=== PATIENT | female | born 1960 | race Two or more races ===

== ENCOUNTER 2020-06-30 13:50 | Outpatient (REF) | payer OTHER, SELFPAY ==
[2020-06-30 17:38] LABS: Thyroid Stimulating Hormone 1.59 mIU/mL (0.32-4.0)
[2020-07-01 11:06] LABS: CT PCR NOT DETECTED (Not Detect.); NG PCR NOT DETECTED (Not Detect.)
[2020-07-01 11:27] LABS: BV Int Neg Control Negative (Negative); BV Int Pos Control Positive (Positive)
[2020-07-02 23:36] LABS: HPV mRNA E6/E7 Not Detected (Not Detected)
== END 2020-06-30 13:51 | disposition home or self-care (01) ==
LOC: HO.LNP 13:50
PROVIDERS: PCP Internal Medicine; Referring Provider Internal Medicine; Visit Provider Advanced Practice Midwife
DX: Z01.419 Encounter for gynecological examination (general) (routine) without abnormal findings (principal); N95.1 Menopausal and female climacteric states; R30.0 Dysuria; Z20.2 Contact with and (suspected) exposure to infections with a predominantly sexual mode of transmission; E04.9 Nontoxic goiter, unspecified
CPT/HCPCS: 36415; 84443; 87480; 87491; 87510; 87591; 87624; 87625; 87660; 88142

== ENCOUNTER 2020-07-09 11:39 | Day surgery (SDC) | payer OTHER, SELFPAY ==
[2020-07-02 14:14] VITALS: BMI 28.3
--- NOTE | 2020-07-03 14:13 | HO.ANESPROP2 ---
HPI - Anesthesia Eval Consult details Narrative: 59yo F for upper endoscopy s/p gastric bypass, abdominal pain PMFSH Past Medical History Medical History (Updated 07/03/20 @ 14:18 by Allie Louise) Anxiety Arthritis Asthma Back pain Depression Diabetes Enlarged thyroid Fatty liver Fibromyalgia Herpes genitalis History of panic attacks Hx of ectopic Hx of irritable bowel syndrome Hypertension Migraine ARISTEO on CPAP Vitamin D deficiency Family History Family History Sister Hx of diabetes mellitus Hx of myocardial infarction Surgical History Surgical History Hx of bariatric surgery Hx of cholecystectomy Hx of unilateral oophorectomy S/P repair of ventral hernia Social History Social History Alcohol intake: never Smoking Status: Former smoker Smoking Quit Date: 2010 Use of substances other than those prescribed or required for medical reasons: No Advance Directives: No Advance Directives Information Provided: Yes Recently lost weight without trying: No Gender identity: female Meds Allergies Allergy/AdvReac Type Severity Reaction Status Date / Time codeine [Codeine] Allergy Intermediate RASH Verified 07/02/20 14:12 VOMTING- APAP W/ CODEINE, vomiting gemfibrozil [GEMFIBROZIL] Allergy Intermediate RASH Verified 07/02/20 14:12 lisinopril [LISINOPRIL] Allergy Intermediate COUGH Verified 07/02/20 14:12 metformin [METFORMIN] Allergy Intermediate DIARRHEA Verified 07/02/20 14:12 morphine [Morphine] Allergy Intermediate HIVES, Verified 07/02/20 14:12 rash, rash JOI Inhibitors Allergy Unknown Unknown Verified 07/02/20 14:12 cephalexin [Keflex] Allergy Unknown rash Verified 07/02/20 14:12 naproxen Allergy Unknown inadequate Verified 07/02/20 14:12 response Home Medications Medication Instructions Recorded Confirmed Type albuterol sulfate 90 mcg/actuation 1 puff INHALATION Q4H PRN 06/30/20 07/02/20 History aerosol inhaler alcohol swabs pad TOPICAL 06/30/20 History aspirin 81 mg tablet,delayed 81 mg PO DAILY 06/30/20 07/02/20 History release barium sulfate 2 % (w/v) oral ml PO DIRECTED 06/30/20 History suspension blood sugar diagnostic #10 ea 06/30/20 History cholecalciferol (vitamin D3) 25 25 mcg PO DAILY 06/30/20 07/02/20 History mcg (1,000 unit) tablet citalopram 40 mg tablet 40 mg PO DAILY 06/30/20 07/02/20 History clonazepam 1 mg tablet 1 mg PO TID PRN 06/30/20 07/02/20 History clotrimazole-betamethasone 1 applic TOPICAL 06/30/20 History %-0.05 % topical cream diphenhydramine HCl 25 mg capsule mg PO 06/30/20 History dulaglutide 0.75 mg/0.5 mL 1.5 mg SUBCUT QWEEK 06/30/20 07/02/20 History subcutaneous pen injector fluticasone propionate 50 1 spray INTRANASAL DAILY 06/30/20 07/02/20 History mcg/actuation nasal spray,suspension furosemide 20 mg tablet 20 mg PO DAILY 06/30/20 History insulin glargine 100 unit/mL (3 70 unit SUBCUT DAILY 06/30/20 07/02/20 History mL) subcutaneous pen insulin lispro 100 unit/mL 30 unit SUBCUT TIDAC 06/30/20 07/02/20 History subcutaneous pen losartan 25 mg tablet 25 mg PO DAILY 06/30/20 07/02/20 History montelukast 10 mg tablet 10 mg PO DAILY 06/30/20 07/02/20 History mupirocin 2 % topical ointment 1 applic TOPICAL TID 06/30/20 07/02/20 History omeprazole 20 mg capsule,delayed 20 mg PO DAILY 06/30/20 07/02/20 History release pen needle, diabetic 31 gauge x #1200 ea 06/30/20 History /16 pen needle, diabetic 32 gauge x #50 ea 06/30/20 History 5/32 simvastatin 20 mg tablet 20 mg PO BEDTIME 06/30/20 07/02/20 History zolpidem 10 mg tablet 10 mg PO BEDTIME PRN 06/30/20 07/02/20 History acetaminophen [Mapap Arthritis 1,300 mg PO Q8H 07/02/20 07/02/20 History Pain] docusate sodium [Stool Softener] 1 cap PO BID PRN 07/02/20 07/02/20 History Exam Exam Date and Time: July 03, 2020 1413 Height,Weight and Vital Signs: Height 5 ft 2 in Weight 70.307 kg Pertinent Lab Results Pertinent Lab Results: Laboratory Tests 03/31/20 17:15 WBC 9.7 Hgb 14.0 Hct 41.2 Plt Count 208 Assessment and Plan Assessment Anesthesia Assessment: Chart Reviewed
[2020-07-09 11:55] VITALS: BP 136/52; PULSE 53; RESP 16; TEMP 36.4; O2SAT 95
[2020-07-09 12:04] LABS: Glucose, Whole Blood 123 mg/dL (60-115)
[2020-07-09] MEDS: Lactated Ringers 1,000 ML 100 ML IVCONT (12:12)
--- NOTE | 2020-07-09 12:34 | MHC.SHP ---
Pre-Procedural Eval Section B Chief Complaint: abdominal pain Relevant Family History (Specify if Yes): No Relevant Social History: None Present Medications: see Short Stay Collaborative assessment Medical History: Significant History (HTN, DM, HLP, asthma,depression,anxiety) History of Previous Operations: Relevant previous surgery/procedure and date(s) (gastric sleeve,cholecystectomy) Allergies: Allergies Allergy/AdvReac Type Severity Reaction Status Date / Time codeine [Codeine] Allergy Intermediate RASH Verified 07/02/20 14:12 VOMTING- APAP W/ CODEINE, vomiting gemfibrozil [GEMFIBROZIL] Allergy Intermediate RASH Verified 07/02/20 14:12 lisinopril [LISINOPRIL] Allergy Intermediate COUGH Verified 07/02/20 14:12 metformin [METFORMIN] Allergy Intermediate DIARRHEA Verified 07/02/20 14:12 morphine [Morphine] Allergy Intermediate HIVES, Verified 07/02/20 14:12 rash, rash JOI Inhibitors Allergy Unknown Unknown Verified 07/02/20 14:12 cephalexin [Keflex] Allergy Unknown rash Verified 07/02/20 14:12 naproxen Allergy Unknown inadequate Verified 07/02/20 14:12 response Review of Systems Sugical H&P ROS: Negative: Constitution, Cardiovascular, Respiratory, Neurological, Psychiatric, Hem-Onc, Allergic/Immunologic, Gastrointestinal, Genitourinary, Musculoskeletal, Integumentary, Endocrine and Eyes/Ears/Nose/Throat Exam Surgical H&P Exam: Normal: HEENT, Normal: Heart, Normal: Lungs, Normal: Extremities, Normal: Abdomen, Normal: Skin and Normal: Neurological Plan Diagnosis/Plan: Unchanged Patient has been examined and remains a candidate for the planned procedure
--- NOTE | 2020-07-09 12:35 | HO.ANESPROP2 ---
[facility] Past Medical History Medical History (Updated 07/03/20 @ 14:18 by Allie Louise) Anxiety Arthritis Asthma Back pain Depression Diabetes Enlarged thyroid Fatty liver Fibromyalgia Herpes genitalis History of panic attacks Hx of ectopic Hx of irritable bowel syndrome Hypertension Migraine ARISTEO on CPAP Vitamin D deficiency Family History Family History Sister Hx of diabetes mellitus Hx of myocardial infarction Surgical History Surgical History Hx of bariatric surgery Hx of cholecystectomy Hx of unilateral oophorectomy S/P repair of ventral hernia Social History Social History Alcohol intake: never Smoking Status: Former smoker Smoking Quit Date: 2010 Use of substances other than those prescribed or required for medical reasons: No Advance Directives: No Advance Directives Information Provided: Yes Recently lost weight without trying: No Gender identity: female Meds Allergies Allergy/AdvReac Type Severity Reaction Status Date / Time codeine [Codeine] Allergy Intermediate RASH Verified 07/02/20 14:12 VOMTING- APAP W/ CODEINE, vomiting gemfibrozil [GEMFIBROZIL] Allergy Intermediate RASH Verified 07/02/20 14:12 lisinopril [LISINOPRIL] Allergy Intermediate COUGH Verified 07/02/20 14:12 metformin [METFORMIN] Allergy Intermediate DIARRHEA Verified 07/02/20 14:12 morphine [Morphine] Allergy Intermediate HIVES, Verified 07/02/20 14:12 rash, rash JOI Inhibitors Allergy Unknown Unknown Verified 07/02/20 14:12 cephalexin [Keflex] Allergy Unknown rash Verified 07/02/20 14:12 naproxen Allergy Unknown inadequate Verified 07/02/20 14:12 response Home Medications Medication Instructions Recorded Confirmed Type albuterol sulfate 90 mcg/actuation 1 puff INHALATION Q4H PRN 06/30/20 07/02/20 History aerosol inhaler alcohol swabs pad TOPICAL 06/30/20 History aspirin 81 mg tablet,delayed 81 mg PO DAILY 06/30/20 07/02/20 History release barium sulfate 2 % (w/v) oral ml PO DIRECTED 06/30/20 History suspension blood sugar diagnostic #10 ea 06/30/20 History cholecalciferol (vitamin D3) 25 25 mcg PO DAILY 06/30/20 07/02/20 History mcg (1,000 unit) tablet citalopram 40 mg tablet 40 mg PO DAILY 06/30/20 07/02/20 History clonazepam 1 mg tablet 1 mg PO TID PRN 06/30/20 07/02/20 History clotrimazole-betamethasone 1 applic TOPICAL 06/30/20 History %-0.05 % topical cream diphenhydramine HCl 25 mg capsule mg PO 06/30/20 History dulaglutide 0.75 mg/0.5 mL 1.5 mg SUBCUT QWEEK 06/30/20 07/02/20 History subcutaneous pen injector fluticasone propionate 50 1 spray INTRANASAL DAILY 06/30/20 07/02/20 History mcg/actuation nasal spray,suspension furosemide 20 mg tablet 20 mg PO DAILY 06/30/20 History insulin glargine 100 unit/mL (3 70 unit SUBCUT DAILY 06/30/20 07/02/20 History mL) subcutaneous pen insulin lispro 100 unit/mL 30 unit SUBCUT TIDAC 06/30/20 07/02/20 History subcutaneous pen losartan 25 mg tablet 25 mg PO DAILY 06/30/20 07/02/20 History montelukast 10 mg tablet 10 mg PO DAILY 06/30/20 07/02/20 History mupirocin 2 % topical ointment 1 applic TOPICAL TID 06/30/20 07/02/20 History omeprazole 20 mg capsule,delayed 20 mg PO DAILY 06/30/20 07/02/20 History release pen needle, diabetic 31 gauge x #1200 ea 06/30/20 History 5/16 pen needle, diabetic 32 gauge x #50 ea 06/30/20 History 5/32 simvastatin 20 mg tablet 20 mg PO BEDTIME 06/30/20 07/02/20 History zolpidem 10 mg tablet 10 mg PO BEDTIME PRN 06/30/20 07/02/20 History acetaminophen [Mapap Arthritis 1,300 mg PO Q8H 07/02/20 07/02/20 History Pain] docusate sodium [Stool Softener] 1 cap PO BID PRN 07/02/20 07/02/20 History Exam Exam Date and Time: July 09, 2020 1235 Height,Weight and Vital Signs: Height 5 ft 2 in Weight 70.307 kg Last Vital Signs Temp 97.6 F 07/09/20 11:55 Pulse 53 07/09/20 11:55 Resp 16 07/09/20 11:55 BP 136/52 L 07/09/20 11:55 Pulse Ox 95 07/09/20 11:55 Pertinent Lab Results Pertinent Lab Results: Laboratory Tests 07/09/20 12:01 POC Glucose 123 H Airway Mallampati Class: II TM Dist: >3cm Neck ROM: Full Heart: RRR Assessment and Plan Assessment Anesthesia Assessment: Anesthesia Plan Discussed Final Anesthetic Review NPO: Yes ASA Class: III Anesthetic Plan Anesthetic Plan: MAC:
--- NOTE | 2020-07-09 13:02 | PM.OP ---
Brief Operative Note Date of procedure: 07/09/20 Pre-op diagnosis: LUQ pain Post-op diagnosis: same Procedure: Procedure Description: EGD FLEXIBLE TRANSORAL UPPER GASTROINTESTINAL ENDOSCOPY UPPER ENDOSCOPY Consent: Indications for the procedure and potential complications of bleeding, perforation, reaction to medications and missed diagnosis were discussed with the patient and informed consent was obtained. Instrument: Olympus GIF H 190 J mid size upper endoscope Monitoring: Vital signs and clinical assessment, continuous EKG monitoring, Pulse oximetry, Carbon Dioxide monitoring and blood pressure monitoring were done throughout the procedure. Procedure: The patient was placed in the left lateral decubitis position and pre-procedure medications were administered and a bite block was placed. The endoscope was inserted into the mouth and advanced under direct vision to the third part of duodenum. A careful inspection was made as the upper endoscope was withdrawn including a retroflexed examination of the proximal stomach; Findings and interventions are described below. Findings: Larynx:normal Esophagus: GE junction at 38 cm, diaphragm hiatus at 38 cm, no varices or esophagitis. Stomach: streaky gastric erythema. Biopsies were obtained. Grade 2 flap valve on retroflexed examination of the cardia. Note made of sleeve gastrectomy, fundic gland appearing polyps noted which were biopsied Duodenum: Normal bulb and descending duodenum, bx taken Intervention: Biopsies as noted above Impression/Findings: suspected fundic gland polyps gastritis PLAN: await bx results, if h pylori pos then treat otherwise optimize acid control, can use high dose PPi e.g pantoprazole with carafate, stop omeprazole consider GES if sx persist Surgeon: Ladi Edwards MD Anesthesia: MAC Condition: stable Disposition: PACU
[2020-07-09 13:08] VITALS: BP 137/66; PULSE 64; RESP 14; TEMP 35.7; O2SAT 96
[2020-07-09 13:23] VITALS: BP 137/75; PULSE 67; RESP 18; O2SAT 95
--- NOTE | 2020-07-09 13:52 | HO.POSTANES ---
Post Anesthesia Evaluation Post Anesthesia Evaluation Vital Signs: Vital Signs Temp Pulse Resp BP Pulse Ox 07/09/20 13:23 67 18 137/75 95 07/09/20 13:08 96.2 F L 64 14 137/66 96 07/09/20 11:55 97.6 F 53 16 136/52 L 95 Anesthesia: Monitored and General Mental Status: Awake Pain Control: Satisfactory Nausea/Vomiting: None Hydration: Adequate Anesthesia-Related Issues: No Anes. Related Issues
== END 2020-07-09 13:40 | disposition home or self-care (01) ==
PROVIDERS: PCP Internal Medicine; Visit Provider Internal Medicine Gastroenterology
PROC: 0DJ08ZZ Inspection of Upper Intestinal Tract, Via Natural or Artificial Opening Endoscopic (ICD-10-PCS; CPT 43235; principal; 2020-07-09 13:00)
DX: K29.50 Unspecified chronic gastritis without bleeding (principal); B96.81 Helicobacter pylori [H. pylori] as the cause of diseases classified elsewhere; K31.7 Polyp of stomach and duodenum; K44.9 Diaphragmatic hernia without obstruction or gangrene; I10 Essential (primary) hypertension; E11.9 Type 2 diabetes mellitus without complications; E78.5 Hyperlipidemia, unspecified; F41.8 Other specified anxiety disorders; Z79.4 Long term (current) use of insulin; Z79.82 Long term (current) use of aspirin; Z79.899 Other long term (current) drug therapy; Z98.84 Bariatric surgery status; Z90.49 Acquired absence of other specified parts of digestive tract; Z88.8 Allergy status to other drugs, medicaments and biological substances; Z87.891 Personal history of nicotine dependence
CPT/HCPCS: 43239; 82947; 88305; 88342

== ENCOUNTER → 2020-07-23 12:58 | Outpatient (BNVA) | payer OTHER, SELFPAY | PROVIDERS: Visit Provider Physician Assistant | DX: A04.8 Other specified bacterial intestinal infections (principal); K21.9 Gastro-esophageal reflux disease without esophagitis; Z79.899 Other long term (current) drug therapy; Z98.890 Other specified postprocedural states | CPT/HCPCS: 99212 ==

== ENCOUNTER → 2020-08-20 09:05 | Outpatient (BNVA) | payer OTHER, SELFPAY | PROVIDERS: Visit Provider Physician Assistant | DX: Z76.89 Persons encountering health services in other specified circumstances (principal) ==

== ENCOUNTER 2020-08-26 10:22 | Outpatient (REF) | payer OTHER, SELFPAY ==
[2020-08-26 11:19] LABS: Hematocrit 44.2 % (37-47); Hemoglobin 15.1 g/dl (12.0-16.0); Mean Corpuscular HGB Conc 34.2 g/dl (31.0-35.0); Mean Corpuscular Hemoglobin 31.8 pg (27.0-33.0); Mean Corpuscular Volume 93.1 fL (80-98); Mean Platelet Volume 10.4 fL (9.4-12.3); Platelet Count 233 X10*3/uL (160-400); Red Blood Count 4.75 X10*6/uL (4.20-5.50); Red Cell Distribution Width 12.7 % (11.0-16.0); White Blood Count 8.8 X10*3/uL (4.8-10.8)
[2020-08-26 11:59] LABS: Alanine Aminotransferase 26 U/L (0-31); Alkaline Phosphatase 77 U/L (39-117); Anion Gap 14 (12-20); Aspartate Amino Transferase 23 U/L (5-31); Bilirubin Direct 0.2 mg/dL (0.0-0.5); Bilirubin Total 0.6 mg/dL (0.0-1.0); Blood Urea Nitrogen 8 mg/dL (9-16); Calcium 9.1 mg/dL (8.4-10.2); Carbon Dioxide 27 mmol/L (22-29); Chloride 103 mmol/L (96-108); Cholesterol 185 mg/dL; Estimated Glomerular Filt Rate > 60; Glucose Random 108 mg/dL (60-115); HDL Cholesterol 57 mg/dL; LDL Cholesterol Calculated 97 mg/dl; Potassium 3.8 mmol/l (3.3-5.1); Sodium 140 mmol/L (135-145); Total Protein 7.3 g/dL (6.5-8.0); Triglycerides 156 mg/dL
[2020-08-26 12:02] LABS: Estimated Average Glucose 186 mg/dL; Hemoglobin A1c % 8.1 %
[2020-08-27 07:57] LABS: HBS Num1 284.57 mIU/mL (0-7.99); HBc Num1 0.07 S/CO (0.00-0.79); HBsAGNum1 0.17 S/CO (0.00-0.99); HIV AB/AG Nonreactive (Nonreactive); HIV Num 1 0.22 S/CO (0.00-0.99); Hepatitis B Core Antibody Nonreactive (Nonreactive); Hepatitis B Surface Antigen Negative (Negative); ~HepC Num1 0.21 S/CO (0.00-0.79); ~Hepatitis B Surface Antibody REACTIVE (Nonreactive); ~Hepatitis C Antibody Nonreactive (Nonreactive)
[2020-08-27 08:57] LABS: Syphilis Screen Reactive (Nonreactive)
[2020-09-01 14:57] LABS: CT PCR NOT DETECTED (Not Detect.); NG PCR NOT DETECTED (Not Detect.)
[2020-09-12 13:04] LABS: T.Pallidum Particle Agg Test Reactive (Nonreactive)
== END 2020-08-26 10:23 | disposition home or self-care (01) ==
LOC: HO.LAB 10:22
PROVIDERS: Absent Provider Advanced Practice Midwife; PCP Internal Medicine; Referring Provider Physician Assistant; Visit Provider Internal Medicine
DX: Z20.2 Contact with and (suspected) exposure to infections with a predominantly sexual mode of transmission (principal); R30.0 Dysuria; N95.1 Menopausal and female climacteric states; E11.9 Type 2 diabetes mellitus without complications; A04.8 Other specified bacterial intestinal infections
CPT/HCPCS: 36415; 80048; 80061; 80076; 83036; 85027; 86592; 86704; 86706; 86780; 86803; 87086; 87338; 87340; 87389; 87491; 87591

== ENCOUNTER 2020-08-27 15:03 | Outpatient (REF) | payer OTHER, SELFPAY ==
[2020-11-26 11:46] LABS: HCV Log PCR <1.18 NOT DETECTED; HepC Viral Load <15 NOT DETECTED
== END 2020-08-27 15:04 | disposition home or self-care (01) ==
LOC: HO.LAB 15:03
PROVIDERS: Visit Provider Nurse Practitioner Family
DX: Z20.5 Contact with and (suspected) exposure to viral hepatitis (principal); Z23 Encounter for immunization
CPT/HCPCS: 36415; 87522

== ENCOUNTER → 2020-09-30 13:28 | Outpatient (BNVA) | payer OTHER, SELFPAY | PROVIDERS: PCP Internal Medicine; Referring Provider Internal Medicine; Visit Provider Physician Assistant | DX: Z13.89 Encounter for screening for other disorder (principal) | CPT/HCPCS: 99212 ==

== ENCOUNTER 2020-10-15 09:31 | Outpatient (REF) | payer OTHER, SELFPAY ==
--- NOTE | 2020-10-15 09:35 | US_ITS ---
EXAMINATION: US ABDOMEN COMPLETE CLINICAL INFORMATION: Abdominal pain. COMPARISON: Previous CT of the abdomen and pelvis most recent June 2019 TECHNIQUE: Real-time imaging of the abdominal viscera. FINDINGS: PANCREAS: Normal. ABDOMINAL AORTA: The proximal, mid, and distal segments are normal in caliber. INFERIOR VENA CAVA: Visualized portions are normal. LIVER: Liver echotexture is increased probably representing fatty infiltration. The liver is normal in size. The liver contour is normal. No focal hepatic lesion. There is no intrahepatic biliary duct dilatation seen. GALLBLADDER: Post cholecystectomy. COMMON BILE DUCT: Normal in caliber measuring 0.7 cm in diameter. There is a 2 x 4 mm echogenic focus with twinkle artifact seen in the common bile duct questionable for small stones or sludge. RIGHT KIDNEY: Normal. No hydronephrosis. No renal calculi or focal parenchymal lesions. The kidney measures 11.5 cm in maximum dimension. LEFT KIDNEY: Normal. No hydronephrosis. No renal calculi or focal parenchymal lesions. The kidney measures 10 cm in maximum dimension. SPLEEN: Normal. The spleen measures 9.2 cm in maximum dimension. FREE FLUID: None. US/US abdomen complete IMPRESSION: Echogenic liver probably representing fatty infiltration. Postcholecystectomy. The common bile duct is upper normal in size. 4 x 2 mm echogenic density in the common bile duct questionable for small stone or sludge. This could be better evaluated with MRCP if clinically indicated.
== END 2020-10-15 09:32 | disposition home or self-care (01) ==
LOC: HO.US 09:31
PROVIDERS: Visit Provider Physician Assistant
DX: R10.9 Unspecified abdominal pain (principal)
CPT/HCPCS: 76700

== ENCOUNTER 2020-10-15 10:40 | Outpatient (REF) | payer OTHER, SELFPAY | END 2020-10-15 10:41 | disposition home or self-care (01) | LOC: HO.LAB 10:40 | PROVIDERS: PCP Internal Medicine; Visit Provider Internal Medicine | DX: Z20.822 Contact with and (suspected) exposure to COVID-19 (principal) | CPT/HCPCS: 36415; C9803; U0003 ==

== ENCOUNTER → 2020-10-27 11:49 | Outpatient (BNVA) | payer OTHER, SELFPAY | PROVIDERS: Visit Provider Advanced Practice Midwife ==

== ENCOUNTER → 2020-10-29 12:42 | Outpatient (BNVA) | payer OTHER, SELFPAY | PROVIDERS: PCP Internal Medicine; Visit Provider Physician Assistant ==

== ENCOUNTER 2020-11-11 08:35 | Outpatient (REF) | payer OTHER, SELFPAY ==
--- NOTE | ~2020-11-11 | MR_ITS ---
EXAMINATION: MR ABDOMEN WITHOUT CONTRAST CLINICAL INFORMATION: Unspecified abdominal pain. Question small stone or sludge COMPARISON: Ultrasound 10/15/2020 TECHNIQUE: MR abdomen is performed without gadolinium contrast. Heavily T2-weighted MRCP images were obtained. FINDINGS: LUNG BASES: The visualized lung bases are unremarkable. LIVER, GALLBLADDER, AND BILIARY TREE: There is diffuse loss of signal on opposed phase gradient echo T1-weighted images consistent with diffuse hepatic steatosis. There are a few scattered T2 bright likely hepatic cysts. Lack of intravenous contrast limits further evaluation gallbladder surgically absent. Common bile duct normal in caliber, at most 5 mm in diameter. No filling defect to suggest choledocholithiasis. PANCREAS: Limited noncontrast evaluation is normal. SPLEEN: Unremarkable. ADRENAL GLANDS: No adrenal mass. KIDNEYS AND URETERS: The kidneys are normal in size and shape. No hydronephrosis. No perinephric stranding. GASTROINTESTINAL TRACT: No bowel obstruction. No ascites or fluid collection. ABDOMINAL WALL: No significant hernia is appreciated. LYMPH NODES: No lymphadenopathy. VASCULAR: Unremarkable. OSSEOUS STRUCTURES: Marrow signal normal. MR/MR MRCP IMPRESSION: No biliary ductal dilatation, status post cholecystectomy. Common bile duct normal in caliber, at most 5 mm in diameter. No filling defects to suggest choledocholithiasis. Severe diffuse hepatic steatosis.
== END 2020-11-11 08:36 | disposition home or self-care (01) ==
LOC: HO.MRI 08:35
PROVIDERS: Visit Provider Physician Assistant
DX: R10.9 Unspecified abdominal pain (principal)
CPT/HCPCS: 74181

== ENCOUNTER 2020-11-20 13:30 | Outpatient (REF) | payer OTHER, SELFPAY ==
--- NOTE | ~2020-11-20 | MM_ITS ---
EXAMINATION: MM DIAGNOSTIC DIGITAL BREAST TOMOSYNTHESIS, BILATERAL CLINICAL INFORMATION: Due for yearly. Also follow-up probable benign nodule 6:00 right breast. No known family history breast cancer. The lifetime risk of breast cancer based on the Tyrer-Cuzick Model is 5%. COMPARISON: Mammography: 07/16/2019, 01/11/2019, 07/11/2018, 06/21/2018 (BI-RADS 0), 05/25/2017 and 05/13/2016. Targeted right breast ultrasound 07/11/2018. TECHNIQUE: Digital breast tomosynthesis is performed in both the craniocaudal and mediolateral oblique views along with computer-aided detection (CAD). Synthesized 2D images are generated from the tomosynthesis. FINDINGS: There are scattered areas of fibroglandular density (ACR BI-RADS breast composition Category b). Parenchymal pattern is similar to prior studies. The oval nodular asymmetry mid to posterior 6:00 right breast is stable from prior diagnostic studies and in retrospect likely stable from more remote mammography 2016 and 2015. It is now considered benign. The remainder of the breasts show no significant mass or architectural abnormality or abnormal calcifications. There is mild chronic right nipple retraction limited to CC view. The axilla are unremarkable. No skin thickening or focal skin retraction. Results are provided to the patient at time of visit by the technologist. MM/MM tomosynthesis diagnostic BI IMPRESSION: 1. No significant changes from prior studies. 2. Benign-appearing nodule 6:00 right breast stable and now considered benign. ASSESSMENT: BI-RADS 2: Benign RECOMMENDATION: Routine annual mammography screening. This patient's information was entered into a reminder system with a target due date for their next mammogram.
== END 2020-11-20 13:31 | disposition home or self-care (01) ==
LOC: HO.MAMMO 13:30
PROVIDERS: PCP Internal Medicine; Visit Provider Internal Medicine
DX: N63.15 Unspecified lump in the right breast, overlapping quadrants (principal)
CPT/HCPCS: 77062; 77066

== ENCOUNTER → 2020-12-17 08:33 | Outpatient (BNVA) | payer OTHER, SELFPAY | PROVIDERS: PCP Internal Medicine; Visit Provider Physician Assistant ==

== ENCOUNTER → 2021-03-24 12:09 | Outpatient (BNVA) | payer OTHER, SELFPAY | PROVIDERS: PCP Internal Medicine; Visit Provider Nurse Practitioner Gerontology | DX: E11.65 Type 2 diabetes mellitus with hyperglycemia (principal); E66.09 Other obesity due to excess calories; E78.00 Pure hypercholesterolemia, unspecified; I10 Essential (primary) hypertension; Z79.4 Long term (current) use of insulin | CPT/HCPCS: 82947; 99212 ==

== ENCOUNTER 2021-03-25 12:29 | Outpatient (REF) | payer OTHER, SELFPAY ==
[2021-03-26 08:22] LABS: BV Int Neg Control Negative (Negative); BV Int Pos Control Positive (Positive)
[2021-03-26 08:28] LABS: CT PCR NOT DETECTED (Not Detect.); NG PCR NOT DETECTED (Not Detect.)
== END 2021-03-25 12:30 | disposition home or self-care (01) ==
LOC: HO.LAB 12:29
PROVIDERS: Advanced Practice Midwife; Visit Provider Internal Medicine
DX: Z11.3 Encounter for screening for infections with a predominantly sexual mode of transmission (principal); Z20.822 Contact with and (suspected) exposure to COVID-19; N89.8 Other specified noninflammatory disorders of vagina; N94.10 Unspecified dyspareunia; Z20.2 Contact with and (suspected) exposure to infections with a predominantly sexual mode of transmission
CPT/HCPCS: 87480; 87491; 87510; 87591; 87660; 99212; C9803; U0003; U0005

== ENCOUNTER → 2021-04-09 11:24 | Outpatient (BNVA) | payer OTHER, SELFPAY | PROVIDERS: PCP Internal Medicine; Visit Provider Physician Assistant ==

== ENCOUNTER 2021-04-13 11:30 | Outpatient (REF) | payer OTHER, SELFPAY ==
[2021-04-13 12:16] LABS: MANUAL DIFF FLAG NO
[2021-04-13 12:25] LABS: Basophils Percent Auto 0.4 % (0-2); Eosinophils Absolute Auto 0.1 X10*3/uL (0.0-0.4); Eosinophils Percent Auto 1.5 % (0-4); Hematocrit 45.2 % (37-47); Hemoglobin 14.9 g/dl (12.0-16.0); Imm Gran Abs Auto 0.02 X10*3/uL (0.00-0.03); Imm Gran Pct Auto 0.3 % (0.0-0.4); Lymphocytes Percent Auto 39.6 % (20-40); Mean Corpuscular Hemoglobin 30.2 pg (27.0-33.0); Mean Corpuscular Volume 91.7 fL (80-98); Mean Platelet Volume 10.5 fL (9.4-12.3); Monocytes Absolute Auto 0.6 X10*3/uL (0.1-1.2); Monocytes Percent Auto 7.5 % (2-11); Neutrophils Absolute Auto 3.8 X10*3/uL (2.0-8.3); Neutrophils Percent Auto 50.7 % (45-73); Platelet Count 232 X10*3/uL (160-400); Red Blood Count 4.93 X10*6/uL (4.20-5.50); Red Cell Distribution Width 12.7 % (11.0-16.0); White Blood Count 7.5 X10*3/uL (4.8-10.8)
[2021-04-13 12:43] LABS: Alanine Aminotransferase 21 U/L (0-31); Alkaline Phosphatase 72 U/L (39-117); Anion Gap 14 (12-20); Aspartate Amino Transferase 29 U/L (5-31); Bilirubin Direct 0.2 mg/dL (0.0-0.5); Bilirubin Total 0.5 mg/dL (0.0-1.0); Blood Urea Nitrogen 7 mg/dL (9-16); Calcium 9.4 mg/dL (8.4-10.2); Carbon Dioxide 26 mmol/L (22-29); Chloride 104 mmol/L (96-108); Estimated Glomerular Filt Rate > 60; Glucose Random 165 mg/dL (60-115); Potassium 4.2 mmol/L (3.3-5.1); Sodium 140 mmol/L (135-145); Total Protein 7.4 g/dL (6.5-8.0)
[2021-04-17 19:32] LABS: FIB-ALT 21 U/L (6-29); FIB-Alpha-2-Macroglobulin 330 mg/dL (106-279); FIB-Apolipoprotein A1 156 mg/dL (101-198); FIB-GGT 109 U/L (3-65); FIB-Haptoglobin 144 mg/dL (43-212); FIB-Total Bilirubin 0.4 mg/dL (0.2-1.2); Liver Fibrosis Score 0.49; Liver Fibrosis Stage F2; Nec Inflam Act Grade A0; Nec Inflam Act Score 0.11
== END 2021-04-13 11:31 | disposition home or self-care (01) ==
LOC: HO.LAB 11:30
PROVIDERS: PCP Internal Medicine; Visit Provider Physician Assistant
DX: K62.5 Hemorrhage of anus and rectum (principal); R10.11 Right upper quadrant pain; B19.20 Unspecified viral hepatitis C without hepatic coma
CPT/HCPCS: 36415; 80053; 80076; 81596; 82248; 85025

== ENCOUNTER → 2021-05-27 14:06 | Outpatient (BNVA) | payer OTHER, SELFPAY | PROVIDERS: PCP Internal Medicine; Visit Provider Physician Assistant ==

== ENCOUNTER → 2021-07-13 12:30 | Outpatient (BNVA) | payer OTHER, SELFPAY | PROVIDERS: PCP Internal Medicine; Visit Provider Nurse Practitioner Gerontology | DX: E11.65 Type 2 diabetes mellitus with hyperglycemia (principal); E78.00 Pure hypercholesterolemia, unspecified; E66.3 Overweight; I10 Essential (primary) hypertension; Z79.4 Long term (current) use of insulin | CPT/HCPCS: 82947; 99212 ==

== ENCOUNTER 2021-07-17 12:34 | Outpatient (REF) | payer OTHER, SELFPAY ==
[2021-07-17 12:47] LABS: MANUAL DIFF FLAG NO
[2021-07-17 12:53] LABS: Basophils Absolute Auto 0.1 X10*3/uL (0.0-0.2); Basophils Percent Auto 0.8 % (0-2); Eosinophils Absolute Auto 0.1 X10*3/uL (0.0-0.4); Eosinophils Percent Auto 1.8 % (0-4); Hemoglobin 14.4 g/dl (12.0-16.0); Imm Gran Abs Auto 0.01 X10*3/uL (0.00-0.03); Imm Gran Pct Auto 0.1 % (0.0-0.4); Lymphocytes Absolute Auto 2.8 X10*3/uL (1.2-4.9); Mean Corpuscular HGB Conc 33.5 g/dl (31.0-35.0); Mean Corpuscular Hemoglobin 30.2 pg (27.0-33.0); Mean Corpuscular Volume 90.1 fL (80-98); Mean Platelet Volume 10.3 fL (9.4-12.3); Monocytes Absolute Auto 0.7 X10*3/uL (0.1-1.2); Monocytes Percent Auto 8.2 % (2-11); Neutrophils Absolute Auto 4.3 X10*3/uL (2.0-8.3); Neutrophils Percent Auto 54.1 % (45-73); Platelet Count 223 X10*3/uL (160-400); Red Blood Count 4.77 X10*6/uL (4.20-5.50); Red Cell Distribution Width 12.7 % (11.0-16.0); White Blood Count 7.9 X10*3/uL (4.8-10.8)
[2021-07-17 13:24] LABS: Alanine Aminotransferase 28 U/L (0-31); Albumin Level 4.2 g/dL (3.5-5.0); Alkaline Phosphatase 75 U/L (39-117); Anion Gap 14 (12-20); Aspartate Amino Transferase 38 U/L (5-31); Bilirubin Total 0.6 mg/dL (0.0-1.0); Blood Urea Nitrogen 7 mg/dL (9-16); Calcium 9.5 mg/dL (8.4-10.2); Carbon Dioxide 27 mmol/L (22-29); Chloride 104 mmol/L (96-108); Cholesterol 172 mg/dL; Estimated Glomerular Filt Rate > 60; Glucose Random 133 mg/dL (60-115); HDL Cholesterol 45 mg/dL; LDL Cholesterol Calculated 94 mg/dl; Sodium 141 mmol/L (135-145); Total Protein 7.3 g/dL (6.5-8.0); Triglycerides 166 mg/dL
[2021-07-17 13:44] LABS: Erythrocyte Sedimentation Rate 7 MM/HR (0-20)
[2021-07-17 13:45] LABS: Free T4 (Free Thyroxine) 0.82 ng/dL (0.71-1.85); Vitamin D 25-OH Total 40.7 ng/mL (>30)
[2021-07-17 13:53] LABS: Appearance Urine CLEAR; Color Urine STRAW; Glucose Urine UA NEG (NEG); Leukocyte Esterase Urine 1+ (NEG); Nitrite Urine NEG (NEG); UACC Culture Trigger YES; Urine Blood TRACE (NEG); Urine Ketones NEG (NEG); Urine Protein NEG (NEG-TRACE)
[2021-07-17 14:08] LABS: Squamous Epithelial Cell Urine TRACE /LPF
[2021-07-17 14:08] LABS: Vitamin B12 569 pg/mL (200-900)
[2021-07-17 14:09] LABS: RBC Urine 0-2 /HPF (0)
[2021-07-17 14:11] LABS: Creatinine Urine 15.07 mg/dL; Microalbumin Urine < 5.0 mg/L
== END 2021-07-17 12:35 | disposition home or self-care (01) ==
LOC: HO.LAB 12:34
PROVIDERS: PCP Internal Medicine; Visit Provider Internal Medicine
DX: E11.65 Type 2 diabetes mellitus with hyperglycemia (principal); E78.00 Pure hypercholesterolemia, unspecified; Z79.4 Long term (current) use of insulin
CPT/HCPCS: 36415; 80053; 80061; 81001; 82043; 82306; 82607; 82746; 84439; 84443; 85025; 85652; 87086

== ENCOUNTER 2021-08-03 10:27 | Day surgery (SDC) | payer OTHER, SELFPAY ==
[2021-07-01 09:50] VITALS: BMI 29.8
--- NOTE | 2021-07-03 10:48 | HO.ANESPROP2 ---
HPI - Anesthesia Eval Consult details Narrative: 60yo F for?Colonoscopy Multiple Med Allergies PMFSH Active Problems Active Problems: All Active Problems (Updated 07/01/21 @ 09:54 by Parisa Ambrose, DARRELL) H. pylori infection (Acute) Vaginal chiki (Acute) Breast density (Acute) Right upper quadrant pain (Acute) Tubular adenoma of colon (Acute) Obesity (BMI 30-39.9) (Acute) Candidal intertrigo (Acute) NAFLD (nonalcoholic fatty liver disease) (Acute) Problematic vaginal discharge (Acute) Dyspareunia in female (Acute) Potential exposure to STD (Acute) Low back pain (Acute) Lumbar degenerative disc disease (Acute) Abdominal pain (Acute) Obesity due to excess calories (Acute) GERD (gastroesophageal reflux disease) (Acute) Hypercholesterolemia (Acute) Type 2 diabetes mellitus with hyperglycemia (Acute) Anxiety and depression (Acute) Intertrigo (Acute) Essential hypertension (Acute) Past Medical History Medical History (Updated 07/01/21 @ 09:54 by Parisa Ambrose RN) Abdominal pain Anxiety and depression Arthritis Asthma COVID-19 vaccine series completed Enlarged thyroid Essential hypertension Fatty liver Fibromyalgia Gallbladder polyp GERD (gastroesophageal reflux disease) Herpes genitalis History of panic attacks Hx of ectopic Hx of irritable bowel syndrome Hypercholesterolemia Hypertension Insomnia Intertrigo Migraine Obesity due to excess calories ARISTEO on CPAP Osteopenia Type 2 diabetes mellitus with hyperglycemia Vitamin D deficiency Family History Family History Sister Hx of diabetes mellitus Hx of myocardial infarction Surgical History Surgical History (Updated 07/01/21 @ 09:40 by Parisa Ambrose RN) H/O colonoscopy History of esophagogastroduodenoscopy (EGD) Hx of bariatric surgery Hx of cholecystectomy Hx of unilateral oophorectomy S/P repair of ventral hernia Social History Social History Household Members: None Housing: Apartment Alcohol intake: current Alcohol intake frequency: does not drink Patient Tobacco Use Status: Former Tobacco user Tobacco use type: Cigarette Cigarette Packs Per Day: 2 Years Smoked: 20 e-Cigarette/Vaping Use: Never Used Second Hand Smoke Exposure: No Current occupational status: disabled Gender identity: Female Meds Allergies Allergy/AdvReac Type Severity Reaction Status Date / Time JOI Inhibitors Allergy Intermediate Cough Verified 07/01/21 09:35 cephalexin [Keflex] Allergy Intermediate rash Verified 07/01/21 09:35 codeine [Codeine] Allergy Intermediate RASH Verified 06/25/21 15:03 VOMTING- APAP W/ CODEINE, vomiting gemfibrozil [GEMFIBROZIL] Allergy Intermediate RASH Verified 06/25/21 15:03 metformin [METFORMIN] Allergy Intermediate DIARRHEA Verified 06/25/21 15:03 morphine [Morphine] Allergy Intermediate HIVES, Verified 06/25/21 15:03 rash, rash naproxen Allergy Intermediate inadequate Verified 07/01/21 09:35 response Home Medications Medication Instructions Recorded Confirmed Last Taken Type mupirocin 2 % topical ointment 1 applic TOPICAL TID 06/30/20 05/27/21 Unknown History clonazepam 0.5 mg tablet 0.5 mg PO DAILY PRN 11/21/20 07/01/21 Unknown History pen needle, diabetic 32 gauge x #50 ea 11/21/20 05/27/21 Unknown History Exam Exam Date and Time: July 03, 2021 1048 Height,Weight and Vital Signs: Height 5 ft 2 in Weight 73.936 kg Pertinent Lab Results Pertinent Lab Results: Laboratory Tests 04/13/21 04/13/21 11:44 11:44 WBC 7.5 Hgb 14.9 Hct 45.2 Plt Count 232 Sodium 140 Potassium 4.2 Chloride 104 Carbon Dioxide 26 BUN 7 L Creatinine 0.81 Assessment and Plan Assessment Anesthesia Assessment: Chart Reviewed
--- NOTE | 2021-07-07 08:02 | PC.NURSE ---
Patient cancelled, will call office to reschedule
--- NOTE | 2021-07-30 14:54 | P.CONAN_ITS ---
Documented by User: Allie Louise NP 07/30/21 14:56 HPI - Anesthesia Eval Consult details Narrative: 60yo F for Colonoscopy Multiple med allergies PMFSH Active Problems Active Problems: All Active Problems (Updated 07/13/21 @ 17:11 by Jennifer Kaye [facility]-) Overweight (Acute) H. pylori infection (Acute) Vaginal chiki (Acute) Breast density (Acute) Right upper quadrant pain (Acute) Tubular adenoma of colon (Acute) Obesity (BMI 30-39.9) (Acute) Candidal intertrigo (Acute) NAFLD (nonalcoholic fatty liver disease) (Acute) Problematic vaginal discharge (Acute) Dyspareunia in female (Acute) Potential exposure to STD (Acute) Low back pain (Acute) Lumbar degenerative disc disease (Acute) Abdominal pain (Acute) GERD (gastroesophageal reflux disease) (Acute) Hypercholesterolemia (Acute) Type 2 diabetes mellitus with hyperglycemia (Acute) Anxiety and depression (Acute) Intertrigo (Acute) Essential hypertension (Acute) Past Medical History Medical History Abdominal pain Anxiety and depression Arthritis Asthma COVID-19 vaccine series completed Enlarged thyroid Essential hypertension Fatty liver Fibromyalgia Gallbladder polyp GERD (gastroesophageal reflux disease) Herpes genitalis History of panic attacks Hx of ectopic Hx of irritable bowel syndrome Hypercholesterolemia Hypertension Insomnia Intertrigo Migraine ARISTEO on CPAP Osteopenia Overweight Type 2 diabetes mellitus with hyperglycemia Vitamin D deficiency Family History Family History Sister Hx of diabetes mellitus Hx of myocardial infarction Surgical History Surgical History H/O colonoscopy History of esophagogastroduodenoscopy (EGD) Hx of bariatric surgery Hx of cholecystectomy Hx of unilateral oophorectomy S/P repair of ventral hernia Social History Social History (Updated 07/13/21 @ 12:40 by CHASE Perales) Household Members: None Housing: Apartment Alcohol intake: current Alcohol intake frequency: does not drink Patient Tobacco Use Status: Former Tobacco user Tobacco use type: Cigarette Cigarette Packs Per Day: 2 Years Smoked: 20 e-Cigarette/Vaping Use: Never Used Second Hand Smoke Exposure: No Use of substances other than those prescribed or required for medical reasons: No Are you DNR?: No Advance Directives Information Provided: Yes (informational brochure mailed) Advance Directives on File: No Recently lost weight without trying: No Nutrition Risks: No Nutritional Risk Current occupational status: disabled Gender identity: Female Meds Allergies Allergy/AdvReac Type Severity Reaction Status Date / Time JOI Inhibitors Allergy Intermediate Cough Verified 08/03/21 11:17 cephalexin [Keflex] Allergy Intermediate rash Verified 08/03/21 11:17 codeine [Codeine] Allergy Intermediate RASH Verified 08/03/21 11:17 VOMTING- APAP W/ CODEINE, vomiting gemfibrozil [GEMFIBROZIL] Allergy Intermediate RASH Verified 08/03/21 11:17 metformin [METFORMIN] Allergy Intermediate DIARRHEA Verified 08/03/21 11:17 morphine [Morphine] Allergy Intermediate HIVES, Verified 08/03/21 11:17 rash, rash naproxen Allergy Intermediate inadequate Verified 08/03/21 11:17 response sulfamethoxazole AdvReac Intermediate nausea Verified 08/03/21 11:17 [From Bactrim] trimethoprim [From Bactrim] AdvReac Intermediate nausea Verified 08/03/21 11:17 Home Medications Medication Instructions Recorded Confirmed Last Taken Type mupirocin 2 % topical ointment 1 applic TOPICAL TID 06/30/20 07/13/21 Unknown History pen needle, diabetic 32 gauge x #50 ea 11/21/20 07/13/21 Unknown History clonazepam 1 mg tablet 1 mg PO BID 07/13/21 07/13/21 Unknown History zolpidem 10 mg tablet 10 mg PO BEDTIME PRN 07/13/21 07/13/21 Unknown History Exam Exam Date and Time: July 30, 2021 1455 Height,Weight and Vital Signs: Height 5 ft 2 in Weight 73.936 kg Pertinent Lab Results Pertinent Lab Results: Laboratory Tests 07/17/21 07/17/21 12:46 12:46 WBC 7.9 Hgb 14.4 Hct 43.0 Plt Count 223 Sodium 141 Potassium 4.0 Chloride 104 Carbon Dioxide 27 BUN 7 L Creatinine 0.78 Assessment and Plan Assessment Anesthesia Assessment: Chart Reviewed Documented by User: Miriam Harper MD 08/03/21 11:25 PMFSH Past Medical History Medical History Abdominal pain Anxiety and depression Arthritis Asthma COVID-19 vaccine series completed Enlarged thyroid Essential hypertension Fatty liver Fibromyalgia Gallbladder polyp GERD (gastroesophageal reflux disease) Herpes genitalis History of panic attacks Hx of ectopic Hx of irritable bowel syndrome Hypercholesterolemia Hypertension Insomnia Intertrigo Migraine ARISTEO on CPAP Osteopenia Overweight Type 2 diabetes mellitus with hyperglycemia Vitamin D deficiency Family History Family History Sister Hx of diabetes mellitus Hx of myocardial infarction Family history of problems with anesthesia: No Surgical History Surgical History H/O colonoscopy History of esophagogastroduodenoscopy (EGD) Hx of bariatric surgery Hx of cholecystectomy Hx of unilateral oophorectomy S/P repair of ventral hernia History of Problems with Anesthesia: No Social History Social History (Updated 07/13/21 @ 12:40 by CHASE Perales) Household Members: None Housing: Apartment Alcohol intake: current Alcohol intake frequency: does not drink Patient Tobacco Use Status: Former Tobacco user Tobacco use type: Cigarette Cigarette Packs Per Day: 2 Years Smoked: 20 e-Cigarette/Vaping Use: Never Used Second Hand Smoke Exposure: No Use of substances other than those prescribed or required for medical reasons: No Are you DNR?: No Advance Directives Information Provided: Yes (informational brochure mailed) Advance Directives on File: No Recently lost weight without trying: No Nutrition Risks: No Nutritional Risk Current occupational status: disabled Gender identity: Female Meds Allergies Allergy/AdvReac Type Severity Reaction Status Date / Time JOI Inhibitors Allergy Intermediate Cough Verified 08/03/21 11:17 cephalexin [Keflex] Allergy Intermediate rash Verified 08/03/21 11:17 codeine [Codeine] Allergy Intermediate RASH Verified 08/03/21 11:17 VOMTING- APAP W/ CODEINE, vomiting gemfibrozil [GEMFIBROZIL] Allergy Intermediate RASH Verified 08/03/21 11:17 metformin [METFORMIN] Allergy Intermediate DIARRHEA Verified 08/03/21 11:17 morphine [Morphine] Allergy Intermediate HIVES, Verified 08/03/21 11:17 rash, rash naproxen Allergy Intermediate inadequate Verified 08/03/21 11:17 response sulfamethoxazole AdvReac Intermediate nausea Verified 08/03/21 11:17 [From Bactrim] trimethoprim [From Bactrim] AdvReac Intermediate nausea Verified 08/03/21 11:17 Home Medications Medication Instructions Recorded Confirmed Last Taken Type mupirocin 2 % topical ointment 1 applic TOPICAL TID 06/30/20 07/13/21 Unknown History pen needle, diabetic 32 gauge x #50 ea 11/21/20 07/13/21 Unknown History clonazepam 1 mg tablet 1 mg PO BID 07/13/21 07/13/21 Unknown History zolpidem 10 mg tablet 10 mg PO BEDTIME PRN 07/13/21 07/13/21 Unknown History Exam Airway Mallampati Class: II TM Dist: >3cm Neck ROM: Full Heart: rrr Lungs: cta Assessment and Plan Assessment Anesthesia Assessment: Anesthesia Plan Discussed and Chart Reviewed Final Anesthetic Review Family History of Problems with Anesthesia: No History of Problems with Anesthesia: No NPO: Yes ASA Class: III Final Preanesthetic Review: No Changes in Pt Med Stat, Meds/Allgs Chart Reviewed and Consent Obtained/Reviewed Patient Risk: Intermediate Procedure Risk: Intermediate Anesthetic Plan Anesthetic Plan: MAC: Disposition: Standard PACU
[2021-08-03 11:25] VITALS: BP 154/70; PULSE 58; RESP 16; TEMP 36.6; O2SAT 94
--- NOTE | 2021-08-03 11:33 | MHC.SHP ---
Pre-Procedural Eval Section A Date of Service: 08/03/21 The patient is an INPATIENT: No The History & Physical has been completed within 30 days and I have reviewed it.: No Section B Chief Complaint: colon cancer screening, benign neoplasm of colon Details of Present Illness: Colon cancer screening, history of colon polyps Relevant Family History (Specify if Yes): No Relevant Social History: Tobacco Use (former smoker) Present Medications: see Short Stay Collaborative assessment Medical History: Significant History (Abdominal pain Anxiety and depression Arthritis Asthma Enlarged thyroid Essential hypertension Fatty liver Fibromyalgia Gallbladder polyp GERD (gastroesophageal reflux disease) Herpes genitalis History of panic attacks Hx of ectopic Hx of irritable bowel syndrome Hypercholesterolemia Hyper) History of Previous Operations: Relevant previous surgery/procedure and date(s) (H/O colonoscopy History of esophagogastroduodenoscopy (EGD) Hx of bariatric surgery Hx of cholecystectomy Hx of unilateral oophorectomy S/P repair of ventral hernia) Allergies: Allergies Allergy/AdvReac Type Severity Reaction Status Date / Time JOI Inhibitors Allergy Intermediate Cough Verified 08/03/21 11:17 cephalexin [Keflex] Allergy Intermediate rash Verified 08/03/21 11:17 codeine [Codeine] Allergy Intermediate RASH Verified 08/03/21 11:17 VOMTING- APAP W/ CODEINE, vomiting gemfibrozil [GEMFIBROZIL] Allergy Intermediate RASH Verified 08/03/21 11:17 metformin [METFORMIN] Allergy Intermediate DIARRHEA Verified 08/03/21 11:17 morphine [Morphine] Allergy Intermediate HIVES, Verified 08/03/21 11:17 rash, rash naproxen Allergy Intermediate inadequate Verified 08/03/21 11:17 response sulfamethoxazole AdvReac Intermediate nausea Verified 08/03/21 11:17 [From Bactrim] trimethoprim [From Bactrim] AdvReac Intermediate nausea Verified 08/03/21 11:17 Review of Systems Sugical H&P ROS: Negative: Constitution, Cardiovascular and Respiratory and Yes, Specify: Gastrointestinal (abdominal pain) Exam Surgical H&P Exam: Normal: Heart, Normal: Lungs, Normal: Extremities and Normal: Abdomen Plan Diagnosis/Plan: Unchanged I have reviewed the history and physical and performed a pertinent physical examination on my patient. No changes have occurred unless specified.
[2021-08-03] MEDS: Lactated Ringers 1,000 ML 100 ML IVCONT (11:44)
[2021-08-03 11:49] LABS: Glucose, Whole Blood 122 mg/dL (60-115)
--- NOTE | 2021-08-03 12:05 | P.BOP_ITS ---
Brief Operative Note Date of Service: 08/03/21 Pre-op diagnosis: colon cancer screening Post-op diagnosis: other (poor colon prep, procedure was aborted) Procedure: FLEXIBLE SIGMOIDOCOPY TILL 20 CMS Consent: Indications for the procedure and potential complications of bleeding, perforation, reaction to medications and missed diagnosis were discussed with the patient and informed consent was obtained. Instrument: Olympus PCF H 190 L variable stiffness pediatric colonoscope Monitoring: Vital signs and clinical assessment, intermittent blood pressure monitoring, continuous EKG monitoring, Pulse oximetry and Carbon Dioxide monitoring were done throughout the procedure. Procedure: The patient was placed in the left lateral decubitis position and pre-procedure medications were administered. After a digital rectal examination of the ano-rectum, the video colonoscope was inserted into the rectum and advanced through the colon to 20 cms. It was not possible to advance further due to poor prep with solid stool coating the colonic mucosa and blocking the lumen. The colonoscope was withdrawn and the procedure was abandoned Findings: Sigmoid Colon: Not visualized due to poor prep. Rectum: Not visualized due to poor prep. Colon preparation: poor - procedure was abandoned Impression and Post Procedure Diagnosis: Flexible Sigmoidoscopy Findings: Procedure abandoned due to poor prep. Plan: Patient has an appointment on 08/17/21 in the [facility] with TRIXIE Morales. Need 2 day prep and to take Bisacodyl 2 tablets daily the week before her colonoscopy. Above findings were reviewed with the patient. Surgeon: Kristian Leon MD Anesthesia: MAC (Dario Amador CRNA) Was an Construction Job Cost Estimator used for this Procedure?: No Construction Job Cost Estimator: Param Riggs Estimated blood loss (mL): 0 Pathology: none sent Condition: stable Disposition: PACU
[2021-08-03 12:20] VITALS: BP 103/53; PULSE 61; RESP 18; TEMP 36.6; O2SAT 98
[2021-08-03 12:35] VITALS: BP 113/63; PULSE 59; RESP 18; TEMP 36.2; O2SAT 97
== END 2021-08-03 13:33 | disposition home or self-care (01) ==
PROVIDERS: PCP Internal Medicine; Visit Provider Internal Medicine Gastroenterology
PROC: 0DJD8ZZ Inspection of Lower Intestinal Tract, Via Natural or Artificial Opening Endoscopic (ICD-10-PCS; CPT 45378; principal; 2021-08-03 12:20)
DX: Z12.11 Encounter for screening for malignant neoplasm of colon (principal); Z86.010 Personal history of colon polyps; K21.9 Gastro-esophageal reflux disease without esophagitis; K76.0 Fatty (change of) liver, not elsewhere classified; F32.9 Major depressive disorder, single episode, unspecified; G47.33 Obstructive sleep apnea (adult) (pediatric); J45.909 Unspecified asthma, uncomplicated; I10 Essential (primary) hypertension; E55.9 Vitamin D deficiency, unspecified; E11.65 Type 2 diabetes mellitus with hyperglycemia; Z79.4 Long term (current) use of insulin; Z79.51 Long term (current) use of inhaled steroids; Z79.82 Long term (current) use of aspirin; Z79.899 Other long term (current) drug therapy; Z88.8 Allergy status to other drugs, medicaments and biological substances; Z87.891 Personal history of nicotine dependence
CPT/HCPCS: 45330; 82947

== ENCOUNTER 2021-09-15 14:24 | Outpatient (REF) | payer OTHER, SELFPAY ==
--- NOTE | ~2021-09-15 | US_ITS ---
EXAMINATION: US THYROID CLINICAL INFORMATION: Cervicalgia COMPARISON: None TECHNIQUE: Linear transducer grayscale and color Doppler examination with attention to the region of the thyroid. FINDINGS: SIZE: The thyroid gland is small. Measurements of the thyroid lobes and nodules are given in sagittal, anteroposterior and transverse dimensions respectively. Right Thyroid Lobe: 3.8 x 1.3 x 1.2 cm, volume 3.1 mL. Parenchyma: The gland echotexture is homogeneous. Thyroid vascularity is normal. Left Thyroid Lobe: 3.0 x 1.0 x 1.0 cm, volume 1.4 mL. Parenchyma: The gland echotexture is homogeneous. Thyroid vascularity is normal. Isthmus: 0.2 cm in maximum AP dimension. No focal thyroid nodule is seen. NODES: There are bilateral cervical lymph nodes adjacent to the thyroid gland. Largest lymph nodes are upper normal in size measuring 1 cm in transverse dimension. US/US thyroid IMPRESSION: Small thyroid gland. No nodule seen. Bilateral cervical lymphadenopathy adjacent to the thyroid gland. Larger lymph nodes are upper normal in size.
== END 2021-09-15 14:25 | disposition home or self-care (01) ==
LOC: HO.US 14:24
PROVIDERS: Visit Provider Internal Medicine
DX: M54.2 Cervicalgia (principal)
CPT/HCPCS: 76536

== ENCOUNTER → 2021-10-05 09:29 | Outpatient (BNVA) | payer OTHER, SELFPAY | PROVIDERS: PCP Internal Medicine; Referring Provider Internal Medicine; Visit Provider Internal Medicine Gastroenterology | DX: K59.09 Other constipation (principal); K76.0 Fatty (change of) liver, not elsewhere classified; K21.9 Gastro-esophageal reflux disease without esophagitis; A04.8 Other specified bacterial intestinal infections; E11.65 Type 2 diabetes mellitus with hyperglycemia; Z79.4 Long term (current) use of insulin; Z79.82 Long term (current) use of aspirin | CPT/HCPCS: 99212 ==

== ENCOUNTER 2021-10-05 10:53 | Outpatient (REF) | payer OTHER, SELFPAY ==
--- NOTE | ~2021-10-05 | XR_ITS ---
EXAMINATION: XR ABDOMEN KUB CLINICAL INDICATION: Other constipation COMPARISON: MRCP dated 11/11/[address] scan of the abdomen and pelvis dated 07/24/2019. TECHNIQUE: AP view of the abdomen. FINDINGS: There is a nonobstructive bowel gas pattern. Mild gas and stool are seen within the colon distally to the rectum. Surgical clips overlie the epigastric region, right upper quadrant and right hemipelvis. XR/XR KUB IMPRESSION: Nonobstructive bowel gas pattern. No significant colonic stool burden.
[2021-10-05 11:13] LABS: MANUAL DIFF FLAG NO
[2021-10-05 11:26] LABS: Basophils Absolute Auto 0.1 X10*3/uL (0.0-0.2); Basophils Percent Auto 0.6 % (0-2); Eosinophils Absolute Auto 0.1 X10*3/uL (0.0-0.4); Eosinophils Percent Auto 1.3 % (0-4); Hemoglobin 15.1 g/dl (12.0-16.0); Imm Gran Abs Auto 0.03 X10*3/uL (0.00-0.03); Imm Gran Pct Auto 0.3 % (0.0-0.4); Lymphocytes Absolute Auto 3.3 X10*3/uL (1.2-4.9); Lymphocytes Percent Auto 37.6 % (20-40); Mean Corpuscular HGB Conc 33.6 g/dl (31.0-35.0); Mean Corpuscular Hemoglobin 30.6 pg (27.0-33.0); Mean Corpuscular Volume 91.3 fL (80.0-98.0); Mean Platelet Volume 10.4 fL (9.4-12.3); Monocytes Absolute Auto 0.9 X10*3/uL (0.1-1.2); Monocytes Percent Auto 9.9 % (2-11); Neutrophils Absolute Auto 4.4 x10*3/uL (2.0-8.3); Neutrophils Percent Auto 50.3 % (45-73); Platelet Count 236 X10*3/uL (160-400); Red Blood Count 4.93 X10*6/uL (4.20-5.50); Red Cell Distribution Width 13.1 % (11.0-16.0); White Blood Count 8.8 X10*3/uL (4.8-10.8)
[2021-10-05 12:08] LABS: Appearance Urine CLEAR; Color Urine STRAW; Glucose Urine UA NEG (NEG); Leukocyte Esterase Urine NEG (NEG); Nitrite Urine NEG (NEG); PH 5.5 (5.0-8.0); Urine Blood NEG (NEG); Urine Ketones NEG (NEG); Urine Protein NEG (NEG-TRACE)
[2021-10-05 12:32] LABS: Creatinine Urine 28.53 mg/dL
== END 2021-10-05 10:54 | disposition home or self-care (01) ==
LOC: HO.XRAY 10:53
PROVIDERS: Nurse Practitioner Gerontology; PCP Internal Medicine; Visit Provider Internal Medicine Gastroenterology
DX: K59.09 Other constipation (principal); R74.01 Elevation of levels of liver transaminase levels; E11.65 Type 2 diabetes mellitus with hyperglycemia; R30.0 Dysuria; Z79.4 Long term (current) use of insulin
CPT/HCPCS: 36415; 74018; 81003; 82043; 85025

== ENCOUNTER → 2021-11-03 13:29 | Outpatient (BNVA) | payer OTHER, SELFPAY | PROVIDERS: PCP Internal Medicine; Visit Provider Nurse Practitioner Gerontology ==

== ENCOUNTER → 2021-11-30 10:26 | Outpatient (BNVA) | payer OTHER, SELFPAY | PROVIDERS: PCP Internal Medicine; Referring Provider Internal Medicine; Visit Provider Physician Assistant | DX: K59.09 Other constipation (principal); K76.0 Fatty (change of) liver, not elsewhere classified; K21.9 Gastro-esophageal reflux disease without esophagitis; D12.6 Benign neoplasm of colon, unspecified | CPT/HCPCS: 99212 ==

== ENCOUNTER 2021-12-28 11:26 | Outpatient (REF) | payer OTHER, SELFPAY ==
--- NOTE | ~2021-12-28 | MM_ITS ---
EXAMINATION: MM SCREENING DIGITAL BREAST TOMOSYNTHESIS, BILATERAL CLINICAL INFORMATION: Screening. Asymptomatic. The lifetime risk of breast cancer based on the Tyrer-Cuzick Model is 4%. COMPARISON: Mammography: 11/20/2020, 07/16/2019, 01/11/2019, 07/11/2018, 06/21/2018 TECHNIQUE: Digital breast tomosynthesis is performed in both the craniocaudal and mediolateral oblique views along with computer-aided detection (CAD). Synthesized 2D images are generated from the tomosynthesis. FINDINGS: There are scattered areas of fibroglandular density (ACR BI-RADS breast composition Category b). Parenchymal pattern is similar to prior studies. There is no developing density or architectural abnormality. Oval nodular asymmetry mid central 6:00 right breast is similar to prior exams. No developing density. There are dermal calcifications versus deodorant artifact overlying skin fold right axilla, superficial location confirmed on tomography. The axilla and skin contours are otherwise unremarkable. MM/MM tomosynthesis screening BI IMPRESSION: No significant changes from prior exams. ASSESSMENT: BI-RADS 2: Benign RECOMMENDATION: Routine annual mammography screening. This patient's information was entered into a reminder system with a target due date for their next mammogram.
[2021-12-28 12:25] LABS: Hematocrit 43.9 % (37.0-47.0); Hemoglobin 14.9 g/dl (12.0-16.0); Mean Corpuscular HGB Conc 33.9 g/dl (31.0-35.0); Mean Corpuscular Volume 91.5 fL (80.0-98.0); Mean Platelet Volume 10.6 fL (9.4-12.3); Platelet Count 225 X10*3/uL (160-400); Red Cell Distribution Width 13.1 % (11.0-16.0); White Blood Count 5.8 X10*3/uL (4.8-10.8)
[2021-12-28 12:30] LABS: Appearance Urine HAZY; Color Urine YELLOW; Glucose Urine UA 250 MG/DL (NEG); Leukocyte Esterase Urine NEG (NEG); Nitrite Urine NEG (NEG); Urine Blood NEG (NEG); Urine Ketones NEG (NEG); Urine Protein NEG (NEG-TRACE)
[2021-12-28 12:41] LABS: Estimated Average Glucose 197 mg/dL; Hemoglobin A1c % 8.5 %
[2021-12-28 13:06] LABS: Alanine Aminotransferase 29 U/L (0-31); Albumin Level 4.3 g/dL (3.5-5.0); Alkaline Phosphatase 69 U/L (39-117); Anion Gap 15 (12-20); Aspartate Amino Transferase 35 U/L (5-31); Bilirubin Total 0.6 mg/dL (0.0-1.0); Blood Urea Nitrogen 8 mg/dL (9-16); Calcium 9.9 mg/dL (8.4-10.2); Carbon Dioxide 26 mmol/L (22-29); Chloride 101 mmol/L (96-108); Cholesterol 172 mg/dL; Estimated Glomerular Filt Rate > 60; Glucose Fasting 188 mg/dL (60-99); HDL Cholesterol 46 mg/dL; LDL Cholesterol Calculated 93 mg/dl; Potassium 3.7 mmol/L (3.3-5.1); Sodium 138 mmol/L (135-145); Total Protein 7.8 g/dL (6.5-8.0); Triglycerides 168 mg/dL
[2021-12-28 13:20] LABS: Ferritin 32 ng/mL (10-250); Thyroid Stimulating Hormone 2.89 uIU/mL (0.32-4.0)
[2021-12-30 10:30] LABS: LDL Cholesterol Direct 107 mg/dL (<100)
== END 2021-12-28 11:27 | disposition home or self-care (01) ==
LOC: HO.MAMMO 11:26
PROVIDERS: Internal Medicine Gastroenterology; Absent Provider Physician Assistant; PCP Internal Medicine; Referring Provider Nurse Practitioner Gerontology; Visit Provider Internal Medicine
DX: Z12.31 Encounter for screening mammogram for malignant neoplasm of breast (principal); E11.65 Type 2 diabetes mellitus with hyperglycemia; K59.09 Other constipation; R30.0 Dysuria; Z79.4 Long term (current) use of insulin
CPT/HCPCS: 36415; 77063; 77067; 80053; 80061; 81003; 82728; 83036; 83721; 84443; 85027

== ENCOUNTER 2022-01-12 08:26 | Day surgery (SDC) | payer OTHER, SELFPAY ==
[2022-01-04 13:49] VITALS: BMI 29.2
--- NOTE | 2022-01-08 09:06 | HO.ANESPROP2 ---
Documented by User: Allie Louise NP 01/08/22 09:08 HPI - Anesthesia Eval Consult details Narrative: 61yo F for Upper Endoscopy and Colonoscopy s/p flex sig 07/2021 with MAC (poor prep) Multiple med allergies PMFSH Active Problems Active Problems: All Active Problems (Updated 01/04/22 @ 13:28 by Parisa Ambrose, RN) H. pylori infection (Acute) Vaginal chiki (Acute) Breast density (Acute) Right upper quadrant pain (Acute) Tubular adenoma of colon (Acute) Obesity (BMI 30-39.9) (Acute) Candidal intertrigo (Acute) NAFLD (nonalcoholic fatty liver disease) (Acute) Problematic vaginal discharge (Acute) Dyspareunia in female (Acute) Potential exposure to STD (Acute) Low back pain (Acute) Lumbar degenerative disc disease (Acute) Generalized anxiety disorder (Acute) Overweight (BMI 25.0-29.9) (Acute) Neck discomfort (Acute) Otitis externa (Acute) Chronic constipation (Acute) COVID-19 virus infection (Acute) Diarrhea (Acute) Peripheral neuropathy (Acute) Breast cancer screening by mammogram (Acute) Dysuria (Acute) Urinary incontinence (Acute) Herpes, genital (Acute) Overweight (Acute) Abdominal pain (Acute) GERD (gastroesophageal reflux disease) (Acute) Hypercholesterolemia (Acute) Type 2 diabetes mellitus with hyperglycemia (Acute) Anxiety and depression (Acute) Intertrigo (Acute) Essential hypertension (Acute) Past Medical History Medical History (Updated 01/04/22 @ 13:28 by Parisa Ambrose, RN) Abdominal pain Anxiety and depression Arthritis Asthma COVID-19 vaccine series completed Enlarged thyroid Essential hypertension Fatty liver Fibromyalgia Gallbladder polyp GERD (gastroesophageal reflux disease) Herpes genitalis History of panic attacks Hx of ectopic Hx of flexible sigmoidoscopy Hx of irritable bowel syndrome Hypercholesterolemia Hypertension Insomnia Intertrigo Migraine ARISTEO on CPAP Osteopenia Overweight Type 2 diabetes mellitus with hyperglycemia Vitamin D deficiency Family History Family History Sister Hx of diabetes mellitus Hx of myocardial infarction Family history of problems with anesthesia: No Surgical History Surgical History H/O colonoscopy History of esophagogastroduodenoscopy (EGD) Hx of bariatric surgery Hx of cholecystectomy Hx of unilateral oophorectomy S/P repair of ventral hernia History of Problems with Anesthesia: No Social History Social History Household Members: None Housing: Apartment Alcohol intake: current Alcohol intake frequency: holidays/special occasions only Patient Tobacco Use Status: Former Tobacco user Quit Date: age 41 Tobacco use type: Cigarette Cigarette Packs Per Day: 2 Years Smoked: 20 e-Cigarette/Vaping Use: Never Used Second Hand Smoke Exposure: No Use of substances other than those prescribed or required for medical reasons: No Have you been hit, kicked, punched, or otherwise hurt by someone within the past year? If so, by whom?: No Are you DNR?: No Advance Directives: No Advance Directives Information Provided: Yes (brochure mailed) Advance Directives on File: No Recently lost weight without trying: No Eating poorly because of decreased appetite: No Nutrition Risks: No Nutritional Risk Current occupational status: disabled Gender identity: Female Cognitive needs: No Hearing needs: No Vision needs: No Meds Allergies Allergy/AdvReac Type Severity Reaction Status Date / Time JOI Inhibitors Allergy Intermediate Cough Verified 12/30/21 09:46 cephalexin [Keflex] Allergy Intermediate rash Verified 12/30/21 09:46 codeine [Codeine] Allergy Intermediate RASH Verified 12/30/21 09:46 VOMTING- APAP W/ CODEINE, vomiting gemfibrozil [GEMFIBROZIL] Allergy Intermediate RASH Verified 12/30/21 09:46 metformin [METFORMIN] Allergy Intermediate DIARRHEA Verified 12/30/21 09:46 morphine [Morphine] Allergy Intermediate HIVES, Verified 12/30/21 09:46 rash, rash naproxen Allergy Intermediate inadequate Verified 12/30/21 09:46 response sulfamethoxazole AdvReac Intermediate nausea Verified 12/30/21 09:46 [From Bactrim] trimethoprim [From Bactrim] AdvReac Intermediate nausea Verified 12/30/21 09:46 Home Medications Medication Instructions Recorded Confirmed Last Taken Type pen needle, diabetic 32 gauge x #50 ea 11/21/20 12/30/21 Unknown History clonazepam 1 mg tablet 1 mg PO BID 07/13/21 01/04/22 Unknown History zolpidem 10 mg tablet 10 mg PO BEDTIME PRN 07/13/21 01/04/22 Unknown History clonazepam 0.5 mg tablet 0.5 mg PO DAILY PRN 11/30/21 01/04/22 Unknown History Exam Exam Date and Time: January 08, [id number] Height,Weight and Vital Signs: Height 5 ft 2 in Weight 72.575 kg Pertinent Lab Results Pertinent Lab Results: Laboratory Tests 12/28/21 12/28/21 11:39 11:39 WBC 5.8 Hgb 14.9 Hct 43.9 Plt Count 225 Sodium 138 Potassium 3.7 Chloride 101 Carbon Dioxide 26 BUN 8 L Creatinine 0.83 Assessment and Plan Assessment Anesthesia Assessment: Chart Reviewed Final Anesthetic Review Family History of Problems with Anesthesia: No History of Problems with Anesthesia: No Documented by User: Shasha Escoto MD 01/12/22 10:19 [facility] Past Medical History Medical History (Updated 01/04/22 @ 13:28 by Parisa Ambrose RN) Abdominal pain Anxiety and depression Arthritis Asthma COVID-19 vaccine series completed Enlarged thyroid Essential hypertension Fatty liver Fibromyalgia Gallbladder polyp GERD (gastroesophageal reflux disease) Herpes genitalis History of panic attacks Hx of ectopic Hx of flexible sigmoidoscopy Hx of irritable bowel syndrome Hypercholesterolemia Hypertension Insomnia Intertrigo Migraine ARISTEO on CPAP Osteopenia Overweight Type 2 diabetes mellitus with hyperglycemia Vitamin D deficiency Patient : No Family History Family History Sister Hx of diabetes mellitus Hx of myocardial infarction Surgical History Surgical History H/O colonoscopy History of esophagogastroduodenoscopy (EGD) Hx of bariatric surgery Hx of cholecystectomy Hx of unilateral oophorectomy S/P repair of ventral hernia Social History Social History Household Members: None Housing: Apartment Alcohol intake: current Alcohol intake frequency: holidays/special occasions only Patient Tobacco Use Status: Former Tobacco user Quit Date: age 41 Tobacco use type: Cigarette Cigarette Packs Per Day: 2 Years Smoked: 20 e-Cigarette/Vaping Use: Never Used Second Hand Smoke Exposure: No Use of substances other than those prescribed or required for medical reasons: No Have you been hit, kicked, punched, or otherwise hurt by someone within the past year? If so, by whom?: No Are you DNR?: No Advance Directives: No Advance Directives Information Provided: Yes (brochure mailed) Advance Directives on File: No Recently lost weight without trying: No Eating poorly because of decreased appetite: No Nutrition Risks: No Nutritional Risk Current occupational status: disabled Gender identity: Female Cognitive needs: No Hearing needs: No Vision needs: No Meds Allergies Allergy/AdvReac Type Severity Reaction Status Date / Time JOI Inhibitors Allergy Intermediate Cough Verified 12/30/21 09:46 cephalexin [Keflex] Allergy Intermediate rash Verified 12/30/21 09:46 codeine [Codeine] Allergy Intermediate RASH Verified 12/30/21 09:46 VOMTING- APAP W/ CODEINE, vomiting gemfibrozil [GEMFIBROZIL] Allergy Intermediate RASH Verified 12/30/21 09:46 metformin [METFORMIN] Allergy Intermediate DIARRHEA Verified 12/30/21 09:46 morphine [Morphine] Allergy Intermediate HIVES, Verified 12/30/21 09:46 rash, rash naproxen Allergy Intermediate inadequate Verified 12/30/21 09:46 response sulfamethoxazole AdvReac Intermediate nausea Verified 12/30/21 09:46 [From Bactrim] trimethoprim [From Bactrim] AdvReac Intermediate nausea Verified 12/30/21 09:46 Home Medications Medication Instructions Recorded Confirmed Last Taken Type pen needle, diabetic 32 gauge x #50 ea 11/21/20 12/30/21 Unknown History clonazepam 1 mg tablet 1 mg PO BID 07/13/21 01/04/22 Unknown History zolpidem 10 mg tablet 10 mg PO BEDTIME PRN 07/13/21 01/04/22 Unknown History clonazepam 0.5 mg tablet 0.5 mg PO DAILY PRN 11/30/21 01/04/22 Unknown History Exam Airway Mallampati Class: III TM Dist: >3cm Neck ROM: Full Heart: RRR Lungs: CTA Assessment and Plan Final Anesthetic Review Final Preanesthetic Review: No Changes in Pt Med Stat, Meds/Allgs Chart Reviewed, Consent Obtained/Reviewed and Anes Risks/Benef Reviewed Patient Risk: Intermediate Procedure Risk: Low Anesthetic Plan Anesthetic Plan: MAC: Disposition: Standard PACU
[2022-01-12 09:08] VITALS: BP 138/62; PULSE 57; RESP 18; TEMP 36.5; O2SAT 97
[2022-01-12 09:14] LABS: Glucose, Whole Blood 187 mg/dL (60-115)
--- NOTE | 2022-01-12 09:20 | MHC.SHP ---
Pre-Procedural Eval Section A Date of Service: 01/12/22 Section B Chief Complaint: reflux,benign neoplasm of colon Relevant Family History (Specify if Yes): No Relevant Social History: None Present Medications: see Short Stay Collaborative assessment Medical History: Significant History (Abdominal pain Anxiety and depression Arthritis Asthma COVID-19 vaccine series completed Enlarged thyroid Essential hypertension Fatty liver Fibromyalgia Gallbladder polyp GERD (gastroesophageal reflux disease) Herpes genitalis History of panic attacks Hx of ectopic Hx of flexible sigmoido) History of Previous Operations: Relevant previous surgery/procedure and date(s) (H/O colonoscopy History of esophagogastroduodenoscopy (EGD) Hx of bariatric surgery Hx of cholecystectomy Hx of unilateral oophorectomy S/P repair of ventral hernia) Allergies: Allergies Allergy/AdvReac Type Severity Reaction Status Date / Time JOI Inhibitors Allergy Intermediate Cough Verified 12/30/21 09:46 cephalexin [Keflex] Allergy Intermediate rash Verified 12/30/21 09:46 codeine [Codeine] Allergy Intermediate RASH Verified 12/30/21 09:46 VOMTING- APAP W/ CODEINE, vomiting gemfibrozil [GEMFIBROZIL] Allergy Intermediate RASH Verified 12/30/21 09:46 metformin [METFORMIN] Allergy Intermediate DIARRHEA Verified 12/30/21 09:46 morphine [Morphine] Allergy Intermediate HIVES, Verified 12/30/21 09:46 rash, rash naproxen Allergy Intermediate inadequate Verified 12/30/21 09:46 response sulfamethoxazole AdvReac Intermediate nausea Verified 12/30/21 09:46 [From Bactrim] trimethoprim [From Bactrim] AdvReac Intermediate nausea Verified 12/30/21 09:46 Review of Systems Sugical H&P ROS: Negative: Constitution, Cardiovascular, Respiratory, Neurological, Psychiatric, Hem-Onc, Allergic/Immunologic, Gastrointestinal, Genitourinary, Musculoskeletal, Integumentary, Endocrine and Eyes/Ears/Nose/Throat Exam Surgical H&P Exam: Normal: HEENT, Normal: Heart, Normal: Lungs, Normal: Extremities, Normal: Abdomen, Normal: Skin and Normal: Neurological Plan Diagnosis/Plan: Unchanged I have reviewed the history and physical and performed a pertinent physical examination on my patient. No changes have occurred unless specified.
[2022-01-12] MEDS: Lactated Ringers 1,000 ML 100 ML IVCONT (09:35)
--- NOTE | 2022-01-12 10:13 | PM.OP ---
Brief Operative Note Date of Service: 01/12/22 Pre-op diagnosis: GERD and hx of colon polyps, colon screening Post-op diagnosis: same Procedure: see op note Surgeon: Ladi Edwards MD Anesthesia: MAC Was an Supervisor Record Press used for this Procedure?: No Estimated blood loss (mL): 0 Condition: stable Disposition: PACU
--- NOTE | 2022-01-12 10:14 | W.PM.OPN ---
Operative Note Operative Note Date of Service: 01/12/22 Narrative: Operative Information Procedure Description: EGD, Colonoscopy Indication: GERD< hx of colon polyps, colon screening Anesthesia: MAC FLEXIBLE TRANSORAL UPPER GASTROINTESTINAL ENDOSCOPY AND COLONOSCOPY PROCEDURE NOTE UPPER ENDOSCOPY Consent: Indications for the procedure and potential complications of bleeding, perforation, reaction to medications and missed diagnosis were discussed with the patient and informed consent was obtained. Instrument: Olympus GIF H 190 J mid size upper endoscope Monitoring: Vital signs and clinical assessment, continuous EKG monitoring, Pulse oximetry, Carbon Dioxide monitoring and blood pressure monitoring were done throughout the procedure. Procedure: The patient was placed in the left lateral decubitis position and pre-procedure medications were administered and a bite block was placed. The endoscope was inserted into the mouth and advanced under direct vision to the third part of duodenum. A careful inspection was made as the upper endoscope was withdrawn including a retroflexed examination of the proximal stomach; Findings and interventions are described below. Findings: Larynx:normal Esophagus: GE junction at 36 cm, diaphragm hiatus at 36 cm, normal mucosa Stomach: Streaky gastritis. Biopsies were obtained. Grade 2 flap valve on retroflexed examination of the cardia. Post surgical changes compatible with sleeve gastrectomy noted. 7-8 mm polypoid lesion removed with forceps Duodenum: Normal bulb and descending duodenum, Intervention: Biopsies as noted above COLONOSCOPY Instrument: Olympus variable stiffness adult scope 190L Colonoscopy Monitoring: Vital signs and clinical assessment, continuous EKG monitoring, Pulse oximetry, Carbon Dioxide monitoring and blood pressure monitoring were done throughout the procedure. Colon withdrawal time was 10 minutes. Procedure: The patient was placed in the left lateral decubitis position and pre-procedure medications were administered. After a digital rectal examination of the ano-rectum, the video colonoscope was inserted into the rectum and advanced through the colon to the cecum/TI. The colonoscope was slowly withdrawn in a retrograde panoramic fashion and the colon mucosa was carefully examined including a retroflexed view of the rectum. Findings and interventions are described below. Procedure Difficulty: difficult Findings: Terminal Ileum-not reached Cecum:not visualized due to poor prep Ascending Colon: normal Transverse Colon -normal Descending Colon:normal Sigmoid Colon: severe diverticulosis with narrowing of colon and hypertrophied mucosa, very tight and stiff Rectum: Retroflexion not done due to poor prep Anorectum - normal Colon preparation: [place] Bowel Preparation Scale Right colon; 1 Transverse colon: 1 Left colon; 1 (0 = Unprepared colon segment with mucosa not seen due to solid stool that cannot be cleared. 1 = Portion of mucosa of the colon segment seen, but other areas of the colon segment not well seen due to staining, residual stool and/or opaque liquid. 2 = Minor amount of residual staining, small fragments of stool and/or opaque liquid, but mucosa of colon segment seen well. 3 = Entire mucosa of colon segment seen well with no residual staining, small fragments of stool or opaque liquid) Impression and Post Procedure Diagnosis: Endoscopy Findings: gastritis post surgical changes \ Colonoscopy Findings: diverticulosis, severe poor prep Plan: Await Pathology results Repeat Colonoscopy in 6-12 months, recommend 2 d of clears if can do it, and one week of miralax BId prior to the colon prep High fiber diet leaflet avoid straining at stool, epsom salts and sitz bath, anusol supps or cream Reflux may be due to her sleeve gastrectomy Above findings were reviewed with the patient and relevant handouts were provided if indicated.
[2022-01-12 11:11] VITALS: BP 157/88; PULSE 57; RESP 16; TEMP 36.2; O2SAT 97
[2022-01-12 11:25] VITALS: BP 155/68; PULSE 55; RESP 16; O2SAT 98
[2022-01-12 11:40] VITALS: BP 158/82; PULSE 56; RESP 18; TEMP 36.8; O2SAT 97
== END 2022-01-12 12:16 | disposition home or self-care (01) ==
PROVIDERS: PCP Internal Medicine; Visit Provider Internal Medicine Gastroenterology
PROC: (CPT 45378; principal; 2022-01-12 10:20)
DX: Z12.11 Encounter for screening for malignant neoplasm of colon (principal); Z86.010 Personal history of colon polyps; K57.30 Diverticulosis of large intestine without perforation or abscess without bleeding; K64.0 First degree hemorrhoids; K59.00 Constipation, unspecified; K21.9 Gastro-esophageal reflux disease without esophagitis; K29.50 Unspecified chronic gastritis without bleeding; K31.7 Polyp of stomach and duodenum; K44.9 Diaphragmatic hernia without obstruction or gangrene; K76.0 Fatty (change of) liver, not elsewhere classified; I10 Essential (primary) hypertension; M85.80 Other specified disorders of bone density and structure, unspecified site; J45.909 Unspecified asthma, uncomplicated; G47.33 Obstructive sleep apnea (adult) (pediatric); E55.9 Vitamin D deficiency, unspecified; E11.65 Type 2 diabetes mellitus with hyperglycemia; Z90.3 Acquired absence of stomach [part of]; Z98.84 Bariatric surgery status; Z79.4 Long term (current) use of insulin; Z79.82 Long term (current) use of aspirin; Z79.899 Other long term (current) drug therapy; Z99.89 Dependence on other enabling machines and devices; Z88.2 Allergy status to sulfonamides; Z88.8 Allergy status to other drugs, medicaments and biological substances; Z87.891 Personal history of nicotine dependence
CPT/HCPCS: 45378; 43270; 43239; 82947; 88305; 88342

== ENCOUNTER 2022-04-06 10:25 | Outpatient (REF) | payer OTHER, SELFPAY ==
[2022-04-06 10:39] LABS: MANUAL DIFF FLAG NO
[2022-04-06 11:00] LABS: Basophils Absolute Auto 0.1 X10*3/uL (0.0-0.2); Basophils Percent Auto 0.7 % (0-2); Eosinophils Absolute Auto 0.1 X10*3/uL (0.0-0.4); Eosinophils Percent Auto 1.6 % (0-4); Hematocrit 44.4 % (37.0-47.0); Hemoglobin 14.6 g/dl (12.0-16.0); Imm Gran Abs Auto 0.02 X10*3/uL (0.00-0.03); Imm Gran Pct Auto 0.3 % (0.0-0.4); Lymphocytes Absolute Auto 2.8 X10*3/uL (1.2-4.9); Lymphocytes Percent Auto 38.8 % (20-40); Mean Corpuscular HGB Conc 32.9 g/dl (31.0-35.0); Mean Corpuscular Hemoglobin 30.2 pg (27.0-33.0); Mean Corpuscular Volume 91.7 fL (80.0-98.0); Mean Platelet Volume 10.3 fL (9.4-12.3); Monocytes Absolute Auto 0.6 X10*3/uL (0.1-1.2); Monocytes Percent Auto 8.3 % (2-11); Neutrophils Absolute Auto 3.6 x10*3/uL (2.0-8.3); Neutrophils Percent Auto 50.3 % (45-73); Platelet Count 209 X10*3/uL (160-400); Red Blood Count 4.84 X10*6/uL (4.20-5.50); Red Cell Distribution Width 12.5 % (11.0-16.0); White Blood Count 7.1 X10*3/uL (4.8-10.8)
[2022-04-06 11:17] LABS: Estimated Average Glucose 183 mg/dL
[2022-04-06 11:50] LABS: Alanine Aminotransferase 24 U/L (0-31); Alkaline Phosphatase 59 U/L (39-117); Anion Gap 13 (12-20); Aspartate Amino Transferase 28 U/L (5-31); Bilirubin Total 0.5 mg/dL (0.0-1.0); Blood Urea Nitrogen 8 mg/dL (9-16); Calcium 9.3 mg/dL (8.4-10.2); Carbon Dioxide 26 mmol/L (22-29); Chloride 102 mmol/L (96-108); Cholesterol 163 mg/dL; Estimated Glomerular Filt Rate > 60; Glucose Random 182 mg/dL (60-115); HDL Cholesterol 49 mg/dL; LDL Cholesterol Calculated 83 mg/dl; Potassium 4.3 mmol/L (3.3-5.1); Sodium 137 mmol/L (135-145); Total Protein 7.2 g/dL (6.5-8.0); Triglycerides 159 mg/dL
== END 2022-04-06 10:26 | disposition home or self-care (01) ==
LOC: HO.LAB 10:25
PROVIDERS: PCP Internal Medicine; Visit Provider Internal Medicine
DX: E78.00 Pure hypercholesterolemia, unspecified (principal)
CPT/HCPCS: 36415; 80053; 80061; 83036; 85025

== ENCOUNTER 2022-07-14 12:26 | Outpatient (REF) | payer OTHER, SELFPAY ==
--- NOTE | ~2022-07-14 | CT_ITS ---
EXAMINATION: CT HEAD WITHOUT CONTRAST CLINICAL INFORMATION: Tension headaches. COMPARISON: Brain MRI from 08/01/2018. TECHNIQUE: Contiguous axial imaging was performed from the skullbase to vertex without intravenous administration of contrast. This CT examination was performed using dose optimization techniques as appropriate, variously including the following: *Automated exposure control *Adjustment of mA and/or kV according to patient size (this includes techniques or standardized protocols for targeted exams where dose is matched to indication/reason for exam; i.e. extremities or head) *Use of iterative reconstruction technique DLP: 721 mGy-cm. FINDINGS: There is no evidence of acute intracranial hemorrhage or territorial infarction. No abnormal mass effect or midline shift is seen. Rizvi to white matter differentiation is well preserved. No extra-axial fluid collections are identified. Partially empty sella again incidentally noted. The ventricles are normal in size. There is no abnormal attenuation within the brain parenchyma. The osseous structures and soft tissues are normal. The mastoid air cells and visualized portions of the paranasal sinuses are well aerated. There are severe degenerative changes of the left temporomandibular joint with sclerosis and flattening of the condylar head. Mild subchondral cystic changes also evident. CT/CT head/brain wo IV con IMPRESSION: 1. No acute intracranial pathology. Normal CT scan of the head. 2. 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
== END 2022-07-14 12:27 | disposition home or self-care (01) ==
LOC: HO.CT 12:26
PROVIDERS: PCP Internal Medicine; Visit Provider Psychiatry & Neurology Neurology
DX: G44.209 Tension-type headache, unspecified, not intractable (principal)
CPT/HCPCS: 70450

== ENCOUNTER 2022-07-20 14:04 | Outpatient (REF) | payer OTHER, SELFPAY ==
[2022-07-20 19:05] LABS: CT PCR NOT DETECTED (Not Detect.); NG PCR NOT DETECTED (Not Detect.)
[2022-07-21 09:15] LABS: BV Int Neg Control Negative (Negative); BV Int Pos Control Positive (Positive)
== END 2022-07-20 14:05 | disposition home or self-care (01) ==
LOC: HO.LNP 14:04
PROVIDERS: Visit Provider Advanced Practice Midwife
DX: Z11.3 Encounter for screening for infections with a predominantly sexual mode of transmission (principal); N76.0 Acute vaginitis
CPT/HCPCS: 87480; 87491; 87510; 87591; 87660

== ENCOUNTER → 2022-07-27 12:47 | Outpatient (BNVA) | payer OTHER, SELFPAY | PROVIDERS: PCP Internal Medicine; Visit Provider Nurse Practitioner Family | DX: G47.33 Obstructive sleep apnea (adult) (pediatric) (principal); E66.3 Overweight; E11.65 Type 2 diabetes mellitus with hyperglycemia; I10 Essential (primary) hypertension; G25.81 Restless legs syndrome; R51.9 Headache, unspecified; Z68.29 Body mass index [BMI] 29.0-29.9, adult; Z79.4 Long term (current) use of insulin | CPT/HCPCS: 99202 ==

== ENCOUNTER → 2022-09-06 14:26 | Outpatient (REF) | payer OTHER, SELFPAY | LOC: HO.SL 14:26 | PROVIDERS: PCP Internal Medicine; Visit Provider Psychiatry & Neurology Neurology | DX: G47.33 Obstructive sleep apnea (adult) (pediatric) (principal) | CPT/HCPCS: 95806 ==

== ENCOUNTER → 2022-10-26 13:39 | Outpatient (BNVA) | payer OTHER, SELFPAY | PROVIDERS: PCP Internal Medicine; Visit Provider Nurse Practitioner Family | DX: Z13.89 Encounter for screening for other disorder (principal) ==

== ENCOUNTER 2022-12-09 12:40 | Outpatient (REF) | payer OTHER, SELFPAY ==
[2022-12-09 12:57] LABS: MANUAL DIFF FLAG NO
[2022-12-09 13:29] LABS: Basophils Absolute Auto 0.1 X10*3/uL (0.0-0.2); Basophils Percent Auto 0.6 % (0-2); Eosinophils Absolute Auto 0.1 X10*3/uL (0.0-0.4); Hematocrit 45.3 % (37.0-47.0); Hemoglobin 14.9 g/dl (12.0-16.0); Imm Gran Abs Auto 0.04 X10*3/uL (0.00-0.03); Imm Gran Pct Auto 0.4 % (0.0-0.4); Lymphocytes Absolute Auto 3.3 X10*3/uL (1.2-4.9); Lymphocytes Percent Auto 33.5 % (20-40); Mean Corpuscular HGB Conc 32.9 g/dl (31.0-35.0); Mean Corpuscular Hemoglobin 30.4 pg (27.0-33.0); Mean Corpuscular Volume 92.4 fL (80.0-98.0); Mean Platelet Volume 10.4 fL (9.4-12.3); Monocytes Absolute Auto 0.8 X10*3/uL (0.1-1.2); Monocytes Percent Auto 8.5 % (2-11); Neutrophils Absolute Auto 5.5 x10*3/uL (2.0-8.3); Platelet Count 252 X10*3/uL (160-400); Red Cell Distribution Width 12.7 % (11.0-16.0); White Blood Count 9.8 X10*3/uL (4.8-10.8)
[2022-12-09 13:54] LABS: Estimated Average Glucose 194 mg/dL; Hemoglobin A1c % 8.4 %
[2022-12-09 14:19] LABS: Alanine Aminotransferase 33 U/L (0-31); Albumin Level 4.1 g/dL (3.5-5.0); Alkaline Phosphatase 60 U/L (39-117); Anion Gap 14 (12-20); Aspartate Amino Transferase 39 U/L (5-31); Bilirubin Total 0.8 mg/dL (0.0-1.0); Blood Urea Nitrogen 7 mg/dL (9-16); Calcium 9.3 mg/dL (8.4-10.2); Carbon Dioxide 28 mmol/L (22-29); Chloride 102 mmol/L (96-108); Cholesterol 156 mg/dL; Estimated Glomerular Filt Rate > 60; Glucose Random 135 mg/dL (60-115); HDL Cholesterol 51 mg/dL; LDL Cholesterol Calculated 80 mg/dl; Potassium 4.4 mmol/L (3.3-5.1); Sodium 140 mmol/L (135-145); Total Protein 7.3 g/dL (6.5-8.0); Triglycerides 128 mg/dL
[2022-12-09 14:35] LABS: Folate 11.3 ng/mL (> or = 4.0); Thyroid Stimulating Hormone 5.42 uIU/mL (0.32-4.0); Vitamin B12 677 pg/mL (200-900); Vitamin D 25-OH Total 46.5 ng/mL (>30)
== END 2022-12-09 12:41 | disposition home or self-care (01) ==
LOC: HO.LAB 12:40
PROVIDERS: PCP Internal Medicine; Visit Provider Internal Medicine
DX: E11.65 Type 2 diabetes mellitus with hyperglycemia (principal); E78.00 Pure hypercholesterolemia, unspecified; Z79.4 Long term (current) use of insulin
CPT/HCPCS: 36415; 80053; 80061; 82306; 82607; 82746; 83036; 84443; 85025

== ENCOUNTER → 2023-01-08 00:04 | Outpatient (REF) | payer OTHER, SELFPAY | LOC: HO.SL 00:04 | PROVIDERS: PCP Internal Medicine; Visit Provider Nurse Practitioner Family | DX: G47.33 Obstructive sleep apnea (adult) (pediatric) (principal); G25.81 Restless legs syndrome | CPT/HCPCS: 95810 ==

== ENCOUNTER 2023-01-25 14:45 | Outpatient (REF) | payer OTHER, SELFPAY ==
[2023-01-25 17:57] LABS: CT PCR NOT DETECTED (Not Detect.); NG PCR NOT DETECTED (Not Detect.)
[2023-01-26 04:22] LABS: Syphilis Screen Reactive (Nonreactive)
[2023-01-26 04:36] LABS: HBc Num1 0.09 S/CO (0.00-0.79); HIV AB/AG Nonreactive (Nonreactive); HIV Num 1 0.07 S/CO (0.00-0.99); Hepatitis B Core Antibody Nonreactive (Nonreactive); ~HepC Num1 0.65 S/CO (0.00-0.79); ~Hepatitis C Antibody Nonreactive (Nonreactive)
[2023-01-26 08:55] LABS: BV Int Neg Control Negative (Negative); BV Int Pos Control Positive (Positive)
[2023-01-29 14:23] LABS: RPR Quantitative Non-Reactive (Nonreactive); T.Pallidum Particle Agg Test Reactive (Nonreactive)
== END 2023-01-25 14:46 | disposition home or self-care (01) ==
LOC: HO.LAB 14:45
PROVIDERS: PCP Internal Medicine; Visit Provider Advanced Practice Midwife
DX: Z11.4 Encounter for screening for human immunodeficiency virus [HIV] (principal); R10.2 Pelvic and perineal pain; Z20.2 Contact with and (suspected) exposure to infections with a predominantly sexual mode of transmission; N89.8 Other specified noninflammatory disorders of vagina
CPT/HCPCS: 0353U; 36415; 86592; 86704; 86780; 86803; 87389; 87480; 87510; 87660; 99212

== ENCOUNTER 2023-01-25 15:05 | Outpatient (REF) | payer OTHER, SELFPAY | END 2023-01-25 15:06 | disposition home or self-care (01) | LOC: HO.LNP 15:05 | PROVIDERS: Visit Provider Advanced Practice Midwife | DX: Z13.89 Encounter for screening for other disorder (principal) ==

== ENCOUNTER 2023-02-01 13:25 | Outpatient (REF) | payer OTHER, SELFPAY ==
--- NOTE | ~2023-02-01 | MM_ITS ---
EXAMINATION: MM SCREENING DIGITAL BREAST TOMOSYNTHESIS, BILATERAL CLINICAL INFORMATION: Screening. Asymptomatic. The lifetime risk of breast cancer based on the Tyrer-Cuzick Model is 4%. COMPARISON: Mammography: 12/28/2021, 11/20/2020, 07/16/2019 TECHNIQUE: Digital breast tomosynthesis is performed in both the craniocaudal and mediolateral oblique views along with computer-aided detection (CAD). Synthesized 2D images are generated from the tomosynthesis. FINDINGS: There are scattered areas of fibroglandular density (ACR BI-RADS breast composition Category b). Parenchymal pattern is similar to prior studies and there is no developing density or architectural abnormality. No significant masses, abnormal calcifications, or other abnormalities. Again, there is a stable oval circumscribed smooth nodule central 6:00 right breast. The axilla are unremarkable. No significant changes. MM/MM tomosynthesis screening BI IMPRESSION: No mammographic evidence of malignancy. ASSESSMENT: BI-RADS 2: Benign RECOMMENDATION: Routine annual mammography screening. This patient's information was entered into a reminder system with a target due date for their next mammogram.
== END 2023-02-01 13:26 | disposition home or self-care (01) ==
LOC: HO.MAMMO 13:25
PROVIDERS: PCP Internal Medicine; Visit Provider Internal Medicine
DX: Z12.31 Encounter for screening mammogram for malignant neoplasm of breast (principal)
CPT/HCPCS: 77063; 77067

== ENCOUNTER 2023-04-28 12:27 | Outpatient (AMB) | payer OTHER, SELFPAY ==
[2023-04-28 12:38] VITALS: BP 130/70; PULSE 75; O2SAT 98; BMI 29.8
--- NOTE | 2023-04-28 12:38 | A.OFFPC_ITS ---
Vital Signs 04/28/23 12:38 Height 5 ft 2 in Weight 163 lb BMI 29.8 BP 130/70 Blood Pressure Location Lt brachial Position Sitting Pulse 75 Pulse Source Pulse Oximeter Pulse Oximetry (%) 98 Oxygen Delivery Method Room Air Intake Visit Reasons: DM Allergies JOI Inhibitors Allergy (Intermediate, Verified 04/28/23 12:38) Cough cephalexin [Keflex] Allergy (Intermediate, Verified 04/28/23 12:38) rash codeine [Codeine] Allergy (Intermediate, Verified 04/28/23 12:38) RASH VOMTING- APAP W/ CODEINE, vomiting gemfibrozil [GEMFIBROZIL] Allergy (Intermediate, Verified 04/28/23 12:38) RASH metformin [METFORMIN] Allergy (Intermediate, Verified 04/28/23 12:38) DIARRHEA morphine [Morphine] Allergy (Intermediate, Verified 04/28/23 12:38) HIVES, rash, rash naproxen Allergy (Intermediate, Verified 08 12:38) inadequate response sulfamethoxazole [From Bactrim] Adverse Reaction (Intermediate, Verified 04/28/23 12:38) nausea trimethoprim [From Bactrim] Adverse Reaction (Intermediate, Verified 04/28/23 12:38) nausea Medication List - Last Reconciled 04/28/23 by Lanny Soria, albuterol sulfate 90 mcg/actuation (ProAir HFA) 1 puff PO Q4H PRN alcohol swabs (Alcohol Prep Pads) 1 pad topical TID [bed pad As directed] blood sugar diagnostic (FreeStyle Lite Strips) As directed check the BS TID blood sugar diagnostic (FreeStyle Lite Strips) TEST BLOOD SUGAR 3 TIMES A DAY cholecalciferol (vitamin D3) 25 mcg PO DAILY 3 months citalopram 40 mg PO DAILY 2 months clonazepam 1 mg PO BID clonazepam 0.5 mg PO DAILY PRN clotrimazole 1% 1 appl topical BID 4 weeks [Diaper Medium As directed] diphenhydramine HCl (Banophen) 25 mg PO Q6H PRN docusate sodium 100 mg PO BID PRN doxepin 5% apply 1 grm to affected area 3-4 x a day. wait 3-4 hours between applications (shoulder) apply second topical; dulaglutide 3 mg (0.5 mL) subcut QWEEK 30 days flash glucose scanning reader (FreeStyle Jose F 2 [place]) As directed flash glucose scanning reader (FreeStyle Jose F 14 Day [place]) As directed flash glucose sensor (FreeStyle Jose F 2 Sensor kit) As directed flash glucose sensor (FreeStyle Jose F 14 Day Sensor kit) As directed fluticasone propionate 50 mcg/actuation 1 spray intranasal DAILY 30 days gabapentin 10% 1 appl topical TID insulin degludec (Tresiba FlexTouch U-200 insulin) 50 units (0.25 mL) subcut BEDTIME 30 days insulin lispro (Humalog KwikPen (U-100) Insulin) 12 units (0.12 mL) subcut TID Lactobacillus rhamnosus GG (Culturelle) 1 cap PO DAILY lancets (TRUEplus Lancets) 1 gauge miscellaneous TIDWMEAL 90 days linaclotide (Linzess) 290 mcg PO QAM 30 days losartan 25 mg PO DAILY 90 days miconazole nitrate 2% (Zeasorb AF) 1 appl topical BID mupirocin 2% apply externally topical 3 times a day; nystatin 1 appl topical TID 10 days ondansetron 4 mg PO Q8H PRN [P-5 K-10 Pain w/o Gabapentin versatile apply 1-3 grms to the affected area 3-4 x daily (shoulder) apply first, rub in well; ] pantoprazole 20 mg PO DAILY 90 days pen needle, diabetic As directed pen needle, diabetic (BD Ultra-Fine Original Pen Needle) As directed use with trulicity, basaglar and novolog 4 x a day polyethylene glycol 3350 (Miralax) 238 grams PO ONCE 1 day simvastatin 40 mg PO BEDTIME 3 months trolamine salicylate 10% (Aspercreme) 1 appl topical BID PRN valacyclovir (Valtrex) 500 mg PO BID varicella-zoster gE-AS01B (PF) 50 mcg/0.5 mL (Shingrix (PF)) 0.5 mL IM ONCE [wipes As directed] [WIPES As directed] zolpidem 10 mg PO BEDTIME PRN Tobacco use date assessed: 12/07/22 Dental Screening Dental Screen Date: 04/28/23 Did you have a dental visit in the last 12 months?: No Did you have a dental problem in the last 6 months where you did not have access to dental care?: No Was dental information given to patient?: Patient has dentist HPI DM HPI Details 62-year-old overweight female with diabetes mellitus hyperch olesterolemia GERD generalized anxiety disorder hypertension last seen in December 2022. Patient follows up with Gastroenterology for colonoscopy mammograms up-to-date. Reviewed the notes for colonoscopy and was advised to follow-up in a year. Will do a referral. As for the diabetes patient does not bring in the list of sugars has the freestyle Jose F and shows me that Sensor had some blood and will be taking it out. Discussed with the patient that the amount of the sensors depends on insurance coverage. Patient meanwhile ask for bigger [place] of clotrimazole to help with fungus. As for obstructive sleep apnea continues to use the CPAP every night. Patient also complains of some pins and needles on the feet but declined to take gabapentin. [facility] Medical History (Updated 04/28/23 @ 13:09 by Lanny Soria MD) Abdominal pain Acute vaginitis Anxiety and depression Arthritis Asthma Breast cancer screening by mammogram Breast density Candidal intertrigo COVID-19 vaccine series completed Diarrhea Dizzy Dyspareunia in female Dysuria Encounter for annual routine gynecological examination Enlarged thyroid Essential hypertension Fatty liver Fibromyalgia Gallbladder polyp GERD (gastroesophageal reflux disease) H. pylori infection Headache Herpes genitalis Herpes, genital History of panic attacks Hx of ectopic Hx of flexible sigmoidoscopy Hx of irritable bowel syndrome Hypercholesterolemia Hypertension Insomnia Intertrigo Low back pain Migraine Neck discomfort Obesity (BMI 30-39.9) ARISTEO on CPAP Osteopenia Otitis externa Overweight Overweight (BMI 25.0-29.9) Pelvic pain Potential exposure to STD Problematic vaginal discharge Right upper quadrant pain Tinea corporis Type 2 diabetes mellitus with hyperglycemia Vaginal dryness Vitamin D deficiency Surgical History H/O colonoscopy History of esophagogastroduodenoscopy (EGD) Hx of bariatric surgery Hx of cholecystectomy Hx of unilateral oophorectomy S/P repair of ventral hernia Family History Sister Hx of diabetes mellitus Hx of myocardial infarction Father Hx of myocardial infarction Daughter Cancer Sister Hx of diabetes mellitus Social History Household Members: None Housing: Apartment Alcohol intake: never Patient Tobacco Use Status: Former Tobacco user Quit Date: age 41 Tobacco use type: Cigarette Cigarette Packs Per Day: 2 Years Smoked: 20 quit 2009 e-Cigarette/Vaping Use: Never Used Second Hand Smoke Exposure: No Current occupational status: disabled Gender identity: Female Cognitive needs: No Hearing needs: No Vision needs: Yes Female Reproductive History Menstrual Age of Menarche: 8 Questionnaire PHQ-9 Over the last 2 weeks, how often have you been bothered by any of the following problems? 1. Little interest or pleasure in doing things: not at all 2. Feeling down, depressed, or hopeless: not at all 3. Trouble falling or staying asleep, or sleeping too much: not at all 4. Feeling tired or having little energy: not at all 5. Poor appetite or overeating: not at all 6. Feeling bad about yourself - or that you are a failure or have let yourself or your family down: not at all 7. Trouble concentrating on things, such as reading the newspaper or watching television: not at all 8. Moving or speaking so slowly that other people could have noticed. Or the opposite - being so fidgety or restless that you have been moving around a lot more than usual: not at all 9. Thoughts that you would be better off or of hurting yourself in some way: not at all Total score: 0 Depression Screening Interpretation: Negative Source: Developed by Drs. Boston Jimenes, Halley Watkins, Ti Mart and colleagues, with an educational jasmina from [employer]. Thrive Questionnaire Date Thrive assessed: 12/07/22 AUDIT C Alcohol Use Questionnaire (AUDIT-C) 1. How often do you have a drink containing alcohol?: Never 3. How often do you have six or more drinks on one occasion?: Never Total Score: 0 ANJEL-7 AMB Questionnaire ANJEL-7 Date ANJEL - 7 assessed: 12/07/22 Source: Developed by Drs. Boston Jimenes, Halley Watkins, Ti Mart and colleagues, with an educational jasmina from [employer]. Physical exam (Primary Care) Vital Signs: Last Vital Signs Pulse 75 04/28/23 12:38 BP 130/70 04/28/23 12:38 Pulse Ox 98 04/28/23 12:38 Oxygen Delivery Method Room Air 04/28/23 12:38 BMI result Body Mass Index 29.8 Tobacco/Smoking Status: Tobacco use Status Tobacco use date assessed 12/07/22 04/28/23 12:39 Patient Tobacco Use Status Former Tobacco user 04/28/23 12:39 Tobacco use type Cigarette 04/28/23 12:39 e-Cigarette/Vaping Use Never Used 04/28/23 12:39 PHQ-9: PHQ-9 Score PHQ-9: Total score 0 04/28/23 12:53 Depression Screening Interpretation: Negative Thrive Assessment: Date of Thrive Assessment Date Thrive assessed 12/07/22 04/28/23 12:39 Const General: alert; No acute distress Eyes Conjunctivae: conjunctivae normal Resp Auscultation: clear to auscultation bilaterally Cardio Rate: regular rate Rhythm: regular rhythm GI Inspection: Yes normal to inspection Extrem General: Yes normal to inspection and No edema Results AMB Hemoglobin A1c AMB Hemoglobin A1c 7.6 % Last Edit by Emily Bryan CMA on 04/28/23 12 :54 Results Reviewed Results Reviewed: Laboratory Last Values Hgb A1c (Clinic) 7.6 % (4.0-6.0) H 04/28/23 12:39 Assessment and Plan Assessment & Plan (1) Type 2 diabetes mellitus with hyperglycemia: Code(s): E11.65 - Type 2 diabetes mellitus with hyperglycemia Qualifiers: 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 Hemoglobin A1c goal of less than 6.5 patient is taking Trulicity 1.5 mg once a week Tresiba insulin Humalog sliding scale. usees the CPAP Q night . as for the freestyle - jose f - states the sensor is not lasting 2 weeks . but advised depends on insurance. (2) Essential hypertension: Code(s): I10 - Essential (primary) hypertension Plan: Continue with blood pressure medication. Decrease salt intake and exercise patient is taking losartan 25 mg once a day (3) Hypercholesterolemia: Code(s): E78.00 - Pure hypercholesterolemia, unspecified Plan: Avoid fried foods, chicken skin, eggs, butter margarine, pastries and meat. Be it pork or beef they have a lot of cholesterol LDL goal of less than 100 and triglyceride of less than 150 patient is on simvastatin 40 mg once a day (4) GERD (gastroesophageal reflux disease): Code(s): K21.9 - Gastro-esophageal reflux disease without esophagitis Qualifiers: Esophagitis presence: without esophagitis Qualified Code(s): K21.9 - Gastro-esophageal reflux disease without esophagitis Plan: Avoid the foods that causes that usually spicy foods, tomato products, juices, coffee, soda and foods that your sensitive to. After eating do not lie down, allow 3-4 hours before in lie down. And keep the head of bed above 30 degrees to avoid the acid from going up. (5) Overweight: Code(s): E66.3 - Overweight Plan: Continue with diet and exercise (6) Generalized anxiety disorder: Comment: [facility] 2 x a month therapist (Gem Menezes) and psychiatrist Q 3 months Code(s): F41.1 - Generalized anxiety disorder Plan: Continue with counseling and therapy (7) NAFLD (nonalcoholic fatty liver disease): Comment: A good weight, glucose and lipid-continue to abstain from alcohol Code(s): K76.0 - Fatty (change of) liver, not elsewhere classified Plan: Low-fat diet and exercise (8) Tubular adenoma of colon: Comment: Due for polyp surveillance Code(s): D12.6 - Benign neoplasm of colon, unspecified Plan: Reminded about the colon test (9) Obstructive sleep apnea (adult) (pediatric): Comment: Not on CPAP due to recall Code(s): G47.33 - Obstructive sleep apnea (adult) (pediatric) Plan: Continue with the CPAP > 4 hours a night and benefits from this (10) Tinea corporis: Code(s): B35.4 - Tinea corporis Orders: Orders AMB Hemoglobin A1c Today Z13.9 - Encounter for screening, unspecified Referrals Gastroenterology Referral D12.6 - Benign neoplasm of colon, unspecified Medications: Changed From dulaglutide (Trulicity) 1.5 mg (0.5 mL) subcut QWEEK 28 days 2 mL 12RF E11.65 - Type 2 diabetes mellitus with hyperglycemia To dulaglutide 3 mg (0.5 mL) subcut QWEEK 30 days 2.5 mL 12RF E11.65 - Type 2 diabetes mellitus with hyperglycemia Refilled clotrimazole 1% 1 appl topical BID 4 weeks 90 grams 3RF B35.4 - Tinea corporis flash glucose sensor (FreeStyle Jose F 2 Sensor kit) As directed 6 kits 3RF E11.65 - Type 2 diabetes mellitus with hyperglycemia, Z79.4 - 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 insulin Discontinued clotrimazole-betamethasone 1-0.05 % Discontinued Reason: Duplicate 1 appl topical BID PRN 45 grams 3RF rash B35.4 - Tinea corporis miconazole nitrate (Monistat 3) Discontinued Reason: Change Referral Type put 1 supp in vagina at bedtime x 3nites;use cream on area outside vagina 2X/day for up to 7days vaginal 24 grams 0RF Coding Level of Care Code Est Pt Level 4 (91540) Diagnoses Type 2 diabetes mellitus with hyperglycemia E11.65; Z79.4 Diabetes mellitus senior care insulin use: with equipment operator intermodal yard use Essential hypertension I10 Hypercholesterolemia E78.00 GERD (gastroesophageal reflux disease) K21.9 Esophagitis presence: without esophagitis Overweight E66.3 Generalized anxiety disorder F41.1 NAFLD (nonalcoholic fatty liver disease) K76.0 Tubular adenoma of colon D12.6 Obstructive sleep apnea (adult) (pediatric) G47.33 Tinea corporis B35.4
== END 2023-04-28 13:30 | disposition home or self-care (01) ==
PROVIDERS: PCP Internal Medicine; Visit Provider Internal Medicine
DX: E11.65 Type 2 diabetes mellitus with hyperglycemia (principal); Z79.4 Long term (current) use of insulin; I10 Essential (primary) hypertension; E78.00 Pure hypercholesterolemia, unspecified; K21.9 Gastro-esophageal reflux disease without esophagitis; E66.3 Overweight; F41.1 Generalized anxiety disorder; K76.0 Fatty (change of) liver, not elsewhere classified; D12.6 Benign neoplasm of colon, unspecified; G47.33 Obstructive sleep apnea (adult) (pediatric); B35.4 Tinea corporis; Z13.9 Encounter for screening, unspecified
CPT/HCPCS: 83036; 99214

== ENCOUNTER 2023-06-22 11:30 | Outpatient (AMB) | payer OTHER, SELFPAY ==
--- NOTE | 2023-06-22 11:47 | A.OFFVIS_ITS ---
Intake Vital Signs 06/22/23 11:54 Height 5 ft 2 in Weight 161 lb BMI 29.4 BP 135/60 Blood Pressure Location Lt brachial Position Sitting Pulse 70 Intake Visit Reasons: Colonoscopy Screening Intake Note: Patient follow up for constipation and pre Colonoscopy screening. Patient cc: center abdominal pain with bloating, acid reflex on and off, between diarrhea and constipation medication are not helping with the constipation. Medical Unit Secretary Required: No Accompanied by: Self / Same As Patient Allergies JOI Inhibitors Allergy (Intermediate, Verified 06/22/23 11:46) Cough cephalexin [Keflex] Allergy (Intermediate, Verified 06/22/23 11:46) rash codeine [Codeine] Allergy (Intermediate, Verified 06/22/23 11:46) RASH VOMTING- APAP W/ CODEINE, vomiting gemfibrozil [GEMFIBROZIL] Allergy (Intermediate, Verified 06/22/23 11:46) RASH metformin [METFORMIN] Allergy (Intermediate, Verified 06/22/23 11:46) DIARRHEA morphine [Morphine] Allergy (Intermediate, Verified 06/22/23 11:46) HIVES, rash, rash naproxen Allergy (Intermediate, Verified 06/22/23 11:46) inadequate response sulfamethoxazole [From Bactrim] Adverse Reaction (Intermediate, Verified 06/22/23 11:46) nausea trimethoprim [From Bactrim] Adverse Reaction (Intermediate, Verified 06/22/23 11:46) nausea Medication List - Last Reconciled 06/22/23 by Adelina Vila PA-C albuterol sulfate 90 mcg/actuation (ProAir HFA) 1 puff PO Q4H PRN alcohol swabs (Alcohol Prep Pads) 1 pad topical TID [bed pad As directed] blood sugar diagnostic (FreeStyle Lite Strips) As directed check the BS TID blood sugar diagnostic (FreeStyle Lite Strips) TEST BLOOD SUGAR 3 TIMES A DAY cholecalciferol (vitamin D3) 25 mcg PO DAILY 3 months citalopram 40 mg PO DAILY 2 months clonazepam 1 mg PO BID clonazepam 0.5 mg PO DAILY PRN clotrimazole 1% 1 appl topical BID 4 weeks [Diaper Medium As directed] diphenhydramine HCl (Banophen) 25 mg PO Q6H PRN docusate sodium 100 mg PO BID PRN doxepin 5% apply 1 grm to affected area 3-4 x a day. wait 3-4 hours between ap plications (shoulder) apply second topical; dulaglutide 3 mg (0.5 mL) subcut QWEEK 30 days flash glucose scanning reader (FreeStyle Jose F 14 Day [place]) As directed flash glucose scanning reader (FreeStyle Jose F 2 [place]) As directed flash glucose sensor (FreeStyle Jose F 2 Sensor kit) As directed flash glucose sensor (FreeStyle Jose F 14 Day Sensor kit) As directed fluticasone propionate 50 mcg/actuation 1 spray intranasal DAILY 30 days insulin degludec (Tresiba FlexTouch U-200 insulin) 50 units (0.25 mL) subcut BEDTIME 30 days insulin lispro (Humalog KwikPen (U-100) Insulin) 12 units (0.12 mL) subcut TID Lactobacillus rhamnosus GG (Culturelle) 1 cap PO DAILY lancets (TRUEplus Lancets) 1 gauge miscellaneous TIDWMEAL 90 days linaclotide (Linzess) 290 mcg PO QAM 30 days losartan 25 mg PO DAILY 90 days miconazole nitrate 2% (Zeasorb AF) 1 appl topical BID mupirocin 2% apply externally topical 3 times a day; nystatin 1 appl topical TID 10 days ondansetron 4 mg PO Q8H PRN [P-5 K-10 Pain w/o Gabapentin versatile apply 1-3 grms to the affected area 3-4 x daily (shoulder) apply first, rub in well; ] pantoprazole 20 mg PO DAILY 90 days pen needle, diabetic As directed pen needle, diabetic (BD Ultra-Fine Original Pen Needle) As directed use with trulicity, basaglar and novolog 4 x a day simvastatin 40 mg PO BEDTIME 3 months trolamine salicylate 10% (Aspercreme) 1 appl topical BID PRN valacyclovir (Valtrex) 500 mg PO BID varicella-zoster gE-AS01B (PF) 50 mcg/0.5 mL (Shingrix (PF)) 0.5 mL IM ONCE [wipes As directed] [WIPES As directed] zolpidem 10 mg PO BEDTIME PRN HPI HPI Comments History of Present Illness Details A 62 y/o female f/u to discuss repeat colonoscopy due to inadequate prep- she states she is not prepared because she has severe constipation She does not get much excercise- she says she drinks a lot of water She does not have belly pain Appetite fairly good she has a lot of veggies sometimes she has nausea, nothing specific causes it No vomiting, hematemesis, hematochezia fever chills Reviewed previous colonoscopy report as below Plan: Await Pathology results Repeat Colonoscopy in 6-12 months, recommend 2 d of clears if can do it, and one week of miralax BId prior to the colon prep High fiber diet leaflet avoid straining at stool, epsom salts and sitz bath, anusol supps or cream Reflux may be due to her sleeve gastrectomy [facility] Medical History (Updated 06/22/23 @ 12:43 by Adelina Vila PA-C) Pelvic pain Headache Vaginal dryness Acute vaginitis Encounter for annual routine gynecological examination Dizzy Tinea corporis Hx of flexible sigmoidoscopy Herpes, genital Dysuria Breast cancer screening by mammogram Diarrhea Otitis externa Neck discomfort Overweight (BMI 25.0-29.9) Overweight COVID-19 vaccine series completed Low back pain Abdominal pain Potential exposure to STD Dyspareunia in female Problematic vaginal discharge Candidal intertrigo Obesity (BMI 30-39.9) Right upper quadrant pain Fatty liver Osteopenia Insomnia Gallbladder polyp GERD (gastroesophageal reflux disease) Hypercholesterolemia Type 2 diabetes mellitus with hyperglycemia Anxiety and depression Intertrigo Breast density H. pylori infection Essential hypertension Migraine ARISTEO on CPAP Arthritis History of panic attacks Vitamin D deficiency Hx of irritable bowel syndrome Enlarged thyroid Fibromyalgia Asthma Hypertension Herpes genitalis Hx of ectopic Surgical History History of esophagogastroduodenoscopy (EGD) H/O colonoscopy S/P repair of ventral hernia Hx of bariatric surgery Hx of cholecystectomy Hx of unilateral oophorectomy Family History Sister Hx of diabetes mellitus Hx of myocardial infarction Father Hx of myocardial infarction Daughter Cancer Sister Hx of diabetes mellitus Social History Household Members: None Housing: Apartment Alcohol intake: never Patient Tobacco Use Status: Former Tobacco user Quit Date: age 41 Tobacco use type: Cigarette Cigarette Packs Per Day: 2 Years Smoked: 20 quit 2008 e-Cigarette/Vaping Use: Never Used Second Hand Smoke Exposure: No Current occupational status: disabled Gender identity: Female Cognitive needs: No Hearing needs: No Vision needs: Yes Female Reproductive History Menstrual Age of Menarche: 8 Review of Systems Const All systems reviewed & are unremarkable except as noted in HPI and below Card Denies chest pain and Denies dyspnea Resp Denies dyspnea Psych Reports anxiety Physical Exam Vital Signs: Last Vital Signs Pulse 70 06/22/23 11:54 BP 135/60 06/22/23 11:54 BMI result Body Mass Index 29.4 Const General: cooperative, healthy appearing and comfortable Limitations: no limitations Resp Effort & Inspection: normal respiratory effort and able to speak in complete sentences Auscultation: clear to auscultation bilaterally and no wheezes GI Palpation (GI): Soft to palpation and nontender Auscultation: normal bowel sounds Results Reviewed Results Reviewed: Endoscopy Findings: gastritis post surgical changes \ Colonoscopy Findings: diverticulosis, severe poor prep Plan: Await Pathology results Repeat Colonoscopy in 6-12 months, recommend 2 d of clears if can do it, and one week of miralax BId prior to the colon prep High fiber diet leaflet avoid straining at stool, epsom salts and sitz bath, anusol supps or cream Reflux may be due to her sleeve gastrectomy Above findings were reviewed with the patient and relevant handouts were provided if indicated. Assessment & Plan Assessment & Plan (1) Tubular adenoma of colon: Comment: Over Due for polyp surveillance Code(s): D12.6 - Benign neoplasm of colon, unspecified Plan: Constipation-will try to get better bowel pattern before colonoscopy (2) Chronic constipation: Comment: Diabetes, not well controlled, likely plays a role Due for colonoscopy, declines at this time-due to severe constipation Code(s): K59.09 - Other constipation Plan: Reinforce importance of consistent bowel regimen (3) Diverticulosis of colon: Comment: Severe diverticulosis, luminal narrowing Code(s): K57.30 - Diverticulosis of large intestine without perforation or abscess without bleeding Plan: Diverticulosis/diverticulitis ER protocol reinforce Plan eye surgery- July/ after recovery Medications: New methylcellulose (laxative) (Citrucel) 500 mg PO TID 30 days 90 tabs 5RF docusate sodium (Colace) 200 mg (2 x 100 mg) PO BEDTIME 30 days 60 caps 5RF bisacodyl (Dulcolax (bisacodyl)) 10 mg SD DAILY PRN 20 ea 2RF constipation polyethylene glycol 3350 (Miralax) 17 grams PO DAILY 510 grams 6RF hydrocortisone 2.5% (Proctosol HC) 1 appl SD BEDTIME 30 days PRN 30 grams 3RF hemorrhoids sennosides (senna) 8.6 mg PO DAILY PRN 30 caps 1RF constipation Refilled docusate sodium 100 mg PO BID PRN 60 caps 6RF constipation Patient Instructions: Diverticulosis/diverticulitis ER protocol reinforced Consistent bowel regimen reinforced again Water intake grapenuts Maintain high-fiber diet -discussed foods to avoid to include nuts Will f/u to rediscuss colonoscopy for polypsurveilance Coding Level of Care Code Est Pt Level 3 (63445) Diagnoses Tubular adenoma of colon D12.6 Chronic constipation K59.09 Diverticulosis of colon K57.30 Time Spent (min) 35
[2023-06-22 11:54] VITALS: BP 135/60; PULSE 70; BMI 29.4
== END 2023-06-22 12:36 | disposition home or self-care (01) ==
PROVIDERS: PCP Internal Medicine; Visit Provider Physician Assistant
DX: D12.6 Benign neoplasm of colon, unspecified (principal); K59.09 Other constipation; K57.30 Diverticulosis of large intestine without perforation or abscess without bleeding
CPT/HCPCS: 99213

== ENCOUNTER → 2023-06-22 11:30 | Outpatient (BNVA) | payer OTHER, SELFPAY | PROVIDERS: PCP Internal Medicine; Visit Provider Physician Assistant | DX: K59.09 Other constipation (principal); K57.30 Diverticulosis of large intestine without perforation or abscess without bleeding; D12.6 Benign neoplasm of colon, unspecified | CPT/HCPCS: 99212 ==

== ENCOUNTER 2023-08-09 13:39 | Outpatient (AMB) | payer OTHER, SELFPAY ==
--- NOTE | 2023-08-09 13:40 | A.OFFPC_ITS ---
Vital Signs 08/09/23 13:41 Height 5 ft 2 in Weight 162 lb BMI 29.6 BP 132/80 Blood Pressure Location Lt brachial Position Sitting Pulse 75 Pulse Source Pulse Oximeter Pulse Oximetry (%) 98 Oxygen Delivery Method Room Air Intake Visit Reasons: DM Embalmer Apprentice Required: No Trauma Surgeon: Not Required per policy Accompanied by: Self / Same As Patient Allergies JOI Inhibitors Allergy (Intermediate, Verified 08/09/23 13:41) Cough cephalexin [Keflex] Allergy (Intermediate, Verified 08/09/23 13:41) rash codeine [Codeine] Allergy (Intermediate, Verified 08/09/23 13:41) RASH VOMTING- APAP W/ CODEINE, vomiting gemfibrozil [GEMFIBROZIL] Allergy (Intermediate, Verified 08/09/23 13:41) RASH metformin [METFORMIN] Allergy (Intermediate, Verified 08/09/23 13:41) DIARRHEA morphine [Morphine] Allergy (Intermediate, Verified 08/09/23 13:41) HIVES, rash, rash naproxen Allergy (Intermediate, Verified 08/09/23 13:41) inadequate response sulfamethoxazole [From Bactrim] Adverse Reaction (Intermediate, Verified 08/09/23 13:41) nausea trimethoprim [From Bactrim] Adverse Reaction (Intermediate, Verified 08/09/23 13:41) nausea Medication List - Last Reconciled 08/09/23 by Lanny Soria MD albuterol sulfate 90 mcg/actuation (ProAir HFA) 1 puff PO Q4H PRN alcohol swabs (Alcohol Prep Pads) 1 pad topical TID amitriptyline 25 mg PO BEDTIME [bed pad As directed] bisacodyl (Dulcolax (bisacodyl)) 10 mg [place] DAILY PRN blood sugar diagnostic (FreeStyle Lite Strips) As directed check the BS TID blood sugar diagnostic (FreeStyle Lite Strips) TEST BLOOD SUGAR 3 TIMES A DAY cholecalciferol (vitamin D3) 25 mcg PO DAILY 3 months citalopram 40 mg PO DAILY 2 months clonazepam 1 mg PO BID clonazepam 0.5 mg PO DAILY PRN clotrimazole 1% 1 appl topical BID 4 weeks clotrimazole 1% 1 appl topical BID 4 weeks [Diaper Medium As directed] diphenhydramine HCl (Banophen) 25 mg PO Q6H PRN docusate sodium 100 mg PO BID PRN docusate sodium (Colace) 200 mg (2 x 100 mg) PO BEDTIME 30 days doxepin 5% apply 1 grm to affected area 3-4 x a day. wait 3-4 hours between applications (shoulder) apply second topical; dulaglutide 3 mg (0.5 mL) subcut QWEEK 30 days flash glucose scanning reader (FreeStyle Jose F 14 Day [place]) As directed flash glucose scanning reader (FreeStyle Jose F 2 [place]) As directed flash glucose sensor (FreeStyle Jose F 2 Sensor kit) As directed flash glucose sensor (FreeStyle Jose F 14 Day Sensor kit) As directed fluticasone propionate 50 mcg/actuation 1 spray intranasal DAILY 30 days hydrocortisone 2.5% (Proctosol HC) 1 appl [place] BEDTIME PRN 30 days insulin degludec (Tresiba FlexTouch U-200 insulin) 50 units (0.25 mL) subcut BEDTIME 30 days insulin lispro (Humalog KwikPen (U-100) Insulin) 12 units (0.12 mL) subcut TID Lactobacillus rhamnosus GG (Culturelle) 1 cap PO DAILY lancets (TRUEplus Lancets) 1 gauge miscellaneous TIDWMEAL 90 days linaclotide (Linzess) 290 mcg PO QAM 30 days losartan 25 mg PO DAILY 90 days methylcellulose (laxative) (Citrucel) 500 mg PO TID 30 days miconazole nitrate 2% (Zeasorb AF) 1 appl topical BID mupirocin 2% apply externally topical 3 times a day; nystatin 1 appl topical TID 10 days ondansetron 4 mg PO Q8H PRN [P-5 K-10 Pain w/o Gabapentin versatile apply 1-3 grms to the affected area 3-4 x daily (shoulder) apply first, rub in well; ] pantoprazole 20 mg PO DAILY 90 days pen needle, diabetic As directed pen needle, diabetic (BD Ultra-Fine Original Pen Needle) As directed use with trulicity, basaglar and novolog 4 x a day polyethylene glycol 3350 (Miralax) 17 grams PO DAILY sennosides (senna) 8.6 mg PO DAILY PRN 90 days simvastatin 40 mg PO BEDTIME 3 months trolamine salicylate 10% (Aspercreme) 1 appl topical BID PRN valacyclovir (Valtrex) 500 mg PO BID varicella-zoster gE-AS01B (PF) 50 mcg/0.5 mL (Shingrix (PF)) 0.5 mL IM ONCE [wipes As directed] [WIPES As directed] zolpidem 10 mg PO BEDTIME PRN Tobacco use date assessed: 12/07/22 Dental Screening Dental Screen Date: 08/09/23 Did you have a dental visit in the last 12 months?: No Did you have a dental problem in the last 6 months where you did not have access to dental care?: No Was dental information given to patient?: Patient has dentist HPI DM HPI Details 62-year-old overweight female with uncon trolled diabetes mellitus hypertension hypercholesterolemia GERD generalized anxiety disorder fatty liver coming in for follow-up. Last seen in April 2023. Colonoscopy was done in December 2021 and was advised to repeat in 1 year. Mammogram is up-to-date 06/2023 surgery done eye and taken sutures 07/2023. colon test pending. patient was sent to endo but states stopped . hearing problem and wants to see ent. Patient complains of having a rash under the breast and under the fold of the abdomen but on showing as with the medical cyst there is no rash. Cream sent in she does not like the powder antifungal. Discussed the need to control the blood sugar. Patient is sent to surgical device sales representative as well as referring back to the retort load expediter. Patient also complains of not being able to exercise because of her location. Patient also has been prescribed by neurologist amitriptyline to help with sleep and wants to have a prescription and declines to be seen by neurologist again. [facility] Medical History Pelvic pain Headache Vaginal dryness Acute vaginitis Encounter for annual routine gynecological examination Dizzy Tinea corporis Hx of flexible sigmoidoscopy Herpes, genital Dysuria Breast cancer screening by mammogram Diarrhea Otitis externa Neck discomfort Overweight (BMI 25.0-29.9) Overweight COVID-19 vaccine series completed Low back pain Abdominal pain Potential exposure to STD Dyspareunia in female Problematic vaginal discharge Candidal intertrigo Obesity (BMI 30-39.9) Right upper quadrant pain Fatty liver Osteopenia Insomnia Gallbladder polyp GERD (gastroesophageal reflux disease) Hypercholesterolemia Type 2 diabetes mellitus with hyperglycemia Anxiety and depression Intertrigo Breast density H. pylori infection Essential hypertension Migraine ARISTEO on CPAP Arthritis History of panic attacks Vitamin D deficiency Hx of irritable bowel syndrome Enlarged thyroid Fibromyalgia Asthma Hypertension Herpes genitalis Hx of ectopic Surgical History History of esophagogastroduodenoscopy (EGD) H/O colonoscopy S/P repair of ventral hernia Hx of bariatric surgery Hx of cholecystectomy Hx of unilateral oophorectomy Family History Sister Hx of diabetes mellitus Hx of myocardial infarction Father Hx of myocardial infarction Daughter Cancer Sister Hx of diabetes mellitus Social History Household Members: None Housing: Apartment Alcohol intake: never Patient Tobacco Use Status: Former Tobacco user Quit Date: age 41 Tobacco use type: Cigarette Cigarette Packs Per Day: 2 Years Smoked: 20 quit 2008 e-Cigarette/Vaping Use: Never Used Second Hand Smoke Exposure: No Current occupational status: disabled Gender identity: Female Cognitive needs: No Hearing needs: No Vision needs: Yes Female Reproductive History Menstrual Age of Menarche: 8 Questionnaire PHQ-9 Over the last 2 weeks, how often have you been bothered by any of the following problems? 1. Little interest or pleasure in doing things: not at all 2. Feeling down, depressed, or hopeless: not at all 3. Trouble falling or staying asleep, or sleeping too much: not at all 4. Feeling tired or having little energy: not at all 5. Poor appetite or overeating: not at all 6. Feeling bad about yourself - or that you are a failure or have let yourself or your family down: not at all 7. Trouble concentrating on things, such as reading the newspaper or watching television: not at all 8. Moving or speaking so slowly that other people could have noticed. Or the opposite - being so fidgety or restless that you have been moving around a lot more than usual: not at all 9. Thoughts that you would be better off or of hurting yourself in some way: not at all Total score: 0 Depression Screening Interpretation: Negative Depression Screening Done: Yes Source: Developed by Drs. [place] L. Halley Jimenes Kurt Kroenke and colleagues, with an educational jasmina from [employer] Thrive Questionnaire Date Thrive assessed: 12/07/22 AUDIT C Alcohol Use Questionnaire (AUDIT-C) 1. How often do you have a drink containing alcohol?: Never 3. How often do you have six or more drinks on one occasion?: Never Total Score: 0 ANJEL-7 AMB Questionnaire ANJEL-7 Date ANJEL - 7 assessed: 12/07/22 Source: Developed by Halley Mondragon Kurt Kroenke and colleagues, with an educational jasmina from [employer] Physical exam (Primary Care) Vital Signs: Last Vital Signs Pulse 75 08/09/23 13:41 BP 132/80 08/09/23 13:41 Pulse Ox 98 08/09/23 13:41 Oxygen Delivery Method Room Air 08/09/23 13:41 BMI result Body Mass Index 29.6 Tobacco/Smoking Status: Tobacco use Status Tobacco use date assessed 12/07/22 08/09/23 13:44 Patient Tobacco Use Status Former Tobacco user 08/09/23 13:44 Tobacco use type Cigarette 08/09/23 13:44 e-Cigarette/Vaping Use Never Used 08/09/23 13:44 PHQ-9: PHQ-9 Score PHQ-9: Total score 0 08/09/23 14:06 Depression Screening Interpretation: Negative Thrive Assessment: Date of Thrive Assessment Date Thrive assessed 12/07/22 08/09/23 13:44 Const General: alert; No acute distress Eyes Conjunctivae: conjunctivae normal Resp Auscultation: clear to auscultation bilaterally Cardio Rate: regular rate Rhythm: regular rhythm GI Inspection: Yes normal to inspection Extrem General: Yes normal to inspection and No edema Office Procedures Flu Questionnaire Does the patient have a severe egg allergy?: No Does the patient have severe life threatening allergies?: No Does the patient have a fever or illness today?: No Has the patient ever had Guillain-[place] Syndrome?: No Has the patient ever had any past reaction to a flu shot?: No Results AMB Hemoglobin A1c AMB Hemoglobin A1c 8.8 % Last Edit by CHASE Guthrie on 08/09/23 13:57 Immunizations flu vacc [id number] 6mos up(PF) 60 mcg(15 mcgx4)/0.5 mL IM syringe Performing Provider: Lanny Soria MD [facility] Administered by: CHASE Guthrie on 08/09/23 13:56 Dose Route Admin Location Dispensed Lot Number Expiration Date NDC Cleaning Machine Operator 0.5 mL IM Right Deltoid 0.5 mL [id number] 03/25/24 [id number] [employer] VIS Given Date VIS Provided VIS Publication Date 08/09/23 Single Vaccine 21 Eligibility Eligibility Date Funding Source Not VFC Eligible 08/09/23 Private Results Reviewed Results Reviewed: Laboratory Last Values Hgb A1c (Clinic) 8.8 % (4.0-6.0) H 08/09/23 13:44 Assessment and Plan Assessment & Plan (1) Type 2 diabetes mellitus with hyperglycemia: Code(s): E11.65 - Type 2 diabetes mellitus with hyperglycemia Qualifiers: Diabetes mellitus [facility] insulin use: with experimental physicist use Qualified Code(s): E11.65 - Type 2 diabetes mellitus with hyperglycemia; Z79.4 - bathing suit maker (current) use of insulin Plan: Decrease the amount of carbohydrate intake, pasta, bread, rice and potatoes are all sugar and that is aside from all the sweet stuff, remember that fruits are good but they are Sweet also. Hemoglobin A1c goal of less than 6.5. Patient is on Trulicity, Tresiba, Humalog (2) NAFLD (nonalcoholic fatty liver disease): Comment: A good weight, glucose and lipid-continue to abstain from alcohol Code(s): K76.0 - Fatty (change of) liver, not elsewhere classified Plan: Low-fat diet and exercise (3) Essential hypertension: Code(s): I10 - Essential (primary) hypertension Plan: Continue with blood pressure medication. Decrease salt intake and exercise patient takes losartan 25 mg once a day (4) Hypercholesterolemia: Code(s): E78.00 - Pure hypercholesterolemia, unspecified Plan: Avoid fried foods, chicken skin, eggs, butter margarine, pastries and meat. Be it pork or beef they have a lot of cholesterol LDL goal of less than 100 and triglyceride of less than 150 on simvastatin 40 mg once a day (5) GERD (gastroesophageal reflux disease): Code(s): K21.9 - Gastro-esophageal reflux disease without esophagitis Qualifiers: Esophagitis presence: without esophagitis Qualified Code(s): K21.9 - Gastro-esophageal reflux disease without esophagitis Plan: Avoid the foods that causes that usually spicy foods, tomato products, juices, coffee, soda and foods that your sensitive to. After eating do not lie down, allow 3-4 hours before in lie down. And keep the head of bed above 30 degrees to avoid the acid from going up. (6) Overweight: Code(s): E66.3 - Overweight Plan: Diet and exercise (7) Generalized anxiety disorder: Comment: [facility] 2 x a month therapist (Gem Menezes) and psychiatrist Q 3 months Code(s): F41.1 - Generalized anxiety disorder Plan: Continue with counseling and therapy (8) Tubular adenoma of colon: Comment: Over Due for polyp surveillance Code(s): D12.6 - Benign neoplasm of colon, unspecified Plan: Patient has seen gastroenterology and planned colonoscopy (9) Obstructive sleep apnea (adult) (pediatric): Comment: Not on CPAP due to recall Code(s): G47.33 - Obstructive sleep apnea (adult) (pediatric) (10) Tinea corporis: Code(s): B35.4 - Tinea corporis (11) Hearing difficulty: Code(s): H91.90 - Unspecified hearing loss, unspecified ear Orders: Orders Influenza [id number] Immunization Today Z23 - Encounter for immunization AMB Hemoglobin A1c Today E11.65 - Type 2 diabetes mellitus with hyperglycemia Referrals Gis Technician Nutrition Referral E11.65 - Type 2 diabetes mellitus with hyperglycemia, Z79.4 - [facility] (current) use of insulin Endocrinology Referral E11.65 - Type 2 diabetes mellitus with hyperglycemia, Z79.4 - bathing suit maker (current) use of insulin Speech and Hearing Referral H91.90 - Unspecified hearing loss, unspecified ear Medications: New clotrimazole 1% 1 appl topical BID 4 weeks 90 grams 2RF B35.4 - Tinea corporis amitriptyline 25 mg PO BEDTIME 30 tabs 3RF E11.65 - Type 2 diabetes mellitus with hyperglycemia, Z79.4 - bathing suit maker (current) use of insulin Coding Level of Care Code Est Pt Level 4 (63785) Diagnoses Type 2 diabetes mellitus with hyperglycemia, with long-term current use of insulin E11.65; Z79.4 Diabetes mellitus [facility] insulin use: with [facility] use NAFLD (nonalcoholic fatty liver disease) K76.0 Essential hypertension I10 Hypercholesterolemia E78.00 Gastroesophageal reflux disease without esophagitis K21.9 Esophagitis presence: without esophagitis Overweight E66.3 Generalized anxiety disorder F41.1 Tubular adenoma of colon D12.6 Obstructive sleep apnea (adult) (pediatric) G47.33 Tinea corporis B35.4 Hearing difficulty H91.90
[2023-08-09 13:41] VITALS: BP 132/80; PULSE 75; O2SAT 98; BMI 29.6
== END 2023-08-09 14:34 | disposition home or self-care (01) ==
PROVIDERS: PCP Internal Medicine; Visit Provider Internal Medicine
DX: Z23 Encounter for immunization (principal)
CPT/HCPCS: 83036; 90471; 90686; 99214

== ENCOUNTER 2023-09-12 13:29 | Outpatient (AMB) | payer OTHER, SELFPAY ==
--- NOTE | 2023-09-12 13:57 | A.OFFVIS_ITS ---
Intake VS Expanded 09/12/23 14:00 09/21/23 17:44 Height 5 ft 2 in 5 ft 2 in Weight 159 lb 6.307 oz 159 lb BMI 29.2 29.1 Intake Visit Reasons: T2DM mellitus with hyperglycemia/CONFIRMED Allergies JOI Inhibitors Allergy (Intermediate, Verified 08/09/23 13:41) Cough cephalexin [Keflex] Allergy (Intermediate, Verified 08/09/23 13:41) rash codeine [Codeine] Allergy (Intermediate, Verified 08/09/23 13:41) RASH VOMTING- APAP W/ CODEINE, vomiting gemfibrozil [GEMFIBROZIL] Allergy (Intermediate, Verified 08/09/23 13:41) RASH metformin [METFORMIN] Allergy (Intermediate, Verified 08/09/23 13:41) DIARRHEA morphine [Morphine] Allergy (Intermediate, Verified 08/09/23 13:41) HIVES, rash, rash naproxen Allergy (Intermediate, Verified 08/09/23 13:41) inadequate response sulfamethoxazole [From Bactrim] Adverse Reaction (Intermediate, Verified 08/09/23 13:41) nausea trimethoprim [From Bactrim] Adverse Reaction (Intermediate, Verified 08/09/23 13:41) nausea HPI Nutrition Presentation Details Pt presents for MNT for T2DM. Pt was referred by Dr. Soria, PCP Pt has hx of gastric surgery, A1c 8.8% (07/2023) 24 hr food recall: B: toast with butter and fruit juice L: salad with chicken , British dressing Dinner: rice/beans sauce, water or juice snack: crackers with cheese physical activity: daily life activities ETOH: - Smoking:denies food frequency fruits: 0-1/d ve-1/d prot: poultry/eggs starches> 22 serving/d dairy: cheese mostly > 3 serving/d beverages: water, juice Diet Assmnt Dietary counseling diabetic diet GJM-Arblptn-Vt.Jeor Equation Height 5 ft 2 in Weight 159 lb Resting Metabolic Rate 1233.78 Calculated Activity Level Sedentary Calories Needed to Maintain Weight 1480.54 Diagnosis Nutrition problem #1 altered nutrition labs As related to (etiology) #1 lack of nutrit education As evidenced by (sign/symptom) #1 knowledge deficit of diet Monitoring/Goals Nutrition problem monitoring HgbA1c, level of knowledge/skill, total PRO intake, glucose, fasting and total CHO intake Nutrition goal/outcome list 3 CHO foods and list 3 high fiber foods Learning/Education Readiness to learn fair Most Recent Diabetes Results: No Data to Display [facility] Medical History Pelvic pain Headache Vaginal dryness Acute vaginitis Encounter for annual routine gynecological examination Dizzy Tinea corporis Hx of flexible sigmoidoscopy Herpes, genital Dysuria Breast cancer screening by mammogram Diarrhea Otitis externa Neck discomfort Overweight (BMI 25.0-29.9) Overweight COVID-19 vaccine series completed Low back pain Abdominal pain Potential exposure to STD Dyspareunia in female Problematic vaginal discharge Candidal intertrigo Obesity (BMI 30-39.9) Right upper quadrant pain Fatty liver Osteopenia Insomnia Gallbladder polyp GERD (gastroesophageal reflux disease) Hypercholesterolemia Type 2 diabetes mellitus with hyperglycemia Anxiety and depression Intertrigo Breast density H. pylori infection Essential hypertension Migraine ARISTEO on CPAP Arthritis History of panic attacks Vitamin D deficiency Hx of irritable bowel syndrome Enlarged thyroid Fibromyalgia Asthma Hypertension Herpes genitalis Hx of ectopic Surgical History History of esophagogastroduodenoscopy (EGD) H/O colonoscopy S/P repair of ventral hernia Hx of bariatric surgery Hx of cholecystectomy Hx of unilateral oophorectomy Family History Sister Hx of diabetes mellitus Hx of myocardial infarction Father Hx of myocardial infarction Daughter Cancer Sister Hx of diabetes mellitus Social History Household Members: None Housing: Apartment Alcohol intake: never Patient Tobacco Use Status: Former Tobacco user Quit Date: age 41 Tobacco use type: Cigarette Cigarette Packs Per Day: 2 Years Smoked: 20 quit 2008 e-Cigarette/Vaping Use: Never Used Second Hand Smoke Exposure: No Current occupational status: disabled Gender identity: Female Cognitive needs: No Hearing needs: No Vision needs: Yes Female Reproductive History Menstrual Age of Menarche: 8 Assessment & Plan Assessment & Plan (1) Type 2 diabetes mellitus with hyperglycemia: Code(s): E11.65 - Type 2 diabetes mellitus with hyperglycemia Qualifiers: Diabetes mellitus termite treater helper insulin use: with termite treater helper use Qualified Code(s): E11.65 - Type 2 diabetes mellitus with hyperglycemia; 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 Plan: wt: 72 kg Est kcal needs as per MSJ: 1500 (40% carb, 30% protein/fat) Est fluid needs as per 25-30 ml/d: 2200 Est prot per day as per 1 g/kg bw: 72 Recommend fiber intake : 8-10 g per day and gradually increase to 25-28 g per day for women and 35-38 g for men or as tolerated Recommend sodium intake per day : less than 2000 mg Educated patient on: ( R = reviewed V = verbalizes understanding N/R = needs review N/A = not applicable * Food sources of carbohydrate, adequate serving sizes and its role in various health conditions: R * Differences between complex carbohydrates a simple carbohydrates, role of fiber in diet: R * Protein sources of foods and its relationship to blood glucose and overall health: R * Differences between types of fats and role in diet (mono on saturated fat fatty acids, saturated fatty acids, trans fats): NR * Food sources of sodium in salt and healthy modifications for heart health in kidney health: NR * Vitamins and minerals: R * Healthy plate method concept: R * Physical activity: Benefits a precaution: R * Hypoglycemia protocol (rule of 15): NR * Dietary prevention of Hyperglycemia: R Plan 150 Patient Instructions: Include 2 oz of protein at breakfast, choose a fruit instead of fruit juices see 1500 amelia meal plan Coding Level of Care Code Nutr Indiv Intake (30179) Diagnoses Type 2 diabetes mellitus with hyperglycemia, with long-term current use of in sulin E11.65; Z79.4 Diabetes mellitus termite treater helper insulin use: with correction use Time Spent (min) 30
[2023-09-12 14:00] VITALS: BMI 29.2
[2023-09-21 17:44] VITALS: BMI 29.1
== END 2023-09-12 14:37 | disposition home or self-care (01) ==
PROVIDERS: PCP Internal Medicine; Visit Provider Dietitian, Registered
DX: E11.65 Type 2 diabetes mellitus with hyperglycemia (principal); Z79.4 Long term (current) use of insulin

== ENCOUNTER → 2023-09-12 13:29 | Outpatient (BNVA) | payer OTHER, SELFPAY | PROVIDERS: PCP Internal Medicine; Visit Provider Dietitian, Registered | DX: E11.65 Type 2 diabetes mellitus with hyperglycemia (principal); Z79.4 Long term (current) use of insulin | CPT/HCPCS: 97802 ==

== ENCOUNTER 2023-11-11 14:27 | Outpatient (AMB) | payer OTHER, SELFPAY ==
[2023-11-11 14:33] VITALS: BP 128/64; PULSE 67; O2SAT 97; BMI 28.9
--- NOTE | 2023-11-11 14:33 | MHC.PC.OV ---
Vital Signs 11/11/23 14:33 Height 5 ft 2 in Weight 158 lb BMI 28.9 BP 128/64 Blood Pressure Location Lt brachial Position Sitting Pulse 67 Pulse Source Pulse Oximeter Pulse Oximetry (%) 97 Oxygen Delivery Method Room Air Intake Visit Reasons: DM Intake Note: Patient is here to follow up on DM Allergies JOI Inhibitors Allergy (Intermediate, Verified 08/09/23 13:41) Cough cephalexin [Keflex] Allergy (Intermediate, Verified 08/09/23 13:41) rash codeine [Codeine] Allergy (Intermediate, Verified 08/09/23 13:41) RASH VOMTING- APAP W/ CODEINE, vomiting gemfibrozil [GEMFIBROZIL] Allergy (Intermediate, Verified 08/09/23 13:41) RASH metformin [METFORMIN] Allergy (Intermediate, Verified 08/09/23 13:41) DIARRHEA morphine [Morphine] Allergy (Intermediate, Verified 08/09/23 13:41) HIVES, rash, rash naproxen Allergy (Intermediate, Verified 08/09/23 13:41) inadequate response sulfamethoxazole [From Bactrim] Adverse Reaction (Intermediate, Verified 08/09/23 13:41) nausea trimethoprim [From Bactrim] Adverse Reaction (Intermediate, Verified 08/09/23 13:41) nausea Medication List - Last Reconciled 11/11/23 by Lanny Soria MD albuterol sulfate 90 mcg/actuation (ProAir HFA) 1 puff PO Q4H PRN alcohol swabs (Alcohol Prep Pads) 1 pad topical TID amitriptyline 25 mg PO BEDTIME [bed pad As directed] bisacodyl (OneLAX Bisacodyl) 10 mg [place] DAILY PRN blood sugar diagnostic (FreeStyle Lite Strips) As directed check the BS TID blood sugar diagnostic (FreeStyle Lite Strips) TEST BLOOD SUGAR 3 TIMES A DAY cholecalciferol (vitamin D3) 25 mcg PO DAILY 3 months citalopram 40 mg PO DAILY 2 months clonazepam 1 mg PO BID clonazepam 0.5 mg PO DAILY PRN clotrimazole 1% 1 appl topical BID 4 weeks clotrimazole 1% 1 appl topical BID 4 weeks [Diaper Medium As directed] diphenhydramine HCl (Banophen) 25 mg PO Q6H PRN docusate sodium 100 mg PO BID PRN docusate sodium (Colace) 200 mg (2 x 100 mg) PO BEDTIME 30 days doxepin 5% apply 1 grm to affected area 3-4 x a day. wait 3-4 hours between applications (shoulder) apply second topical; dulaglutide 3 mg (0.5 mL) subcut QWEEK 30 days flash glucose scanning reader (FreeStyle Jose F 14 Day [place]) As directed flash glucose scanning reader (FreeStyle Jose F 2 [place]) As directed flash glucose sensor (FreeStyle Jose F 2 Sensor kit) As directed flash glucose sensor (FreeStyle Jose F 14 Day Sensor kit) As directed fluticasone propionate 50 mcg/actuation 1 spray intranasal DAILY 30 days hydrocortisone 2.5% (Proctozone-HC) 1 appl [place] BEDTIME PRN 30 days insulin degludec (Tresiba FlexTouch U-200 insulin) 50 units (0.25 mL) subcut BEDTIME 30 days insulin lispro (Humalog KwikPen (U-100) Insulin) 12 units (0.12 mL) subcut TID Lactobacillus rhamnosus GG (Culturelle) 1 cap PO DAILY lancets (TRUEplus Lancets) 1 gauge miscellaneous TIDWMEAL 90 days linaclotide (Linzess) 290 mcg PO QAM 30 days losartan 25 mg PO DAILY 90 days methylcellulose (laxative) (Citrucel) 500 mg PO TID 30 days miconazole nitrate 2% (Zeasorb AF) 1 appl topical BID mupirocin 2% apply externally topical 3 times a day; nystatin 1 appl topical TID 10 days ondansetron 4 mg PO Q8H PRN [P-5 K-10 Pain w/o Gabapentin versatile apply 1-3 grms to the affected area 3-4 x daily (shoulder) apply first, rub in well; ] pantoprazole 20 mg PO DAILY 90 days pen needle, diabetic As directed pen needle, diabetic (BD Ultra-Fine Original Pen Needle) As directed use with trulicity, basaglar and novolog 4 x a day polyethylene glycol 3350 (Miralax) 17 grams PO DAILY sennosides (senna) 8.6 mg PO DAILY PRN 90 days simvastatin 40 mg PO BEDTIME 3 months trolamine salicylate 10% (Aspercreme) 1 appl topical BID PRN valacyclovir (Valtrex) 500 mg PO BID varicella-zoster gE-AS01B (PF) 50 mcg/0.5 mL (Shingrix (PF)) 0.5 mL IM ONCE [wipes As directed] [WIPES As directed] zolpidem 10 mg PO BEDTIME PRN Tobacco use date assessed: 11/11/23 HPI DM HPI Details 62-year-old overweight female with uncontrolled diabetes mellitus fatty liver disease hypertension hypercholesterolemia GERD generalized anxiety disorder and obstructive sleep apnea last seen in July 2023. Patient's hemoglobin A1c at that time was 8.8. Patient's colonoscopy is due this year mammogram is up-to-date [facility] Medical History Pelvic pain Headache Vaginal dryness Acute vaginitis Encounter for annual routine gynecological examination Dizzy Tinea corporis Hx of flexible sigmoidoscopy Herpes, genital Dysuria Breast cancer screening by mammogram Diarrhea Otitis externa Neck discomfort Overweight (BMI 25.0-29.9) Overweight COVID-19 vaccine series completed Low back pain Abdominal pain Potential exposure to STD Dyspareunia in female Problematic vaginal discharge Candidal intertrigo Obesity (BMI 30-39.9) Right upper quadrant pain Fatty liver Osteopenia Insomnia Gallbladder polyp GERD (gastroesophageal reflux disease) Hypercholesterolemia Type 2 diabetes mellitus with hyperglycemia Anxiety and depression Intertrigo Breast density H. pylori infection Essential hypertension Migraine ARISTEO on CPAP Arthritis History of panic attacks Vitamin D deficiency Hx of irritable bowel syndrome Enlarged thyroid Fibromyalgia Asthma Hypertension Herpes genitalis Hx of ectopic Surgical History History of esophagogastroduodenoscopy (EGD) H/O colonoscopy S/P repair of ventral hernia Hx of bariatric surgery Hx of cholecystectomy Hx of unilateral oophorectomy Family History Sister Hx of diabetes mellitus Hx of myocardial infarction Father Hx of myocardial infarction Daughter Cancer Sister Hx of diabetes mellitus Social History Household Members: None Housing: Apartment Alcohol intake: never Patient Tobacco Use Status: Former Tobacco user Quit Date: age 41 Tobacco use type: Cigarette Cigarette Packs Per Day: 2 Years Smoked: 20 quit 2008 e-Cigarette/Vaping Use: Never Used Second Hand Smoke Exposure: No Current occupational status: disabled Gender identity: Female Cognitive needs: No Hearing needs: No Vision needs: Yes Female Reproductive History Menstrual Age of Menarche: 8 Questionnaire PHQ-9 Over the last 2 weeks, how often have you been bothered by any of the following problems? 1. Little interest or pleasure in doing things: not at all 2. Feeling down, depressed, or hopeless: not at all 3. Trouble falling or staying asleep, or sleeping too much: not at all 4. Feeling tired or having little energy: not at all 5. Poor appetite or overeating: not at all 6. Feeling bad about yourself - or that you are a failure or have let yourself or your family down: not at all 7. Trouble concentrating on things, such as reading the newspaper or watching television: not at all 8. Moving or speaking so slowly that other people could have noticed. Or the opposite - being so fidgety or restless that you have been moving around a lot more than usual: not at all 9. Thoughts that you would be better off or of hurting yourself in some way: not at all Total score: 0 Depression Screening Interpretation: Negative Depression Screening Done: Yes Source: Developed by Drs. Boston Jimenes, Halley Watkins, [employer] and colleagues, with an educational jasmina from [email or web address]. Thrive Questionnaire Date Thrive assessed: 11/11/23 I am a: Patient What is your living situation today?: I have a steady place to live Within the past 12 months, did the food you bought not last and you didn't have the money to get more?: Never true Within the past 12 months, did you worry whether your food would run out before you got money to buy more?: Never true Do you have trouble paying for medicines?: No Do you have trouble getting transportation to medical appointments?: No Do you have trouble paying your heating and electricity bill?: No Do you have trouble taking care of your child, family member or friend?: No Do you have trouble with day-to-day activities such as bathing, preparing meals, shopping, managing finances, etc.?: No Are you currently unemployed and looking for a job?: No Are you interested in more education?: No Please select the resources that you would like help with: None THRIVE Score: 0 AUDIT C Alcohol Use Questionnaire (AUDIT-C) 1. How often do you have a drink containing alcohol?: Never 3. How often do you have six or more drinks on one occasion?: Never Total Score: 0 ANJEL-7 AMB Questionnaire ANJEL-7 Date ANJEL - 7 assessed: 12/07/22 Source: Developed by Drs. Boston Jimenes, Halley Watkins, [employer] and colleagues, with an educational jasmina from [email or web address]. Physical exam (Primary Care) Vital Signs: Last Vital Signs Pulse 67 11/11/23 14:33 BP 128/64 11/11/23 14:33 Pulse Ox 97 11/11/23 14:33 Oxygen Delivery Method Room Air 11/11/23 14:33 BMI result Body Mass Index 28.9 Tobacco/Smoking Status: Tobacco use Status Tobacco use date assessed 11/11/23 11/11/23 14:37 Patient Tobacco Use Status Former Tobacco user 11/11/23 14:37 Tobacco use type Cigarette 11/11/23 14:37 e-Cigarette/Vaping Use Never Used 11/11/23 14:37 PHQ-9: PHQ-9 Score PHQ-9: Total score 0 11/11/23 14:41 Depression Screening Interpretation: Negative Thrive Assessment: Date of Thrive Assessment Date Thrive assessed 11/11/23 11/11/23 14:37 Const General: alert; No acute distress Eyes Conjunctivae: conjunctivae normal Resp Auscultation: clear to auscultation bilaterally Cardio Rate: regular rate Rhythm: regular rhythm GI Inspection: Yes normal to inspection Extrem General: Yes normal to inspection and No edema Results AMB Hemoglobin A1c AMB Hemoglobin A1c 8.7 % Last Edit by CHASE Ballesteros on 11/11/23 14:42 Assessment and Plan Assessment & Plan (1) Type 2 diabetes mellitus with hyperglycemia: Code(s): E11.65 - Type 2 diabetes mellitus with hyperglycemia Qualifiers: Diabetes mellitus senior care insulin use: with senior care use Qualified Code(s): E11.65 - Type 2 diabetes mellitus with hyperglycemia; 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 Hemoglobin A1c goal of less than 6.5. Patient on Trulicity at 3 mg once a week Tresiba 50 units once a day Humalog p.r.n. PAtient admits has not received the trulicity and is wanting rx. (2) Essential hypertension: Code(s): I10 - Essential (primary) hypertension Plan: Continue with blood pressure medication. Decrease salt intake and exercise patient is on losartan 25 mg once a day (3) Hypercholesterolemia: Code(s): E78.00 - Pure hypercholesterolemia, unspecified Plan: Avoid fried foods, chicken skin, eggs, butter margarine, pastries and meat. Be it pork or beef they have a lot of cholesterol LDL goal of less than 100 and triglyceride of less than 150 patient is taking simvastatin 40 mg once a day (4) GERD (gastroesophageal reflux disease): Code(s): K21.9 - Gastro-esophageal reflux disease without esophagitis Qualifiers: Esophagitis presence: without esophagitis Qualified Code(s): K21.9 - Gastro-esophageal reflux disease without esophagitis Plan: Avoid the foods that causes that usually spicy foods, tomato products, juices, coffee, soda and foods that your sensitive to. After eating do not lie down, allow 3-4 hours before in lie down. And keep the head of bed above 30 degrees to avoid the acid from going up. (5) Generalized anxiety disorder: Comment: [facility] 2 x a month therapist (Gem Menezes) and psychiatrist Q 3 months Code(s): F41.1 - Generalized anxiety disorder Plan: Continue with counseling and therapy Orders: Orders Thyroid Stimulating Hormone 3 Months E11.65 - Type 2 diabetes mellitus with hyperglycemia, Z79.4 - terminal supervisor (current) use of insulin Free T4 (Free Thyroxine) 3 Months E11.65 - Type 2 diabetes mellitus with hyperglycemia, Z79.4 - senior living (current) use of insulin AMB Hemoglobin A1c Today E11.65 - Type 2 diabetes mellitus with hyperglycemia Complete Blood Count Auto Diff 3 Months E11.65 - Type 2 diabetes mellitus with hyperglycemia, Z79.4 - senior living (current) use of insulin Comprehensive Met. Panel 3 Months E11.65 - Type 2 diabetes mellitus with hyperglycemia, Z79.4 - terminal supervisor (current) use of insulin Creatinine Urine 3 Months E11.65 - Type 2 diabetes mellitus with hyperglycemia, Z79.4 - terminal supervisor (current) use of insulin Microalbumin, Random (w Creat) 3 Months E11.65 - Type 2 diabetes mellitus with hyperglycemia, Z79.4 - senior living (current) use of insulin Vitamin B12 and Folate 3 Months E11.65 - Type 2 diabetes mellitus with hyperglycemia, Z79.4 - terminal supervisor (current) use of insulin Vitamin D 25-OH Total 3 Months E11.65 - Type 2 diabetes mellitus with hyperglycemia, Z79.4 - terminal supervisor (current) use of insulin Lipid Panel 3 Months E11.65 - Type 2 diabetes mellitus with hyperglycemia, E78.00 - Pure hypercholesterolemia, unspecified, Z79.4 - terminal supervisor (current) use of insulin Hemoglobin A1c 3 Months E11.65 - Type 2 diabetes mellitus with hyperglycemia, Z79.4 - terminal supervisor (current) use of insulin Medications: New dapagliflozin propanediol (Farxiga) 5 mg PO DAILY 30 tabs 4RF E11.65 - Type 2 diabetes mellitus with hyperglycemia, Z79.4 - senior living (current) use of insulin Refilled flash glucose sensor (FreeStyle Jose F 2 Sensor kit) As directed 6 kits 3RF E11.65 - Type 2 diabetes mellitus with hyperglycemia, Z79.4 - terminal supervisor (current) use of insulin flash glucose sensor (FreeStyle Jose F 14 Day Sensor kit) As directed 6 kits 3RF E11.65 - Type 2 diabetes mellitus with hyperglycemia dulaglutide 3 mg (0.5 mL) subcut QWEEK 30 days 2.5 mL 12RF E11.65 - Type 2 diabetes mellitus with hyperglycemia Coding Level of Care Code Est Pt Level 4 (00198) Diagnoses Type 2 diabetes mellitus with hyperglycemia, with long-term current use of insulin E11.65; Z79.4 Diabetes mellitus senior care insulin use: with terminal supervisor use Essential hypertension I10 Hypercholesterolemia E78.00 Gastroesophageal reflux disease without esophagitis K21.9 Esophagitis presence: without esophagitis Generalized anxiety disorder F41.1
== END 2023-11-11 14:54 | disposition home or self-care (01) ==
PROVIDERS: PCP Internal Medicine; Visit Provider Internal Medicine
DX: E11.65 Type 2 diabetes mellitus with hyperglycemia (principal); Z79.4 Long term (current) use of insulin; I10 Essential (primary) hypertension; E78.00 Pure hypercholesterolemia, unspecified; K21.9 Gastro-esophageal reflux disease without esophagitis; F41.1 Generalized anxiety disorder
CPT/HCPCS: 83036; 99214

== ENCOUNTER 2023-12-01 14:21 | Outpatient (REF) | payer OTHER, SELFPAY ==
--- NOTE | 2023-12-01 15:20 | MHC.AU.MED ---
Medical Clearance for Hearing Instrumentation Date: 12/01/23 Patient Name: Marychuy Jade Date of : 1960 Primary Care Provider: Lanny Soria MD We have seen your patient on 12/01/23 and have determined that they are a candidate for amplification (See accompanying report). Specifically, they would benefit from: Hearing aid use in both ears There is a statute that addresses Medical Evaluation Requirements prior to fitting a patient with a hearing aid. According to [place] statute 265 CMR:6.03(1), (a) General. Except as provided in 265 CMR 6.03(1)(b), a burling and joining supervisor shall not sell a hearing aid unless the prospective user has presented to the burling and joining supervisor a written statement signed by a licensed physician that states that the patient's hearing loss has been medically evaluated and the patient may be considered a candidate for a hearing aid. The medical evaluation must have taken place within the preceding six months. Please note: Due to the [place] Statute referenced above, we cannot accept a signature other than that of a licensed physician. PLUGGER MAN and PA signatures cannot be accepted. I am in agreement with the above recommendation. There is no medical contraindication for hearing instrumentation. Physician Signature Date Physician Name (Printed)
--- NOTE | 2023-12-02 11:39 | MHC.AU.MED ---
Medical Clearance for Hearing Instrumentation Date: 12/01/23 Patient Name: Marychuy Jade Date of : 1960 Primary Care Provider: Lanny Soria MD We have seen your patient on 12/01/23 and have determined that they are a candidate for amplification (See accompanying report). Specifically, they would benefit from: Hearing aid use in both ears There is a statute that addresses Medical Evaluation Requirements prior to fitting a patient with a hearing aid. According to [place] statute 265 CMR:6.03(1), (a) General. Except as provided in 265 CMR 6.03(1)(b), a scissors grinder shall not sell a hearing aid unless the prospective user has presented to the scissors grinder a written statement signed by a licensed physician that states that the patient's hearing loss has been medically evaluated and the patient may be considered a candidate for a hearing aid. The medical evaluation must have taken place within the preceding six months. Please note: Due to the [place] Statute referenced above, we cannot accept a signature other than that of a licensed physician. GLASS VIAL BENDING CONVEYOR FEEDER and PA signatures cannot be accepted. I am in agreement with the above recommendation. There is no medical contraindication for hearing instrumentation. Physician Signature Date Physician Name (Printed)
--- NOTE | 2023-12-02 11:45 | MHC.AU.HA1 ---
Hearing Aid Evaluation Date of Visit: 12/01/23 Historical Information: Description of Hearing: Mild sloping to moderately-severe sensorineural hearing loss, bilaterally Current personal amplification information: Phonak Audeo [id number] fit in August 2018 Summary: Marychuy misplaced her hearing aids a few years ago. She is now ready to pursue new hearing aids as she is noticing increasing hearing difficulties. She reported she has difficulty understanding speech and gets frustrated at [employer]ingo when she cannot understand the numbers being called. Marychuy opted to stay with the same style with slim tip ear molds in a rechargeable version. Impressions taken, bilaterally, without incident. Hearing Aid Prescription: Based on the individual?s shared listening needs, communication environments, dexterity, desire for connectivity, and personal preferences, the following prescription for amplification has been made: Right ear: Make, Model, Color: Phonak Audeo [id number]-[id number] Color: Silver Battery Size: Rechargeable Tape Controlled Machine Stitcher/Slim Tube: 1M Type of Earmold/Dome/CShell/SlimTip: Phonak SlimTip Left ear: Left ear prescription to be same as Right Hearing Aid above: Make, Model, Color: Phonak Audeo L70-R Color: Silver Battery Size: Rechargeable Tape Controlled Machine Stitcher/Slim Tube: 1M Type of Earmold/Dome/CShell/SlimTip: Phonak SlimTip Accessories/Assistive Technology: Manager [employer] Plan of Care: Patient wishes to purchase hearing aids as prescribed Action Taken/Action Needed: Earmold Impressions Taken (in hold drawer). Medical Clearance to be requested from PCP/ENT. Hearing Instrument Fitting to be scheduled when materials arrive Primary Diagnosis: H90.3 Bilateral Sensorineural Hearing Loss Signature: Provider: Lul Ruiz, [facility]
== END 2023-12-01 14:22 | disposition home or self-care (01) ==
LOC: HO.SH 14:21
PROVIDERS: Visit Provider Internal Medicine
DX: H91.90 Unspecified hearing loss, unspecified ear (principal)
CPT/HCPCS: 92557; 92591; V5275

== ENCOUNTER 2023-12-07 13:39 | Outpatient (AMB) | payer OTHER, SELFPAY ==
--- NOTE | 2023-12-07 13:40 | A.OFFVIS_ITS ---
Intake VS Expanded 12/07/23 13:40 Weight 160 lb 7.944 oz Intake Visit Reasons: T2DM/CONFIRMED Allergies JOI Inhibitors Allergy (Intermediate, Verified 08/09/23 13:41) Cough cephalexin [Keflex] Allergy (Intermediate, Verified 08/09/23 13:41) rash codeine [Codeine] Allergy (Intermediate, Verified 08/09/23 13:41) RASH VOMTING- APAP W/ CODEINE, vomiting gemfibrozil [GEMFIBROZIL] Allergy (Intermediate, Verified 08/09/23 13:41) RASH metformin [METFORMIN] Allergy (Intermediate, Verified 08/09/23 13:41) DIARRHEA morphine [Morphine] Allergy (Intermediate, Verified 08/09/23 13:41) HIVES, rash, rash naproxen Allergy (Intermediate, Verified 08/09/23 13:41) inadequate response sulfamethoxazole [From Bactrim] Adverse Reaction (Intermediate, Verified 08/09/23 13:41) nausea trimethoprim [From Bactrim] Adverse Reaction (Intermediate, Verified 08/09/23 13:41) nausea HPI Nutrition Presentation Details Pt presents for MNT for T2DM Pt reports doing well, did not bring sensor scanner to this appt to download. Pt reports she knows everything about diabetes management and diet. Today we reviewed how her A1c increased. Pt reports she did not have DM meds related to pharmacy issues and also reducing prandial insulin due to low blood glucose level. Pt reports hypoglycemia h appening 0 to once a week and treating hypoglycemia by having pastries. Typical meal intake 11-12 B: 2 slices of white bread or Czech loaf with cheese and butter and glass of juice reports next meal is at 6 pm rice/ewing/chicken, no salad/veg, juice or water 8-9 pm : snack : piece of cake with milk physical activity starting to walk the dog, planning to get a treadmill or stationary bike reports taking mvi Most Recent Diabetes Results: No Data to Display [facility] Medical History Pelvic pain Headache Vaginal dryness Acute vaginitis Encounter for annual routine gynecological examination Dizzy Tinea corporis Hx of flexible sigmoidoscopy Herpes, genital Dysuria Breast cancer screening by mammogram Diarrhea Otitis externa Neck discomfort Overweight (BMI 25.0-29.9) Overweight COVID-19 vaccine series completed Low back pain Abdominal pain Potential exposure to STD Dyspareunia in female Problematic vaginal discharge Candidal intertrigo Obesity (BMI 30-39.9) Right upper quadrant pain Fatty liver Osteopenia Insomnia Gallbladder polyp GERD (gastroesophageal reflux disease) Hypercholesterolemia Type 2 diabetes mellitus with hyperglycemia Anxiety and depression Intertrigo Breast density H. pylori infection Essential hypertension Migraine ARISTEO on CPAP Arthritis History of panic attacks Vitamin D deficiency Hx of irritable bowel syndrome Enlarged thyroid Fibromyalgia Asthma Hypertension Herpes genitalis Hx of ectopic Surgical History History of esophagogastroduodenoscopy (EGD) H/O colonoscopy S/P repair of ventral hernia Hx of bariatric surgery Hx of cholecystectomy Hx of unilateral oophorectomy Family History Sister Hx of diabetes mellitus Hx of myocardial infarction Father Hx of myocardial infarction Daughter Cancer Sister Hx of diabetes mellitus Social History Household Members: None Housing: Apartment Alcohol intake: never Patient Tobacco Use Status: Former Tobacco user Quit Date: age 41 Tobacco use type: Cigarette Cigarette Packs Per Day: 2 Years Smoked: 20 quit 2008 e-Cigarette/Vaping Use: Never Used Second Hand Smoke Exposure: No Current occupational status: disabled Gender identity: Female Cognitive needs: No Hearing needs: No Vision needs: Yes Female Reproductive History Menstrual Age of Menarche: 8 Assessment & Plan Assessment & Plan (1) Type 2 diabetes mellitus with hyperglycemia: Code(s): E11.65 - Type 2 diabetes mellitus with hyperglycemia Qualifiers: Diabetes mellitus long term care 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 insulin use: with residential use Qualified Code(s): E11.65 - Type 2 diabetes mellitus with hyperglycemia; Z79.4 - long-term (current) use of insulin Plan: wt: 72 kg Est kcal needs as per MSJ: 1500 (40% carb, 30% protein/fat) Est fluid needs as per 25-30 ml/d: 2200 Est prot per day as per 1 g/kg bw: 72 Recommend fiber intake : 8-10 g per day and gradually increase to 25-28 g per day for women and 35-38 g for men or as tolerated Recommend sodium intake per day : less than 2000 mg Educated patient on: ( R = reviewed V = verbalizes understanding N/R = needs review N/A = not applicable * Food sources of carbohydrate, adequate serving sizes and its role in various health conditions: R * Differences between complex carbohydrates a simple carbohydrates, role of fiber in diet: R * Protein sources of foods and its relationship to blood glucose and overall health: R * Differences between types of fats and role in diet (mono on saturated fat fatty acids, saturated fatty acids, trans fats): NR * Food sources of sodium in salt and healthy modifications for heart health in kidney health: NR * Vitamins and minerals: R * Healthy plate method concept: R * Physical activity: Benefits a precaution: R * Hypoglycemia protocol (rule of 15): R * Dietary prevention of Hyperglycemia: R Plan 150 Patient Instructions: Take all your medications as prescribed by your doctor. Treat low blood sugar ( blood sugar less than 70) by having 15 g of carbs (1/2 cup of juice or 3 glucose tablets or 1 tbsp of sugar/honey) wait 15 minutes and retest your blood sugar . Avoid having pasties to treat low blood sugar as these often lead to very high level of blood sugar . Have a fruit at breakfst in place of fruit juice or dilute juice with water Choose whole grain foods (whole wheat breads, sweet potatoes , add non starchy vegetables to your meals) call for questions, reports low blood sugars to your doctor for further asessment. Coding Level of Care Code Nutr Indiv Subseq ([id number]) Diagnoses Type 2 diabetes mellitus with hyperglycemia, with long-term current use of insulin E11.65; Z79.4 Diabetes mellitus long term care 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 insulin use: with residential use Time Spent (min) 30
== END 2023-12-07 14:03 | disposition home or self-care (01) ==
LOC: HO.ENCR 13:39
PROVIDERS: PCP Internal Medicine; Visit Provider Dietitian, Registered
DX: E11.65 Type 2 diabetes mellitus with hyperglycemia (principal); Z79.4 Long term (current) use of insulin

== ENCOUNTER → 2023-12-07 13:39 | Outpatient (BNVA) | payer OTHER, SELFPAY | PROVIDERS: PCP Internal Medicine; Visit Provider Dietitian, Registered | DX: E11.65 Type 2 diabetes mellitus with hyperglycemia (principal); Z79.4 Long term (current) use of insulin; Z71.3 Dietary counseling and surveillance | CPT/HCPCS: 97803 ==

== ENCOUNTER 2024-01-16 13:28 | Outpatient (REF) | payer OTHER, SELFPAY | END 2024-01-16 13:29 | disposition home or self-care (01) | LOC: HO.HAP 13:28 | PROVIDERS: Visit Provider Internal Medicine | DX: Z46.1 Encounter for fitting and adjustment of hearing aid (principal); H90.3 Sensorineural hearing loss, bilateral | CPT/HCPCS: V5011; V5020; V5160; V5261; V5264 ==

== ENCOUNTER 2024-02-06 12:30 | Outpatient (AMB) | payer OTHER, SELFPAY ==
[2024-02-06 13:06] VITALS: BMI 28.5
--- NOTE | 2024-02-06 13:06 | MHC.AMNUTRGE ---
VS Expanded 02/06/24 13:06 Height 5 ft 2 in Weight 155 lb 13.869 oz BMI 28.5 Intake Visit Reasons: t2dm Allergies JOI Inhibitors Allergy (Intermediate, Verified 08/09/23 13:41) Cough cephalexin [Keflex] Allergy (Intermediate, Verified 08/09/23 13:41) rash codeine [Codeine] Allergy (Intermediate, Verified 08/09/23 13:41) RASH VOMTING- APAP W/ CODEINE, vomiting gemfibrozil [GEMFIBROZIL] Allergy (Intermediate, Verified 08/09/23 13:41) RASH metformin [METFORMIN] Allergy (Intermediate, Verified 08/09/23 13:41) DIARRHEA morphine [Morphine] Allergy (Intermediate, Verified 08/09/23 13:41) HIVES, rash, rash naproxen Allergy (Intermediate, Verified 08/09/23 13:41) inadequate response sulfamethoxazole [From Bactrim] Adverse Reaction (Intermediate, Verified 08/09/23 13:41) nausea trimethoprim [From Bactrim] Adverse Reaction (Intermediate, Verified 08/09/23 13:41) nausea Nutrition Presentation Details: Pt presents for MNT for T2DM Pt reports bg today at 137 mg/dl but has had bg at 40s and 300s. Pt has a freestyle glucose sensor, reports bg at 40 was related to ignoring sensor alarm. Pt reports treating low bg with crackers Pt does not count g of carbs. Pt verbalizes food sources of carbohydrates, Today we were not able to discuss carb counting - Pt not interested at this time. Pt reports choosing a variety of foods and reports doing better with soups BG- did not bring glucometer/sensor reader to this appt BS Monitoring Most Recent Diabetes Results: No Data to Display [facility] Medical History Pelvic pain Headache Vaginal dryness Acute vaginitis Encounter for annual routine gynecological examination Dizzy Tinea corporis Hx of flexible sigmoidoscopy Herpes, genital Dysuria Breast cancer screening by mammogram Diarrhea Otitis externa Neck discomfort Overweight (BMI 25.0-29.9) Overweight COVID-19 vaccine series completed Low back pain Abdominal pain Potential exposure to STD Dyspareunia in female Problematic vaginal discharge Candidal intertrigo Obesity (BMI 30-39.9) Right upper quadrant pain Fatty liver Osteopenia Insomnia Gallbladder polyp GERD (gastroesophageal reflux disease) Hypercholesterolemia Type 2 diabetes mellitus with hyperglycemia Anxiety and depression Intertrigo Breast density H. pylori infection Essential hypertension Migraine ARISTEO on CPAP Arthritis History of panic attacks Vitamin D deficiency Hx of irritable bowel syndrome Enlarged thyroid Fibromyalgia Asthma Hypertension Herpes genitalis Hx of ectopic Surgical History History of esophagogastroduodenoscopy (EGD) H/O colonoscopy S/P repair of ventral hernia Hx of bariatric surgery Hx of cholecystectomy Hx of unilateral oophorectomy Family History Sister Hx of diabetes mellitus Hx of myocardial infarction Father Hx of myocardial infarction Daughter Cancer Sister Hx of diabetes mellitus Social History Household Members: None Housing: Apartment Alcohol intake: never Patient Tobacco Use Status: Former Tobacco user Quit Date: age 41 Tobacco use type: Cigarette Cigarette Packs Per Day: 2 Years Smoked: 20 quit 2008 e-Cigarette/Vaping Use: Never Used Second Hand Smoke Exposure: No Current occupational status: disabled Gender identity: Female Cognitive needs: No Hearing needs: No Vision needs: Yes Female Reproductive History Menstrual Age of Menarche: 8 Assessment & Plan Assessment & Plan (1) Type 2 diabetes mellitus with hyperglycemia: Code(s): E11.65 - Type 2 diabetes mellitus with hyperglycemia Category: Medical Qualifiers: Diabetes 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 insulin use: with 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 termite use Qualified Code(s): E11.65 - Type 2 diabetes mellitus with hyperglycemia; Z79.4 - [facility]PC (current) use of insulin Plan: wt: 72 kg Est kcal needs as per MSJ: 1500 (40% carb, 30% protein/fat) Est fluid needs as per 25-30 ml/d: 2200 Est prot per day as per 1 g/kg bw: 72 Recommend fiber intake : 8-10 g per day and gradually increase to 25-28 g per day for women and 35-38 g for men or as tolerated Recommend sodium intake per day : less than 2000 mg Educated patient on: ( R = reviewed V = verbalizes understanding N/R = needs review N/A = not applicable Food sources of carbohydrate, adequate serving sizes and its role in various health conditions: R Differences between complex carbohydrates a simple carbohydrates, role of fiber in diet: R Protein sources of foods and its relationship to blood glucose and overall health: R Differences between types of fats and role in diet (mono on saturated fat fatty acids, saturated fatty acids, trans fats): R Food sources of sodium in salt and healthy modifications for heart health in kidney health: NR Vitamins and minerals: R Healthy plate method concept: R Physical activity: Benefits a precaution: R Hypoglycemia protocol (rule of 15): R Dietary prevention of Hyperglycemia: R Plan 150 Patient Instructions: Choose low fat foods (steamed, baked , NOT fried) Try soft protein foods (scrambled eggs, tuna, ground turkey, yogurts , low fat cottage cheese, in low sodium broth ) have soft fruits example apple sauce or canned fruits in its own juice Drink water with meals or snacks Watch the amount of total carbohydrates to about 45 g per meal following healthy plate method Monitor your blood sugar, fasting and 2 hours after a meal and discuss your blood sugar number with your doctor keep physically active as able Coding Level of Care Code Nutr Indiv Subseq ([id number]) Diagnoses Type 2 diabetes mellitus with hyperglycemia, with long-term current use of insulin E11.65; Z79.4 Diabetes mellitus senior living insulin use: with senior living use Time Spent (min) 25
== END 2024-02-06 13:35 | disposition home or self-care (01) ==
PROVIDERS: PCP Internal Medicine; Visit Provider Dietitian, Registered
DX: E11.65 Type 2 diabetes mellitus with hyperglycemia (principal); Z79.4 Long term (current) use of insulin

== ENCOUNTER → 2024-02-06 12:30 | Outpatient (BNVA) | payer OTHER, SELFPAY | PROVIDERS: PCP Internal Medicine; Visit Provider Dietitian, Registered | DX: E11.65 Type 2 diabetes mellitus with hyperglycemia (principal); Z79.4 Long term (current) use of insulin | CPT/HCPCS: 97803 ==

== ENCOUNTER 2024-02-06 14:03 | Emergency (ER) | payer OTHER, SELFPAY ==
--- NOTE | ~2024-02-06 | XR_ITS ---
EXAMINATION: XR ABDOMEN KUB CLINICAL INDICATION: Constipation. Vomiting. COMPARISON: Abdominal radiographs dated 10/05/2021. TECHNIQUE: 2 radiographs of the abdomen. FINDINGS: There is abundant stool throughout the colon. There are no dilated loops of small bowel to indicate obstruction. There are cholecystectomy clips. There are surgical changes status post gastric surgery. There are surgical clips overlying the right hemipelvis. There are pelvic phleboliths. There are no acute osseous abnormalities. XR/XR KUB IMPRESSION: Nonobstructive bowel gas pattern. There is abundant stool throughout the colon.
[2024-02-06 14:43] VITALS: BP 128/49; PULSE 69; RESP 19; TEMP 36.6; O2SAT 98; BMI 28.2
--- NOTE | 2024-02-06 14:43 | ED_ITS ---
HPI - Abdominal Pain General Chief Complaint: Abdominal Pain Stated Complaint: Constipated 2 wks Time Seen by Provider: 02/06/24 18:12 Related Data Home Medications ?Medication ?Instructions ?Recorded ?Confirmed pen needle, diabetic 32 gauge x #50 ea 11/21/20 11/11/23/32 clonazepam 1 mg tablet 1 mg PO BID 07/13/21 11/11/23 clonazepam 0.5 mg tablet 0.5 mg PO DAILY PRN Anxiety 11/30/21 11/11/23 Previous Rx's ?Medication ?Instructions ?Recorded citalopram 40 mg tablet 40 mg PO DAILY 2 months #60 tabs 09/15/20 fluticasone propionate 50 1 spray intranasal DAILY 30 days 10/28/20 mcg/actuation nasal #9.9 mL spray,suspension miconazole nitrate 2 % topical 1 appl topical BID #71 grams 11/14/20 powder (Zeasorb AF) doxepin 5 % topical cream See Rx Instructions topical 05/12/21 .COMPLEX #90 grams flash glucose scanning reader #1 ea 06/25/21 (FreeStyle Jose F 14 Day [place]) P-5 K-10 Pain w/o Gabapentin See Rx Instructions .Route 08/13/21 versatile .COMPLEX #180 grams Diaper Medium #50 ea 10/30/21 bed pad #1 ea 10/30/21 wipes #1 ea 10/30/21 trolamine salicylate 10 % topical 1 appl topical BID PRN muscle pain 12/14/21 cream (Aspercreme) #113 grams nystatin 100,000 unit/gram topical 1 appl topical TID 10 days #30 12/18/21 powder grams WIPES #1 ea 12/30/21 linaclotide 290 mcg capsule 290 mcg PO QAM 30 days #30 caps 01/19/22 (Linzess) blood sugar diagnostic (FreeStyle ##300 02/26/22 Lite Strips) ondansetron 4 mg disintegrating 4 mg PO Q8H PRN for 04/20/22 tablet nausea/vomiting #30 ea varicella-zoster glycoE [id number] 0.5 ml IM ONCE #1 ea 06/08/22 adj(PF) 50 mcg/0.5 mL IM susp, kit (Shingrix (PF)) valacyclovir 500 mg tablet 500 mg PO BID #30 tabs 07/20/22 (Valtrex) insulin degludec 200 unit/mL (3 50 unit (0.25 mL) subcut BEDTIME 01/18/23 mL) subcutaneous pen (Tresiba 30 days #5 ea FlexTouch U-200 insulin) insulin lispro 100 unit/mL 12 unit (0.12 mL) subcut TID #15 mL 01/18/23 subcutaneous pen (Humalog KwikPen (U-100) Insulin) clotrimazole 1 % topical cream 1 appl topical BID 4 weeks #90 04/28/23 grams flash glucose scanning reader #1 ea 05/10/23 (FreeStyle Jose F 2 [place]) pantoprazole 20 mg tablet,delayed 20 mg PO DAILY 90 days #90 tabs 05/20/23 release alcohol swabs (Alcohol Prep Pads) 1 pad topical TID #100 pad 06/18/23 docusate sodium 100 mg capsule 100 mg PO BID PRN constipation #60 06/22/23 caps docusate sodium 100 mg capsule 200 mg (2 x 100 mg) PO BEDTIME 30 06/22/23 (Colace) days #60 caps methylcellulose (laxative) 500 mg 500 mg PO TID 30 days #90 tabs 06/22/23 tablet (Citrucel) albuterol sulfate 90 mcg/actuation 1 puff PO Q4H PRN for wheezing 07/14/23 aerosol inhaler (ProAir HFA) #8.5 grams cholecalciferol (vitamin D3) 25 25 mcg PO DAILY 3 months #90 tabs 07/17/23 mcg (1,000 unit) tablet mupirocin 2 % topical ointment See Rx Instructions topical TID 07/20/23 #22 grams sennosides 8.6 mg tablet (senna) 8.6 mg PO DAILY PRN for 07/20/23 constipation 90 days #90 tabs diphenhydramine HCl 25 mg capsule 25 mg PO Q6H PRN allergic reaction 08/12/23 (Banophen) #120 caps bisacodyl 10 mg rectal suppository 10 mg OK DAILY PRN for 08/29/23 (OneLAX Bisacodyl) constipation #20 supp hydrocortisone 2.5 % topical cream 1 appl OK BEDTIME PRN hemorrhoids 10/07/23 with perineal applicator 30 days #30 grams (Proctozone-HC) Lactobacillus rhamnosus GG 15 1 cap PO DAILY #90 caps 10/13/23 billion cell sprinkle capsule (Culturelle) lancets 33 gauge (TRUEplus Lancets) 1 gauge miscellaneous TIDWMEAL 90 10/13/23 days #3 ea losartan 25 mg tablet 25 mg PO DAILY 90 days #90 tabs 10/19/23 zolpidem 10 mg tablet 10 mg PO BEDTIME PRN Insomnia #14 10/20/23 tabs dapagliflozin propanediol 5 mg 5 mg PO DAILY #30 tabs 11/11/23 tablet (Farxiga) dulaglutide 3 mg/0.5 mL 3 mg (0.5 mL) subcut QWEEK 30 days 11/11/23 subcutaneous pen injector #2.5 mL flash glucose sensor (FreeStyle #6 kits 11/11/23 Jose F 14 Day Sensor kit) flash glucose sensor (FreeStyle #6 kits 11/11/23 Jose F 2 Sensor kit) clotrimazole 1 % topical cream 1 appl topical BID 4 weeks #90 11/23/23 grams amitriptyline 25 mg tablet 25 mg PO BEDTIME #90 tabs 12/05/23 pen needle, diabetic 29 gauge x #4 ea 12/07/2309/27 (BD Ultra-Fine Original Pen Needle) blood sugar diagnostic (FreeStyle #300 strips 12/29/23 Lite Strips) simvastatin 40 mg tablet 40 mg PO BEDTIME 3 months #90 tabs 01/04/24 polyethylene glycol 3350 17 17 g PO DAILY #510 grams 02/02/24 gram/dose oral powder Allergies Allergy/AdvReac Type Severity Reaction Status Date / Time JOI Inhibitors Allergy Intermediate Cough Verified 02/06/24 14:46 cephalexin [Keflex] Allergy Intermediate rash Verified 02/06/24 14:46 codeine [Codeine] Allergy Intermediate RASH Verified 02/06/24 14:46 VOMTING- APAP W/ CODEINE, vomiting gemfibrozil [GEMFIBROZIL] Allergy Intermediate RASH Verified 02/06/24 14:46 metformin [METFORMIN] Allergy Intermediate DIARRHEA Verified 02/06/24 14:46 morphine [Morphine] Allergy Intermediate HIVES, Verified 02/06/24 14:46 rash, rash naproxen Allergy Intermediate inadequate Verified 02/06/24 14:46 response sulfamethoxazole AdvReac Intermediate nausea Verified 02/06/24 14:46 [From Bactrim] trimethoprim [From Bactrim] AdvReac Intermediate nausea Verified 02/06/24 14:46 PMF Past Medical History Medical History Pelvic pain Headache Vaginal dryness Acute vaginitis Encounter for annual routine gynecological examination Dizzy Tinea corporis Hx of flexible sigmoidoscopy Herpes, genital Dysuria Breast cancer screening by mammogram Diarrhea Otitis externa Neck discomfort Overweight (BMI 25.0-29.9) Overweight COVID-19 vaccine series completed Low back pain Abdominal pain Potential exposure to STD Dyspareunia in female Problematic vaginal discharge Candidal intertrigo Obesity (BMI 30-39.9) Right upper quadrant pain Fatty liver Osteopenia Insomnia Gallbladder polyp GERD (gastroesophageal reflux disease) Hypercholesterolemia Type 2 diabetes mellitus with hyperglycemia Anxiety and depression Intertrigo Breast density H. pylori infection Essential hypertension Migraine ARISTEO on CPAP Arthritis History of panic attacks Vitamin D deficiency Hx of irritable bowel syndrome Enlarged thyroid Fibromyalgia Asthma Hypertension Herpes genitalis Hx of ectopic Surgical History History of esophagogastroduodenoscopy (EGD) H/O colonoscopy S/P repair of ventral hernia Hx of bariatric surgery Hx of cholecystectomy Hx of unilateral oophorectomy Family History Family History Sister Hx of diabetes mellitus Hx of myocardial infarction Father Hx of myocardial infarction Daughter Cancer Sister Hx of diabetes mellitus Social History Social History Household Members: None Housing: Apartment Alcohol intake: former Patient Tobacco Use Status: Former Tobacco user Quit Date: age 41 Tobacco use type: Cigarette Cigarette Packs Per Day: 2 Years Smoked: 20 quit 2009 Smoked in Last 30 Days: No e-Cigarette/Vaping Use: Never Used Second Hand Smoke Exposure: No Use of substances other than those prescribed or required for medical reasons: No Advance Directives: No Advance Directives Information Provided: No Current occupational status: disabled Gender identity: Female Cognitive needs: No Hearing needs: No Vision needs: Yes Physical Exam ED Vital Signs: Vital Signs - 24 hr 02/06/24 14:43 02/06/24 18:11 Temperature 98 F 98.1 F Pulse Rate 69 72 Respiratory Rate 19 18 Blood Pressure 128/49 L 129/65 Pulse Oximetry 98 98 Oxygen Delivery Method Room Air Room Air BMI result Body Mass Index 28.2 Course Course Course Narrative: This is a Rapid Medical Examination (RME) performed by Jose Gudino PA-C in triage. Full HPI, ROS, assessment and treatment plan per primary provider in the Main ED. 63 y/o female with history of chronic constipation who presents to the ER for evaluation of constipation x1 week. has been taking PO mom her GI provider. +vomiting and reports unable to eat. not passing flatus today. On examination patient is awake, alert, no distress. She is speaking complete sentences. No respiratory distress. abd is softly distended with tenderness in the LUQ, LLQ without rebound or guarding. +bowel sounds on exam Plan: labs, KUB for now. Low clinical suspicion for obstruction or acute abdomen Reevaluation(s) Reevaluation #1: Patient eloped prior to completing treatment. Medical Decision Making Lab Data 02/06/24 14:58 02/06/24 14:58 Labs: Lab Results 02/06/24 Range/Units 14:58 WBC 11.8 H (4.8-10.8) X10*3/uL RBC 4.77 (4.20-5.50) X10*6/uL Hgb 14.1 (12.0-16.0) g/dl Hct 43.3 (37.0-47.0) % MCV 90.8 (80.0-98.0) fL MCH 29.6 (27.0-33.0) pg MCHC 32.6 (31.0-35.0) g/dl RDW 13.5 (11.0-16.0) % Plt Count 219 (160-400) X10*3/uL MPV 10.4 (9.4-12.3) fL Immature Gran % (Auto) 0.3 (0.0-0.4) % Neut % (Auto) 48.8 (45-73) % Lymph % (Auto) 41.1 H (20-40) % Price % (Auto) 7.5 (2-11) % Eos % (Auto) 1.6 (0-4) % Baso % (Auto) 0.7 (0-2) % Lymph # (Auto) 4.8 (1.2-4.9) X10*3/uL Price # (Auto) 0.9 (0.1-1.2) X10*3/uL Eos # (Auto) 0.2 (0.0-0.4) X10*3/uL Baso # (Auto) 0.1 (0.0-0.2) X10*3/uL Abs Immat Gran (auto) 0.03 (0.00-0.03) X10*3/uL Absolute Neuts (auto) 5.8 (2.0-8.3) x10*3/uL Absolute Nucleated RBC 0.000 (0.0-0.012) X10*3/uL Nucleated RBC % (auto) 0.0 (0.0-0.2) /100WBC Sodium 140 (135-145) mmol/L Potassium 3.9 (3.3-5.1) mmol/L Chloride 104 (96-108) mmol/L Carbon Dioxide 26 (22-29) mmol/L Anion Gap 14 (12-20) BUN 8 L (9-16) mg/dL Creatinine 0.77 (0.5-1.4) mg/dL Estim Creat Clear Calc 67.6 Estimated GFR > 60 Random Glucose 212 H (60-115) mg/dL Calcium 9.6 (8.4-10.2) mg/dL Magnesium 2.1 (1.6-2.6) mg/dL Total Bilirubin 0.4 (0.0-1.0) mg/dL Direct Bilirubin 0.2 (0.0-0.5) mg/dL AST 35 H (5-31) U/L ALT 29 (0-31) U/L Alkaline Phosphatase 50 (39-117) U/L Total Protein 7.9 (6.5-8.0) g/dL Albumin 4.0 (3.5-5.0) g/dL Urine Color Yellow Urine Appearance Clear Urine pH 6.0 (5.0-9.0) Ur Specific [place] 1.015 (1.005-1.025) Urine Protein Negative (Neg-Trace) mg/dL Urine Glucose (UA) 250 H (Negative) mg/dL Urine Ketones Negative (Negative) mg/dL Urine Blood Negative (Negative) Urine Nitrite Negative (Negative) Ur Leukocyte Esterase Negative (Negative) Discharge Plan Discharge Clinical Impression: Constipation Patient Disposition: Elopement Prescriptions: No Action citalopram 40 mg tablet 40 mg PO DAILY 60 Days Qty: 60 0RF fluticasone propionate 50 mcg/actuation spray,suspension 1 spray intranasal DAILY 30 Days Qty: 9.9 3RF (DME) Diaper Medium See Rx Instructions .Route .MEDSUPPLY Qty: 50 0RF Rx Instructions: As directed (DME) wipes See Rx Instructions .Route .MEDSUPPLY Qty: 1 0RF Rx Instructions: As directed (DME) bed pad See Rx Instructions .Route .MEDSUPPLY Qty: 1 0RF Rx Instructions: As directed trolamine salicylate [Aspercreme] 10 % cream 1 appl topical BID PRN (Reason: muscle pain) Qty: 113 1RF nystatin 100,000 unit/gram powder 1 appl topical TID 10 Days Qty: 30 1RF Linzess 290 mcg capsule 290 mcg PO QAM 30 Days Qty: 30 2RF (DME) FreeStyle Lite Strips Strip See Rx Instructions .ROUTE .MEDSUPPLY Qty: 300 3RF Rx Instructions: As directed check the BS TID ondansetron 4 mg tablet,disintegrating 4 mg PO Q8H PRN (Reason: for nausea/vomiting) Qty: 30 1RF (DME) FreeStyle Jose F 2 [place] Misc See Rx Instructions .ROUTE .MEDSUPPLY Qty: 1 0RF Rx Instructions: As directed pantoprazole 20 mg tablet,delayed release (DR/EC) 20 mg PO DAILY 90 Days Qty: 90 2RF alcohol swabs [Alcohol Prep Pads] Pads, Medicated 1 pad topical TID Qty: 100 11RF albuterol sulfate [ProAir HFA] 90 mcg/actuation HFA aerosol inhaler 1 puff PO Q4H PRN (Reason: for wheezing) Qty: 8.5 6RF cholecalciferol (vitamin D3) 25 mcg (1,000 unit) tablet 25 mcg PO DAILY 90 Days Qty: 90 3RF mupirocin 2 % ointment See Rx Instructions topical TID Qty: 22 2RF Rx Instructions: apply externally topical 3 times a day; sennosides [senna] 8.6 mg tablet 8.6 mg PO DAILY PRN (Reason: for constipation) 90 Days Qty: 90 2RF diphenhydramine HCl [Banophen] 25 mg capsule 25 mg PO Q6H PRN (Reason: allergic reaction) Qty: 120 5RF bisacodyl [OneLAX Bisacodyl] 10 mg suppository 10 mg OK DAILY PRN (Reason: for constipation) Qty: 20 2RF hydrocortisone [Proctozone-HC] 2.5 % cream with perineal applicator 1 appl OK BEDTIME PRN (Reason: hemorrhoids) 30 Days Qty: 30 3RF lancets [TRUEplus Lancets] 33 gauge misc 1 gauge miscellaneous TIDWMEAL 90 Days Qty: 3 3RF Culturelle 15 billion cell capsule, sprinkle 1 cap PO DAILY Qty: 90 3RF losartan 25 mg tablet 25 mg PO DAILY 90 Days Qty: 90 3RF zolpidem 10 mg tablet 10 mg PO BEDTIME PRN (Reason: Insomnia) Qty: 14 0RF clotrimazole 1 % cream 1 appl topical BID 28 Days Qty: 90 2RF amitriptyline 25 mg tablet 25 mg PO BEDTIME Qty: 90 2RF (DME) pen needle, diabetic [BD Ultra-Fine Orig Pen Needle] 29 gauge x 1/2 needle See Rx Instructions .ROUTE .MEDSUPPLY Qty: 4 3RF Rx Instructions: As directed use with trulicity, basaglar and novolog 4 x a day (DME) FreeStyle Lite Strips Strip See Rx Instructions .ROUTE .COMPLEX Qty: 300 3RF Dose Instruction: TEST BLOOD SUGAR 3 TIMES A DAY Rx Instructions: TEST BLOOD SUGAR 3 TIMES A DAY simvastatin 40 mg tablet 40 mg PO BEDTIME 90 Days Qty: 90 1RF polyethylene glycol 3350 17 gram/dose powder 17 g PO DAILY Qty: 510 6RF Zeasorb AF 2 % powder 1 appl topical BID Qty: 71 0RF doxepin 5 % cream See Rx Instructions topical .COMPLEX Qty: 90 1RF Rx Instructions: apply 1 grm to affected area 3-4 x a day. wait 3-4 hours between applications (shoulder) apply second topical; (DME) pen needle, diabetic 32 gauge x 5/32 needle See Rx Instructions .ROUTE .MEDSUPPLY Qty: 50 Rx Instructions: As directed (DME) FreeStyle Jose F 14 Day [place] Misc See Rx Instructions .ROUTE .MEDSUPPLY Qty: 1 0RF Rx Instructions: As directed P-5 K-10 Pain w/o Gabapentin versatile See Rx Instructions .ROUTE .COMPLEX Qty: 180 1RF Rx Instructions: apply 1-3 grms to the affected area 3-4 x daily (shoulder) apply first, rub in well; Shingrix (PF) 50 mcg/0.5 mL suspension for reconstitution 0.5 ml IM ONCE Qty: 1 1RF insulin degludec [Tresiba FlexTouch U-200] 200 unit/mL (3 mL) insulin pen 50 unit subcut BEDTIME 30 Days Qty: 5 11RF Rx Instructions: 5 pens one script 11 refill insulin lispro [Humalog KwikPen Insulin] 100 unit/mL insulin pen 12 unit subcut TID Qty: 15 11RF Rx Instructions: Three time a day or as directed clotrimazole 1 % cream 1 appl topical BID 28 Days Qty: 90 3RF (DME) FreeStyle Jose F 2 Sensor Kit See Rx Instructions .ROUTE .MEDSUPPLY Qty: 6 3RF Rx Instructions: As directed (DME) FreeStyle Jose F 14 Day Sensor Kit See Rx Instructions .ROUTE .MEDSUPPLY Qty: 6 3RF Rx Instructions: As directed dulaglutide 3 mg/0.5 mL pen injector 3 mg subcut QWEEK 30 Days Qty: 2.5 12RF dapagliflozin propanediol [Farxiga] 5 mg tablet 5 mg PO DAILY Qty: 30 4RF (DME) WIPES See Rx Instructions .Route .MEDSUPPLY Qty: 1 12RF Rx Instructions: As directed clonazepam 1 mg tablet 1 mg PO BID clonazepam 0.5 mg tablet 0.5 mg PO DAILY PRN (Reason: Anxiety) valacyclovir [Valtrex] 500 mg tablet 500 mg PO BID Qty: 30 1RF Rx Instructions: take with onset on of symptoms, take for three days, may repeat dosing per episode prn docusate sodium 100 mg capsule 100 mg PO BID PRN (Reason: constipation) Qty: 60 6RF Citrucel 500 mg tablet 500 mg PO TID 30 Days Qty: 90 5RF docusate sodium [Colace] 100 mg capsule 200 mg PO BEDTIME 30 Days Qty: 60 5RF Discharge Date/Time: 02/06/24 20:00 Print Language: [place]
[2024-02-06 15:02] LABS: MANUAL DIFF FLAG NO
[2024-02-06 15:05] LABS: Basophils Absolute Auto 0.1 X10*3/uL (0.0-0.2); Basophils Percent Auto 0.7 % (0-2); Eosinophils Absolute Auto 0.2 X10*3/uL (0.0-0.4); Eosinophils Percent Auto 1.6 % (0-4); Hematocrit 43.3 % (37.0-47.0); Hemoglobin 14.1 g/dl (12.0-16.0); Imm Gran Abs Auto 0.03 X10*3/uL (0.00-0.03); Imm Gran Pct Auto 0.3 % (0.0-0.4); Lymphocytes Absolute Auto 4.8 X10*3/uL (1.2-4.9); Lymphocytes Percent Auto 41.1 % (20-40); Mean Corpuscular HGB Conc 32.6 g/dl (31.0-35.0); Mean Corpuscular Hemoglobin 29.6 pg (27.0-33.0); Mean Corpuscular Volume 90.8 fL (80.0-98.0); Mean Platelet Volume 10.4 fL (9.4-12.3); Monocytes Absolute Auto 0.9 X10*3/uL (0.1-1.2); Monocytes Percent Auto 7.5 % (2-11); Neutrophils Absolute Auto 5.8 x10*3/uL (2.0-8.3); Neutrophils Percent Auto 48.8 % (45-73); Platelet Count 219 X10*3/uL (160-400); Red Blood Count 4.77 X10*6/uL (4.20-5.50); Red Cell Distribution Width 13.5 % (11.0-16.0); White Blood Count 11.8 X10*3/uL (4.8-10.8)
[2024-02-06 15:11] LABS: Appearance Urine Clear; Color Urine Yellow; Glucose Urine UA 250 mg/dL (Negative); Leukocyte Esterase Urine Negative (Negative); Nitrite Urine Negative (Negative); Specific Gravity - Urine 1.015 (1.005-1.025); Urine Blood Negative (Negative); Urine Ketones Negative (Negative); Urine Protein Negative (Neg-Trace)
[2024-02-06 15:26] LABS: Alanine Aminotransferase 29 U/L (0-31); Alkaline Phosphatase 50 U/L (39-117); Anion Gap 14 (12-20); Aspartate Amino Transferase 35 U/L (5-31); Bilirubin Direct 0.2 mg/dL (0.0-0.5); Bilirubin Total 0.4 mg/dL (0.0-1.0); Blood Urea Nitrogen 8 mg/dL (9-16); Calcium 9.6 mg/dL (8.4-10.2); Carbon Dioxide 26 mmol/L (22-29); Chloride 104 mmol/L (96-108); Creatinine Clr Calc Pharmacy 67.6; Estimated Glomerular Filt Rate > 60; Glucose Random 212 mg/dL (60-115); Magnesium 2.1 mg/dL (1.6-2.6); Potassium 3.9 mmol/L (3.3-5.1); Sodium 140 mmol/L (135-145); Total Protein 7.9 g/dL (6.5-8.0)
[2024-02-06 18:11] VITALS: BP 129/65; PULSE 72; RESP 18; TEMP 36.7; O2SAT 98
--- NOTE | 2024-02-06 18:12 | PC.NURSE ---
Patient reports left sided abdominal pain, with no BM x 2 weeks. Positive bowels sounds x 4, reports pain is worse after eating or drinking, denies pain with urination , vss
--- NOTE | 2024-02-06 20:00 | PC.NURSE ---
pt plan was to be discharged. pt eloped before dr Mistry seen the pt.
== END 2024-02-06 20:00 | disposition left against medical advice (07) ==
PROVIDERS: Physician Assistant; Emergency Provider Emergency Medicine; PCP Internal Medicine
DX: K59.00 Constipation, unspecified (principal); Z87.891 Personal history of nicotine dependence; Z79.899 Other long term (current) drug therapy
CPT/HCPCS: 36415; 74018; 80048; 80076; 81003; 83735; 85025; 99283; 99284

== ENCOUNTER 2024-02-10 13:27 | Outpatient (REF) | payer OTHER, SELFPAY | END 2024-02-10 13:28 | disposition home or self-care (01) | LOC: HO.HAP 13:27 | PROVIDERS: Visit Provider Internal Medicine | DX: Z13.89 Encounter for screening for other disorder (principal) ==

== ENCOUNTER 2024-02-22 12:25 | Outpatient (AMB) | payer OTHER, SELFPAY ==
[2024-02-22 12:32] VITALS: BP 118/78; PULSE 74; O2SAT 97; BMI 28.5
--- NOTE | 2024-02-22 12:32 | A.OFFPC_ITS ---
Vital Signs 02/22/24 12:32 Height 5 ft 2 in Weight 156 lb 0.4 oz BMI 28.5 BP 118/78 Blood Pressure Location Lt brachial Position Sitting Pulse 74 Pulse Source Pulse Oximeter Pulse Oximetry (%) 97 Oxygen Delivery Method Room Air Intake Visit Reasons: DM Ob/Gyn Nurse Required: No Allergies JOI Inhibitors Allergy (Intermediate, Verified 02/22/24 12:32) Cough cephalexin [Keflex] Allergy (Intermediate, Verified 02/22/24 12:32) rash codeine [Codeine] Allergy (Intermediate, Verified 02/22/24 12:32) RASH VOMTING- APAP W/ CODEINE, vomiting gemfibrozil [GEMFIBROZIL] Allergy (Intermediate, Verified 02/22/24 12:32) RASH metformin [METFORMIN] Allergy (Intermediate, Verified 02/22/24 12:32) DIARRHEA morphine [Morphine] Allergy (Intermediate, Verified 02/22/24 12:32) HIVES, rash, rash naproxen Allergy (Intermediate, Verified 02/22/24 12:32) inadequate response sulfamethoxazole [From Bactrim] Adverse Reaction (Intermediate, Verified 02/22/24 12:32) nausea trimethoprim [From Bactrim] Adverse Reaction (Intermediate, Verified 02/22/24 12:32) nausea Medication List - Last Reconciled 02/22/24 by Lanny Soria MD albuterol sulfate 90 mcg/actuation (ProAir HFA) 1 puff PO Q4H PRN alcohol swabs (Alcohol Prep Pads) 1 pad topical TID amitriptyline 25 mg PO BEDTIME [bed pad As directed] bisacodyl (OneLAX Bisacodyl) 10 mg ME DAILY PRN blood sugar diagnostic (FreeStyle Lite Strips) As directed check the BS TID blood sugar diagnostic (FreeStyle Lite Strips) TEST BLOOD SUGAR 3 TIMES A DAY cholecalciferol (vitamin D3) 25 mcg PO DAILY 3 months citalopram 40 mg PO DAILY 2 months clonazepam 1 mg PO BID clonazepam 0.5 mg PO DAILY PRN clotrimazole 1% 1 appl topical BID 4 weeks dapagliflozin propanediol (Farxiga) 5 mg PO DAILY [Diaper Medium As directed] diphenhydramine HCl (Banophen) 25 mg PO Q6H PRN docusate sodium 100 mg PO BID PRN docusate sodium (Colace) 200 mg (2 x 100 mg) PO BEDTIME 30 days doxepin 5% apply 1 grm to affected area 3-4 x a day. wait 3-4 hours between applications (shoulder) apply second topical; dulaglutide 3 mg (0.5 mL) subcut QWEEK 30 days flash glucose scanning reader (FreeStyle Jose F 14 Day [place]) As directed flash glucose scanning reader (FreeStyle Jose F 2 [place]) As directed flash glucose sensor (FreeStyle Jose F 2 Sensor kit) As directed flash glucose sensor (FreeStyle Jose F 14 Day Sensor kit) As directed fluticasone propionate 50 mcg/actuation 1 spray intranasal DAILY 30 days hydrocortisone 2.5% (Proctozone-HC) 1 appl ME BEDTIME PRN 30 days insulin degludec (Tresiba FlexTouch U-200 insulin) 50 units (0.25 mL) subcut BEDTIME 30 days insulin lispro (Humalog KwikPen (U-100) Insulin) 12 units (0.12 mL) subcut TID Lactobacillus rhamnosus GG (Culturelle) 1 cap PO DAILY lancets (TRUEplus Lancets) 1 gauge miscellaneous TIDWMEAL 90 days linaclotide (Linzess) 290 mcg PO QAM 30 days losartan 25 mg PO DAILY 90 days methylcellulose (laxative) (Citrucel) 500 mg PO TID 30 days miconazole nitrate 2% (Zeasorb AF) 1 appl topical BID mupirocin 2% apply externally topical 3 times a day; nystatin 1 appl topical TID 10 days ondansetron 4 mg PO Q8H PRN [P-5 K-10 Pain w/o Gabapentin versatile apply 1-3 grms to the affected area 3-4 x daily (shoulder) apply first, rub in well; ] pantoprazole 20 mg PO DAILY 90 days pen needle, diabetic As directed pen needle, diabetic (BD Ultra-Fine Original Pen Needle) As directed use with trulicity, basaglar and novolog 4 x a day polyethylene glycol 3350 17 grams PO DAILY sennosides (senna) 8.6 mg PO DAILY PRN 90 days simvastatin 40 mg PO BEDTIME 3 months trolamine salicylate 10% (Aspercreme) 1 appl topical BID PRN valacyclovir (Valtrex) 500 mg PO BID varicella-zoster gE-AS01B (PF) 50 mcg/0.5 mL (Shingrix (PF)) 0.5 mL IM ONCE [wipes As directed] [WIPES As directed] zolpidem 10 mg PO BEDTIME PRN Tobacco use date assessed: 02/22/24 Fall risk assessment: No Falls in past year Last assessed Fall Risk: 02/22/24 Dental Screening Dental Screen Date: 02/22/24 HPI DM HPI Details 63-year-old overweight female with uncon trolled diabetes mellitus hypertension hypercholesterolemia generalized anxiety disorder and GERD last seen in 11/15/2023. Patient's colonoscopy is due mammogram is due. Noted ER visit for constipation 02/13/2024 PAtient will see Gastro soon , mammo is tomorrow , blood work was done in ER and hence no cholesterol. patient has ANJEL and personal (does not want to divulge) seeing therapist and taking med - for the constipation - better with miralax PFSH Medical History Pelvic pain Headache Vaginal dryness Acute vaginitis Encounter for annual routine gynecological examination Dizzy Tinea corporis Hx of flexible sigmoidoscopy Herpes, genital Dysuria Breast cancer screening by mammogram Diarrhea Otitis externa Neck discomfort Overweight (BMI 25.0-29.9) Overweight COVID-19 vaccine series completed Low back pain Abdominal pain Potential exposure to STD Dyspareunia in female Problematic vaginal discharge Candidal intertrigo Obesity (BMI 30-39.9) Right upper quadrant pain Fatty liver Osteopenia Insomnia Gallbladder polyp GERD (gastroesophageal reflux disease) Hypercholesterolemia Type 2 diabetes mellitus with hyperglycemia Anxiety and depression Intertrigo Breast density H. pylori infection Essential hypertension Migraine ARISTEO on CPAP Arthritis History of panic attacks Vitamin D deficiency Hx of irritable bowel syndrome Enlarged thyroid Fibromyalgia Asthma Hypertension Herpes genitalis Hx of ectopic Surgical History History of esophagogastroduodenoscopy (EGD) H/O colonoscopy S/P repair of ventral hernia Hx of bariatric surgery Hx of cholecystectomy Hx of unilateral oophorectomy Family History Sister Hx of diabetes mellitus Hx of myocardial infarction Father Hx of myocardial infarction Daughter Cancer Sister Hx of diabetes mellitus Social History Household Members: None Housing: Apartment Alcohol intake: former Patient Tobacco Use Status: Former Tobacco user Quit Date: age 41 Tobacco use type: Cigarette Cigarette Packs Per Day: 2 Years Smoked: 20 quit 2008 e-Cigarette/Vaping Use: Never Used Second Hand Smoke Exposure: No Current occupational status: disabled Gender identity: Female Cognitive needs: No Hearing needs: No Vision needs: Yes Female Reproductive History Menstrual Age of Menarche: 8 Questionnaire PHQ-9 Over the last 2 weeks, how often have you been bothered by any of the following problems? 1. Little interest or pleasure in doing things: not at all 2. Feeling down, depressed, or hopeless: not at all 3. Trouble falling or staying asleep, or sleeping too much: not at all 4. Feeling tired or having little energy: not at all 5. Poor appetite or overeating: not at all 6. Feeling bad about yourself - or that you are a failure or have let yourself or your family down: not at all 7. Trouble concentrating on things, such as reading the newspaper or watching television: not at all 8. Moving or speaking so slowly that other people could have noticed. Or the opposite - being so fidgety or restless that you have been moving around a lot more than usual: not at all 9. Thoughts that you would be better off or of hurting yourself in some way: not at all Total score: 0 Depression Screening Interpretation: Negative Depression Screening Done: Yes Source: Developed by Drs. Boston Jimenes, Ti Mcgraw and colleagues, with an educational jasmina from [employer]. Thrive Questionnaire Date Thrive assessed: 11/11/23 ANJEL-7 AMB Questionnaire ANJEL-7 Date ANJEL - 7 assessed: 12/07/22 Source: Developed by Drs. Boston Jimenes, Ti Mcgraw and colleagues, with an educational jasmina from [employer]. Physical exam (Primary Care) Vital Signs: Last Vital Signs Pulse 74 02/22/24 12:32 BP 118/78 02/22/24 12:32 Pulse Ox 97 02/22/24 12:32 Oxygen Delivery Method Room Air 02/22/24 12:32 BMI result Body Mass Index 28.5 Tobacco/Smoking Status: Tobacco use Status Tobacco use date assessed 02/22/24 02/22/24 12:33 Patient Tobacco Use Status Former Tobacco user 02/22/24 12:33 Tobacco use type Cigarette 02/22/24 12:33 e-Cigarette/Vaping Use Never Used 02/22/24 12:33 PHQ-9: PHQ-9 Score PHQ-9: Total score 0 02/22/24 17:05 Depression Screening Interpretation: Negative Thrive Assessment: Date of Thrive Assessment Date Thrive assessed 11/11/23 02/22/24 12:33 Const General: alert; No acute distress Eyes Conjunctivae: conjunctivae normal Resp Auscultation: clear to auscultation bilaterally Cardio Rate: regular rate Rhythm: regular rhythm GI Inspection: Yes normal to inspection Extrem General: Yes normal to inspection and No edema Results AMB Hemoglobin A1c AMB Hemoglobin A1c 8.3 % Last Edit by CHASE Ballesteros on 02/22/24 13:28 Results Reviewed Results Reviewed: Laboratory Last Values Hgb A1c (Clinic) 8.3 % (4.0-6.0) H 02/22/24 12:35 Assessment and Plan Assessment & Plan (1) Type 2 diabetes mellitus with hyperglycemia: Code(s): E11.65 - Type 2 diabetes mellitus with hyperglycemia Qualifiers: Diabetes mellitus penitentiary insulin use: with penitentiary use Qualified Code(s): E11.65 - Type 2 diabetes mellitus with hyperglycemia; Z79.4 - computer terminal operator (current) use of insulin Plan: Decrease the amount of carbohydrate intake, pasta, bread, rice and potatoes are all sugar and that is aside from all the sweet stuff, remember that fruits are good but they are Sweet also. Hemoglobin A1c goal of less than 6.5 patient has been seeing the cashier gambling on Farxiga 5 mg once a day Trulicity 3 mg once a week Tresiba at 50 units once a day Humalog sliding scale (2) Essential hypertension: Code(s): I10 - Essential (primary) hypertension Plan: Continue with blood pressure medication. Decrease salt intake and exercise on losartan 25 mg once a day (3) Hypercholesterolemia: Code(s): E78.00 - Pure hypercholesterolemia, unspecified Plan: Avoid fried foods, chicken skin, eggs, butter margarine, pastries and meat. Be it pork or beef they have a lot of cholesterol takes simvastatin 40 mg once a day LDL goal of less than 100 and triglyceride of less than 150 concern that the blood work did not contain any cholesterol (4) GERD (gastroesophageal reflux disease): Code(s): K21.9 - Gastro-esophageal reflux disease without esophagitis Qualifiers: Esophagitis presence: without esophagitis Qualified Code(s): K21.9 - Gastro-esophageal reflux disease without esophagitis Plan: Avoid the foods that causes that usually spicy foods, tomato products, juices, coffee, soda and foods that your sensitive to. After eating do not lie down, allow 3-4 hours before in lie down. And keep the head of bed above 30 degrees to avoid the acid from going up. (5) Overweight: Code(s): E66.3 - Overweight Plan: Diet and exercise (6) Chronic constipation: Comment: Diabetes, not well controlled, likely plays a role Due for colonoscopy, declines at this time-due to severe constipation Code(s): K59.09 - Other constipation Plan: Three rules for constipation 1. Diet need to have a high fiber diet less of meat 2. Increase oral fluids 3. Exercise (7) Generalized anxiety disorder: Comment: [facility] 2 x a month therapist (Gem Menezes) and psychiatrist Q 3 months Code(s): F41.1 - Generalized anxiety disorder Plan: Continue with present medication and counseling (8) Obstructive sleep apnea (adult) (pediatric): Comment: Not on CPAP due to recall Code(s): G47.33 - Obstructive sleep apnea (adult) (pediatric) Plan: Discussed about the sleep apnea problem. Orders: Orders AMB Hemoglobin A1c Today E11.65 - Type 2 diabetes mellitus with hyperglycemia, Z79.4 - half-way (current) use of insulin Medications: Changed From dapagliflozin propanediol (Farxiga) 5 mg PO DAILY 30 tabs 4RF E11.65 - Type 2 diabetes mellitus with hyperglycemia, Z79.4 - half-way (current) use of insulin To dapagliflozin propanediol 10 mg PO DAILY 30 tabs 4RF E11.65 - Type 2 diabetes mellitus with hyperglycemia, Z79.4 - half-way (current) use of insulin Refilled flash glucose sensor (FreeStyle Jose F 2 Sensor kit) As directed 6 kits 3RF E11.65 - Type 2 diabetes mellitus with hyperglycemia, Z79.4 - half-way (current) use of insulin dulaglutide 3 mg (0.5 mL) subcut QWEEK 30 days 2.5 mL 12RF E11.65 - Type 2 diabetes mellitus with hyperglycemia dulaglutide 3 mg (0.5 mL) subcut QWEEK 2.5 mL 12RF 30 days E11.65 - Type 2 diabetes mellitus with hyperglycemia Coding Level of Care Code Est Pt Level 4 (94851) Complex EM visit Add On G2211 Diagnoses Type 2 diabetes mellitus with hyperglycemia, with long-term current use of insulin E11.65; Z79.4 Diabetes mellitus predatory animal 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 insulin use: with predatory animal 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 use Essential hypertension I10 Hypercholesterolemia E78.00 Gastroesophageal reflux disease without esophagitis K21.9 Esophagitis presence: without esophagitis Overweight E66.3 Chronic constipation K59.09 Generalized anxiety disorder F41.1 Obstructive sleep apnea (adult) (pediatric) G47.33
== END 2024-02-22 13:43 | disposition home or self-care (01) ==
PROVIDERS: PCP Internal Medicine; Visit Provider Internal Medicine
DX: E11.65 Type 2 diabetes mellitus with hyperglycemia (principal); Z79.4 Long term (current) use of insulin; I10 Essential (primary) hypertension; K21.9 Gastro-esophageal reflux disease without esophagitis; E78.00 Pure hypercholesterolemia, unspecified; F41.1 Generalized anxiety disorder; E66.3 Overweight; K59.09 Other constipation; G47.33 Obstructive sleep apnea (adult) (pediatric)
CPT/HCPCS: 83036; 99214; G2211

== ENCOUNTER 2024-02-23 11:34 | Outpatient (AMB) | payer OTHER, SELFPAY ==
--- NOTE | 2024-02-23 11:48 | A.OFFVIS_ITS ---
Vital Signs 02/23/24 11:53 Height 5 ft 6 in Weight 154 lb BMI 24.9 BP 151/67 H Blood Pressure Location Lt brachial Position Sitting Pulse 78 Intake Visit Reasons: Constipation Intake Note: Patient follow up for Constipation Patient cc: abdominal pain with boating, and constipation. Denies any other GI issues. Correctional Classification Counselor Required: No Accompanied by: Self / Same As Patient Allergies JOI Inhibitors Allergy (Intermediate, Verified 02/23/24 11:48) Cough cephalexin [Keflex] Allergy (Intermediate, Verified 02/23/24 11:48) rash codeine [Codeine] Allergy (Intermediate, Verified 02/23/24 11:48) RASH VOMTING- APAP W/ CODEINE, vomiting gemfibrozil [GEMFIBROZIL] Allergy (Intermediate, Verified 02/23/24 11:48) RASH metformin [METFORMIN] Allergy (Intermediate, Verified 02/23/24 11:48) DIARRHEA morphine [Morphine] Allergy (Intermediate, Verified 02/23/24 11:48) HIVES, rash, rash naproxen Allergy (Intermediate, Verified 02/23/24 11:48) inadequate response sulfamethoxazole [From Bactrim] Adverse Reaction (Intermediate, Verified 02/23/24 11:48) nausea trimethoprim [From Bactrim] Adverse Reaction (Intermediate, Verified 02/23/24 11:48) nausea Medication List - Last Reconciled 02/23/24 by Adelina Vila PA-C albuterol sulfate 90 mcg/actuation (ProAir HFA) 1 puff PO Q4H PRN alcohol swabs (Alcohol Prep Pads) 1 pad topical TID amitriptyline 25 mg PO BEDTIME [bed pad As directed] bisacodyl (OneLAX Bisacodyl) 10 mg [place] DAILY PRN blood sugar diagnostic (FreeStyle Lite Strips) As directed check the BS TID blood sugar diagnostic (FreeStyle Lite Strips) TEST BLOOD SUGAR 3 TIMES A DAY cholecalciferol (vitamin D3) 25 mcg PO DAILY 3 months citalopram 40 mg PO DAILY 2 months clonazepam 1 mg PO BID clonazepam 0.5 mg PO DAILY PRN clotrimazole 1% 1 appl topical BID 4 weeks dapagliflozin propanediol 10 mg PO DAILY [Diaper Medium As directed] diphenhydramine HCl (Banophen) 25 mg PO Q6H PRN docusate sodium (Colace) 200 mg (2 x 100 mg) PO BEDTIME 30 days doxepin 5% apply 1 grm to affected area 3-4 x a day. wait 3-4 hours between applications (shoulder) apply second topical; dulaglutide 3 mg (0.5 mL) subcut QWEEK 30 days flash glucose scanning reader (FreeStyle Jose F 14 Day [place]) As directed flash glucose scanning reader (FreeStyle Jose F 2 [place]) As directed flash glucose sensor (FreeStyle Jose F 2 Sensor kit) As directed flash glucose sensor (FreeStyle Jose F 14 Day Sensor kit) As directed fluticasone propionate 50 mcg/actuation 1 spray intranasal DAILY 30 days insulin degludec (Tresiba FlexTouch U-200 insulin) 50 units (0.25 mL) subcut BEDTIME 30 days insulin lispro (Humalog KwikPen (U-100) Insulin) 12 units (0.12 mL) subcut TID Lactobacillus rhamnosus GG (Culturelle) 1 cap PO DAILY lancets (TRUEplus Lancets) 1 gauge miscellaneous TIDWMEAL 90 days linaclotide (Linzess) 290 mcg PO QAM 30 days losartan 25 mg PO DAILY 90 days methylcellulose (laxative) (Citrucel) 500 mg PO TID 30 days miconazole nitrate 2% (Zeasorb AF) 1 appl topical BID mupirocin 2% apply externally topical 3 times a day; nystatin 1 appl topical TID 10 days ondansetron 4 mg PO Q8H PRN [P-5 K-10 Pain w/o Gabapentin versatile apply 1-3 grms to the affected area 3-4 x daily (shoulder) apply first, rub in well; ] pantoprazole 20 mg PO DAILY 90 days pen needle, diabetic As directed pen needle, diabetic (BD Ultra-Fine Original Pen Needle) As directed use with trulicity, basaglar and novolog 4 x a day polyethylene glycol 3350 17 grams PO DAILY sennosides (senna) 8.6 mg PO DAILY PRN 90 days simvastatin 40 mg PO BEDTIME 3 months trolamine salicylate 10% (Aspercreme) 1 appl topical BID PRN valacyclovir (Valtrex) 500 mg PO BID varicella-zoster gE-AS01B (PF) 50 mcg/0.5 mL (Shingrix (PF)) 0.5 mL IM ONCE [wipes As directed] [WIPES As directed] zolpidem 10 mg PO BEDTIME PRN HPI Comments Details: 63-year-old female last seen 06/15/2023-chronic constipation recommended repeat colonoscopy due to inadequate prep however was unable to have consistent bowel pattern. She presents today- says constipation is worse- but she takes bowel regimen-she is having more stool output HGA1c> 8 Acid reflux fairly well-controlled she does have early satiety-with nausea PFSH Medical History Pelvic pain Headache Vaginal dryness Acute vaginitis Encounter for annual routine gynecological examination Dizzy Tinea corporis Hx of flexible sigmoidoscopy Herpes, genital Dysuria Breast cancer screening by mammogram Diarrhea Otitis externa Neck discomfort Overweight (BMI 25.0-29.9) Overweight COVID-19 vaccine series completed Low back pain Abdominal pain Potential exposure to STD Dyspareunia in female Problematic vaginal discharge Candidal intertrigo Obesity (BMI 30-39.9) Right upper quadrant pain Fatty liver Osteopenia Insomnia Gallbladder polyp GERD (gastroesophageal reflux disease) Hypercholesterolemia Type 2 diabetes mellitus with hyperglycemia Anxiety and depression Intertrigo Breast density H. pylori infection Essential hypertension Migraine ARISTEO on CPAP Arthritis History of panic attacks Vitamin D deficiency Hx of irritable bowel syndrome Enlarged thyroid Fibromyalgia Asthma Hypertension Herpes genitalis Hx of ectopic Surgical History History of esophagogastroduodenoscopy (EGD) H/O colonoscopy S/P repair of ventral hernia Hx of bariatric surgery Hx of cholecystectomy Hx of unilateral oophorectomy Family History Sister Hx of diabetes mellitus Hx of myocardial infarction Father Hx of myocardial infarction Daughter Cancer Sister Hx of diabetes mellitus Social History Household Members: None Housing: Apartment Alcohol intake: former Patient Tobacco Use Status: Former Tobacco user Tobacco use type: Cigarette Cigarette Packs Per Day: 2 Years Smoked: 20 quit 2008 e-Cigarette/Vaping Use: Never Used Second Hand Smoke Exposure: No Current occupational status: disabled Gender identity: Female Cognitive needs: No Hearing needs: No Vision needs: Yes Female Reproductive History Menstrual Age of Menarche: 8 Review of Systems Const All systems reviewed & are unremarkable except as noted in HPI and below Card Denies chest pain and Denies dyspnea Resp Denies dyspnea GI Denies abdominal pain, Denies hematochezia, Reports constipation, Reports early satiety, Reports nausea and Denies vomiting Physical Exam Vital Signs: Last Vital Signs Pulse 78 02/23/24 11:53 BP 151/67 H 02/23/24 11:53 BMI result Body Mass Index 24.9 Const General: cooperative, healthy appearing, comfortable and no acute distress Orientation/consciousness: patient oriented x3 Limitations: no limitations Eyes Sclerae: sclerae normal Resp Effort & Inspection: normal respiratory effort and able to speak in complete sentences Auscultation: clear to auscultation bilaterally, no rales, no rhonchi and no wheezes Cardio Rate: regular rate Rhythm: regular rhythm Heart sounds: S1 normal heart sound present and S2 normal heart sound present GI Palpation (GI): Soft to palpation and nontender Auscultation: normal bowel sounds Neuro General: patient oriented x3 Extrem General: Yes full ROM Psych Appearance: grossly normal Mental Status: mental status grossly normal Speech and movement: Normal speech and movement present Affect: normal affect Attitude: cooperative Thought process: Normal thought process present Thought content: Normal thought content present Insight: Good insight present (Psych) Judgement: Good judgement present (Psych) Results Reviewed Results Reviewed: XR/XR KUB IMPRESSION: Nonobstructive bowel gas pattern. There is abundant stool throughout the colon. Assessment & Plan Assessment & Plan (1) Tubular adenoma of colon: Comment: Over Due for polyp surveillance Code(s): D12.6 - Benign neoplasm of colon, unspecified Category: Medical Plan: polyp surveillance colonoscopy (2) Chronic constipation: Comment: Diabetes, not well controlled, likely plays a role Due for colonoscopy, declines at this time-due to severe constipation Code(s): K59.09 - Other constipation Category: Medical Plan: Maintain high-fiber Adequate hydration Fiber supple Consistent bowel regimen (3) Early satiety: Comment: Likely gastroparesis Code(s): R68.81 - Early satiety Category: Medical Plan: Gastric emptying study (4) Type 2 diabetes mellitus with hyperglycemia: Comment: Not well-controlled Code(s): E11.65 - Type 2 diabetes mellitus with hyperglycemia Category: Medical Qualifiers: Diabetes mellitus fpc insulin use: with fpc use Qualified Code(s): E11.65 - Type 2 diabetes mellitus with hyperglycemia; Z79.4 - long term care 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 (current) use of insulin (5) GERD (gastroesophageal reflux disease): Code(s): K21.9 - Gastro-esophageal reflux disease without esophagitis Category: Medical Qualifiers: Esophagitis presence: without esophagitis Qualified Code(s): K21.9 - Gastro-esophageal reflux disease without esophagitis Plan Repeat polyp surveillance Colonoscopy-Dr. Edwards 2- days clr liq MG prep- miralax BID x 1 wk < prep day Trulicity hold 1 week prior to procedure Farxiga-hold 3 days prior to procedure Half dose insulin evening before No diabetes medication morning of procedure GES Orders: Orders Colonoscopy - GI Use Only Today D12.6 - Benign neoplasm of colon, unspecified, K59.09 - Other constipation NM gastric emptying study Today E11.65 - Type 2 diabetes mellitus with hyperglycemia, K21.9 - Gastro-esophageal reflux disease without esophagitis, R68.81 - Early satiety, Z79.4 - long term care 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 (current) use of insulin Medications: New polyethylene glycol 3350 (Miralax) Take as directed by mouth the day before your procedure. 238 grams PO ONCE 1 day PRN 238 grams 0RF laxative effect polyethylene glycol 3350 (Miralax) increase dose to BID- 1 week before procedure- 17 grams PO DAILY 30 days 510 grams 6RF bisacodyl (Dulcolax (bisacodyl)) Day before procedure @ 12 noon Take 4 tablets by mouth followed by large glass of water 20 mg (4 x 5 mg) PO ONCE 1 day PRN 4 tabs 0RF colonoscopy prep Z12.11 - Encounter for screening for malignant neoplasm of colon Patient Instructions: REpeat polyp surveillance Colonoscopy-Dr. Edwards 2- days clr liq MG prep- miralax BID x 1 wk < prep day Trulicity hold 1 week prior to procedure Farxiga-hold 3 days prior to procedure Half dose insulin evening before No diabetes medication morning of procedure GES Please schedule follow-up after procedures Coding Level of Care Code Est Pt Level 4 (72766) Diagnoses Tubular adenoma of colon D12.6 Chronic constipation K59.09 Early satiety R68.81 Type 2 diabetes mellitus with hyperglycemia, with long-term current use of insulin E11.65; Z79.4 Diabetes mellitus fpc insulin use: with long term care 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 use Gastroesophageal reflux disease without esophagitis K21.9 Esophagitis presence: without esophagitis Time Spent (min) 35
[2024-02-23 11:53] VITALS: BP 151/67; PULSE 78; BMI 24.9
== END 2024-02-23 13:16 | disposition home or self-care (01) ==
LOC: HO.HGI 11:34
PROVIDERS: PCP Internal Medicine; Visit Provider Physician Assistant
DX: D12.6 Benign neoplasm of colon, unspecified (principal); K59.09 Other constipation; R68.81 Early satiety; E11.65 Type 2 diabetes mellitus with hyperglycemia; Z79.4 Long term (current) use of insulin; K21.9 Gastro-esophageal reflux disease without esophagitis
CPT/HCPCS: 99214

== ENCOUNTER 2024-02-23 11:36 | Outpatient (REF) | payer OTHER, SELFPAY ==
--- NOTE | ~2024-02-23 | MM_ITS ---
EXAMINATION: MM SCREENING DIGITAL BREAST TOMOSYNTHESIS, BILATERAL CLINICAL INFORMATION: Screening. Asymptomatic. COMPARISON: Mammography: This study is compared with prior exams dating back to 2019. TECHNIQUE: Digital breast tomosynthesis is performed in both the craniocaudal and mediolateral oblique views along with computer-aided detection (CAD). Synthesized 2D images are generated from the tomosynthesis. FINDINGS: The breasts are almost entirely fatty (ACR BI-RADS breast composition Category a). There are grouped calcifications in the upper outer quadrant of the right breast at a middle depth. These warrant additional mammographic imaging with magnification. In the left breast, there are no significant masses, abnormal calcifications, or other abnormalities. MM/MM tomosynthesis screening BI IMPRESSION: Right breast calcifications warrant additional mammographic imaging with magnification. No mammographic signs of malignancy left breast. ASSESSMENT: BI-RADS BI-RADS 0 - Incomplete: Needs additional Imaging. RECOMMENDATION: Additional views of the right breast. Radiology department staff will contact the patient for additional imaging. Additional Imaging required This examination should not preclude the clinical evaluation of a suspicious palpable abnormality. This patient's information was entered into a reminder system with a target due date for their next mammogram.
== END 2024-02-23 11:37 | disposition home or self-care (01) ==
LOC: HO.MAMMO 11:36
PROVIDERS: PCP Internal Medicine; Visit Provider Internal Medicine
DX: K59.00 Constipation, unspecified (principal); K59.09 Other constipation; K21.9 Gastro-esophageal reflux disease without esophagitis; R68.81 Early satiety; D12.6 Benign neoplasm of colon, unspecified; Z79.4 Long term (current) use of insulin; Z12.31 Encounter for screening mammogram for malignant neoplasm of breast
CPT/HCPCS: 77063; 77067; 99212

== ENCOUNTER → 2024-02-23 12:30 | Outpatient (BNV) | payer OTHER, SELFPAY | PROVIDERS: PCP Internal Medicine; Visit Provider Radiology Diagnostic Radiology | DX: Z12.31 Encounter for screening mammogram for malignant neoplasm of breast (principal) | CPT/HCPCS: 77063; 77067 ==

== ENCOUNTER → 2024-03-12 12:36 | Outpatient (BNVA) | payer OTHER, SELFPAY | PROVIDERS: PCP Internal Medicine; Visit Provider Dietitian, Registered ==

== ENCOUNTER 2024-03-12 13:06 | Emergency (ER) | payer OTHER, SELFPAY ==
--- NOTE | ~2024-03-12 | XR_ITS ---
EXAMINATION: XR THORACIC SPINE CLINICAL INFORMATION: Back pain COMPARISON: None available. TECHNIQUE: 3 views of the thoracic spine were obtained. FINDINGS: No fracture or dislocation. Mild curvature of the mid and lower thoracic spine to the left. Multilevel mild degenerative spondylosis and disc space narrowing in the mid thoracic spine. Surgical clips overlying the expected region of the stomach. Paraspinal soft tissues are otherwise normal. XR/XR thoracic spine 3V IMPRESSION: Mild degenerative changes. No fracture or dislocation seen.
--- NOTE | ~2024-03-12 | CT_ITS ---
EXAMINATION: CT ABDOMEN AND PELVIS WITHOUT CONTRAST CLINICAL INFORMATION: Back/flank pain COMPARISON: KUB January 2024 CT from 2018, ultrasound from 2020 and MRCP from 2020 TECHNIQUE: Multidetector volumetric imaging was performed from the superior aspect of the liver through the pubic symphysis. Sagittal and coronal reformatted images were obtained on the technologist's workstation. This CT examination was performed using dose optimization techniques as appropriate, variously including the following: *Automated exposure control *Adjustment of mA and/or kV according to patient size (this includes techniques or standardized protocols for targeted exams where dose is matched to indication/reason for exam; i.e. extremities or head) *Use of iterative reconstruction technique DLP: 543 mGy-cm FINDINGS: LUNG BASES: The visualized lung bases are unremarkable. LIVER, GALLBLADDER, AND BILIARY TREE: Slightly enlarged fatty liver. Postcholecystectomy. No focal liver lesion or biliary duct dilatation. PANCREAS: Unremarkable. SPLEEN: Unremarkable. ADRENAL GLANDS: Unremarkable. KIDNEYS AND URETERS: The kidneys are normal in size, shape, and attenuation. No hydronephrosis, hydroureter, or calculi seen. No perinephric stranding. BLADDER: Unremarkable. GASTROINTESTINAL TRACT: Mild diverticulosis of the colon. No evidence of diverticulitis. Small and large bowel otherwise normal. The appendix is normal. There are surgical clips adjacent to the greater curvature of the stomach.. ABDOMINAL WALL: Evidence of previous lower ventral hernia repair with mesh. LYMPH NODES: Normal. VASCULAR: Severe atherosclerotic disease. No aneurysm. PELVIC VISCERA: Surgical clips in the right pelvis. OSSEOUS STRUCTURES: Degenerative changes of the spine. No fracture. CT/CT abdomen pelvis wo IV con IMPRESSION: No stone or hydronephrosis. Fatty liver. Mild diverticulosis. No evidence of diverticulitis. Fleischner guidelines were followed.
[2024-03-12 13:09] VITALS: BP 158/76; PULSE 79; RESP 16; TEMP 36.1; O2SAT 97; BMI 28.9
--- NOTE | 2024-03-12 13:29 | ED.BACK ---
HPI - Back Pain/Injury General Chief Complaint: Back Pain/Injury Stated Complaint: back pain Time Seen by Provider: 03/12/24 17:05 Source: patient Mode of arrival: ambulatory Limitations: no limitations History of Present Illness ED Provider: Filippo Spaulding PA-C HPI Narrative: [age] year female with past medical history of herpes, fatty liver disease, lumbar degenerative disc disease, anxiety, GERD, high cholesterol, and type 2 diabetic, hypertensive presents ED for left-sided lower back hip flank pain that is worse on movement 1 week. Patient denies any urinary/ bowel incontinence. Patient denies any dysuria hematuria. Patient denies any recent trauma. Patient denies any fever, chills, nausea, vomiting, or abdominal pain. Patient states pain is worse on movement. patient states no pluerisy, chest pain, or shortness of breath. Related Data Home Medications ?Medication ?Instructions ?Recorded ?Confirmed pen needle, diabetic 32 gauge x #50 ea 11/21/20 02/23/24 clonazepam 1 mg tablet 1 mg PO BID 07/13/21 02/23/24 clonazepam 0.5 mg tablet 0.5 mg PO DAILY PRN Anxiety 11/30/21 02/23/24 Previous Rx's ?Medication ?Instructions ?Recorded citalopram 40 mg tablet 40 mg PO DAILY 2 months #60 tabs 09/15/20 fluticasone propionate 50 1 spray intranasal DAILY 30 days 10/28/20 mcg/actuation nasal #9.9 mL spray,suspension miconazole nitrate 2 % topical 1 appl topical BID #71 grams 11/14/20 powder (Zeasorb AF) doxepin 5 % topical cream See Rx Instructions topical 05/12/21 .COMPLEX #90 grams flash glucose scanning reader #1 ea 06/25/21 (FreeStyle Jose F 14 Day [facility]) P-5 K-10 Pain w/o Gabapentin See Rx Instructions .Route 08/13/21 versatile .COMPLEX #180 grams Diaper Medium #50 ea 10/30/21 bed pad #1 ea 10/30/21 wipes #1 ea 10/30/21 trolamine salicylate 10 % topical 1 appl topical BID PRN muscle pain 12/14/21 cream (Aspercreme) #113 grams nystatin 100,000 unit/gram topical 1 appl topical TID 10 days #30 03/25/22 powder grams WIPES #1 ea 12/30/21 linaclotide 290 mcg capsule 290 mcg PO QAM 30 days #30 caps 01/19/22 (Linzess) blood sugar diagnostic (FreeStyle ##300 02/26/22 Lite Strips) ondansetron 4 mg disintegrating 4 mg PO Q8H PRN for 04/20/22 tablet nausea/vomiting #30 ea varicella-zoster glycoE [id number] 0.5 ml IM ONCE #1 ea 06/08/22 adj(PF) 50 mcg/0.5 mL IM susp, kit (Shingrix (PF)) valacyclovir 500 mg tablet 500 mg PO BID #30 tabs 07/20/22 (Valtrex) flash glucose scanning reader #1 ea 05/10/23 (FreeStyle Jose F 2 [facility]) alcohol swabs (Alcohol Prep Pads) 1 pad topical TID #100 pad 06/18/23 docusate sodium 100 mg capsule 200 mg (2 x 100 mg) PO BEDTIME 30 06/22/23 (Colace) days #60 caps methylcellulose (laxative) 500 mg 500 mg PO TID 30 days #90 tabs 06/22/23 tablet (Citrucel) albuterol sulfate 90 mcg/actuation 1 puff PO Q4H PRN for wheezing 07/14/23 aerosol inhaler (ProAir HFA) #8.5 grams cholecalciferol (vitamin D3) 25 25 mcg PO DAILY 3 months #90 tabs 07/17/23 mcg (1,000 unit) tablet mupirocin 2 % topical ointment See Rx Instructions topical TID 07/20/23 #22 grams sennosides 8.6 mg tablet (senna) 8.6 mg PO DAILY PRN for 07/20/23 constipation 90 days #90 tabs diphenhydramine HCl 25 mg capsule 25 mg PO Q6H PRN allergic reaction 08/12/23 (Banophen) #120 caps bisacodyl 10 mg rectal suppository 10 mg CA DAILY PRN for 08/29/23 (OneLAX Bisacodyl) constipation #20 supp Lactobacillus rhamnosus GG 15 1 cap PO DAILY #90 caps 10/13/23 billion cell sprinkle capsule (Culturelle) lancets 33 gauge (TRUEplus Lancets) 1 gauge miscellaneous TIDWMEAL 90 10/13/23 days #3 ea losartan 25 mg tablet 25 mg PO DAILY 90 days #90 tabs 10/19/23 zolpidem 10 mg tablet 10 mg PO BEDTIME PRN Insomnia #14 10/20/23 tabs flash glucose sensor (FreeStyle #6 kits 11/11/23 Jose F 14 Day Sensor kit) amitriptyline 25 mg tablet 25 mg PO BEDTIME #90 tabs 12/05/23 pen needle, diabetic 29 gauge x #4 ea 12/07/2309/27 (BD Ultra-Fine Original Pen Needle) blood sugar diagnostic (FreeStyle #300 strips 12/29/23 Lite Strips) simvastatin 40 mg tablet 40 mg PO BEDTIME 3 months #90 tabs 01/04/24 polyethylene glycol 3350 17 17 g PO DAILY #510 grams 02/02/24 gram/dose oral powder clotrimazole 1 % topical cream 1 appl topical BID 4 weeks #90 02/15/24 grams insulin degludec 200 unit/mL (3 50 unit (0.25 mL) subcut BEDTIME 02/15/24 mL) subcutaneous pen (Tresiba 30 days #5 ea FlexTouch U-200 insulin) insulin lispro 100 unit/mL 12 unit (0.12 mL) subcut TID #15 mL 02/15/24 subcutaneous pen (Humalog KwikPen (U-100) Insulin) dapagliflozin propanediol 10 mg 10 mg PO DAILY #30 tabs 02/22/24 tablet dulaglutide 3 mg/0.5 mL 3 mg (0.5 mL) subcut QWEEK 30 days 02/22/24 subcutaneous pen injector #2.5 mL flash glucose sensor (FreeStyle #6 kits 02/22/24 Jose F 2 Sensor kit) bisacodyl 5 mg tablet,delayed 20 mg (4 x 5 mg) PO ONCE PRN 02/23/24 release (Dulcolax (bisacodyl)) colonoscopy prep 1 day #4 tabs polyethylene glycol 3350 17 17 g PO DAILY 30 days #510 grams 02/23/24 gram/dose oral powder (Miralax) polyethylene glycol 3350 17 238 g PO ONCE PRN laxative effect 02/23/24 gram/dose oral powder (Miralax) 1 day #238 grams pantoprazole 20 mg tablet,delayed 20 mg PO DAILY 90 days #90 tabs 02/27/24 release acetaminophen 325 mg tablet 325 mg PO QID PRN pain 7 days #28 03/12/24 (Tylenol) tabs cyclobenzaprine 10 mg tablet 10 mg PO BEDTIME PRN muscle spasm 03/12/24 7 days #7 tabs nitrofurantoin 100 mg PO Q12H 7 days #14 caps 03/12/24 monohydrate/macrocrystals 100 mg capsule (Macrobid) Allergies Allergy/AdvReac Type Severity Reaction Status Date / Time JOI Inhibitors Allergy Intermediate Cough Verified 03/12/24 13:13 cephalexin [Keflex] Allergy Intermediate rash Verified 03/12/24 13:13 codeine [Codeine] Allergy Intermediate RASH Verified 03/12/24 13:13 VOMTING- APAP W/ CODEINE, vomiting gemfibrozil [GEMFIBROZIL] Allergy Intermediate RASH Verified 03/12/24 13:13 metformin [METFORMIN] Allergy Intermediate DIARRHEA Verified 03/12/24 13:13 morphine [Morphine] Allergy Intermediate HIVES, Verified 03/12/24 13:13 rash, rash naproxen Allergy Intermediate inadequate Verified 03/12/24 13:13 response sulfamethoxazole AdvReac Intermediate nausea Verified 03/12/24 13:13 [From Bactrim] trimethoprim [From Bactrim] AdvReac Intermediate nausea Verified 03/12/24 13:13 Review of Systems Review of Systems: left sided back pain Yes all other systems are reviewed and are negative PMFSH Past Medical History Medical History Pelvic pain Headache Vaginal dryness Acute vaginitis Encounter for annual routine gynecological examination Dizzy Tinea corporis Hx of flexible sigmoidoscopy Herpes, genital Dysuria Breast cancer screening by mammogram Diarrhea Otitis externa Neck discomfort Overweight (BMI 25.0-29.9) Overweight COVID-19 vaccine series completed Low back pain Abdominal pain Potential exposure to STD Dyspareunia in female Problematic vaginal discharge Candidal intertrigo Obesity (BMI 30-39.9) Right upper quadrant pain Fatty liver Osteopenia Insomnia Gallbladder polyp GERD (gastroesophageal reflux disease) Hypercholesterolemia Type 2 diabetes mellitus with hyperglycemia Anxiety and depression Intertrigo Breast density H. pylori infection Essential hypertension Migraine ARISTEO on CPAP Arthritis History of panic attacks Vitamin D deficiency Hx of irritable bowel syndrome Enlarged thyroid Fibromyalgia Asthma Hypertension Herpes genitalis Hx of ectopic Surgical History History of esophagogastroduodenoscopy (EGD) H/O colonoscopy S/P repair of ventral hernia Hx of bariatric surgery Hx of cholecystectomy Hx of unilateral oophorectomy Family History Family History Sister Hx of diabetes mellitus Hx of myocardial infarction Father Hx of myocardial infarction Daughter Cancer Sister Hx of diabetes mellitus Social History Social History Household Members: None Housing: Apartment Alcohol intake: former Patient Tobacco Use Status: Former Tobacco user Tobacco use type: Cigarette Cigarette Packs Per Day: 2 Years Smoked: 20 quit 2008 e-Cigarette/Vaping Use: Never Used Second Hand Smoke Exposure: No Advance Directives: No Advance Directives Information Provided: Yes Current occupational status: disabled Gender identity: Female Cognitive needs: No Hearing needs: No Vision needs: Yes Physical Exam Vital Signs: Vital Signs: Last Vital Signs Temp 97.7 F 03/12/24 19:30 Pulse 71 03/12/24 19:30 Resp 18 03/12/24 19:30 BP 138/67 03/12/24 19:30 Pulse Ox 98 03/12/24 19:30 O2 Del Method Room Air 03/12/24 19:30 BMI result Body Mass Index 28.9 Const: General: cooperative, healthy appearing, comfortable, no acute distress, well developed, alert and awake Orientation/consciousness: oriented to person, oriented to place, oriented to time and patient oriented x3 HEENT: Head: Yes normal to inspection, Yes No palpable skull fracture present, Yes normocephalic, Yes atraumatic and No abrasion Eyes: General: appearance normal, both eyes and all related structures Neck: Neck: Yes normal visual inspection, Yes full ROM, Yes no lymphadenopathy, Yes no meningeal signs, Yes trachea midline, Yes supple, No anterior neck swelling and No tender Chest: Chest palpation & inspection: normal inspection of the chest and normal palpation of entire chest wall Resp: Effort & Inspection: normal respiratory effort and able to speak in complete sentences Auscultation: clear to auscultation bilaterally Cardio: Jugular venous distension: no JVD Heart sounds: S1 normal heart sound present and S2 normal heart sound present GI: Inspection: Yes normal to inspection Palpation (GI): Soft to palpation, not firm, nontender, no guarding and not rigid : General: No CVA tenderness and Yes no CVA tenderness Back/Spine/Pelvis: Back: no CVA tenderness, No CVA tenderness and back tenderness (lumbar spine) Back/spine/pelvis image: 1. Positive for tenderness on palpation. Negative for any erythema, ecchymosis, deformity, crepitus, warmth, pus discharge, foul odor, or open wound. Skin: General skin exam: no rashes or lesions noted, elasticity normal and turgor normal Neuro: General: oriented to person, oriented to place, oriented to time, patient oriented x3, gait normal, tone normal, moves all extremities, Normal light touch and pain sensation, no meningeal signs, no focal motor deficits, CN's II-XI intact bilaterally and normal sensation to monofilament Extrem: General: Yes normal to inspection, Yes full ROM and Yes capillary refill normal Psych: Appearance: grossly normal, well kempt and not disheveled Course Course Course Narrative: This is a rapid medical exam completed by Chaz DURÁNN: Additional HPI, ROS, PE not included below will be deferred to primary provider. Medications Administered Discontinued Medications Generic Name Dose Route Start Last Admin Trade Name Bethelq PRN Reason Stop Dose Admin Acetaminophen 975 mg 03/12/24 17:41 03/12/24 18:05 Acetaminophen 325 Mg Tablet PO 03/12/24 17:42 975 mg ONCE ONE Administration Prednisone 60 mg 03/12/24 17:41 03/12/24 18:05 Prednisone 20 Mg Tablet PO 03/12/24 17:42 Not Given ONCE ONE Medical Decision Making Medical Decision Making [facility] Narrative: 63 Year old female with history of chronic lumbar radiculopathy presents to ED for left-sided back pain. Patient denies any new trauma. Back pain worse with movement. No fever or chills. Patient denies any urinary symptoms. Presently not suspecting cauda equina or epidural abscess. Patient denies any urinary/bowel incontinence. Patient denies any history of IV drug use or history of any immunocompromise diseases. Labs drawn and were baseline normal. Patient is sent for CT scan to check for spine lumbar fracture /radiculopathy, kidney stones, or any hip fracture. Unlikely hip fracture. Patient walk around the ED. images ordered. 7:04pm: Patient feels better after being given Tylenol. Labs once again our baseline. Abdominal CT scan negative for any fractures or hip dislocation. Negative for kidney stones. CT scan confirmed spine degenerative disc disease. Presently not suspecting cauda equinus or epidural abscess. Patient states used to follow-up at pain management clinic. Patient informed due to excessive allergy history to medications not able to prescribe any other meds besides Tylenol and muscle relaxer. Patient states she will call and follow-up with pain management clinic. Differential Diagnosis Differential Diagnoses: The differential diagnosis associated with the presentation includes ( lumbar radiculopathy, lumbar spine fracture, hip fracture, kidney stones) Admission/Observation Consideration of admission/observation: Escalation of care including admission/observation considered Lab Data MDM Lab Attestation statement: I reviewed the patient's lab results. 03/12/24 15:06 03/12/24 15:06 Labs: Lab Results 03/12/24 03/12/24 03/12/24 Range/Units 15:06 16:24 18:53 WBC 12.4 H (4.8-10.8) X10*3/uL RBC 4.83 (4.20-5.50) X10*6/uL Hgb 14.2 (12.0-16.0) g/dl Hct 43.5 (37.0-47.0) % MCV 90.1 (80.0-98.0) fL MCH 29.4 (27.0-33.0) pg MCHC 32.6 (31.0-35.0) g/dl RDW 13.8 (11.0-16.0) % Plt Count 218 (160-400) X10*3/uL MPV 10.2 (9.4-12.3) fL Immature Gran % (Auto) 0.2 (0.0-0.4) % Neut % (Auto) 51.3 (45-73) % Lymph % (Auto) 38.2 (20-40) % [place] % (Auto) 7.7 (2-11) % Eos % (Auto) 1.9 (0-4) % Baso % (Auto) 0.7 (0-2) % Lymph # (Auto) 4.7 (1.2-4.9) X10*3/uL [place] # (Auto) 1.0 (0.1-1.2) X10*3/uL Eos # (Auto) 0.2 (0.0-0.4) X10*3/uL Baso # (Auto) 0.1 (0.0-0.2) X10*3/uL Abs Immat Gran (auto) 0.03 (0.00-0.03) X10*3/uL Absolute Neuts (auto) 6.4 (2.0-8.3) x10*3/uL Absolute Nucleated RBC 0.000 (0.0-0.012) X10*3/uL Nucleated RBC % (auto) 0.0 (0.0-0.2) /100WBC Sodium 142 (135-145) mmol/L Potassium 3.8 (3.3-5.1) mmol/L Chloride 105 (96-108) mmol/L Carbon Dioxide 30 H (22-29) mmol/L Anion Gap 11 L (12-20) BUN 7 L (9-16) mg/dL Creatinine 0.78 (0.5-1.4) mg/dL Estim Creat Clear Calc 67.5 Estimated GFR > 60 POC Glucose 111 (60-115) mg/dL Random Glucose 120 H (60-115) mg/dL Calcium 9.9 (8.4-10.2) mg/dL Total Bilirubin 0.4 (0.0-1.0) mg/dL AST 33 H (5-31) U/L ALT 29 (0-31) U/L Alkaline Phosphatase 48 (39-117) U/L Total Protein 7.7 (6.5-8.0) g/dL Albumin 4.0 (3.5-5.0) g/dL Urine Color Yellow Urine Appearance Clear Urine pH 6.0 (5.0-9.0) Ur Specific [place] 1.010 (1.005-1.025) Urine Protein Negative (Neg-Trace) mg/dL Urine Glucose (UA) Negative (Negative) mg/dL Urine Ketones Negative (Negative) mg/dL Urine Blood Negative (Negative) Urine Nitrite Negative (Negative) Ur Leukocyte Esterase Large (3+) H (Negative) Urine RBC 0-2 (0-2) /HPF Urine WBC >50 H (0-5) /HPF Ur Squamous Epith Cells 0-2 (0-2) /HPF Urine Bacteria None Seen (None Seen) Hyaline Casts 0-2 (0-2) /LPF Independent Historian Clinical information obtained from an independent historian. History obtained from or confirmed by: Other (patient) External Record Review External record reviewed: Other (prior visits) Prescription Management I considered prescription management with: Pain Medication Discharge Plan Discharge Clinical Impression: Lumbar radiculopathy, Thoracic radiculopathy Patient Disposition: Home, Self-Care Instructions: Urinary Tract Infection in Women (ED), Lumbar Radiculopathy (ED), Back Pain (ED) Additional Instructions: your lab work came back at baseline. CT scan confirms Thoracic and lumbar radiculopathy. recommend follow-up with primary care provider. Also recommend you calling a pain management clinic due to extensive medication allergy history for better pain control. Return to the ED immediately for any urinary / bowel incontinence, severe back pain, flank pain, fever, chills, nausea, vomiting, inability to walk, paralysis of extremities, or any other concerning symptoms. Prescriptions: New nitrofurantoin monohyd/m-cryst [Macrobid] 100 mg capsule 100 mg PO Q12H 7 Days Qty: 14 0RF Rx Instructions: must administer with a meal/food acetaminophen [Tylenol] 325 mg tablet 325 mg PO QID PRN (Reason: pain) 7 Days Qty: 28 0RF cyclobenzaprine 10 mg tablet 10 mg PO BEDTIME MDD , PRN (Reason: muscle spasm) 7 Days Qty: 7 0RF Rx Instructions: side effect is drowsiness. DO not take at home or while driving. No Action citalopram 40 mg tablet 40 mg PO DAILY 60 Days Qty: 60 0RF fluticasone propionate 50 mcg/actuation spray,suspension 1 spray intranasal DAILY 30 Days Qty: 9.9 3RF (DME) Diaper Medium See Rx Instructions .Route .MEDSUPPLY Qty: 50 0RF Rx Instructions: As directed (DME) wipes See Rx Instructions .Route .MEDSUPPLY Qty: 1 0RF Rx Instructions: As directed (DME) bed pad See Rx Instructions .Route .MEDSUPPLY Qty: 1 0RF Rx Instructions: As directed trolamine salicylate [Aspercreme] 10 % cream 1 appl topical BID PRN (Reason: muscle pain) Qty: 113 1RF nystatin 100,000 unit/gram powder 1 appl topical TID 10 Days Qty: 30 1RF Linzess 290 mcg capsule 290 mcg PO QAM 30 Days Qty: 30 2RF (DME) FreeStyle Lite Strips Strip See Rx Instructions .ROUTE .MEDSUPPLY Qty: 300 3RF Rx Instructions: As directed check the BS TID ondansetron 4 mg tablet,disintegrating 4 mg PO Q8H PRN (Reason: for nausea/vomiting) Qty: 30 1RF (DME) FreeStyle Jose F 2 [facility] Misc See Rx Instructions .ROUTE .MEDSUPPLY Qty: 1 0RF Rx Instructions: As directed alcohol swabs [Alcohol Prep Pads] Pads, Medicated 1 pad topical TID Qty: 100 11RF albuterol sulfate [ProAir HFA] 90 mcg/actuation HFA aerosol inhaler 1 puff PO Q4H PRN (Reason: for wheezing) Qty: 8.5 6RF cholecalciferol (vitamin D3) 25 mcg (1,000 unit) tablet 25 mcg PO DAILY 90 Days Qty: 90 3RF mupirocin 2 % ointment See Rx Instructions topical TID Qty: 22 2RF Rx Instructions: apply externally topical 3 times a day; sennosides [senna] 8.6 mg tablet 8.6 mg PO DAILY PRN (Reason: for constipation) 90 Days Qty: 90 2RF diphenhydramine HCl [Banophen] 25 mg capsule 25 mg PO Q6H PRN (Reason: allergic reaction) Qty: 120 5RF bisacodyl [OneLAX Bisacodyl] 10 mg suppository 10 mg CA DAILY PRN (Reason: for constipation) Qty: 20 2RF lancets [TRUEplus Lancets] 33 gauge misc 1 gauge miscellaneous TIDWMEAL 90 Days Qty: 3 3RF Culturelle 15 billion cell capsule, sprinkle 1 cap PO DAILY Qty: 90 3RF losartan 25 mg tablet 25 mg PO DAILY 90 Days Qty: 90 3RF zolpidem 10 mg tablet 10 mg PO BEDTIME PRN (Reason: Insomnia) Qty: 14 0RF amitriptyline 25 mg tablet 25 mg PO BEDTIME Qty: 90 2RF (DME) pen needle, diabetic [BD Ultra-Fine Orig Pen Needle] 29 gauge x 1/2 needle See Rx Instructions .ROUTE .MEDSUPPLY Qty: 4 3RF Rx Instructions: As directed use with trulicity, basaglar and novolog 4 x a day (DME) FreeStyle Lite Strips Strip See Rx Instructions .ROUTE .COMPLEX Qty: 300 3RF Dose Instruction: TEST BLOOD SUGAR 3 TIMES A DAY Rx Instructions: TEST BLOOD SUGAR 3 TIMES A DAY simvastatin 40 mg tablet 40 mg PO BEDTIME 90 Days Qty: 90 1RF polyethylene glycol 3350 17 gram/dose powder 17 g PO DAILY Qty: 510 6RF clotrimazole 1 % cream 1 appl topical BID 28 Days Qty: 90 2RF insulin degludec [Tresiba FlexTouch U-200] 200 unit/mL (3 mL) insulin pen 50 unit subcut BEDTIME 30 Days Qty: 5 11RF Rx Instructions: 5 pens one script 11 refill insulin lispro [Humalog KwikPen Insulin] 100 unit/mL insulin pen 12 unit subcut TID Qty: 15 11RF Rx Instructions: Three time a day or as directed pantoprazole 20 mg tablet,delayed release (DR/EC) 20 mg PO DAILY 90 Days Qty: 90 2RF Zeasorb AF 2 % powder 1 appl topical BID Qty: 71 0RF doxepin 5 % cream See Rx Instructions topical .COMPLEX Qty: 90 1RF Rx Instructions: apply 1 grm to affected area 3-4 x a day. wait 3-4 hours between applications (shoulder) apply second topical; (DME) pen needle, diabetic 32 gauge x 5/32 needle See Rx Instructions .ROUTE .MEDSUPPLY Qty: 50 Rx Instructions: As directed (DME) FreeStyle Jose F 14 Day [facility] Misc See Rx Instructions .ROUTE .MEDSUPPLY Qty: 1 0RF Rx Instructions: As directed P-5 K-10 Pain w/o Gabapentin versatile See Rx Instructions .ROUTE .COMPLEX Qty: 180 1RF Rx Instructions: apply 1-3 grms to the affected area 3-4 x daily (shoulder) apply first, rub in well; Shingrix (PF) 50 mcg/0.5 mL suspension for reconstitution 0.5 ml IM ONCE Qty: 1 1RF (DME) FreeStyle Jose F 14 Day Sensor Kit See Rx Instructions .ROUTE .MEDSUPPLY Qty: 6 3RF Rx Instructions: As directed dulaglutide 3 mg/0.5 mL pen injector 3 mg subcut QWEEK 30 Days Qty: 2.5 12RF (DME) FreeStyle Jose F 2 Sensor Kit See Rx Instructions .ROUTE .MEDSUPPLY Qty: 6 3RF Rx Instructions: As directed dapagliflozin propanediol 10 mg tablet 10 mg PO DAILY Qty: 30 4RF (DME) WIPES See Rx Instructions .Route .MEDSUPPLY Qty: 1 12RF Rx Instructions: As directed clonazepam 1 mg tablet 1 mg PO BID clonazepam 0.5 mg tablet 0.5 mg PO DAILY PRN (Reason: Anxiety) valacyclovir [Valtrex] 500 mg tablet 500 mg PO BID Qty: 30 1RF Rx Instructions: take with onset on of symptoms, take for three days, may repeat dosing per episode prn Citrucel 500 mg tablet 500 mg PO TID 30 Days Qty: 90 5RF docusate sodium [Colace] 100 mg capsule 200 mg PO BEDTIME 30 Days Qty: 60 5RF bisacodyl [Dulcolax (bisacodyl)] 5 mg tablet,delayed release (DR/EC) 20 mg PO ONCE PRN (Reason: colonoscopy prep) 1 Days Qty: 4 0RF Rx Instructions: Day before procedure @ 12 noon Take 4 tablets by mouth followed by large glass of water polyethylene glycol 3350 [Miralax] 17 gram/dose powder 238 g PO ONCE PRN (Reason: laxative effect) 1 Days Qty: 238 0RF Rx Instructions: Take as directed by mouth the day before your procedure. polyethylene glycol 3350 [Miralax] 17 gram/dose powder 17 g PO DAILY 30 Days Qty: 510 6RF Rx Instructions: increase dose to BID- 1 week before procedure- Interventions: ED Discharge Assessment Last Done: 03/12/24 19:30 Discharge Date/Time: 03/12/24 19:31 Print Language: Irish
[2024-03-12 15:09] LABS: MANUAL DIFF FLAG NO
[2024-03-12 15:11] LABS: Basophils Absolute Auto 0.1 X10*3/uL (0.0-0.2); Basophils Percent Auto 0.7 % (0-2); Eosinophils Absolute Auto 0.2 X10*3/uL (0.0-0.4); Eosinophils Percent Auto 1.9 % (0-4); Hematocrit 43.5 % (37.0-47.0); Hemoglobin 14.2 g/dl (12.0-16.0); Imm Gran Abs Auto 0.03 X10*3/uL (0.00-0.03); Imm Gran Pct Auto 0.2 % (0.0-0.4); Lymphocytes Absolute Auto 4.7 X10*3/uL (1.2-4.9); Lymphocytes Percent Auto 38.2 % (20-40); Mean Corpuscular HGB Conc 32.6 g/dl (31.0-35.0); Mean Corpuscular Hemoglobin 29.4 pg (27.0-33.0); Mean Corpuscular Volume 90.1 fL (80.0-98.0); Mean Platelet Volume 10.2 fL (9.4-12.3); Monocytes Percent Auto 7.7 % (2-11); Neutrophils Absolute Auto 6.4 x10*3/uL (2.0-8.3); Neutrophils Percent Auto 51.3 % (45-73); Platelet Count 218 X10*3/uL (160-400); Red Blood Count 4.83 X10*6/uL (4.20-5.50); Red Cell Distribution Width 13.8 % (11.0-16.0); White Blood Count 12.4 X10*3/uL (4.8-10.8)
[2024-03-12 15:36] LABS: Alanine Aminotransferase 29 U/L (0-31); Alkaline Phosphatase 48 U/L (39-117); Anion Gap 11 (12-20); Aspartate Amino Transferase 33 U/L (5-31); Bilirubin Total 0.4 mg/dL (0.0-1.0); Blood Urea Nitrogen 7 mg/dL (9-16); Calcium 9.9 mg/dL (8.4-10.2); Carbon Dioxide 30 mmol/L (22-29); Chloride 105 mmol/L (96-108); Creatinine Clr Calc Pharmacy 67.5; Estimated Glomerular Filt Rate > 60; Glucose Random 120 mg/dL (60-115); Potassium 3.8 mmol/L (3.3-5.1); Sodium 142 mmol/L (135-145); Total Protein 7.7 g/dL (6.5-8.0)
[2024-03-12 16:27] LABS: Glucose, Whole Blood 111 mg/dL (60-115)
[2024-03-12 17:42] VITALS: BP 138/67; PULSE 71; RESP 18; TEMP 36.5; O2SAT 98
[2024-03-12] MEDS: Acetaminophen 325 MG TABLET 975 MG PO (18:05)
[2024-03-12 19:08] LABS: Appearance Urine Clear; Color Urine Yellow; Glucose Urine UA Negative (Negative); Leukocyte Esterase Urine Large (3+) (Negative); Nitrite Urine Negative (Negative); UMIC TRIGGER UACC YES; Urine Blood Negative (Negative); Urine Ketones Negative (Negative); Urine Protein Negative (Neg-Trace)
[2024-03-12 19:10] LABS: Bacteria Urine None Seen (None Seen); Hyaline Casts Urine 0-2 /LPF (0-2); RBC Urine 0-2 /HPF (0-2); Squamous Epithelial Cell Urine 0-2 /HPF (0-2); UACC Culture Trigger YES; WBC Urine >50 /HPF (0-5)
[2024-03-12 19:30] VITALS: BP 138/67; PULSE 71; RESP 18; TEMP 36.5; O2SAT 98
== END 2024-03-12 19:31 | disposition home or self-care (01) ==
PROVIDERS: Nurse Practitioner Family; Emergency Provider Student in an Organized Health Care Education/Training Program; PCP Internal Medicine
DX: M54.16 Radiculopathy, lumbar region (principal); M54.14 Radiculopathy, thoracic region; R10.2 Pelvic and perineal pain; Z79.899 Other long term (current) drug therapy
CPT/HCPCS: 36415; 72072; 74176; 80053; 81001; 82947; 85025; 87086; 87147; 99284

== ENCOUNTER 2024-03-27 12:29 | Outpatient (AMB) | payer OTHER, SELFPAY ==
--- NOTE | 2024-03-27 12:38 | MHC.AMNUTRGE ---
VS Expanded 03/27/24 12:40 Height 5 ft 2 in Weight 155 lb 3.2 oz BMI 28.4 Intake Visit Reasons: T2DM/LVM Allergies JOI Inhibitors Allergy (Intermediate, Verified 03/12/24 13:13) Cough cephalexin [Keflex] Allergy (Intermediate, Verified 03/12/24 13:13) rash codeine [Codeine] Allergy (Intermediate, Verified 03/12/24 13:13) RASH VOMTING- APAP W/ CODEINE, vomiting gemfibrozil [GEMFIBROZIL] Allergy (Intermediate, Verified 03/12/24 13:13) RASH metformin [METFORMIN] Allergy (Intermediate, Verified 03/12/24 13:13) DIARRHEA morphine [Morphine] Allergy (Intermediate, Verified 03/12/24 13:13) HIVES, rash, rash naproxen Allergy (Intermediate, Verified 03/12/24 13:13) inadequate response sulfamethoxazole [From Bactrim] Adverse Reaction (Intermediate, Verified 03/12/24 13:13) nausea trimethoprim [From Bactrim] Adverse Reaction (Intermediate, Verified 03/12/24 13:13) nausea Nutrition Presentation Details: Pt presents for MNT f/u for T2DM Pt c/o constipation/belly ache and is evaluated by GI Pt reports eating a variety of foods (root veg, chicken/fish/eggs/ salads) Reports having spikes in blood glucose to 300s after the meals - Pt reports being unsure of reasons Pt reports this happening after having lomein noodles Today will continue to reinforce portions and balance of meals to prevent elevated blood glucose Pt did not bring sensor reader to this appt BS Monitoring Most Recent Diabetes Results: Creatinine 0.78 mg/dL (0.5-1.4) 03/12/24 Blood Urea Nitrogen 7 mg/dL (9-16) L 03/12/24 Sodium 142 mmol/L (135-145) 03/12/24 Potassium 3.8 mmol/L (3.3-5.1) 03/12/24 Chloride 105 mmol/L (96-108) 03/12/24 Carbon Dioxide 30 mmol/L (22-29) H 03/12/24 Calcium 9.9 mg/dL (8.4-10.2) 03/12/24 AST 33 U/L (5-31) H 03/12/24 ALT 29 U/L (0-31) 03/12/24 Total Protein 7.7 g/dL (6.5-8.0) 03/12/24 Albumin 4.0 g/dL (3.5-5.0) 03/12/24 [facility] Medical History Pelvic pain Headache Vaginal dryness Acute vaginitis Encounter for annual routine gynecological examination Dizzy Tinea corporis Hx of flexible sigmoidoscopy Herpes, genital Dysuria Breast cancer screening by mammogram Diarrhea Otitis externa Neck discomfort Overweight (BMI 25.0-29.9) Overweight COVID-19 vaccine series completed Low back pain Abdominal pain Potential exposure to STD Dyspareunia in female Problematic vaginal discharge Candidal intertrigo Obesity (BMI 30-39.9) Right upper quadrant pain Fatty liver Osteopenia Insomnia Gallbladder polyp GERD (gastroesophageal reflux disease) Hypercholesterolemia Type 2 diabetes mellitus with hyperglycemia Anxiety and depression Intertrigo Breast density H. pylori infection Essential hypertension Migraine ARISTEO on CPAP Arthritis History of panic attacks Vitamin D deficiency Hx of irritable bowel syndrome Enlarged thyroid Fibromyalgia Asthma Hypertension Herpes genitalis Hx of ectopic Surgical History History of esophagogastroduodenoscopy (EGD) H/O colonoscopy S/P repair of ventral hernia Hx of bariatric surgery Hx of cholecystectomy Hx of unilateral oophorectomy Family History Sister Hx of diabetes mellitus Hx of myocardial infarction Father Hx of myocardial infarction Daughter Cancer Sister Hx of diabetes mellitus Social History Household Members: None Housing: Apartment Alcohol intake: former Patient Tobacco Use Status: Former Tobacco user Tobacco use type: Cigarette Cigarette Packs Per Day: 2 Years Smoked: 20 quit 2008 e-Cigarette/Vaping Use: Never Used Second Hand Smoke Exposure: No Current occupational status: disabled Gender identity: Female Cognitive needs: No Hearing needs: No Vision needs: Yes Female Reproductive History Menstrual Age of Menarche: 8 Assessment & Plan Assessment & Plan (1) Type 2 diabetes mellitus with hyperglycemia: Code(s): E11.65 - Type 2 diabetes mellitus with hyperglycemia Category: Medical Qualifiers: Diabetes mellitus snf insulin use: with 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 Qualified Code(s): E11.65 - Type 2 diabetes mellitus with hyperglycemia; Z79.4 - detention (current) use of insulin Plan: wt: 72 kg Est kcal needs as per MSJ: 1500 (40% carb, 30% protein/fat) Est fluid needs as per 25-30 ml/d: 2200 Est prot per day as per 1 g/kg bw: 72 Recommend fiber intake : 8-10 g per day and gradually increase to 25-28 g per day for women and 35-38 g for men or as tolerated Recommend sodium intake per day : less than 2000 mg Educated patient on: ( R = reviewed V = verbalizes understanding N/R = needs review N/A = not applicable Food sources of carbohydrate, adequate serving sizes and its role in various health conditions: R Differences between complex carbohydrates a simple carbohydrates, role of fiber in diet: R Protein sources of foods and its relationship to blood glucose and overall health: R Differences between types of fats and role in diet (mono on saturated fat fatty acids, saturated fatty acids, trans fats): R Food sources of sodium in salt and healthy modifications for heart health in kidney health: NR Vitamins and minerals: R Healthy plate method concept: R Physical activity: Benefits a precaution: R Hypoglycemia protocol (rule of 15): R Dietary prevention of Hyperglycemia: R Plan 150 Patient Instructions: Work on following healthy plate method - 1/2 portion of starches (noodles/pasta/rice/root veg) with cooked vegetables AND add a portion of low fat protein (seafood/poultry) - Continue working on reducing fried foods (fries/fritters pastries Coding Level of Care Code Nutr Indiv Subseq (41428) Diagnoses Type 2 diabetes mellitus with hyperglycemia, with long-term current use of insulin E11.65; Z79.4 Diabetes mellitus dedicated 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
[2024-03-27 12:40] VITALS: BMI 28.4
== END 2024-03-27 13:12 | disposition home or self-care (01) ==
PROVIDERS: PCP Internal Medicine; Visit Provider Dietitian, Registered
DX: E11.65 Type 2 diabetes mellitus with hyperglycemia (principal); Z79.4 Long term (current) use of insulin

== ENCOUNTER → 2024-03-27 12:29 | Outpatient (BNVA) | payer OTHER, SELFPAY | PROVIDERS: PCP Internal Medicine; Visit Provider Dietitian, Registered | DX: E11.65 Type 2 diabetes mellitus with hyperglycemia (principal); Z79.4 Long term (current) use of insulin | CPT/HCPCS: 97803 ==

== ENCOUNTER → 2024-04-04 08:24 | Outpatient (REF) | payer OTHER, SELFPAY ==
--- NOTE | ~2024-04-04 | NM_ITS ---
EXAMINATION: NC RADIONUCLIDE SOLID FOOD GASTRIC EMPTYING 4-HOUR STUDY CLINICAL INFORMATION: Gastroesophageal reflux disease without esophagitis. COMPARISON: None TECHNIQUE: A standard meal consisting of 4 oz of Egg Beaters brand tagged with 890 microcuries Tc-99m Sulfur Colloid, 8 oz water and 2 slices of toast with jelly was administered orally to the patient. Images were obtained using a dual head gamma camera in the anterior and posterior projections over of the stomach immediately post ingestion and at hourly intervals up to 4 hours post ingestion. The anterior and posterior counts at each time interval were averaged using the geometric mean and expressed as percentage of the immediate post ingestion counts. FINDINGS: There is good visualization of activity in the stomach immediately post ingestion. As the study progresses, there is good clearance of activity from the stomach and visualization of progressively increasing small bowel activity. By the end of the study, there is mild retention noted in the stomach. Retention in the stomach at each time interval was: 1 hour 63% (normal 37%-90%) 2 hours 31% (normal 30%-60%) 3 hours 23% 4 hours 14% (normal 0%-10%) NC/NC gastric emptying study IMPRESSION: Abnormal delayed (grade 1-mild retention) 4-hour solid food gastric emptying study. For solid meal, rapid gastric emptying is less than 30% at 60 minutes. Delayed gastric emptying criteria is more than 60% remaining at 120 minutes or more than 10% at 240 minutes. The 4-hour value is the best discriminator of a normal or abnormal result). Gastric emptying study grading per JNMT Consensus Recommendations in 2008 (https://tech.snmjournals.org/content/36/44) Grade 1 (mild retention): 11-20% at 4h Grade 2 (moderate retention): 21-35% at 4h Grade 3 (severe retention): 36-50% at 4h Grade 4 (very severe retention): >50% retention at 4h
== END ==
LOC: HO.NUCMED 08:24
PROVIDERS: PCP Internal Medicine; Visit Provider Physician Assistant
DX: R68.81 Early satiety (principal); K21.9 Gastro-esophageal reflux disease without esophagitis; E11.65 Type 2 diabetes mellitus with hyperglycemia; Z79.4 Long term (current) use of insulin
CPT/HCPCS: 78264; A9541

== ENCOUNTER 2024-04-10 13:24 | Outpatient (REF) | payer OTHER, SELFPAY ==
--- NOTE | ~2024-04-10 | MM_ITS ---
EXAMINATION: MM DIAGNOSTIC DIGITAL MAMMOGRAPHY, RIGHT CLINICAL INFORMATION: Evaluate calcifications seen on screening exam; right breast upper outer quadrant, middle one third. COMPARISON: Mammography: 01/27/2024, 02/01/2023, 12/28/2021, 11/20/2020, and dating back to 2014. TECHNIQUE: Digital mammography is performed in the following views: 2-D spot magnification right CC and ML views. FINDINGS: The breasts are almost entirely fatty (ACR BI-RADS breast composition Category a). Calcifications seen in the upper outer right breast middle one third, are clearly vascular on spot magnification views, and in retrospect have been present on 2022, 2021, and 2020 exams. These findings are benign. No further follow-up recommended. Results are provided to the patient at time of visit by the technologist. MM/MM added views RT IMPRESSION: -No findings suspicious for malignancy right breast. -Benign vascular calcifications are present. -Recommend this patient return to routine annual screening to include both breasts. ASSESSMENT: BI-RADS BI-RADS 2 - Benign Findings RECOMMENDATION: 1 year F/U This patient's information was entered into a reminder system with a target due date for their next mammogram.
== END 2024-04-10 13:25 | disposition home or self-care (01) ==
LOC: HO.MAMMO 13:24
PROVIDERS: PCP Internal Medicine; Visit Provider Internal Medicine
DX: R92.1 Mammographic calcification found on diagnostic imaging of breast (principal)
CPT/HCPCS: 77065

== ENCOUNTER → 2024-04-10 13:30 | Outpatient (BNV) | payer OTHER, SELFPAY | PROVIDERS: PCP Internal Medicine; Visit Provider Radiology Diagnostic Radiology | DX: R92.1 Mammographic calcification found on diagnostic imaging of breast (principal) | CPT/HCPCS: 77065 ==

== ENCOUNTER 2024-07-10 14:30 | Outpatient (AMB) | payer OTHER, SELFPAY ==
--- NOTE | 2024-07-10 14:43 | MHC.PC.OV ---
Vital Signs 07/10/24 14:44 Height 5 ft 2 in Weight 153 lb 6 oz BMI 28.0 BP 112/66 Blood Pressure Location Rt brachial Position Sitting Pulse 71 Pulse Source Pulse Oximeter Pulse Oximetry (%) 97 Oxygen Delivery Method Room Air Intake Visit Reasons: DM Intake Note: Patient is here to follow up on DM. Collector Of Internal Revenue Required: No Mill Operator: Not Required per policy Accompanied by: Self / Same As Patient Allergies JOI Inhibitors Allergy (Intermediate, Verified 07/10/24 14:44) Cough cephalexin [Keflex] Allergy (Intermediate, Verified 07/10/24 14:44) rash codeine [Codeine] Allergy (Intermediate, Verified 07/10/24 14:44) RASH VOMTING- APAP W/ CODEINE, vomiting gemfibrozil [GEMFIBROZIL] Allergy (Intermediate, Verified 07/10/24 14:44) RASH metformin [METFORMIN] Allergy (Intermediate, Verified 07/10/24 14:44) DIARRHEA morphine [Morphine] Allergy (Intermediate, Verified 07/10/24 14:44) HIVES, rash, rash naproxen Allergy (Intermediate, Verified 07/10/24 14:44) inadequate response sulfamethoxazole [From Bactrim] Adverse Reaction (Intermediate, Verified 07/10/24 14:44) nausea trimethoprim [From Bactrim] Adverse Reaction (Intermediate, Verified 07/10/24 14:44) nausea Tobacco use date assessed: 07/10/24 Fall risk assessment: No Falls in past year Last assessed Fall Risk: 07/10/24 Dental Screening Dental Screen Date: 02/22/24 HPI DM HPI Details 63-year-old overweight female with diabetes mellitus hypertension hypercholesterolemia GERD with chronic constipation generalized anxiety disorder and obstructive sleep apnea last seen in 02/13/2024. Patient's colonoscopy last done in 2021 mammogram is up-to-date. Patient had a gastric emptying time done in March showing delayed gastric emptying. Patient was also seen for back pain in the emergency room diagnosis of radiculopathy. complains that for the DM - will seen endo tomorrow, for the GI complains that does not see the doctor colon test scheduled for next week- now constipation states has not gone for 2 weeks has linzess, miralax, dulcolax supp. working now complains of probiotic(needs PA) [facility] Medical History Pelvic pain Headache Vaginal dryness Acute vaginitis Encounter for annual routine gynecological examination Dizzy Tinea corporis Hx of flexible sigmoidoscopy Herpes, genital Dysuria Breast cancer screening by mammogram Diarrhea Otitis externa Neck discomfort Overweight (BMI 25.0-29.9) Overweight COVID-19 vaccine series completed Low back pain Abdominal pain Potential exposure to STD Dyspareunia in female Problematic vaginal discharge Candidal intertrigo Obesity (BMI 30-39.9) Right upper quadrant pain Fatty liver Osteopenia Insomnia Gallbladder polyp GERD (gastroesophageal reflux disease) Hypercholesterolemia Type 2 diabetes mellitus with hyperglycemia Anxiety and depression Intertrigo Breast density H. pylori infection Essential hypertension Migraine ARISTEO on CPAP Arthritis History of panic attacks Vitamin D deficiency Hx of irritable bowel syndrome Enlarged thyroid Fibromyalgia Asthma Hypertension Herpes genitalis Hx of ectopic Surgical History History of esophagogastroduodenoscopy (EGD) H/O colonoscopy S/P repair of ventral hernia Hx of bariatric surgery Hx of cholecystectomy Hx of unilateral oophorectomy Family History Sister Hx of diabetes mellitus Hx of myocardial infarction Father Hx of myocardial infarction Daughter Cancer Sister Hx of diabetes mellitus Social History Household Members: None Housing: Apartment Alcohol intake: former Patient Tobacco Use Status: Former Tobacco user Tobacco use type: Cigarette Cigarette Packs Per Day: 2 Years Smoked: 20 quit 2008 e-Cigarette/Vaping Use: Never Used Second Hand Smoke Exposure: No Current occupational status: disabled Gender identity: Female Cognitive needs: No Hearing needs: No Vision needs: Yes Female Reproductive History Menstrual Age of Menarche: 8 Questionnaire Thrive Questionnaire Date Thrive assessed: 11/11/23 Are you currently unemployed and looking for a job?: No ANJEL-7 AMB Questionnaire ANJEL-7 Date ANJEL - 7 assessed: 07/10/24 Feeling nervous, anxious, or on edge: 0 = Not at all Not being able to stop or control worryin = Not at all Worrying too much about different things: 0 = Not at all Trouble relaxin = Not at all Being so restless that it is hard to sit still: 0 = Not at all Becoming easily annoyed or irritable: 0 = Not at all Feeling afraid as if something awful might happen: 0 = Not at all Total ANJEL-7 score (0-4 normal; 5-9 mild; 10-14 moderate; 15-21 severe): 0 Source: Developed by Drs. Boston Jimenes, Halley Watkins, [employer] and colleagues, with an educational jasmina from [employer]. Physical exam (Primary Care) Vital Signs: Last Vital Signs Pulse 71 07/10/24 14:44 BP 112/66 07/10/24 14:44 Pulse Ox 97 07/10/24 14:44 Oxygen Delivery Method Room Air 07/10/24 14:44 BMI result Body Mass Index 28.0 Tobacco/Smoking Status: Tobacco use Status Tobacco use date assessed 07/10/24 07/10/24 14:55 Patient Tobacco Use Status Former Tobacco user 07/10/24 14:55 Tobacco use type Cigarette 07/10/24 14:55 e-Cigarette/Vaping Use Never Used 07/10/24 14:55 Thrive Assessment: Date of Thrive Assessment Date Thrive assessed 11/11/23 07/10/24 14:55 Const General: alert; No acute distress Eyes Conjunctivae: conjunctivae normal Resp Auscultation: clear to auscultation bilaterally Cardio Rate: regular rate Rhythm: regular rhythm GI Inspection: Yes normal to inspection Extrem General: Yes normal to inspection and No edema Office Procedures Flu Questionnaire Does the patient have a severe egg allergy?: No Does the patient have severe life threatening allergies?: No Does the patient have a fever or illness today?: No Has the patient ever had Guillain-Hollister Syndrome?: No Has the patient ever had any past reaction to a flu shot?: No Results AMB Hemoglobin A1c AMB Hemoglobin A1c 8.3 % Last Edit by Joslyn Yang CMA on 07/10/24 15:03 Immunizations Fluarix Triv [id number] (PF) 45 mcg (15 mcg x 3)/0.5 mL IM syringe Performing Provider: Lanny Soria MD [facility] Administered by: Anna Sanders LPN on 07/10/24 14:59 Dose Route Admin Location Dispensed Lot Number Expiration Date [facility] Senior Geologist 0.5 mL IM Right Deltoid 0.5 mL [id number] 03/25/25 [id number] [facility] VIS Given Date VIS Provided VIS Publication Date 07/10/24 Single Vaccine 21 Eligibility Eligibility Date Funding Source Not VF Eligible 07/10/24 Private Results Reviewed Results Reviewed: Laboratory Last Values Hgb A1c (Clinic) 8.3 % (4.0-6.0) H 07/10/24 14:43 Coding Level of Care Code Est Pt Level 4 (43691) Complex EM visit Add On G2211 Diagnoses Type 2 diabetes mellitus with hyperglycemia, with long-term current use of insulin E11.65; Z79.4 Diabetes mellitus long term care administrator insulin use: with long term care administrator use Essential hypertension I10 Hypercholesterolemia E78.00 Gastroesophageal reflux disease without esophagitis K21.9 Esophagitis presence: without esophagitis Overweight E66.3 Chronic constipation K59.09 Generalized anxiety disorder F41.1 NAFLD (nonalcoholic fatty liver disease) K76.0 Tubular adenoma of colon D12.6 Assessment & Plan Assessment & Plan (1) Type 2 diabetes mellitus with hyperglycemia: Code(s): E11.65 - Type 2 diabetes mellitus with hyperglycemia Category: Medical Qualifiers: Diabetes mellitus long term care administrator insulin use: with long term care administrator use Qualified Code(s): E11.65 - Type 2 diabetes mellitus with hyperglycemia; 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 Hemoglobin A1c goal of less than 6.5. Patient has Jardiance 10 mg once a day Trulicity 3 mg once a week Tresiba at 50 units once a day Humalog quick pen. (2) Essential hypertension: Code(s): I10 - Essential (primary) hypertension Category: Medical Plan: Continue with blood pressure medication. Decrease salt intake and exercise losartan is 25 mg once a day (3) Hypercholesterolemia: Code(s): E78.00 - Pure hypercholesterolemia, unspecified Category: Medical Plan: Avoid fried foods, chicken skin, eggs, butter margarine, pastries and meat. Be it pork or beef they have a lot of cholesterol LDL goal of less than 100 and triglyceride of less than 150 on simvastatin 40 mg once a day (4) GERD (gastroesophageal reflux disease): Code(s): K21.9 - Gastro-esophageal reflux disease without esophagitis Category: Medical Qualifiers: Esophagitis presence: without esophagitis Qualified Code(s): K21.9 - Gastro-esophageal reflux disease without esophagitis Plan: Avoid the foods that causes that usually spicy foods, tomato products, juices, coffee, soda and foods that your sensitive to. After eating do not lie down, allow 3-4 hours before in lie down. And keep the head of bed above 30 degrees to avoid the acid from going up. (5) Overweight: Code(s): E66.3 - Overweight Category: Medical Plan: Diet and exercise (6) Chronic constipation: Comment: Diabetes, not well controlled, likely plays a role Due for colonoscopy, declines at this time-due to severe constipation Code(s): K59.09 - Other constipation Category: Medical Plan: Three rules for constipation 1. Diet need to have a high fiber diet less of meat 2. Increase oral fluids 3. Exercise (7) Generalized anxiety disorder: Comment: [facility] 2 x a month therapist (Gem Menezes) and psychiatrist Q 3 months Code(s): F41.1 - Generalized anxiety disorder Category: Medical Plan: Continue with counseling and therapy (8) NAFLD (nonalcoholic fatty liver disease): Comment: A good weight, glucose and lipid-continue to abstain from alcohol Code(s): K76.0 - Fatty (change of) liver, not elsewhere classified Category: Medical Plan: Low-fat diet and exercise (9) Tubular adenoma of colon: Comment: Over Due for polyp surveillance Code(s): D12.6 - Benign neoplasm of colon, unspecified Category: Medical Plan: Reminded about colonoscopy Orders: Orders AMB Hemoglobin A1c Today E11.65 - Type 2 diabetes mellitus with hyperglycemia, Z79.4 - 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
[2024-07-10 14:44] VITALS: BP 112/66; PULSE 71; O2SAT 97; BMI 28.0
== END 2024-07-10 15:30 | disposition home or self-care (01) ==
PROVIDERS: PCP Internal Medicine; Visit Provider Internal Medicine
DX: E11.65 Type 2 diabetes mellitus with hyperglycemia (principal); Z79.4 Long term (current) use of insulin; I10 Essential (primary) hypertension; E78.00 Pure hypercholesterolemia, unspecified; K21.9 Gastro-esophageal reflux disease without esophagitis; E66.3 Overweight; K59.09 Other constipation; F41.1 Generalized anxiety disorder; K76.0 Fatty (change of) liver, not elsewhere classified; D12.6 Benign neoplasm of colon, unspecified; Z23 Encounter for immunization

== ENCOUNTER → 2024-07-10 14:30 | Outpatient (BNVA) | payer OTHER, SELFPAY | PROVIDERS: PCP Internal Medicine; Visit Provider Internal Medicine | DX: Z23 Encounter for immunization (principal); E11.65 Type 2 diabetes mellitus with hyperglycemia; I10 Essential (primary) hypertension; E78.00 Pure hypercholesterolemia, unspecified; K21.9 Gastro-esophageal reflux disease without esophagitis; E66.3 Overweight; K59.00 Constipation, unspecified; F41.1 Generalized anxiety disorder; K76.0 Fatty (change of) liver, not elsewhere classified; D12.6 Benign neoplasm of colon, unspecified; Z79.4 Long term (current) use of insulin | CPT/HCPCS: 83036; 90471; 90656; 96127; 99212 ==

== ENCOUNTER 2024-07-11 10:34 | Outpatient (REF) | payer OTHER, SELFPAY ==
--- NOTE | ~2024-07-11 | XR_ITS ---
EXAMINATION: XR ABDOMEN KUB CLINICAL INDICATION: Constipation. COMPARISON: CT scan dated March 12, 2024. KUB dated February 06, 2024. TECHNIQUE: AP view of the abdomen. FINDINGS: The bowel gas pattern is normal with no evidence of ileus or obstruction. No free air identified. Left upper quadrant surgical clips suggest gastric sleeve surgery. Status post cholecystectomy. Right pelvic surgical clips may represent dropped clips. No soft tissue mass is seen. Question mild hepatomegaly. No unusual soft tissue calcifications are noted. The bones appear unremarkable. Aortoiliac calcification. XR/XR KUB IMPRESSION: No acute finding. Electronically signed by: Salo Barrientos MD 07/11/2024 04:32 PM EDT
[2024-07-11 11:11] LABS: MANUAL DIFF FLAG NO
[2024-07-11 12:02] LABS: Basophils Absolute Auto 0.1 X10*3/uL (0.0-0.2); Basophils Percent Auto 0.9 % (0-2); Eosinophils Absolute Auto 0.3 X10*3/uL (0.0-0.4); Eosinophils Percent Auto 3.7 % (0-4); Hematocrit 40.5 % (37.0-47.0); Hemoglobin 13.5 g/dl (12.0-16.0); Imm Gran Abs Auto 0.03 X10*3/uL (0.00-0.03); Imm Gran Pct Auto 0.4 % (0.0-0.4); Lymphocytes Percent Auto 36.1 % (20-40); Mean Corpuscular HGB Conc 33.3 g/dl (31.0-35.0); Mean Corpuscular Hemoglobin 29.7 pg (27.0-33.0); Mean Platelet Volume 10.8 fL (9.4-12.3); Monocytes Absolute Auto 0.6 X10*3/uL (0.1-1.2); Monocytes Percent Auto 7.5 % (2-11); Neutrophils Absolute Auto 4.2 x10*3/uL (2.0-8.3); Neutrophils Percent Auto 51.4 % (45-73); Platelet Count 211 X10*3/uL (160-400); Red Blood Count 4.55 X10*6/uL (4.20-5.50); Red Cell Distribution Width 13.4 % (11.0-16.0); White Blood Count 8.2 X10*3/uL (4.8-10.8)
[2024-07-11 12:03] LABS: Basophils Absolute Auto 0.1 X10*3/uL (0.0-0.2); Basophils Percent Auto 0.6 % (0-2); Eosinophils Absolute Auto 0.3 X10*3/uL (0.0-0.4); Eosinophils Percent Auto 3.5 % (0-4); Hematocrit 41.5 % (37.0-47.0); Hemoglobin 13.8 g/dl (12.0-16.0); Imm Gran Abs Auto 0.03 X10*3/uL (0.00-0.03); Imm Gran Pct Auto 0.4 % (0.0-0.4); Lymphocytes Absolute Auto 3.1 X10*3/uL (1.2-4.9); Lymphocytes Percent Auto 37.1 % (20-40); Mean Corpuscular HGB Conc 33.3 g/dl (31.0-35.0); Mean Corpuscular Hemoglobin 29.6 pg (27.0-33.0); Mean Corpuscular Volume 89.1 fL (80.0-98.0); Mean Platelet Volume 10.7 fL (9.4-12.3); Monocytes Absolute Auto 0.7 X10*3/uL (0.1-1.2); Monocytes Percent Auto 8.3 % (2-11); Neutrophils Absolute Auto 4.1 x10*3/uL (2.0-8.3); Neutrophils Percent Auto 50.1 % (45-73); Platelet Count 212 X10*3/uL (160-400); Red Blood Count 4.66 X10*6/uL (4.20-5.50); Red Cell Distribution Width 13.5 % (11.0-16.0); White Blood Count 8.2 X10*3/uL (4.8-10.8)
[2024-07-11 12:09] LABS: Estimated Average Glucose 192 mg/dL; Hemoglobin A1C 238.2107 umol/L; Hemoglobin A1c % 8.3 % (<6.0); Total Hemoglobin (HGBA1C) 3530.9651 umol/L
[2024-07-11 12:15] LABS: Appearance Urine Clear; Color Urine Yellow; Glucose Urine UA Negative (Negative); Leukocyte Esterase Urine Negative (Negative); Nitrite Urine Negative (Negative); PH 5.5 (5.0-9.0); Urine Blood Negative (Negative); Urine Ketones Negative (Negative); Urine Protein Negative (Neg-Trace)
[2024-07-11 12:47] LABS: Alanine Aminotransferase 28 U/L (0-31); Albumin Level 3.9 g/dL (3.5-5.0); Alkaline Phosphatase 47 U/L (39-117); Anion Gap 13 (12-20); Aspartate Amino Transferase 30 U/L (5-31); Bilirubin Total 0.5 mg/dL (0.0-1.0); Blood Urea Nitrogen 5 mg/dL (9-16); Calcium 9.5 mg/dL (8.4-10.2); Carbon Dioxide 27 mmol/L (22-29); Chloride 107 mmol/L (96-108); Estimated Glomerular Filt Rate > 60; Glucose Random 131 mg/dL (60-115); Sodium 143 mmol/L (135-145); Total Protein 7.1 g/dL (6.5-8.0)
[2024-07-11 12:49] LABS: Alanine Aminotransferase 29 U/L (0-31); Albumin Level 3.9 g/dL (3.5-5.0); Alkaline Phosphatase 48 U/L (39-117); Anion Gap 13 (12-20); Aspartate Amino Transferase 29 U/L (5-31); Bilirubin Total 0.5 mg/dL (0.0-1.0); Blood Urea Nitrogen 5 mg/dL (9-16); C Reactive Protein 0.28 mg/dL (< or = 0.50); Calcium 9.6 mg/dL (8.4-10.2); Carbon Dioxide 28 mmol/L (22-29); Chloride 106 mmol/L (96-108); Cholesterol 138 mg/dL (<200); Estimated Glomerular Filt Rate > 60; Glucose Random 131 mg/dL (60-115); HDL Cholesterol 46 mg/dL (>40); LDL Cholesterol Calculated 65 mg/dL (<100); Sodium 143 mmol/L (135-145); Total Protein 7.3 g/dL (6.5-8.0); Triglycerides 136 mg/dL (<150)
[2024-07-11 12:57] LABS: Creatinine Urine 88.76 mg/dL; Microalbum/Creatinine Ratio Ur 12.3 ug/mg cr (<30)
[2024-07-11 13:03] LABS: Ferritin 19 ng/mL (10-250); TSH reflex Free T4 3.49 uIU/mL (0.32-4.0)
[2024-07-11 13:05] LABS: Free T4 (Free Thyroxine) 0.79 ng/dL (0.71-1.85); Thyroid Stimulating Hormone 3.56 uIU/mL (0.32-4.0); Vitamin D 25-OH Total 45.8 ng/mL (>30)
[2024-07-11 13:13] LABS: Folate 11.7 ng/mL (> or = 4.0); Vitamin B12 625 pg/mL (200-900); Vitamin B12 690 pg/mL (200-900)
== END 2024-07-11 10:35 | disposition home or self-care (01) ==
LOC: HO.LAB 10:34
PROVIDERS: Internal Medicine Gastroenterology; PCP Internal Medicine; Visit Provider Internal Medicine
DX: K59.09 Other constipation (principal); E11.65 Type 2 diabetes mellitus with hyperglycemia; Z79.4 Long term (current) use of insulin; E78.00 Pure hypercholesterolemia, unspecified; K75.81 Nonalcoholic steatohepatitis (NASH); R30.0 Dysuria
CPT/HCPCS: 36415; 74018; 80053; 80061; 81003; 82043; 82306; 82570; 82607; 82728; 82746; 83036; 84439; 84443; 85025; 86140; 97803

== ENCOUNTER 2024-07-11 12:22 | Outpatient (AMB) | payer OTHER, SELFPAY ==
[2024-07-11 12:32] VITALS: BMI 28.2
--- NOTE | 2024-07-11 12:32 | A.OFFVIS_ITS ---
VS Expanded 07/11/24 12:32 Height 5 ft 2 in Weight 154 lb 5.177 oz BMI 28.2 Intake Visit Reasons: T2DM Allergies JOI Inhibitors Allergy (Intermediate, Verified 07/10/24 14:44) Cough cephalexin [Keflex] Allergy (Intermediate, Verified 07/10/24 14:44) rash codeine [Codeine] Allergy (Intermediate, Verified 07/10/24 14:44) RASH VOMTING- APAP W/ CODEINE, vomiting gemfibrozil [GEMFIBROZIL] Allergy (Intermediate, Verified 07/10/24 14:44) RASH metformin [METFORMIN] Allergy (Intermediate, Verified 07/10/24 14:44) DIARRHEA morphine [Morphine] Allergy (Intermediate, Verified 07/10/24 14:44) HIVES, rash, rash naproxen Allergy (Intermediate, Verified 07/10/24 14:44) inadequate response dulaglutide [From Trulicity] Adverse Reaction (Intermediate, Unverified 07/11/24 14:22) Constipation sulfamethoxazole [From Bactrim] Adverse Reaction (Intermediate, Verified 07/10/24 14:44) nausea trimethoprim [From Bactrim] Adverse Reaction (Intermediate, Verified 07/10/24 14:44) nausea Nutrition Presentation Details: Pt presents for MNT f/u for T2DM Pt reports having stopped Trulicity on Tuesday due to chronic constipation. She reports taking 50 units Tresiba at night and Humalog 20 units at breakfast only. She states she has never gotten Jardiance rx . This info was sent to PCP via encounter She did not bring sensor scarfing machine operator to this appt to asses current bg control. Pt reports he bg ranges from 150 -300s. Pt reports having 4 (16 oz ) bottles of water daily . Pt reports meals may consist of 10 am : 1-2 slices of bread with cheese and glass of juice 3pm : rice and chicken or noodles plain , sometimes may have juice 6pm : fruits salad or crackers constipation - Pt reports having had a hard bowel movement yesterday , if following up with gi BS Monitoring Most Recent Diabetes Results: Microalb/Creat Ratio 12.3 ug/mg cr (<30) 07/11/24 Cholesterol 138 mg/dL (<200) 07/11/24 HDL Cholesterol 46 mg/dL (>40) 07/11/24 Triglycerides 136 mg/dL (<150) 07/11/24 Creatinine 0.78 mg/dL (0.5-1.4) 07/11/24 Blood Urea Nitrogen 5 mg/dL (9-16) L 07/11/24 Sodium 143 mmol/L (135-145) 07/11/24 Potassium 4.0 mmol/L (3.3-5.1) 07/11/24 Chloride 106 mmol/L (96-108) 07/11/24 Carbon Dioxide 28 mmol/L (22-29) 07/11/24 Calcium 9.6 mg/dL (8.4-10.2) 07/11/24 AST 29 U/L (5-31) 07/11/24 ALT 29 U/L (0-31) 07/11/24 Total Protein 7.3 g/dL (6.5-8.0) 07/11/24 Albumin 3.9 g/dL (3.5-5.0) 07/11/24 [facility] Medical History Pelvic pain Headache Vaginal dryness Acute vaginitis Encounter for annual routine gynecological examination Dizzy Tinea corporis Hx of flexible sigmoidoscopy Herpes, genital Dysuria Breast cancer screening by mammogram Diarrhea Otitis externa Neck discomfort Overweight (BMI 25.0-29.9) Overweight COVID-19 vaccine series completed Low back pain Abdominal pain Potential exposure to STD Dyspareunia in female Problematic vaginal discharge Candidal intertrigo Obesity (BMI 30-39.9) Right upper quadrant pain Fatty liver Osteopenia Insomnia Gallbladder polyp GERD (gastroesophageal reflux disease) Hypercholesterolemia Type 2 diabetes mellitus with hyperglycemia Anxiety and depression Intertrigo Breast density H. pylori infection Essential hypertension Migraine ARISTEO on CPAP Arthritis History of panic attacks Vitamin D deficiency Hx of irritable bowel syndrome Enlarged thyroid Fibromyalgia Asthma Hypertension Herpes genitalis Hx of ectopic Surgical History History of esophagogastroduodenoscopy (EGD) H/O colonoscopy S/P repair of ventral hernia Hx of bariatric surgery Hx of cholecystectomy Hx of unilateral oophorectomy Family History Sister Hx of diabetes mellitus Hx of myocardial infarction Father Hx of myocardial infarction Daughter Cancer Sister Hx of diabetes mellitus Social History Household Members: None Housing: Apartment Alcohol intake: former Patient Tobacco Use Status: Former Tobacco user Tobacco use type: Cigarette Cigarette Packs Per Day: 2 Years Smoked: 20 quit 2008 e-Cigarette/Vaping Use: Never Used Second Hand Smoke Exposure: No Current occupational status: disabled Gender identity: Female Cognitive needs: No Hearing needs: No Vision needs: Yes Female Reproductive History Menstrual Age of Menarche: 8 Assessment & Plan Assessment & Plan (1) Type 2 diabetes mellitus with hyperglycemia: Code(s): E11.65 - Type 2 diabetes mellitus with hyperglycemia Category: Medical Qualifiers: Diabetes mellitus halfway insulin use: with laborer marine terminal use Qualified Code(s): E11.65 - Type 2 diabetes mellitus with hyperglycemia; 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 Plan: wt: 70 kg ( 07/19) Est kcal needs as per MSJ: 1500 (40% carb, 30% protein/fat) Est fluid needs as per 25-30 ml/d: 2200 Est prot per day as per 1 g/kg bw: 72 Recommend fiber intake : 8-10 g per day and gradually increase to 25-28 g per day for women and 35-38 g for men or as tolerated Recommend sodium intake per day : less than 2000 mg Educated patient on: ( R = reviewed V = verbalizes understanding N/R = needs review N/A = not applicable * Food sources of carbohydrate, adequate serving sizes and its role in various health conditions: R * Differences between complex carbohydrates a simple carbohydrates, role of fiber in diet: R * Protein sources of foods and its relationship to blood glucose and overall health: R * Differences between types of fats and role in diet (mono on saturated fat fatty acids, saturated fatty acids, trans fats): R * Food sources of sodium in salt and healthy modifications for heart health in kidney health: NR * Vitamins and minerals: R * Healthy plate method concept: R * Physical activity: Benefits a precaution: R * Hypoglycemia protocol (rule of 15): R * Dietary prevention of Hyperglycemia: R Plan 150 Patient Instructions: Work on follwoing healthy plate method with a combination of protein/whole grains/non starchy veg: for example Breakfast : 1 whole wheat bread with egg and tangerine in place of fruit juice Lunch: [place] and salad (vary the protein: ham/cheese or egg salad or tuna salad) with lettuce/tomato Dinner: 1/2 portion of current starch (rice/root vegetables/pasta) chicken/eggs/turkey , broccoli/green beans, brussel sprouts (ok canned vegetables if frozen or fresh are not available) snack : 4 crackers with peanut butter or cup of milk or yogurt or carrots with peanut butter or cheese continue drinking water with meals or snacks Coding Level of Care Code Nutr Indiv Subseq (40808) Diagnoses Type 2 diabetes mellitus with hyperglycemia, with long-term current use of insulin E11.65; Z79.4 Diabetes mellitus laborer marine terminal insulin use: with laborer marine terminal use Time Spent (min) 30
== END 2024-07-11 13:15 | disposition home or self-care (01) ==
PROVIDERS: PCP Internal Medicine; Visit Provider Dietitian, Registered
DX: E11.65 Type 2 diabetes mellitus with hyperglycemia (principal); Z79.4 Long term (current) use of insulin

== ENCOUNTER 2024-08-21 10:26 | Day surgery (SDC) | payer OTHER, SELFPAY ==
[2024-08-17 14:22] VITALS: BMI 24.9
[2024-08-21 11:50] VITALS: BP 124/60; PULSE 66; RESP 16; TEMP 36.3; O2SAT 98; BMI 24.7
[2024-08-21 12:01] LABS: Glucose, Whole Blood 118 mg/dL (60-115)
--- NOTE | 2024-08-21 13:37 | MHC.SHP ---
Pre-Procedural Eval Section A - 24 Hr Update-Section A only Date of Service: 08/21/24 Section B - Complete if H&P > 30 days Chief Complaint: Benign neoplasm of colon,constipation Relevant Family History (Specify if Yes): No Relevant Social History: None Present Medications: see Short Stay Collaborative assessment Medical History: Significant History (Abdominal pain Anxiety and depression Arthritis Asthma COVID-19 vaccine series completed Enlarged thyroid Essential hypertension Fatty liver Fibromyalgia Gallbladder polyp GERD (gastroesophageal reflux disease) Herpes genitalis History of panic attacks Hx of ectopic Hx of flexible sigmoido) History of Previous Operations: Relevant previous surgery/procedure and date(s) ( H/O colonoscopy History of esophagogastroduodenoscopy (EGD) Hx of bariatric surgery Hx of cholecystectomy Hx of unilateral oophorectomy S/P repair of ventral hernia) Allergies: Allergies Allergy/AdvReac Type Severity Reaction Status Date / Time JOI Inhibitors Allergy Intermediate Cough Verified 08/21/24 13:34 cephalexin [Keflex] Allergy Intermediate rash Verified 08/21/24 13:34 codeine [Codeine] Allergy Intermediate RASH Verified 08/21/24 13:34 VOMTING- APAP W/ CODEINE, vomiting gemfibrozil [GEMFIBROZIL] Allergy Intermediate RASH Verified 08/21/24 13:34 metformin [METFORMIN] Allergy Intermediate DIARRHEA Verified 08/21/24 13:34 morphine [Morphine] Allergy Intermediate HIVES, Verified 08/21/24 13:34 rash, rash naproxen Allergy Intermediate inadequate Verified 08/21/24 13:34 response sulfamethoxazole AdvReac Intermediate nausea Verified 08/21/24 13:34 [From Bactrim] trimethoprim [From Bactrim] AdvReac Intermediate nausea Verified 08/21/24 13:34 Review of Systems Sugical H&P ROS: Negative: Constitution, Cardiovascular, Respiratory, Neurological, Psychiatric, Hem-Onc, Allergic/Immunologic, Gastrointestinal, Genitourinary, Musculoskeletal, Integumentary, Endocrine and Eyes/Ears/Nose/Throat Exam Surgical H&P Exam: Normal: HEENT, Normal: Heart, Normal: Lungs, Normal: Extremities, Normal: Abdomen, Normal: Skin and Normal: Neurological Plan Diagnosis/Plan: Unchanged I have reviewed the history and physical and performed a pertinent physical examination on my patient. No changes have occurred unless specified. Time Spent With Patient Time: Total time managing care of this patient today ____ minutes.
--- NOTE | 2024-08-21 14:17 | HO.OPN-COLON ---
Colonoscopy Operative Note Operative Note Date of Service: 08/21/24 Narrative: Operative Information Procedure Description: Colonoscopy Indication: screening Anesthesia: MAC COLONOSCOPY Instrument: Olympus variable stiffness pediatric scope 190L Colonoscopy Monitoring: Vital signs and clinical assessment, continuous EKG monitoring, Pulse oximetry, Carbon Dioxide monitoring and blood pressure monitoring were done throughout the procedure. Colon withdrawal time was 7 minutes. Procedure: The patient was placed in the left lateral decubitis position and pre-procedure medications were administered. After a digital rectal examination of the ano-rectum, the video colonoscope was inserted into the rectum and advanced through the colon to the cecum/TI. The colonoscope was slowly withdrawn in a retrograde panoramic fashion and the colon mucosa was carefully examined including a retroflexed view of the rectum. Findings and interventions are described below. Procedure Difficulty: difficult due to severe diverticulosis and tight angles Findings: Terminal Ileum- superficial intubation and normal Cecum:normal Ascending Colon: moderate severe diverticulosis Transverse Colon - 8-10 mm sessile polyp removed with cold snare Descending Colon:normal Sigmoid Colon: severe diverticulosis, 10 mm pedunculated polyp removed with cold snare Rectum: Retroflexion with small internal hemorrhoids seen, grade I Anorectum - normal Intervention: cold snare Colon preparation: [place] Bowel Preparation Scale Right colon; 2 Transverse colon: 1-2 Left colon; 1-2 (0 = Unprepared colon segment with mucosa not seen due to solid stool that cannot be cleared. 1 = Portion of mucosa of the colon segment seen, but other areas of the colon segment not well seen due to staining, residual stool and/or opaque liquid. 2 = Minor amount of residual staining, small fragments of stool and/or opaque liquid, but mucosa of colon segment seen well. 3 = Entire mucosa of colon segment seen well with no residual staining, small fragments of stool or opaque liquid) Impression and Post Procedure Diagnosis: diverticulosis colon polyps internal hemorrhoids Plan: High fiber diet leaflet Avoid straining at stool, epsom salts and sitz bath, anusol supps or cream Repeat Colonoscopy in 1 year due to fair left sided prep or earlier if clinically indicated Above findings were reviewed with the patient and relevant handouts were provided if indicated.
[2024-08-21 14:22] VITALS: BP 143/63; PULSE 72; RESP 18; TEMP 36.8; O2SAT 96
[2024-08-21 14:35] VITALS: BP 139/58; PULSE 66; RESP 18; TEMP 36.7; O2SAT 97
--- NOTE | 2024-08-21 17:08 | P.CONAN_ITS ---
HPI - Anesthesia Eval Consult details Narrative: 63 F p/f colonoscopy PMFSH Active Problems Active Problems: All Active Problems (Updated 03/27/24 @ 13:10 by Hien Menezes, RD, LDN) Hearing difficulty (Acute) Tinea corporis (Acute) Diverticulosis of colon (Acute) Tinea corporis (Acute) Pelvic pain (Acute) TSH elevation (Acute) Restless legs (Acute) Obstructive sleep apnea (adult) (pediatric) (Acute) Annual physical exam (Acute) Hair loss (Acute) Vaginal chiki (Acute) Tubular adenoma of colon (Acute) NAFLD (nonalcoholic fatty liver disease) (Acute) Lumbar degenerative disc disease (Acute) Generalized anxiety disorder (Acute) Chronic constipation (Acute) COVID-19 virus infection (Acute) Peripheral neuropathy (Acute) Urinary incontinence (Acute) Overweight (Acute) GERD (gastroesophageal reflux disease) (Acute) Hypercholesterolemia (Acute) Type 2 diabetes mellitus with hyperglycemia (Acute) Essential hypertension (Acute) Past Medical History Medical History Pelvic pain Headache Vaginal dryness Acute vaginitis Encounter for annual routine gynecological examination Dizzy Tinea corporis Hx of flexible sigmoidoscopy Herpes, genital Dysuria Breast cancer screening by mammogram Diarrhea Otitis externa Neck discomfort Overweight (BMI 25.0-29.9) Overweight COVID-19 vaccine series completed Low back pain Abdominal pain Potential exposure to STD Dyspareunia in female Problematic vaginal discharge Candidal intertrigo Obesity (BMI 30-39.9) Right upper quadrant pain Fatty liver Osteopenia Insomnia Gallbladder polyp GERD (gastroesophageal reflux disease) Hypercholesterolemia Type 2 diabetes mellitus with hyperglycemia Anxiety and depression Intertrigo Breast density H. pylori infection Essential hypertension Migraine ARISTEO on CPAP Arthritis History of panic attacks Vitamin D deficiency Hx of irritable bowel syndrome Enlarged thyroid Fibromyalgia Asthma Hypertension Herpes genitalis Hx of ectopic Family History Family History Sister Hx of diabetes mellitus Hx of myocardial infarction Father Hx of myocardial infarction Daughter Cancer Sister Hx of diabetes mellitus Family history of problems with anesthesia: No Surgical History Surgical History History of esophagogastroduodenoscopy (EGD) H/O colonoscopy S/P repair of ventral hernia Hx of bariatric surgery Hx of cholecystectomy Hx of unilateral oophorectomy History of Problems with Anesthesia: No Social History Social History Household Members: None Housing: Apartment Alcohol intake: former Patient Tobacco Use Status: Former Tobacco user Tobacco use type: Cigarette Cigarette Packs Per Day: 2 Years Smoked: 20 quit 2008 e-Cigarette/Vaping Use: Never Used Second Hand Smoke Exposure: No Current occupational status: disabled Gender identity: Female Cognitive needs: No Hearing needs: No Vision needs: Yes Meds Allergies Allergy/AdvReac Type Severity Reaction Status Date / Time JOI Inhibitors Allergy Intermediate Cough Verified 08/21/24 13:34 cephalexin [Keflex] Allergy Intermediate rash Verified 08/21/24 13:34 codeine [Codeine] Allergy Intermediate RASH Verified 08/21/24 13:34 VOMTING- APAP W/ CODEINE, vomiting gemfibrozil [GEMFIBROZIL] Allergy Intermediate RASH Verified 08/21/24 13:34 metformin [METFORMIN] Allergy Intermediate DIARRHEA Verified 08/21/24 13:34 morphine [Morphine] Allergy Intermediate HIVES, Verified 08/21/24 13:34 rash, rash naproxen Allergy Intermediate inadequate Verified 08/21/24 13:34 response sulfamethoxazole AdvReac Intermediate nausea Verified 08/21/24 13:34 [From Bactrim] trimethoprim [From Bactrim] AdvReac Intermediate nausea Verified 08/21/24 13:34 Home Medications ?Medication ?Instructions ?Recorded ?Confirmed ?Last Taken ?Type pen needle, diabetic 32 gauge x #50 ea 11/21/20 02/23/24 Unknown History clonazepam 1 mg tablet 1 mg PO BID 07/13/21 02/23/24 Unknown History clonazepam 0.5 mg tablet 0.5 mg PO DAILY PRN Anxiety 11/30/21 02/23/24 08/21/24 History dapagliflozin propanediol 5 mg 5 mg PO DAILY 08/20/24 08/21/24 08/17/24 History tablet (Farxiga) dulaglutide 3 mg/0.5 mL mg subcut QWEEK 08/20/24 08/20/24 Unknown History [facility] Exam Height,Weight and Vital Signs: Height 5 ft 6 in Weight 153 lb Last Vital Signs Temp 98.1 F 08/21/24 14:35 Pulse 66 08/21/24 14:35 Resp 18 08/21/24 14:35 BP 139/58 L 08/21/24 14:35 Pulse Ox 97 08/21/24 14:35 O2 Del Method Room Air 08/21/24 14:35 Pertinent Lab Results Pertinent Lab Results: Laboratory Tests 08/21/24 11:57 POC Glucose 118 H Airway Mallampati Class: II TM Dist: >3cm Loose/Missing/Broken Teeth: Yes Assessment and Plan Assessment Anesthesia Assessment: Anesthesia Plan Discussed and Chart Reviewed Final Anesthetic Review Family History of Problems with Anesthesia: No History of Problems with Anesthesia: No NPO: Yes ASA Class: III Final Preanesthetic Review: No Changes in Pt Med Stat, Meds/Allgs Chart Re viewed, Consent Obtained/Reviewed and Anes Risks/Benef Reviewed Patient Risk: Intermediate Procedure Risk: Low Anesthetic Plan Anesthetic Plan: MAC: Disposition: Standard PACU
== END 2024-08-21 14:39 | disposition home or self-care (01) ==
PROVIDERS: PCP Internal Medicine; Visit Provider Internal Medicine Gastroenterology
PROC: 0DJD8ZZ Inspection of Lower Intestinal Tract, Via Natural or Artificial Opening Endoscopic (ICD-10-PCS; CPT 45378; principal; 2024-08-21 12:20)
DX: D12.3 Benign neoplasm of transverse colon (principal); D12.5 Benign neoplasm of sigmoid colon; K57.30 Diverticulosis of large intestine without perforation or abscess without bleeding; K64.0 First degree hemorrhoids; Z86.0101 Personal history of adenomatous and serrated colon polyps; K59.09 Other constipation; E11.9 Type 2 diabetes mellitus without complications; I10 Essential (primary) hypertension; E78.00 Pure hypercholesterolemia, unspecified; G47.33 Obstructive sleep apnea (adult) (pediatric); Z87.891 Personal history of nicotine dependence; Z79.4 Long term (current) use of insulin; Z79.899 Other long term (current) drug therapy; Z79.02 Long term (current) use of antithrombotics/antiplatelets
CPT/HCPCS: 45385; 82947; 88305; J2003; J2704

== ENCOUNTER → 2024-08-21 10:26 | Outpatient (BNV) | payer OTHER, SELFPAY | PROVIDERS: PCP Internal Medicine; Visit Provider Internal Medicine Gastroenterology | DX: Z12.11 Encounter for screening for malignant neoplasm of colon (principal); D12.3 Benign neoplasm of transverse colon; D12.5 Benign neoplasm of sigmoid colon; K57.90 Diverticulosis of intestine, part unspecified, without perforation or abscess without bleeding; K64.0 First degree hemorrhoids | CPT/HCPCS: 45385 ==

== ENCOUNTER 2024-08-29 12:28 | Outpatient (AMB) | payer OTHER, SELFPAY ==
[2024-08-29 12:35] VITALS: BMI 24.7
--- NOTE | 2024-08-29 12:35 | MHC.AMNUTRGE ---
VS Expanded 08/29/24 12:35 Height 5 ft 6 in Weight 153 lb 1.2 oz BMI 24.7 Intake Visit Reasons: T2DM/ Confirmed Allergies JOI Inhibitors Allergy (Intermediate, Verified 08/21/24 13:34) Cough cephalexin [Keflex] Allergy (Intermediate, Verified 08/21/24 13:34) rash codeine [Codeine] Allergy (Intermediate, Verified 08/21/24 13:34) RASH VOMTING- APAP W/ CODEINE, vomiting gemfibrozil [GEMFIBROZIL] Allergy (Intermediate, Verified 08/21/24 13:34) RASH metformin [METFORMIN] Allergy (Intermediate, Verified 08/21/24 13:34) DIARRHEA morphine [Morphine] Allergy (Intermediate, Verified 08/21/24 13:34) HIVES, rash, rash naproxen Allergy (Intermediate, Verified 08/21/24 13:34) inadequate response sulfamethoxazole [From Bactrim] Adverse Reaction (Intermediate, Verified 08/21/24 13:34) nausea trimethoprim [From Bactrim] Adverse Reaction (Intermediate, Verified 08/21/24 13:34) nausea Nutrition Presentation Details: Pt presents for MNT f/u for T2DM Pt reports choosing water and diet beverages with meals, has coffee with sugar and milk once a day Eats out 3-4 times a week : [employer] Rest (lo-mein, noodles only) , or BBK, burger/fries/diet soda or Sandw tuna with chips, diet soda or Ukrainian Rest: root vegetables and pork or baked chicken , diet beverage, sometimes has dessert (flan or similar) Reports this morning BG at 118, admits to skipping insulin with meals when eating away from home and this leads to bg > 300s at which time she then takes insulin. (Pt forgot to bring sensor reader ) Reports having stopped taking Jardiance due to arthralgia in both legs, will discus this with MD at f/u next week Pt reports having regular bowel movements, feeling better. Pt was advised to carry with pre-meal insulin to take prior to meals without skipping . Lower carb meal options were reviewed including meal replacement. Pt verbalizes understanding this. Educated and encouraged Pt to work on preventing having elevated blood sugar for heart health, GI health and overall health. Pt verbalized understanding BS Monitoring Most Recent Diabetes Results: Microalb/Creat Ratio 12.3 ug/mg cr (<30) 07/11/24 Cholesterol 138 mg/dL (<200) 07/11/24 HDL Cholesterol 46 mg/dL (>40) 07/11/24 Triglycerides 136 mg/dL (<150) 07/11/24 Creatinine 0.78 mg/dL (0.5-1.4) 07/11/24 Blood Urea Nitrogen 5 mg/dL (9-16) L 07/11/24 Sodium 143 mmol/L (135-145) 07/11/24 Potassium 4.0 mmol/L (3.3-5.1) 07/11/24 Chloride 106 mmol/L (96-108) 07/11/24 Carbon Dioxide 28 mmol/L (22-29) 07/11/24 Calcium 9.6 mg/dL (8.4-10.2) 07/11/24 AST 29 U/L (5-31) 07/11/24 ALT 29 U/L (0-31) 07/11/24 Total Protein 7.3 g/dL (6.5-8.0) 07/11/24 Albumin 3.9 g/dL (3.5-5.0) 07/11/24 [facility] Medical History Pelvic pain Headache Vaginal dryness Acute vaginitis Encounter for annual routine gynecological examination Dizzy Tinea corporis Hx of flexible sigmoidoscopy Herpes, genital Dysuria Breast cancer screening by mammogram Diarrhea Otitis externa Neck discomfort Overweight (BMI 25.0-29.9) Overweight COVID-19 vaccine series completed Low back pain Abdominal pain Potential exposure to STD Dyspareunia in female Problematic vaginal discharge Candidal intertrigo Obesity (BMI 30-39.9) Right upper quadrant pain Fatty liver Osteopenia Insomnia Gallbladder polyp GERD (gastroesophageal reflux disease) Hypercholesterolemia Type 2 diabetes mellitus with hyperglycemia Anxiety and depression Intertrigo Breast density H. pylori infection Essential hypertension Migraine ARISTEO on CPAP Arthritis History of panic attacks Vitamin D deficiency Hx of irritable bowel syndrome Enlarged thyroid Fibromyalgia Asthma Hypertension Herpes genitalis Hx of ectopic Surgical History History of esophagogastroduodenoscopy (EGD) H/O colonoscopy S/P repair of ventral hernia Hx of bariatric surgery Hx of cholecystectomy Hx of unilateral oophorectomy Family History Sister Hx of diabetes mellitus Hx of myocardial infarction Father Hx of myocardial infarction Daughter Cancer Sister Hx of diabetes mellitus Social History Household Members: None Housing: Apartment Alcohol intake: former Patient Tobacco Use Status: Former Tobacco user Tobacco use type: Cigarette Cigarette Packs Per Day: 2 Years Smoked: 20 quit 2008 e-Cigarette/Vaping Use: Never Used Second Hand Smoke Exposure: No Current occupational status: disabled Gender identity: Female Cognitive needs: No Hearing needs: No Vision needs: Yes Female Reproductive History Menstrual Age of Menarche: 8 Assessment & Plan Assessment & Plan (1) Type 2 diabetes mellitus with hyperglycemia: Code(s): E11.65 - Type 2 diabetes mellitus with hyperglycemia Category: Medical Qualifiers: Diabetes mellitus terminal makeup operator insulin use: with terminal makeup operator use Qualified Code(s): E11.65 - Type 2 diabetes mellitus with hyperglycemia; 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 Plan: wt: 70 kg ( 07/19) Est kcal needs as per MSJ: 1500 (40% carb, 30% protein/fat) Est fluid needs as per 25-30 ml/d: 2200 Est prot per day as per 1 g/kg bw: 72 Recommend fiber intake : 8-10 g per day and gradually increase to 25-28 g per day for women and 35-38 g for men or as tolerated Recommend sodium intake per day : less than 2000 mg Educated patient on: ( R = reviewed V = verbalizes understanding N/R = needs review N/A = not applicable Food sources of carbohydrate, adequate serving sizes and its role in various health conditions: R Differences between complex carbohydrates a simple carbohydrates, role of fiber in diet: R Protein sources of foods and its relationship to blood glucose and overall health: R Differences between types of fats and role in diet (mono on saturated fat fatty acids, saturated fatty acids, trans fats): R Food sources of sodium in salt and healthy modifications for heart health in kidney health: NR Vitamins and minerals: R Healthy plate method concept: R Physical activity: Benefits a precaution: R Hypoglycemia protocol (rule of 15): R Dietary prevention of Hyperglycemia: R Plan 150 Patient Instructions: Carry with insulin pens with you and take 5-10 minutes prior to meals to prevent high blood sugars see meal options lower in carbohydrates like meal replacements, salad with protein Discuss medication management with your doctor for further evaluation Coding Level of Care Code Nutr Indiv Subseq (34726) Diagnoses Type 2 diabetes mellitus with hyperglycemia, with long-term current use of insulin E11.65; Z79.4 Diabetes mellitus terminal makeup operator insulin use: with terminal makeup operator use Time Spent (min) 30
== END 2024-08-29 15:00 | disposition home or self-care (01) ==
PROVIDERS: PCP Internal Medicine; Visit Provider Dietitian, Registered
DX: E11.65 Type 2 diabetes mellitus with hyperglycemia (principal); Z79.4 Long term (current) use of insulin

== ENCOUNTER → 2024-08-29 12:28 | Outpatient (BNVA) | payer OTHER, SELFPAY | PROVIDERS: PCP Internal Medicine; Visit Provider Dietitian, Registered | DX: E11.65 Type 2 diabetes mellitus with hyperglycemia (principal); Z79.4 Long term (current) use of insulin | CPT/HCPCS: 97803 ==

== ENCOUNTER 2024-10-10 13:02 | Outpatient (REF) | payer OTHER, SELFPAY ==
[2024-10-10 20:10] LABS: Bacterial Vaginosis PCR NEGATIVE (Negative); Candida Group PCR DETECTED (Not Detect); Candida glab krusei PCR NOT DETECTED (Not Detect); Trichomonas vaginalis PCR NOT DETECTED (Not Detect)
== END 2024-10-10 13:03 | disposition home or self-care (01) ==
LOC: HO.LAB 13:02
PROVIDERS: PCP Internal Medicine; Visit Provider Advanced Practice Midwife
DX: N89.8 Other specified noninflammatory disorders of vagina (principal); L29.2 Pruritus vulvae
CPT/HCPCS: 81003; 81515; 99212

== ENCOUNTER 2024-10-10 13:02 | Outpatient (AMB) | payer OTHER, SELFPAY ==
--- NOTE | 2024-10-10 13:36 | A.OFFVIS_ITS ---
Intake Visit Reasons: yeast infection? [employer]: [employer] Present (Fatuma) Accompanied by: Self / Same As Patient Allergies JOI Inhibitors Allergy (Intermediate, Verified 10/10/24 13:47) Cough cephalexin [Keflex] Allergy (Intermediate, Verified 10/10/24 13:47) rash codeine [Codeine] Allergy (Intermediate, Verified 10/10/24 13:47) RASH VOMTING- APAP W/ CODEINE, vomiting gemfibrozil [GEMFIBROZIL] Allergy (Intermediate, Verified 10/10/24 13:47) RASH metformin [METFORMIN] Allergy (Intermediate, Verified 10/10/24 13:47) DIARRHEA morphine [Morphine] Allergy (Intermediate, Verified 10/10/24 13:47) HIVES, rash, rash naproxen Allergy (Intermediate, Verified 10/10/24 13:47) inadequate response sulfamethoxazole [From Bactrim] Adverse Reaction (Intermediate, Verified 10/10/24 13:47) nausea trimethoprim [From Bactrim] Adverse Reaction (Intermediate, Verified 10/10/24 1 3:47) nausea HPI Comments Details: Patient is here today for concerns of external itching and burning. She tried a Rx topical cream from her PCP which helped for short sometime. She also reports over the last few weeks her eyes and her face of the little bit swollen, she is wondering if her new medication is causing some of the symptoms. She denies being sexually active over 3 years, or at risk for STDs exposure. [facility] Medical History Pelvic pain Headache Vaginal dryness Acute vaginitis Encounter for annual routine gynecological examination Dizzy Tinea corporis Hx of flexible sigmoidoscopy Herpes, genital Dysuria Breast cancer screening by mammogram Diarrhea Otitis externa Neck discomfort Overweight (BMI 25.0-29.9) Overweight COVID-19 vaccine series completed Low back pain Abdominal pain Potential exposure to STD Dyspareunia in female Problematic vaginal discharge Candidal intertrigo Obesity (BMI 30-39.9) Right upper quadrant pain Fatty liver Osteopenia Insomnia Gallbladder polyp GERD (gastroesophageal reflux disease) Hypercholesterolemia Type 2 diabetes mellitus with hyperglycemia Anxiety and depression Intertrigo Breast density H. pylori infection Essential hypertension Migraine ARISTEO on CPAP Arthritis History of panic attacks Vitamin D deficiency Hx of irritable bowel syndrome Enlarged thyroid Fibromyalgia Asthma Hypertension Herpes genitalis Hx of ectopic Surgical History History of esophagogastroduodenoscopy (EGD) H/O colonoscopy S/P repair of ventral hernia Hx of bariatric surgery Hx of cholecystectomy Hx of unilateral oophorectomy Family History Sister Hx of diabetes mellitus Hx of myocardial infarction Father Hx of myocardial infarction Daughter Cancer Sister Hx of diabetes mellitus Social History Household Members: None Housing: Apartment Alcohol intake: former Patient Tobacco Use Status: Former Tobacco user Tobacco use type: Cigarette Cigarette Packs Per Day: 2 Years Smoked: 20 quit 2008 e-Cigarette/Vaping Use: Never Used Second Hand Smoke Exposure: No Current occupational status: disabled Gender identity: Female Cognitive needs: No Hearing needs: No Vision needs: Yes Female Reproductive History Menstrual Age of Menarche: 8 Review of Systems Const All systems reviewed & are unremarkable except as noted in HPI and below Physical Exam Const General: cooperative, healthy appearing and no acute distress Orientation/consciousness: patient oriented x3 GI Inspection: Yes normal to inspection Palpation (GI): Soft to palpation and Other GI palpation findings present (Nontender) Rectal Exam - Female: visual inspection normal Other: External erythema and edema of the vulva General: Yes bladder normal to palpation External Female Exam: normal appearance of the urethra Speculum Exam - Vagina: normal appearance of the vagina, normal palpation, abnormal vaginal discharge (Yellow) and vagina atrophic Speculum Exam - Cervix: normal appearance of the cervix and normal palpation Bimanual exam- vagina & uterus: normal bimanual exam, normal palpation, uterine size normal, bladder normal to palpation, normal palpation, uterine shape normal and non-tender Bimanual Exam- Adnexa, other: normal adnexae Neuro General: patient oriented x3 Results AMB Urinalysis, Automated UA Leukoctes 1 Jossue/uL Last Edit by CHASE Rowland on 10/10/24 14:11 UA Nitrite Negative Last Edit by CHASE Rowland on 10/10/24 14:11 UA Urobilinogen 0 mg/dL Last Edit by CHASE Rowland on 10/10/24 14:1 1 UA Protein 0 mg/dL Last Edit by Sara Sullivan, A on 10/10/24 14:11 UA pH 6.0 Last Edit by Sara Sullivan, [facility] on 10/10/24 14:11 UA Blood 0 Jevon/uL Last Edit by Sara Sullivan, A on 10/10/24 14:11 UA Specific [place] 1.010 Last Edit by Sara Sullivan [facility] on 10/10/24 14:11 UA Ketone Negative Last Edit by Sara Sullivan, A on 10/10/24 14:11 UA Bilirubin 0 mg/dL Last Edit by Sara Sullivan [facility] on 10/10/24 14:11 UA Glucose 3 mg/dL Last Edit by Sara Sullivan, [facility] on 10/10/24 14:11 Assessment & Plan Assessment & Plan (1) Vulvar pruritus: Code(s): L29.2 - Pruritus vulvae Plan Discussed: BV panel obtained await results for plan of care. Advised not to shave, use of mild unscented soap, cotton underwear, niharika rinse bottle, cool cloth p.r.n. as needed for discomfort. Annual exam as scheduled for January of 2025. The patient expressed understanding and agreement with the plan of care. All of her questions and concerns were addressed to the best of my ability. This note is constructed using voice recognition software. While every effort has been made to ensure accuracy, registered route associate errors may have been included. Orders: Orders Bacterial Vaginosis Panel Today N89.8 - Other specified noninflammatory disorders of vagina AMB Urinalysis Automated Today R10.2 - Pelvic and perineal pain Coding Level of Care Code Est Pt Level 3 (59610) Diagnoses Vulvar pruritus L29.2
== END 2024-10-10 14:45 | disposition home or self-care (01) ==
LOC: HO.HWS 13:02
PROVIDERS: PCP Internal Medicine; Visit Provider Advanced Practice Midwife
DX: R10.2 Pelvic and perineal pain (principal); L29.2 Pruritus vulvae
CPT/HCPCS: 99213

== ENCOUNTER 2024-11-02 14:29 | Outpatient (AMB) | payer OTHER, SELFPAY ==
--- NOTE | 2024-11-02 14:55 | MHC.PC.OV ---
Vital Signs 11/02/24 14:57 Height 5 ft 6 in Weight 157 lb 8 oz BMI 25.4 BP 110/60 Blood Pressure Location Lt brachial Position Sitting Pulse 68 Pulse Source Pulse Oximeter Temp 97.3 F Temp Source Skin Pulse Oximetry (%) 98 Oxygen Delivery Method Room Air Intake Visit Reasons: DM Intake Note: Patient is here to follow up on DM. Photography Sales Associate Required: No Senior Medical Billing Specialist: Not Required per policy Accompanied by: Self / Same As Patient Allergies JOI Inhibitors Allergy (Intermediate, Verified 11/02/24 14:57) Cough cephalexin [Keflex] Allergy (Intermediate, Verified 11/02/24 14:57) rash codeine [Codeine] Allergy (Intermediate, Verified 11/02/24 14:57) RASH VOMTING- APAP W/ CODEINE, vomiting gemfibrozil [GEMFIBROZIL] Allergy (Intermediate, Verified 11/02/24 14:57) RASH metformin [METFORMIN] Allergy (Intermediate, Verified 11/02/24 14:57) DIARRHEA morphine [Morphine] Allergy (Intermediate, Verified 11/02/24 14:57) HIVES, rash, rash naproxen Allergy (Intermediate, Verified 11/02/24 14:57) inadequate response sulfamethoxazole [From Bactrim] Adverse Reaction (Intermediate, Verified 11/02/24 14:57) nausea trimethoprim [From Bactrim] Adverse Reaction (Intermediate, Verified 11/02/24 14:57) nausea jardiance Adverse Reaction (Intermediate, Uncoded 11/02/24 15:22) vulvar pruritus Tobacco use date assessed: 11/02/24 Fall risk assessment: No Falls in past year Last assessed Fall Risk: 11/02/24 Dental Screening Dental Screen Date: 11/02/24 Did you have a dental visit in the last 12 months?: Yes Did you have a dental problem in the last 6 months where you did not have access to dental care?: No Was dental information given to patient?: Patient has dentist HPI DM HPI Details The patient is a 63-year-old female presenting with uncontrolled diabetes mellitus. She also has a history of hypertension, hypercholesterolemia, GERD, generalized anxiety disorder, fatty liver, and obstructive sleep apnea, although not currently utilizing CPAP therapy. The patient was last seen in June 2024, and most recent colonoscopy done in July 2024 showed diverticular disease with internal hemorrhoids and the presence of a tubular adenoma, which was removed. The preparation for the colonoscopy was noted as fair, necessitating another follow-up colonoscopy in one year. The patient has been managing her diabetes with a combination of treatments including Treceba, Humalog, and Jardiance, although noted confusion over medication adjustments has been present. Jardiance has been stopped due to potential adverse effects on vulvar health. She currently experiences elevated blood glucose levels and an A1c of 8.7, and a weekly shot of Mounjaro is being considered for better diabetes control. The patient experiences financial constraints affecting her diet, exacerbating the control issues with her diabetes. She has expressed concerns about chronic vulvar pruritus and past incidences of vaginal discharge possibly related to medication changes (Jardiance), for which additional interventions and consultations with gynecology have been maintained. [facility] Medical History Pelvic pain Headache Vaginal dryness Acute vaginitis Encounter for annual routine gynecological examination Dizzy Tinea corporis Hx of flexible sigmoidoscopy Herpes, genital Dysuria Breast cancer screening by mammogram Diarrhea Otitis externa Neck discomfort Overweight (BMI 25.0-29.9) Overweight COVID-19 vaccine series completed Low back pain Abdominal pain Potential exposure to STD Dyspareunia in female Problematic vaginal discharge Candidal intertrigo Obesity (BMI 30-39.9) Right upper quadrant pain Fatty liver Osteopenia Insomnia Gallbladder polyp GERD (gastroesophageal reflux disease) Hypercholesterolemia Type 2 diabetes mellitus with hyperglycemia Anxiety and depression Intertrigo Breast density H. pylori infection Essential hypertension Migraine ARISTEO on CPAP Arthritis History of panic attacks Vitamin D deficiency Hx of irritable bowel syndrome Enlarged thyroid Fibromyalgia Asthma Hypertension Herpes genitalis Hx of ectopic Surgical History History of esophagogastroduodenoscopy (EGD) H/O colonoscopy S/P repair of ventral hernia Hx of bariatric surgery Hx of cholecystectomy Hx of unilateral oophorectomy Family History Sister Hx of diabetes mellitus Hx of myocardial infarction Father Hx of myocardial infarction Daughter Cancer Sister Hx of diabetes mellitus Social History Household Members: None Housing: Apartment Alcohol intake: former Patient Tobacco Use Status: Former Tobacco user Tobacco use type: Cigarette Cigarette Packs Per Day: 2 Years Smoked: 20 quit 2008 e-Cigarette/Vaping Use: Never Used Second Hand Smoke Exposure: Yes service: No Current occupational status: disabled Gender identity: Female Cognitive needs: No Hearing needs: No Vision needs: Yes Female Reproductive History Menstrual Age of Menarche: 8 Questionnaire PHQ-9 Over the last 2 weeks, how often have you been bothered by any of the following problems? 1. Little interest or pleasure in doing things: not at all 2. Feeling down, depressed, or hopeless: not at all 3. Trouble falling or staying asleep, or sleeping too much: not at all 4. Feeling tired or having little energy: not at all 5. Poor appetite or overeating: not at all 6. Feeling bad about yourself - or that you are a failure or have let yourself or your family down: not at all 7. Trouble concentrating on things, such as reading the newspaper or watching television: not at all 8. Moving or speaking so slowly that other people could have noticed. Or the opposite - being so fidgety or restless that you have been moving around a lot more than usual: not at all 9. Thoughts that you would be better off or of hurting yourself in some way: not at all Total score: 0 Depression Screening Interpretation: Negative Depression Screening Done: Yes Source: Developed by Drs. Boston Jimenes, Halley Watkins, Ti [employer] and colleagues, with an educational jasmina from [employer]. Thrive Questionnaire Date Thrive assessed: 11/02/24 I am a: Patient What is your living situation today?: I have a steady place to live Within the past 12 months, did the food you bought not last and you didn't have the money to get more?: Never true Within the past 12 months, did you worry whether your food would run out before you got money to buy more?: Never true Do you have trouble paying for medicines?: No Do you have trouble getting transportation to medical appointments?: No Do you have trouble paying your heating and electricity bill?: No Do you have trouble taking care of your child, family member or friend?: No Do you have trouble with day-to-day activities such as bathing, preparing meals, shopping, managing finances, etc.?: No Are you currently unemployed and looking for a job?: No Are you interested in more education?: No Please select the resources that you would like help with: None Currently or been in a relationship where the following occur: No concerns reported THRIVE Score: 0 AUDIT C Alcohol Use Questionnaire (AUDIT-C) 1. How often do you have a drink containing alcohol?: Never Total Score: 0 ANJEL-7 AMB Questionnaire ANJEL-7 Date ANJEL - 7 assessed: 11/02/24 Feeling nervous, anxious, or on edge: 0 = Not at all Not being able to stop or control worryin = Not at all Worrying too much about different things: 0 = Not at all Trouble relaxin = Not at all Being so restless that it is hard to sit still: 0 = Not at all Becoming easily annoyed or irritable: 0 = Not at all Feeling afraid as if something awful might happen: 0 = Not at all Total ANJEL-7 score (0-4 normal; 5-9 mild; 10-14 moderate; 15-21 severe): 0 Source: Developed by Drs. Boston Jimenes, Halley Watkins, [employer] and colleagues, with an educational jasmina from [employer]. Physical exam (Primary Care) Vital Signs: Last Vital Signs Temp 97.3 F 11/02/24 14:57 Pulse 68 11/02/24 14:57 BP 110/60 11/02/24 14:57 Pulse Ox 98 11/02/24 14:57 Oxygen Delivery Method Room Air 11/02/24 14:57 BMI result Body Mass Index 25.4 Tobacco/Smoking Status: Tobacco use Status Tobacco use date assessed 11/02/24 11/02/24 15:10 Patient Tobacco Use Status Former Tobacco user 11/02/24 15:10 Tobacco use type Cigarette 11/02/24 15:10 e-Cigarette/Vaping Use Never Used 11/02/24 15:10 PHQ-9: PHQ-9 Score PHQ-9: Total score 0 11/02/24 15:15 Depression Screening Interpretation: Negative Thrive Assessment: Date of Thrive Assessment Date Thrive assessed 11/02/24 11/02/24 15:10 Currently or been in a relationship where the following occur: No concerns reported Const General: alert; No acute distress Eyes Conjunctivae: conjunctivae normal Resp Auscultation: clear to auscultation bilaterally Cardio Rate: regular rate Rhythm: regular rhythm GI Inspection: Yes normal to inspection Extrem General: Yes normal to inspection and No edema Results AMB Hemoglobin A1c AMB Hemoglobin A1c 8.7 % Last Edit by CHASE Mcbride on 11/02/24 15:10 Results Reviewed Results Reviewed: Laboratory Last Values Hgb A1c (Clinic) 8.7 % (4.0-6.0) H 11/02/24 14:55 Coding Level of Care Code Est Pt Level 4 (48367) Complex EM visit Add On G2211 Diagnoses Tubular adenoma of colon D12.6 Type 2 diabetes mellitus with hyperglycemia, with long-term current use of insulin E11.65; Z79.4 Diabetes mellitus fdc insulin use: with fdc use Essential hypertension I10 Hypercholesterolemia E78.00 Gastroesophageal reflux disease without esophagitis K21.9 Esophagitis presence: without esophagitis Generalized anxiety disorder F41.1 Assessment & Plan Assessment & Plan (1) Tubular adenoma of colon: Comment: Over Due for polyp surveillance, 08/15/2024 1 year Code(s): D12.6 - Benign neoplasm of colon, unspecified Category: Medical Plan: Patient was advised to have a colonoscopy done in 1 year due to fair prep (2) Type 2 diabetes mellitus with hyperglycemia: Code(s): E11.65 - Type 2 diabetes mellitus with hyperglycemia Category: Medical Qualifiers: Diabetes mellitus fdc insulin use: with laborer marine terminal 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 (3) Essential hypertension: Code(s): I10 - Essential (primary) hypertension Category: Medical Plan: Continue with blood pressure medication. Decrease salt intake and exercise (4) Hypercholesterolemia: Code(s): E78.00 - Pure hypercholesterolemia, unspecified Category: Medical Plan: Avoid fried foods, chicken skin, eggs, butter margarine, pastries and meat. Be it pork or beef they have a lot of cholesterol (5) GERD (gastroesophageal reflux disease): Code(s): K21.9 - Gastro-esophageal reflux disease without esophagitis Category: Medical Qualifiers: Esophagitis presence: without esophagitis Qualified Code(s): K21.9 - Gastro-esophageal reflux disease without esophagitis Plan: Avoid the foods that causes that usually spicy foods, tomato products, juices, coffee, soda and foods that your sensitive to. After eating do not lie down, allow 3-4 hours before in lie down. And keep the head of bed above 30 degrees to avoid the acid from going up. (6) Generalized anxiety disorder: Comment: [facility] 2 x a month therapist (Gem Menezes) and psychiatrist Q 3 months Code(s): F41.1 - Generalized anxiety disorder Category: Medical Plan: Continue with counseling and therapy Plan - Diabetes Mellitus: Discontinue Jardiance due to adverse effects on vulvar health and initiate Mounjaro injection on a weekly basis to aid in achieving better glycemic control. Encourage dietary management and exercise at the feasibility level noted by patient constraints to aid in lowering A1c levels. - Hypertension: Maintain current management plan without adjustments discussed during this visit. - Hypercholesterolemia: Continued management without further specification or adjustment during this encounter. - Gastroesophageal Reflux Disease: Continue current reflux management plan as previously outlined. - Vulvar Pruritus: Address this issue by discontinuing Jardiance, potentially linked to symptoms, and continue follow-up with gynecology. - Tubular Adenoma colon polyp): Follow-up colonoscopy is recommended in one year due to partial visualization and fair prep on previous procedure. - Fatty Liver, Generalized Anxiety Disorder, Obstructive Sleep Apnea, Internal Hemorrhoids, Diverticular Disease: Continue current management practices and monitoring as additional interventions were not discussed. - Health maintenance prominently involves reinforcement of lifestyle modification, dietary adjustments within financial constraints, and active participation in achievable forms of exercise. Orders: Orders AMB Hemoglobin A1c Today E11.65 - Type 2 diabetes mellitus with hyperglycemia, Z79.4 - correction (current) use of insulin Medications: New tirzepatide (Mounjaro) for 4 weeks 2.5 mg (0.5 mL) subcut QWEEK 2 mL 0RF E11.65 - Type 2 diabetes mellitus with hyperglycemia, Z79.4 - correction (current) use of insulin Refilled acetaminophen (Tylenol) 325 mg PO QID PRN 28 tabs 0RF pain 7 days bisacodyl (Dulcolax (bisacodyl)) Day before procedure @ 12 noon Take 4 tablets by mouth followed by large glass of water 20 mg (4 x 5 mg) PO ONCE PRN 4 tabs 0RF colonoscopy prep 1 day Z12.11 - Encounter for screening for malignant neoplasm of colon cholecalciferol (vitamin D3) 25 mcg PO DAILY 90 tabs 3RF 3 months diphenhydramine HCl (Banophen) 25 mg PO Q6H PRN 120 caps 5RF allergic reaction linaclotide (Linzess) 290 mcg PO QAM 30 caps 2RF 30 days K59.09 - Other constipation methylcellulose (laxative) (Citrucel) 500 mg PO TID 90 tabs 5RF 30 days pantoprazole 20 mg PO DAILY 90 tabs 2RF 90 days K21.9 - Gastro-esophageal reflux disease without esophagitis simvastatin 40 mg PO BEDTIME 90 tabs 1RF 3 months E78.00 - Pure hypercholesterolemia, unspecified albuterol sulfate 90 mcg/actuation 1 puff PO Q4H PRN 8.5 grams 6RF for wheezing alcohol swabs (Alcohol Prep Pads) 1 pad topical TID 100 pad 11RF docusate sodium 100 mg PO DAILY PRN 60 caps 6RF for constipation doxepin 5% apply 1 grm to affected area 3-4 x a day. wait 3-4 hours between applications (shoulder) apply second topical; 90 grams 1RF M54.5 - Low back pain fluticasone propionate 50 mcg/actuation 1 spray intranasal DAILY 9.9 mL 3RF 30 days insulin degludec (Tresiba FlexTouch U-200 insulin) 5 pens one script 11 refill 50 units (0.25 mL) subcut BEDTIME 5 ea 11RF 30 days E11.65 - Type 2 diabetes mellitus with hyperglycemia insulin lispro (Humalog KwikPen (U-100) Insulin) Three time a day or as directed 12 units (0.12 mL) subcut TID 15 mL 11RF E11.65 - Type 2 diabetes mellitus with hyperglycemia lancets (TRUEplus Lancets) 1 gauge miscellaneous TIDWMEAL 3 ea 3RF 90 days E11.9 - Type 2 diabetes mellitus without complications losartan 25 mg PO DAILY 90 tabs 3RF 90 days I10 - Essential (primary) hypertension
[2024-11-02 14:57] VITALS: BP 110/60; PULSE 68; TEMP 36.3; O2SAT 98; BMI 25.4
== END 2024-11-02 15:34 | disposition home or self-care (01) ==
PROVIDERS: PCP Internal Medicine; Visit Provider Internal Medicine
DX: D12.6 Benign neoplasm of colon, unspecified (principal); E11.65 Type 2 diabetes mellitus with hyperglycemia; Z79.4 Long term (current) use of insulin; I10 Essential (primary) hypertension; E78.00 Pure hypercholesterolemia, unspecified; K21.9 Gastro-esophageal reflux disease without esophagitis; F41.1 Generalized anxiety disorder

== ENCOUNTER → 2024-11-02 14:29 | Outpatient (BNVA) | payer OTHER, SELFPAY | PROVIDERS: PCP Internal Medicine; Visit Provider Internal Medicine | DX: D12.6 Benign neoplasm of colon, unspecified (principal); E11.65 Type 2 diabetes mellitus with hyperglycemia; E78.00 Pure hypercholesterolemia, unspecified; I10 Essential (primary) hypertension; K21.9 Gastro-esophageal reflux disease without esophagitis; F41.1 Generalized anxiety disorder; Z79.4 Long term (current) use of insulin | CPT/HCPCS: 83036; 99212 ==

== ENCOUNTER 2024-11-19 10:26 | Outpatient (AMB) | payer OTHER, SELFPAY ==
--- NOTE | 2024-11-19 10:32 | MHC.OFFVIS ---
Vital Signs 11/19/24 10:34 Height 5 ft 6 in Weight 156 lb 8.451 oz BMI 25.3 BP 170/61 H Blood Pressure Location Lt brachial Position Sitting Pulse 80 Intake Visit Reasons: Adelina pt Intake Note: Marychuy presents in the office as a Adelina patient. CC: She states that she deals with both constipation and diarrhea. She has acid refllux on and off and she has a bad tooth ache at the moment. Structural Manager Required: No Allergies JOI Inhibitors Allergy (Intermediate, Verified 11/19/24 10:35) Cough cephalexin [Keflex] Allergy (Intermediate, Verified 11/19/24 10:35) rash codeine [Codeine] Allergy (Intermediate, Verified 11/19/24 10:35) RASH VOMTING- APAP W/ CODEINE, vomiting gemfibrozil [GEMFIBROZIL] Allergy (Intermediate, Verified 11/19/24 10:35) RASH metformin [METFORMIN] Allergy (Intermediate, Verified 11/19/24 10:35) DIARRHEA morphine [Morphine] Allergy (Intermediate, Verified 11/19/24 10:35) HIVES, rash, rash naproxen Allergy (Intermediate, Verified 11/19/24 10:35) inadequate response sulfamethoxazole [From Bactrim] Adverse Reaction (Intermediate, Verified 11/19/24 10:35) nausea trimethoprim [From Bactrim] Adverse Reaction (Intermediate, Verified 11/19/24 10:35) nausea jardiance Adverse Reaction (Intermediate, Uncoded 11/19/24 10:35) vulvar pruritus HPI HPI Adelina pt: Details: 63 yr old f here for a\f/u she saw [facility] in past for GERD and constipation colonoscopy 08/19- moderate severe diverticulosis on the right and severe on left, polyps removed INTERIM: she is going to bathroom daily she has had left sided abdo pain for 1 week she had some reflux and regurgitation pain not worse or better with passing gas or stool worse with food no blood in stool, no diarrhea she has some chills - no fever she has nausea never had this before lives alone dog has been sick EXAM: GENERAL: The patient is well developed and nontoxic. VITAL SIGNS:see workflow HEENT: Nonicteric sclerae, PERRLA, EOMI. Oropharynx clear. Moist mucous membranes. Conjunctivae appear well perfused. No thyroid mass. CHEST: Chest wall is nontender. HEART: Regular rate and rhythm without murmurs. LUNGS: Clear to auscultation bilaterally. ABDOMEN: Soft, positive bowel sounds, nontender, no organomegaly.no flank tenderness SKIN: No rash, no excessive bruising, petechiae, or purpura. NEUROLOGIC: Cranial nerves II-XII intact without motor/sensory deficit. Psych: normal affect A/P: 1/ Left sided abdominal pain, no guarding or acute abdominal signs, does have severe diverticulosis, ? mild or developing diverticulitis PLAN: 1/ clinda for 1 week, allergy to PCN and cant use cipro due to citalopram and QT risk 2/ if pain worsens then advised to go to ED [facility] 3/ check labs and urine today, KUB 4/ Jillian to call later in weeks to see how she is doing 5/ discuss rept colo next visit [facility] Medical History Pelvic pain Headache Vaginal dryness Acute vaginitis Encounter for annual routine gynecological examination Dizzy Tinea corporis Hx of flexible sigmoidoscopy Herpes, genital Dysuria Breast cancer screening by mammogram Diarrhea Otitis externa Neck discomfort Overweight (BMI 25.0-29.9) Overweight COVID-19 vaccine series completed Low back pain Abdominal pain Potential exposure to STD Dyspareunia in female Problematic vaginal discharge Candidal intertrigo Obesity (BMI 30-39.9) Right upper quadrant pain Fatty liver Osteopenia Insomnia Gallbladder polyp GERD (gastroesophageal reflux disease) Hypercholesterolemia Type 2 diabetes mellitus with hyperglycemia Anxiety and depression Intertrigo Breast density H. pylori infection Essential hypertension Migraine ARISTEO on CPAP Arthritis History of panic attacks Vitamin D deficiency Hx of irritable bowel syndrome Enlarged thyroid Fibromyalgia Asthma Hypertension Herpes genitalis Hx of ectopic Surgical History History of esophagogastroduodenoscopy (EGD) H/O colonoscopy S/P repair of ventral hernia Hx of bariatric surgery Hx of cholecystectomy Hx of unilateral oophorectomy Family History Sister Hx of diabetes mellitus Hx of myocardial infarction Father Hx of myocardial infarction Daughter Cancer Sister Hx of diabetes mellitus Social History Household Members: None Housing: Apartment Alcohol intake: former Patient Tobacco Use Status: Former Tobacco user Tobacco use type: Cigarette Cigarette Packs Per Day: 2 Years Smoked: 20 quit 2008 e-Cigarette/Vaping Use: Never Used Second Hand Smoke Exposure: Yes service: No Current occupational status: disabled Gender identity: Female Cognitive needs: No Hearing needs: No Vision needs: Yes Female Reproductive History Menstrual Age of Menarche: 8 Physical Exam Vital Signs: Last Vital Signs Pulse 80 11/19/24 10:34 BP 170/61 H 11/19/24 10:34 BMI result Body Mass Index 25.3 Assessment & Plan Assessment & Plan (1) Left sided abdominal pain: Code(s): R10.9 - Unspecified abdominal pain Category: Medical Plan: as above Orders: Orders Complete Blood Count Auto Diff Today R10.9 - Unspecified abdominal pain Comprehensive Met. Panel Today K75.81 - Nonalcoholic steatohepatitis (BRYANT), R10.9 - Unspecified abdominal pain C Reactive Protein Today R10.9 - Unspecified abdominal pain XR KUB Today R10.9 - Unspecified abdominal pain UA CC w/rflx Micro + Cult Today R10.9 - Unspecified abdominal pain, R30.0 - Dysuria Medications: New clindamycin HCl 300 mg PO Q6H 7 days 28 caps 0RF Refilled ondansetron 4 mg PO Q8H PRN 30 ea 1RF for nausea/vomiting Coding Level of Care Code Est Pt Level 4 (23742) Diagnoses Left sided abdominal pain R10.9
[2024-11-19 10:34] VITALS: BP 170/61; PULSE 80; BMI 25.3
== END 2024-11-19 11:02 | disposition home or self-care (01) ==
PROVIDERS: PCP Internal Medicine; Visit Provider Internal Medicine Gastroenterology
DX: R10.9 Unspecified abdominal pain (principal)
CPT/HCPCS: 99214

== ENCOUNTER 2024-11-19 10:26 | Outpatient (REF) | payer OTHER, SELFPAY ==
--- NOTE | ~2024-11-19 | XR_ITS ---
EXAMINATION: XR ABDOMEN KUB CLINICAL INDICATION: R10.9 - Unspecified abdominal pain COMPARISON: July 11, 2024. TECHNIQUE: AP view of the abdomen. FINDINGS: Patient's large body habitus. Abundant stool. Gastrointestinal. No intestinal dilatation. No air-fluid levels. Multiple vascular clips in the left hemiabdomen. Vascular clips in the right upper quadrant abdomen and likely cholecystectomy. Liver shadow projects below the rib cage. Multilevel thoracolumbar spondylosis. S-shaped curvature of the thoracolumbar spine. Vascular calcifications in the abdominal aorta and iliac arteries. XR/XR KUB IMPRESSION: Abundant stool without intestinal obstruction pattern. Probable hepatomegaly. Electronically signed by: Baldemar Rosenbaum MD 11/20/2024 01:43 PM MIKE
[2024-11-19 11:27] LABS: MANUAL DIFF FLAG NO
[2024-11-19 12:20] LABS: Basophils Absolute Auto 0.1 X10*3/uL (0.0-0.2); Basophils Percent Auto 0.7 % (0-2); Eosinophils Absolute Auto 0.2 X10*3/uL (0.0-0.4); Eosinophils Percent Auto 1.7 % (0-4); Hematocrit 42.1 % (37.0-47.0); Hemoglobin 13.5 g/dl (12.0-16.0); Imm Gran Abs Auto 0.03 X10*3/uL (0.00-0.03); Imm Gran Pct Auto 0.3 % (0.0-0.4); Lymphocytes Absolute Auto 4.1 X10*3/uL (1.2-4.9); Mean Corpuscular HGB Conc 32.1 g/dl (31.0-35.0); Mean Corpuscular Hemoglobin 27.8 pg (27.0-33.0); Mean Corpuscular Volume 86.6 fL (80.0-98.0); Mean Platelet Volume 10.9 fL (9.4-12.3); Monocytes Absolute Auto 0.9 X10*3/uL (0.1-1.2); Monocytes Percent Auto 9.1 % (2-11); Neutrophils Percent Auto 48.2 % (45-73); Platelet Count 215 X10*3/uL (160-400); Red Blood Count 4.86 X10*6/uL (4.20-5.50); Red Cell Distribution Width 14.6 % (11.0-16.0); White Blood Count 10.3 X10*3/uL (4.8-10.8)
[2024-11-19 12:25] LABS: Appearance Urine Clear; Color Urine Yellow; Glucose Urine UA >=1000 mg/dL (Negative); Leukocyte Esterase Urine Small (1+) (Negative); Nitrite Urine Negative (Negative); PH 5.5 (5.0-9.0); Specific Gravity - Urine 1.025 (1.005-1.025); UMIC TRIGGER UACC YES; Urine Blood Negative (Negative); Urine Ketones Trace mg/dL (Negative); Urine Protein 30 (1+) mg/dL (Neg-Trace)
[2024-11-19 12:30] LABS: Bacteria Urine None Seen (None Seen); Hyaline Casts Urine 0-2 /LPF (0-2); RBC Urine 0-2 /HPF (0-2); UACC Culture Trigger YES
--- OUTSIDE RECORDS SUMMARY | 2024-11-19 12:53 | XMS_ITS | Clinical Summary ---
Author Organization [employer] [facility] Address [address] [place] [address] [address] [place] [address] Care Team Providers Care Vice President Corporate Communications Name Role Phone Unavailable Primary Care Provider Unavailabl e Social History Tobacco Use Types Packs/Day Years Used Date Smoking Tobacco: Never Assessed Comments Unknown Sex and Gender Information Value Date Recorded Sex Assigned at Female 07/26/2022 10:17 AM EDT Legal Sex Female 10:17 AM EDT Gender Identity Female 11/19/2024 12:49 PM EST Sexual Orientation Straight 11/19/2024 12 :49 PM EST Plan of Treatment Upcoming Encounters Date Type Department Care Team (Late st Contact Info) Description 11/19/2024 1:00 PM EST Office Visit [facility] [address] [place] [address] Jean Barber, BARBY [address] [place], [place] [id number] Health Maintenance Due Date Last Done Comments CT Colonography 1959 Colonoscopy 1959 Colorectal Cancer Screening 1959 Depression Screening 1959 FIT DNA/Cologuard 1959 FIT 1959 FOBT 1959 Sigmoidoscopy 1959 Alcohol/Substance Use Screening 1971 Tobacco Screening 1971 Pap Smear 12/12/1980 Cervical Cancer Screening 12/12/1989 HPV/Cotest 12/12/1989 Mammogram 1999 Pneumococcal Vaccine: 50+ Years (2 of 2 - PCV) 09/04/2020 09/04/2019, 11/22/2011, 05/31/2007 Zoster Vaccines (2 of 2) 08/20/2022 06/25/2022 COVID-19 Vaccine ( season) 2024 07/28/2021, 01/02/2021, 12/05/2020 DTaP/Tdap/Td Vaccines (3 - Td or Tdap) 07/30/2026 07/30/2016, 11/22/2011, 01/04/2008 RSV Patients and Patients Aged 60 years or older (1 - 1-dose 75+ series) 12/12/2034 Hepatitis B Vaccines Completed 01/04/2008, 07/13/2007, 05/31/2007 Influenza Vaccine Completed 07/10/2024, , 07/28/2021, Additional history exists HIB Vaccines Aged Out No longer eligi ble based on patient's age to complete this topic HPV Vaccines Aged Out No longer eligi ble based on patient's age to complete this topic Hepatitis A Vaccines Aged Out No long er eligible based on patient's age to complete this topic IPV Vaccines Aged Out No longer eligi ble based on patient's age to complete this topic Meningococcal Vaccine Aged Out No darinel christiano eligible based on patient's age to complete this topic RSV under 20 months Aged Out No longe r eligible based on patient's age to complete this topic Rotavirus Vaccines Aged Out No longer eligible based on patient's age to complete this topic Insurance [facility]
[2024-11-19 13:03] LABS: Alanine Aminotransferase 44 U/L (0-31); Alkaline Phosphatase 48 U/L (39-117); Anion Gap 17 (12-20); Aspartate Amino Transferase 40 U/L (5-31); Bilirubin Total 0.4 mg/dL (0.0-1.0); Blood Urea Nitrogen 8 mg/dL (9-16); C Reactive Protein 0.34 mg/dL (< or = 0.50); Calcium 9.7 mg/dL (8.4-10.2); Carbon Dioxide 23 mmol/L (22-29); Chloride 106 mmol/L (96-108); Estimated Glomerular Filt Rate > 60; Glucose Random 161 mg/dL (60-115); Potassium 3.8 mmol/L (3.3-5.1); Sodium 142 mmol/L (135-145); Total Protein 7.9 g/dL (6.5-8.0)
== END 2024-11-19 10:27 | disposition home or self-care (01) ==
LOC: HO.XRAY 10:26
PROVIDERS: PCP Internal Medicine; Visit Provider Internal Medicine Gastroenterology
DX: R10.9 Unspecified abdominal pain (principal); K75.81 Nonalcoholic steatohepatitis (NASH); R30.0 Dysuria; K59.00 Constipation, unspecified; R19.7 Diarrhea, unspecified
CPT/HCPCS: 36415; 74018; 80053; 81001; 85025; 86140; 87086; 99212

== ENCOUNTER → 2024-11-19 11:33 | Outpatient (BNV) | payer OTHER, SELFPAY | PROVIDERS: PCP Internal Medicine; Visit Provider Radiology Diagnostic Radiology | DX: R10.9 Unspecified abdominal pain (principal) | CPT/HCPCS: 74018 ==

== ENCOUNTER 2025-01-15 10:27 | Outpatient (AMB) | payer MEDICARE, MEDICAID, SELFPAY ==
--- NOTE | 2025-01-15 10:44 | A.OFFPC_ITS ---
Vital Signs 3 01/15/25 10:46 Height 5 ft 6 in Weight 158 lb 6 oz BMI 25.6 BP 130/60 Blood Pressure Location Rt brachial Position Sitting Pulse 73 Pulse Source Pulse Oximeter Temp 97.1 F Temp Source Temporal Artery Scan Pulse Oximetry (%) 97 Oxygen Delivery Method Room Air Intake Visit Reasons: Rash and requesting Derm Referral Intake Note: Patient is here to follow up on Rash and requesting Dermatology referral. Health Care Legal Assistant Required: No Property Maintenance Supervisor: Not Required per policy Accompanied by: Self / Same As Patient Allergies JOI Inhibitors Allergy (Intermediate, Verified 01/15/25 10:46) Cough cephalexin [Keflex] Allergy (Intermediate, Verified 01/15/25 10:46) rash codeine [Codeine] Allergy (Intermediate, Verified 01/15/25 10:46) RASH VOMTING- APAP W/ CODEINE, vomiting gemfibrozil [GEMFIBROZIL] Allergy (Intermediate, Verified 01/15/25 10:46) RASH metformin [METFORMIN] Allergy (Intermediate, Verified 01/15/25 10:46) DIARRHEA morphine [Morphine] Allergy (Intermediate, Verified 01/15/25 10:46) HIVES, rash, rash naproxen Allergy (Intermediate, Verified 01/15/25 10:46) inadequate response sulfamethoxazole [From Bactrim] Adverse Reaction (Intermediate, Verified 01/15/25 10:46) nausea trimethoprim [From Bactrim] Adverse Reaction (Intermediate, Verified 01/15/25 10:46) nausea jardiance Adverse Reaction (Intermediate, Uncoded 01/15/25 10:46) vulvar pruritus Medication List - Last Reconciled 01/15/25 by Lanny Soria MD acetaminophen (Tylenol) 325 mg PO QID PRN 7 days albuterol sulfate 90 mcg/actuation 1 puff PO Q4H PRN alcohol swabs (Alcohol Prep Pads) 1 pad topical TID amitriptyline 25 mg PO BEDTIME [bed pad As directed] bisacodyl (Dulcolax (bisacodyl)) 20 mg (4 x 5 mg) PO ONCE PRN 1 day blood sugar diagnostic (FreeStyle Lite Strips) As directed check the BS TID blood sugar diagnostic (FreeStyle Lite Strips) TEST BLOOD SUGAR 3 TIMES A DAY cholecalciferol (vitamin D3) 25 mcg PO DAILY 3 months citalopram 40 mg PO DAILY 2 months clindamycin HCl 300 mg PO Q6H 7 days clonazepam 0.5 mg PO DAILY PRN clotrimazole 1% 1 appl topical BID 4 weeks clotrimazole-betamethasone 1-0.05 % 1 appl topical BID 7 days cyclobenzaprine 10 mg PO BEDTIME PRN 7 days MDD , [Diaper Medium As directed] diphenhydramine HCl (Banophen) 25 mg PO Q6H PRN docusate sodium 100 mg PO DAILY PRN doxepin 5% apply 1 grm to affected area 3-4 x a day. wait 3-4 hours between applications (shoulder) apply second topical; flash glucose scanning reader (FreeStyle Jose F 14 Day Ethel) As directed flash glucose scanning reader (FreeStyle Jose F 2 Ethel) As directed flash glucose sensor (FreeStyle Jose F 14 Day Sensor kit) As directed flash glucose sensor (FreeStyle Jose F 2 Sensor kit) As directed fluticasone propionate 50 mcg/actuation 1 spray intranasal DAILY 30 days insulin aspart U-100 (Novolog FlexPen U-100 Insulin aspart) 12 units (0.12 mL) subcut TID insulin degludec (Tresiba FlexTouch U-200 insulin) 50 units (0.25 mL) subcut BEDTIME 30 days ketoconazole 2% 1 appl topical DAILY Lactobacillus rhamnosus GG (Culturelle) 1 cap PO DAILY lancets (TRUEplus Lancets) 1 gauge miscellaneous TIDWMEAL 90 days linaclotide (Linzess) 290 mcg PO QAM 30 days losartan 25 mg PO DAILY 90 days methylcellulose (laxative) (Citrucel) 500 mg PO TID 30 days miconazole nitrate 2% (Monistat 7) 1 appful vaginal BEDTIME 7 days miconazole nitrate 2% (Monistat 7) 1 appful vaginal BEDTIME 7 days miconazole nitrate 2% (Zeasorb AF) 1 appl topical BID mupirocin 2% apply externally topical 3 times a day; ondansetron 4 mg PO Q8H PRN pantoprazole 20 mg PO DAILY 90 days pen needle, diabetic As directed pen needle, diabetic As directed use with trulicity, basaglar and novolog 4 x a day polyethylene glycol 3350 17 grams PO DAILY [REUSABLE UNDERPAD As directed] sennosides (senna) 8.6 mg PO DAILY PRN simvastatin 40 mg PO BEDTIME 3 months terconazole 0.8% 1 appful vaginal BEDTIME 3 days tirzepatide (Mounjaro) 2.5 mg (0.5 mL) subcut QWEEK trolamine salicylate 10% (Aspercreme) 1 appl topical BID PRN valacyclovir (Valtrex) 500 mg PO BID [wipes As directed] [WIPES As directed] zolpidem 10 mg PO BEDTIME PRN Tobacco use date assessed: 01/15/25 Fall risk assessment: No Falls in past year Last assessed Fall Risk: 01/15/25 Dental Screening Dental Screen Date: 11/02/24 HPI Rash and requesting Derm Referral 2 HPI0 Details under the breast rash intermittent. complains of GI problem - has a mil diarrhea and gets nausea. no fevers also complains of having rashes but has a small rash under the L breast [facility] Medical History Pelvic pain Headache Vaginal dryness Acute vaginitis Encounter for annual routine gynecological examination Dizzy Tinea corporis Hx of flexible sigmoidoscopy Herpes, genital Dysuria Breast cancer screening by mammogram Diarrhea Otitis externa Neck discomfort Overweight (BMI 25.0-29.9) Overweight COVID-19 vaccine series completed Low back pain Abdominal pain Potential exposure to STD Dyspareunia in female Problematic vaginal discharge Candidal intertrigo Obesity (BMI 30-39.9) Right upper quadrant pain Fatty liver Osteopenia Insomnia Gallbladder polyp GERD (gastroesophageal reflux disease) Hypercholesterolemia Type 2 diabetes mellitus with hyperglycemia Anxiety and depression Intertrigo Breast density H. pylori infection Essential hypertension Migraine ARISTEO on CPAP Arthritis History of panic attacks Vitamin D deficiency Hx of irritable bowel syndrome Enlarged thyroid Fibromyalgia Asthma Hypertension Herpes genitalis Hx of ectopic Surgical History History of esophagogastroduodenoscopy (EGD) H/O colonoscopy S/P repair of ventral hernia Hx of bariatric surgery Hx of cholecystectomy Hx of unilateral oophorectomy Family History Sister Hx of diabetes mellitus Hx of myocardial infarction Father Hx of myocardial infarction Daughter Cancer Sister Hx of diabetes mellitus Social History Household Members: None Housing: Apartment Alcohol intake: former Patient Tobacco Use Status: Former Tobacco user Tobacco use type: Cigarette Cigarette Packs Per Day: 2 Years Smoked: 20 quit 2008 e-Cigarette/Vaping Use: Never Used Second Hand Smoke Exposure: Yes service: No Current occupational status: disabled Gender identity: Female Cognitive needs: No Hearing needs: No Vision needs: Yes Female Reproductive History Menstrual Age of Menarche: 8 Questionnaire Thrive Questionnaire Date Thrive assessed: 11/02/24 ANJEL-7 AMB Questionnaire ANJEL-7 Date ANJEL - 7 assessed: 11/02/24 Source: Developed by Drs. Boston Jimenes, Halley Watkins, [employer] and colleagues, with an educational jasmina from [employer]. Physical exam (Primary Care) Vital Signs: Last Vital Signs Temp 97.1 F 01/15/25 10:46 Pulse 73 01/15/25 10:46 BP 130/60 01/15/25 10:46 Pulse Ox 97 01/15/25 10:46 Oxygen Delivery Method Room Air 01/15/25 10:46 BMI result Body Mass Index 25.6 Tobacco/Smoking Status: Tobacco use Status Tobacco use date assessed 01/15/25 01/15/25 10:46 Patient Tobacco Use Status Former Tobacco user 01/15/25 10:46 Tobacco use type Cigarette 01/15/25 10:46 e-Cigarette/Vaping Use Never Used 01/15/25 10:46 Thrive Assessment: Date of Thrive Assessment Date Thrive assessed 11/02/24 01/15/25 10:46 Const General: alert; No acute distress Eyes Conjunctivae: conjunctivae normal Chest Chest/axillae images: 2 1. 2 cm mild red area , no open wounds mild scaly Resp Auscultation: clear to auscultation bilaterally Cardio Rate: regular rate Rhythm: regular rhythm GI Inspection: Yes normal to inspection Extrem General: Yes normal to inspection and No edema Coding Level of Care Code Est Pt Level 4 (03182) Complex EM visit Add On G2211 Diagnoses Essential hypertension I10 Type 2 diabetes mellitus with hyperglycemia, with long-term current use of insulin E11.65; Z79.4 Diabetes mellitus shelter insulin use: with intermodal dispatcher use Hypercholesterolemia E78.00 Gastroesophageal reflux disease without esophagitis K21.9 Esophagitis presence: without esophagitis NAFLD (nonalcoholic fatty liver disease) K76.0 Tinea corporis B35.4 Urinary incontinence R32 Assessment & Plan Assessment & Plan (1) Essential hypertension: Code(s): I10 - Essential (primary) hypertension Category: Medical (2) Type 2 diabetes mellitus with hyperglycemia: Code(s): E11.65 - Type 2 diabetes mellitus with hyperglycemia Category: Medical Qualifiers: Diabetes mellitus shelter insulin use: with shelter use Qualified Code(s): E11.65 - Type 2 diabetes mellitus with hyperglycemia; Z79.4 - termite control representative (current) use of insulin (3) Hypercholesterolemia: Code(s): E78.00 - Pure hypercholesterolemia, unspecified Category: Medical (4) GERD (gastroesophageal reflux disease): Code(s): K21.9 - Gastro-esophageal reflux disease without esophagitis Category: Medical Qualifiers: Esophagitis presence: without esophagitis Qualified Code(s): K21.9 - Gastro-esophageal reflux disease without esophagitis (5) NAFLD (nonalcoholic fatty liver disease): Comment: A good weight, glucose and lipid-continue to abstain from alcohol Code(s): K76.0 - Fatty (change of) liver, not elsewhere classified Category: Medical (6) Tinea corporis: Code(s): B35.4 - Tinea corporis Category: Medical (7) Urinary incontinence: Code(s): R32 - Unspecified urinary incontinence Category: Medical Plan History of Present Illness The patient is a 64-year-old female presenting with a primary complaint of a cutaneous rash and additional gastrointestinal symptoms. Her cutaneous rash involves the breast and abdominal areas, described as itchy and scaly, correlating with circumstances of perspiration. Treatment with a prior antifungal cream has been ineffective in recent times. Additionally, the patient reports gastrointestinal disturbances similar to a previous stomach infection episode, presenting with looser bowel movements. She indicates that her current concerns may be coupled with poor dietary habits and elevated blood glucose levels, as reflected by a Hemoglobin A1c of 8.7 from an earlier measurement. Anxiety attacks are also frequently encountered, accompanied by the perception of elevated blood pressure, though these readings remain within normal limits on her home monitor. Challenges in accessing medications from the pharmacy contribute to a history of recurrent yeast infections affecting nasal and vaginal areas, despite attempts to manage with creams and ointments. Health Maintenance - Diabetes management needs reassessment due to poor blood sugar control reflected by a Hemoglobin A1c of 8.7. - Discussion of exercise and diet adjustments for diabetes and weight management. - Management of anxiety through lifestyle modifications. Social History - Lives alone with no assistance from a executive marketing assistant. - Involved in daily activities such as house cleaning, which aggravates her rash. - Walks to the bus stop for errands, suggesting some level of physical activity. - Reports adjustments to insurance provider expected from January 24, with anticipated support for additional services. Review of Systems - Dermatological: Reports rash under breasts and abdomen, itching and scaling. - Gastrointestinal: Reports recurrent stomach discomfort, loose bowel movements. - Genitourinary: Reports vaginal yeast infections without sexual activity. - Neurological: Reports frequent anxiety attacks. - The patient denies any other specific symptoms not mentioned. Physical Exam - Dermatological- Small, non-opened rash under bilateral breasts and abdomen; slight scaling noted, no redness. Results - Labs: Previous Hemoglobin A1c of 8.7 (October). - No current diagnostic tests or imaging performed during this visit. Plan 1. 7. An antifungal cream was provided to address chronic yeast infections, with continued vigilance of symptoms expected. We will provide assistance with prescriptions for personal care items like diapers and wipes, considering her insurance adjustments expected in January, which should offer more comprehensive support.: Patient was informed and verbally consented to the use of an ambient scribe for clinic note documentation during this visit. Discussion Notes I discussed with the patient the importance of managing her diabetes more aggressively due to evidence of poor control, as indicated by her Hemoglobin A1c levels. The management and treatment of her fungal infections, using both creams and powders, were detailed to reduce recurring symptoms, particularly those aggravated by moisture. The patient was informed about the upcoming change in her insurance plan and how it could possibly help her obtain further assistance and social support. I also provided anticipatory guidance regarding potential benefits of improvements in her daily lifestyle and exercise routines, aimed at addressing both diabetic management and cardiovascular health. Interventions were chosen considering her current insurance status and future changes slated for next month, with the plan for further blood work and regular follow-up to ensure effective care. Patient Instructions - Use the prescribed antifungal cream and antifungal powder as directed. - Focus on improving your diet and exercise routine to better manage your diabetes. - Attend next month's follow-up appointment and get blood work done before the visit. - Make sure to communicate any changes to your symptoms or other health concerns. - Be prepared for changes in insurance beginning January 24, which should provide additional support. - Stay aware of new insurance contact making a call to discuss further benefits. Orders: Orders 2 Hemoglobin A1c 4 Weeks E11.65 - Type 2 diabetes mellitus with hyperglycemia, Z79.4 - termite control representative (current) use of insulin Vitamin B12 and Folate 4 Weeks E11.65 - Type 2 diabetes mellitus with hyperglycemia, Z79.4 - retirement (current) use of insulin Free T4 (Free Thyroxine) 4 Weeks E11.65 - Type 2 diabetes mellitus with hyperglycemia, Z79.4 - retirement (current) use of insulin Comprehensive Met. Panel 4 Weeks E11.65 - Type 2 diabetes mellitus with hyperglycemia, Z79.4 - termite control representative (current) use of insulin Complete Blood Count Auto Diff 4 Weeks E11.65 - Type 2 diabetes mellitus with hyperglycemia, Z79.4 - retirement (current) use of insulin Thyroid Stimulating Hormone 4 Weeks E11.65 - Type 2 diabetes mellitus with hyperglycemia, Z79.4 - termite control representative (current) use of insulin Lipid Panel 4 Weeks E11.65 - Type 2 diabetes mellitus with hyperglycemia, E78.00 - Pure hypercholesterolemia, unspecified, Z79.4 - retirement (current) use of insulin UA CC w/rflx Micro + Cult 4 Weeks E11.65 - Type 2 diabetes mellitus with hyperglycemia, R30.0 - Dysuria, Z79.4 - termite control representative (current) use of insulin Vitamin D 25-OH Total 4 Weeks E11.65 - Type 2 diabetes mellitus with hyperglycemia, Z79.4 - retirement (current) use of insulin Medications: New 2 ketoconazole 2% 1 appl topical DAILY 30 grams 0RF B35.4 - Tinea corporis miconazole nitrate 2% (Zeasorb AF) 1 appl topical BID 85 grams 0RF B35.4 - Tinea corporis Refilled 2 [WIPES] As directed 1 ea 12RF R32 - Unspecified urinary incontinence [Diaper Medium] As directed 50 ea 12RF R19.7 - Diarrhea, unspecified, R32 - Unspecified urinary incontinence
[2025-01-15 10:46] VITALS: BP 130/60; PULSE 73; TEMP 36.2; O2SAT 97; BMI 25.6
--- OUTSIDE RECORDS SUMMARY | 2025-01-15 12:12 | XMS_ITS | Clinical Summary ---
Author Organization [facility] Address [address] [place] [address] [address] [place] [address] Care Team Providers Care De Alcoholizer Name Role Phone Unavailable Primary Care Provider Unavailabl e Allergies Active Allergy Reactions Criticality Noted Date Comments Acetaminophen-Codeine 11/19/2024 Cephalexin 11/19/2024 Morphine 11/19/2024 Medications ibuprofen 400 MG tablet Take 1 tablet (400 mg) by mouth every 6 (six) hours if needed for moderate pain. 30 tablet 12/24/2024 Active Active Problems Problem Noted Date Diagnosed Date Chronic dental pain 12/24/2024 Severe dental caries 12/24/2024 Encounters Date Type Department Care Team Description 12/24/2024 2:30 PM EDT Office Visit [facility] [address] [place] [address] Júnior Fernandes DDS Chronic dental pain (Primary Dx); Severe dental caries 11/19/2024 1:00 PM EST Office Visit [facility] [address] [place] [address] Jean Barber DMD from Last 3 Months Social History Tobacco Use Types Packs/Day Years Used Date Smoking Tobacco: Never Smokeless Tobacco: Never Tobacco Cessation:Counseling Given: Not Answered Alcohol Use Standard Drinks/Week Comments Never 0 (1 standard drink = 0.6 oz pur e alcohol) Comments Unknown Sex and Gender Information Value Date Recorded Sex Assigned at Female 07/26/2022 10:17 AM EDT Legal Sex Female 10:17 AM EDT Gender Identity Female 11/19/2024 12:49 PM EST Sexual Orientation Straight 11/19/2024 12 :49 PM EST Last Filed Vital Signs Vital Sign Reading Time Taken Comments Blood Pressure 138/78 12/24/2024 2:09 PM EDT Pulse - - Temperature - - Respiratory Rate - - Oxygen Saturation - - Inhaled Oxygen Concentration - - Weight - - Height - - Body Mass Index - - Plan of Treatment Upcoming Encounters Date Type Department Care Team (Late st Contact Info) Description 01/21/2025 1:30 PM EDT Office Visit [facility] [address] [place] [address] Jean Barber, DMD [address] [place] [address] Health Maintenance Due Date Last Done Comments CT Colonography 1959 Colonoscopy 1959 Colorectal Cancer Screening 1959 Depression Screening 1959 FIT DNA/Cologuard 1959 FIT 1959 FOBT 1959 SDOH Screening 1959 Sigmoidoscopy 1959 Alcohol/Substance Use Screening 1971 Hepatitis C Screening 12/12/1977 Pap Smear 12/12/1980 Cervical Cancer Screening 12/12/1989 HPV/Cotest 12/12/1989 Mammogram 1999 Dental Prophylaxis 10/07/2013 04/05/2013, 07/01/2011 Dental Oral Exam 04/06/2017 10/06/2016, 06/14/2012 Dental X-Ray: Bitewings 10/07/2017 10/06/2016, 06/07 Dental X-Ray: Full Mouth 10/07/2019 10/06/2016 Pneumococcal Vaccine: 50+ Years (2 of 2 - PCV) 09/04/2020 09/04/2019, 11/22/2011, 05/31/2007 Zoster Vaccines (2 of 2) 08/20/2022 06/25/2022 COVID-19 Vaccine (4 - season) 2024 07/28/2021, 01/02/2021, 12/05/2020 Tobacco Screening 12/24/2025 12/24/2024 DTaP/Tdap/Td Vaccines (3 - Td or Tdap) [...] on patient's age to complete this topic Procedures Procedure Name Priority Date/Time Associated Diagnosis Comments CASE PRESENTATION, DETAILED AND EXTENSIVE TREATMENT PLANNING Routine 12/24/2024 2:30 PM EDT 31 EXTRACTION, ERUPTED TOOTH REQ REMOVAL OF BONE AND/OR SECTIONING OF TOOTH Routine 12/24/2024 2:30 PM EDT 32 EXTRACTION, ERUPTED TOOTH OR EXPOSED ROOT (ELEVATION/FORCEPS REMOVAL) Routine 12/24/2024 2:30 PM EDT CASE PRESENTATION, DETAILED AND EXTENSIVE TREATMENT PLANNING Routine 11/19/2024 1:00 PM EST INTRAORAL - PERIAPICAL FIRST RADIOGRAPHIC IMAGE Routine 11/19/2024 1:00 PM EST PALLIATIVE (EMERGENCY) TREATMENT OF DENTAL PAIN - MINOR PROCEDURE Routine 11/19/2024 1:00 PM EST INTRAORAL - COMPLETE SERIES OF RADIOGRAPHIC IMAGES Routine 10/06/2016 12:00 AM EST COMPREHENSIVE ORAL EVALUATION - NEW OR ESTABLISHED PATIENT Routine 10/06/2016 12:00 AM EST PROPHYLAXIS - ADULT Routine 04/05/2013 1 2:00 AM EDT from Last 3 Months or Most Recently Relevant to Health Maintenance Insurance [facility] MEDICAID STAND ADULT
== END 2025-01-15 12:08 | disposition home or self-care (01) ==
LOC: HO.HMCH 10:28
PROVIDERS: PCP Internal Medicine; Visit Provider Internal Medicine
DX: I10 Essential (primary) hypertension (principal); E11.65 Type 2 diabetes mellitus with hyperglycemia; Z79.4 Long term (current) use of insulin; E78.00 Pure hypercholesterolemia, unspecified; K21.9 Gastro-esophageal reflux disease without esophagitis; K76.0 Fatty (change of) liver, not elsewhere classified; B35.4 Tinea corporis; R32 Unspecified urinary incontinence

== ENCOUNTER → 2025-01-15 10:27 | Outpatient (BNVA) | payer MEDICARE, MEDICAID, SELFPAY | PROVIDERS: PCP Internal Medicine; Visit Provider Internal Medicine | DX: I10 Essential (primary) hypertension (principal); Z79.4 Long term (current) use of insulin; E78.00 Pure hypercholesterolemia, unspecified; K21.9 Gastro-esophageal reflux disease without esophagitis; K76.0 Fatty (change of) liver, not elsewhere classified; B35.4 Tinea corporis; R32 Unspecified urinary incontinence | CPT/HCPCS: 99212 ==

== ENCOUNTER 2025-02-07 12:36 | Outpatient (REF) | payer MEDICARE, SELFPAY ==
--- OUTSIDE RECORDS SUMMARY | 2025-02-07 14:14 | XMS_ITS | Clinical Summary ---
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
[2025-02-07 16:47] LABS: Bacterial Vaginosis PCR NEGATIVE (Negative); Candida Group PCR NOT DETECTED (Not Detect); Candida glab krusei PCR NOT DETECTED (Not Detect); Trichomonas vaginalis PCR NOT DETECTED (Not Detect)
[2025-02-07 17:19] LABS: CT PCR NOT DETECTED (Not Detect.); NG PCR NOT DETECTED (Not Detect.)
[2025-02-13 15:24] LABS: HPV Genotype 16 Negative (Negative); HPV Genotype 18 Negative (Negative); HPV High Risk Negative (Negative)
== END 2025-02-07 12:37 | disposition home or self-care (01) ==
LOC: HO.LNP 12:36
PROVIDERS: PCP Internal Medicine; Visit Provider Advanced Practice Midwife
DX: Z01.419 Encounter for gynecological examination (general) (routine) without abnormal findings (principal); B37.31 Acute candidiasis of vulva and vagina
CPT/HCPCS: 81515; 87491; 87591; 87626; 88175; 99397; 99459

== ENCOUNTER 2025-02-07 12:36 | Outpatient (AMB) | payer OTHER, SELFPAY ==
[2025-02-07 13:09] VITALS: BP 120/66; BMI 25.5
--- NOTE | 2025-02-07 13:09 | A.OFFVIS_ITS ---
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 yueast infection under breasts, thighs and vagina. Software Consultant Required: No Information Interpreted: non-clinical & clinical Allergies JOI Inhibitors Allergy (Intermediate, Verified 02/07/25 13:17) Cough cephalexin [Keflex] Allergy (Intermediate, Verified 02/07/25 13:17) rash codeine [Codeine] Allergy (Intermediate, Verified 02/07/25 13:17) RASH VOMTING- APAP W/ CODEINE, vomiting gemfibrozil [GEMFIBROZIL] Allergy (Intermediate, Verified 02/07/25 13:17) RASH metformin [METFORMIN] Allergy (Intermediate, Verified 01/15/25 10:46) DIARRHEA morphine [Morphine] Allergy (Intermediate, Verified 02/07/25 13:17) HIVES, rash, rash naproxen Allergy (Intermediate, Verified 02/07/25 13:17) inadequate response sulfamethoxazole [From Bactrim] Adverse Reaction (Intermediate, Verified 02/07/25 13:17) nausea trimethoprim [From Bactrim] Adverse Reaction (Intermediate, Verified 02/07/25 13:17) nausea jardiance Adverse Reaction (Intermediate, Uncoded 02/07/25 13:17) vulvar pruritus Medication List - Last Reconciled 02/07/25 by Rocio Fletcher, INVESTIGATOR [employer] albuterol sulfate 90 mcg/actuation 1 puff PO Q4H PRN alcohol swabs (Alcohol Prep Pads) 1 pad topical TID amitriptyline 25 mg PO BEDTIME [bed pad As directed] bisacodyl (Dulcolax (bisacodyl)) 20 mg (4 x 5 mg) PO ONCE PRN 1 day blood sugar diagnostic (FreeStyle Lite Strips) As directed check the BS TID blood sugar diagnostic (FreeStyle Lite Strips) TEST BLOOD SUGAR 3 TIMES A DAY cholecalciferol (vitamin D3) 25 mcg PO DAILY 3 months citalopram 40 mg PO DAILY 2 months clonazepam 0.5 mg PO DAILY PRN clotrimazole 1% 1 appl topical BID 4 weeks clotrimazole-betamethasone 1-0.05 % 1 appl topical BID 7 days cyclobenzaprine 10 mg PO BEDTIME PRN 7 days MDD , [Diaper Medium As directed] diphenhydramine HCl (Banophen) 25 mg PO Q6H PRN docusate sodium 100 mg PO DAILY PRN flash glucose scanning reader (FreeStyle Jose F 14 Day [place]) As directed flash glucose scanning reader (FreeStyle Jose F 2 [place]) As directed flash glucose sensor (FreeStyle Jose F 14 Day Sensor kit) As directed flash glucose sensor (FreeStyle Jose F 2 Sensor kit) As directed fluticasone propionate 50 mcg/actuation 1 spray intranasal DAILY 30 days insulin aspart U-100 (Novolog FlexPen U-100 Insulin aspart) 12 units (0.12 mL) subcut TID insulin degludec (Tresiba FlexTouch U-200 insulin) 50 units (0.25 mL) subcut BEDTIME 30 days Lactobacillus rhamnosus GG (Culturelle) 1 cap PO DAILY lancets (TRUEplus Lancets) 1 gauge miscellaneous TIDWMEAL 90 days linaclotide (Linzess) 290 mcg PO QAM 30 days losartan 25 mg PO DAILY 90 days methylcellulose (laxative) (Citrucel) 500 mg PO TID 30 days miconazole nitrate 2% (Zeasorb AF) 1 appl topical BID ondansetron 4 mg PO Q8H PRN pantoprazole 20 mg PO DAILY 90 days pen needle, diabetic As directed pen needle, diabetic As directed use with trulicity, basaglar and novolog 4 x a day polyethylene glycol 3350 17 grams PO DAILY [REUSABLE UNDERPAD As directed] sennosides (senna) 8.6 mg PO DAILY PRN simvastatin 40 mg PO BEDTIME 3 months tirzepatide (Mounjaro) 2.5 mg (0.5 mL) subcut QWEEK valacyclovir (Valtrex) 500 mg PO BID [wipes As directed] [WIPES As directed] zolpidem 10 mg PO BEDTIME PRN Is last menstrual period known: No Post menopausal: Yes Patient : No Do you need a note to return to daycare/school/sports/work: No HPI Comments Details: She 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 Frequent yeast infections, history diabetes. She recently used an [id number] product. Currently not sexually active. Denies any vaginal dryness or irritation. STI testing offered; she accepts. Attempting to eat a healthy diet with calcium and vitamin D and stays active with exercise. Last pap smear; 2019. Last mammogram; 2023. Colonoscopy is UTD. Denies any family history of breast, ovarian or colon cancer. [facility] Medical History Pelvic pain Headache Vaginal dryness Acute vaginitis Encounter for annual routine gynecological examination Dizzy Tinea corporis Hx of flexible sigmoidoscopy Herpes, genital Dysuria Breast cancer screening by mammogram Diarrhea Otitis externa Neck discomfort Overweight (BMI 25.0-29.9) Overweight COVID-19 vaccine series completed Low back pain Abdominal pain Potential exposure to STD Dyspareunia in female Problematic vaginal discharge Candidal intertrigo Obesity (BMI 30-39.9) Right upper quadrant pain Fatty liver Osteopenia Insomnia Gallbladder polyp GERD (gastroesophageal reflux disease) Hypercholesterolemia Type 2 diabetes mellitus with hyperglycemia Anxiety and depression Intertrigo Breast density H. pylori infection Essential hypertension Migraine ARISTEO on CPAP Arthritis History of panic attacks Vitamin D deficiency Hx of irritable bowel syndrome Enlarged thyroid Fibromyalgia Asthma Hypertension Herpes genitalis Hx of ectopic Surgical History History of esophagogastroduodenoscopy (EGD) H/O colonoscopy S/P repair of ventral hernia Hx of bariatric surgery Hx of cholecystectomy Hx of unilateral oophorectomy Family History Sister Hx of diabetes mellitus Hx of myocardial infarction Father Hx of myocardial infarction Daughter Cancer Sister Hx of diabetes mellitus Social History Household Members: None Housing: Apartment Alcohol intake: former Patient Tobacco Use Status: Former Tobacco user Tobacco use type: Cigarette Cigarette Packs Per Day: 2 Years Smoked: 20 quit 2008 e-Cigarette/Vaping Use: Never Used Second Hand Smoke Exposure: Yes service: No Current occupational status: disabled Gender identity: Female Cognitive needs: No Hearing needs: No Vision needs: Yes Female Reproductive History Menstrual Age of Menarche: 8 Date of last pap smear: 06/30/20 History of abnormal pap smear: No History of STI: No Date of Mammogram: 02/06/24 History of abnormal mammogram: Yes Review of Systems Const All systems reviewed & are unremarkable except as noted in HPI and below Reports as per HPI Eyes Reports no additional complaints ENT Reports no additional complaints Card Reports no additional complaints Resp Reports no additional complaints GI Reports as per HPI and Reports no additional complaints Reports as per HPI Musc Reports no additional complaints Skin/Breast Reports as per HPI Neuro Reports no additional complaints Psych Reports no additional complaints Endo Reports no additional complaints Rosales/Lymph Reports no additional complaints Aller/Immun Reports no additional complaints Physical Exam Vital Signs: Last Vital Signs BP 120/66 02/07/25 13:09 BMI result Body Mass Index 25.5 Const General: cooperative, healthy appearing, no acute distress, well developed and alert Orientation/consciousness: patient oriented x3 HEENT Head: Yes normal to inspection Eyes General: appearance normal, both eyes and all related structures Neck Neck: Yes normal visual inspection Thyroid: Thyroid normal Chest Chest palpation & inspection: normal inspection of the chest and other (no puckering, dimpling, peau de orange, retraction, discharge, masses) Breast/axilla inspection: normal inspection of the breasts Breast/axilla palpation: normal palpation of the breasts Resp Effort & Inspection: normal respiratory effort GI Inspection: Yes normal to inspection Palpation (GI): Soft to palpation Rectal Exam - Female: deferred Other: External-mild labial erythema no edema or evidence of yeast General: Yes bladder normal to palpation External Female Exam: normal external appearance and normal appearance of the urethra Speculum Exam - Vagina: normal appearance of the vagina, normal palpation, normal vaginal discharge and vagina atrophic Speculum Exam - Cervix: normal appearance of the cervix, normal palpation and Other cervical findings present (Atrophic changes bled slightly with Pap) Bimanual exam- vagina & uterus: normal bimanual exam, normal palpation, uterine size normal, bladder normal to palpation, normal palpation and non-tender Bimanual Exam- Adnexa, other: no masses Skin General skin exam: no rashes or lesions noted Rashes: no rashes Neuro General: patient oriented x3 Cognition (Neuro): normal cognition Extrem General: Yes normal to inspection Psych Attitude: cooperative Thought process: Normal thought process present Assessment & Plan Assessment & Plan (1) Well woman exam with routine gynecological exam: Code(s): Z01.419 - Encounter for gynecological examination (general) (routine) without abnormal findings Category: Medical Plan Discussed: Current recommendations for pap smears per ASCCP guidelines. Breast awareness, periodic self breast exams and yearly mammogram. Maintain a healthy lifestyle, well balanced diet including Calcium 1,200 mg and Vitamin D 600 IU daily, and routine exercise. Contact the office with any postmenopausal bleeding. Skin care reviewed. Rx for medication for yeast treatment sent in. Stressed importance of good diabetic control. Patient verbalizes understanding and agrees to the plan of care. She was given opportunity to ask questions and all questions were answered to the best of my ability. RTO in 1 year for annual seam press operator exam. This note is constructed using voice recognition software. While every effort has been made to ensure accuracy, lead database developer errors may have been included. Orders: Orders Pap Smear Today Z01.419 - Encounter for gynecological examination (general) (routine) without abnormal findings CT NG by PCR Today B37.3 - Candidiasis of vulva and vagina Bacterial Vaginosis Panel Today B37.3 - Candidiasis of vulva and vagina Medications: New clotrimazole-betamethasone 1-0.05 % 1 appl topical BID 45 grams 1RF fungal rash 7 days Coding Level of Care Code Est Pt Prev Care >65y(30499) Diagnoses Well woman exam with routine gynecological exam Z01.419
--- OUTSIDE RECORDS SUMMARY | 2025-02-07 13:17 | XMS_ITS | Clinical Summary ---
Author Organization [employer] [facility] Address [address] [place] [address] [address] [place] [address] Care Team Providers Care Cottage Parent Name Role Phone Unavailable Primary Care Provider [...] Description 12/24/2024 2:30 PM EDT Office Visit [facility] ADULT D[facility] [address] [place] [address] Júnior Fernandes DDS Chronic dental pain (Primary Dx); Severe dental caries 11/19/2024 1:00 PM EST Office Visit [facility] ADULT [facility] [address] [place] [address] Jean Barber DMD from Last 3 Months [...] Mass Index - - Plan of Treatment Health Maintenance Due Date Last Done Comments [...] of 2) 08/20/2022 06/25/2022 COVID-19 Vaccine ( - season) 2024 07/28/2021, 01/02/2021, 12/05/2020 Tobacco [...] patient's age to complete this topic Meningococcal B Vaccine Aged Out No l onger eligible based on patient's age to complete [...] Most Recently Relevant to Health Maintenance Insurance [facility]AL-[facility] MEDICAID STAND ADULT
== END 2025-02-07 13:51 | disposition home or self-care (01) ==
LOC: HO.HWS 12:36
PROVIDERS: PCP Internal Medicine; Visit Provider Advanced Practice Midwife
DX: Z01.419 Encounter for gynecological examination (general) (routine) without abnormal findings (principal)
CPT/HCPCS: 99397; 99459

== ENCOUNTER 2025-03-06 10:33 | Outpatient (REF) | payer OTHER, SELFPAY ==
--- OUTSIDE RECORDS SUMMARY | 2025-03-06 11:59 | XMS_ITS | Clinical Summary ---
Author Organization [employer] [facility] Address [address] [place] [address] [address] [place] [address] Care Team Providers Care Banquet Server Name Role Phone Unavailable Primary Care Provider [...] Description 12/24/2024 2:30 PM EDT Office Visit [facility] ADULT D[facility] [address] [place] [address] Júnior Fernandes DDS Chronic dental pain (Primary Dx); Severe dental caries from Last 3 Months Social History Tobacco [...] (ELEVATION/FORCEPS REMOVAL) Routine 12/24/2024 2:30 PM EDT INTRAORAL - COMPLETE SERIES OF RADIOGRAPHIC IMAGES Routine 10/06/2016 12:00 AM EST COMPREHENSIVE ORAL EVALUATION - NEW OR ESTABLISHED PATIENT Routine 10/06/2016 12:00 AM EST PROPHYLAXIS - ADULT Routine 04/05/2013 1 2:00 AM EDT from Last 3 Months or Most Recently Relevant to Health Maintenance Insurance [facility] MEDICAID STAND ADULT [address] [place] [id number]
== END 2025-03-06 10:34 | disposition home or self-care (01) ==
LOC: HO.MAMMO 10:33
PROVIDERS: PCP Internal Medicine; Visit Provider Internal Medicine
DX: Z12.31 Encounter for screening mammogram for malignant neoplasm of breast (principal)
CPT/HCPCS: 77063; 77067

== ENCOUNTER → 2025-03-06 11:15 | Outpatient (BNV) | payer OTHER, SELFPAY | PROVIDERS: PCP Internal Medicine; Visit Provider Internal Medicine | DX: Z12.31 Encounter for screening mammogram for malignant neoplasm of breast (principal) | CPT/HCPCS: 77063; 77067 ==

== ENCOUNTER 2025-03-11 10:27 | Outpatient (AMB) | payer OTHER, SELFPAY ==
--- NOTE | 2025-03-11 10:29 | A.OFFVIS_ITS ---
Vital Signs 03/11/25 10:30 Height 5 ft 2 in Weight 154 lb 5.177 oz BMI 28.2 BP 142/62 H Blood Pressure Location Lt brachial Position Sitting Pulse 62 Intake Visit Reasons: 4 mo Intake Note: Marychuy presents in the office as a 4 month follow up. CC: She states that she still suffers from constipation but medications seem to help. At times she has pains in the abdomen. Banquet Attendant Required: No Allergies JOI Inhibitors Allergy (Intermediate, Verified 03/11/25 11:44) Cough cephalexin [Keflex] Allergy (Intermediate, Verified 03/11/25 11:44) rash codeine [Codeine] Allergy (Intermediate, Verified 03/11/25 11:44) RASH VOMTING- APAP W/ CODEINE, vomiting gemfibrozil [GEMFIBROZIL] Allergy (Intermediate, Verified 03/11/25 11:44) RASH metformin [METFORMIN] Allergy (Intermediate, Verified 03/11/25 11:44) DIARRHEA morphine [Morphine] Allergy (Intermediate, Verified 03/11/25 11:44) HIVES, rash, rash naproxen Allergy (Intermediate, Verified 03/11/25 11:44) inadequate response sulfamethoxazole [From Bactrim] Adverse Reaction (Intermediate, Verified 03/11/25 11:44) nausea trimethoprim [From Bactrim] Adverse Reaction (Intermediate, Verified 03/11/25 11:44) nausea jardiance Adverse Reaction (Intermediate, Uncoded 03/11/25 11:44) vulvar pruritus HPI HPI 4 mo: Details: 63 yr old f here for a\f/u she saw [facility] in past for GERD and constipation colonoscopy 08/19- moderate severe diverticulosis on the right and severe on left, polyps removed INTERIM: Last time I saw her 11/20 she was c/o left sided abdo pain, I gave her AB?x in case of divertifculitis she feels it helped a lot she has occ episodes of left sided pain she is seeing parole or probation officer and she had abn cells on pap smear--awaiting bx she has noted more yeast infections, she feesl constipated at times, EXAM: GENERAL: The patient is well developed and nontoxic. VITAL SIGNS:see workflow HEENT: Nonicteric sclerae, PERRLA, EOMI. Oropharynx clear. Moist mucous membranes. Conjunctivae appear well perfused. No thyroid mass. CHEST: Chest wall is nontender. HEART: Regular rate and rhythm without murmurs. LUNGS: Clear to auscultation bilaterally. ABDOMEN: Soft, positive bowel sounds, nontender, no organomegaly.no flank tenderness SKIN: No rash, no excessive bruising, petechiae, or purpura. NEUROLOGIC: Cranial nerves II-XII intact without motor/sensory deficit. Psych: normal affect A/P: 1/ Left sided abdominal pain, no guarding or acute abdominal signs, does have severe diverticulosis, ? mild or developing diverticulitis PLAN: 1/ repeat colo with suprep 2/ f/u wioth parole or probation officer for us 3/ trial of bentyl 4/ prn abx for possible SIBO PFSH Medical History Pelvic pain Headache Vaginal dryness Acute vaginitis Encounter for annual routine gynecological examination Dizzy Tinea corporis Hx of flexible sigmoidoscopy Herpes, genital Dysuria Breast cancer screening by mammogram Diarrhea Otitis externa Neck discomfort Overweight (BMI 25.0-29.9) Overweight COVID-19 vaccine series completed Low back pain Abdominal pain Potential exposure to STD Dyspareunia in female Problematic vaginal discharge Candidal intertrigo Obesity (BMI 30-39.9) Right upper quadrant pain Fatty liver Osteopenia Insomnia Gallbladder polyp GERD (gastroesophageal reflux disease) Hypercholesterolemia Type 2 diabetes mellitus with hyperglycemia Anxiety and depression Intertrigo Breast density H. pylori infection Essential hypertension Migraine ARISTEO on CPAP Arthritis History of panic attacks Vitamin D deficiency Hx of irritable bowel syndrome Enlarged thyroid Fibromyalgia Asthma Hypertension Herpes genitalis Hx of ectopic Surgical History History of esophagogastroduodenoscopy (EGD) H/O colonoscopy S/P repair of ventral hernia Hx of bariatric surgery Hx of cholecystectomy Hx of unilateral oophorectomy Family History Sister Hx of diabetes mellitus Hx of myocardial infarction Father Hx of myocardial infarction Daughter Cancer Sister Hx of diabetes mellitus Social History Household Members: None Housing: Apartment Alcohol intake: former Patient Tobacco Use Status: Former Tobacco user Tobacco use type: Cigarette Cigarette Packs Per Day: 2 Years Smoked: 20 quit 2008 e-Cigarette/Vaping Use: Never Used Second Hand Smoke Exposure: Yes service: No Current occupational status: disabled Gender identity: Female Cognitive needs: No Hearing needs: No Vision needs: Yes Female Reproductive History Menstrual Age of Menarche: 8 Physical Exam Vital Signs: Last Vital Signs Pulse 62 03/11/25 10:30 BP 142/62 H 03/11/25 10:30 BMI result Body Mass Index 28.2 Results AMB Hemoglobin A1c AMB Hemoglobin A1c 8.9 % Last Edit by CHASE Coon on 03/11/25 12 :57 Assessment & Plan Assessment & Plan (1) Diverticulosis of colon: Comment: Severe diverticulosis, luminal narrowing Code(s): K57.30 - Diverticulosis of large intestine without perforation or abscess without bleeding Category: Medical Plan: as above Medications: New dicyclomine 10 mg PO BID 60 caps 1RF sodium,potassium,mag sulfates 17.5-3.13-1.6 gram (Suprep Bowel Prep Kit) DILUTE; drink 1/2 at 6-8 pm and half at 11 PM- 1AM 354 mL 0RF Refilled sennosides (senna) 8.6 mg PO DAILY PRN 90 tabs 2RF for constipation Discontinued valacyclovir (Valtrex) take with onset on of symptoms, take for three days, may repeat dosing per episode prn Discontinued Reason: Patient no longer taking 500 mg PO BID 30 tabs 1RF polyethylene glycol 3350 Discontinued Reason: Patient no longer taking 17 grams PO DAILY 510 grams 6RF tirzepatide (Mounjaro) for 4 weeks Discontinued Reason: Patient no longer taking 2.5 mg (0.5 mL) subcut QWEEK 2 mL 0RF E11.65 - Type 2 diabetes mellitus with hyperglycemia, 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
[2025-03-11 10:30] VITALS: BP 142/62; PULSE 62; BMI 28.2
--- OUTSIDE RECORDS SUMMARY | 2025-03-11 11:41 | XMS_ITS | Clinical Summary ---
Author Organization [employer] [facility] Address [address] [place] [address] [address] [place] [address] Care Team Providers Care Accounting Clerks Supervisor Name Role Phone Unavailable Primary Care Provider [...] Description 12/24/2024 2:30 PM EDT Office Visit [facility] ADULT D[facility] [address] [place] [address] Júnior Fernandes DDS Chronic dental pain (Primary [...] Health Maintenance Insurance [place] STAND ADULT [address] [place] [id number]
== END 2025-03-11 11:07 | disposition home or self-care (01) ==
LOC: HO.HGI 10:28
PROVIDERS: PCP Internal Medicine; Visit Provider Internal Medicine Gastroenterology
DX: K57.30 Diverticulosis of large intestine without perforation or abscess without bleeding (principal)
CPT/HCPCS: 99213

== ENCOUNTER → 2025-03-11 10:27 | Outpatient (BNVA) | payer OTHER, SELFPAY | PROVIDERS: PCP Internal Medicine; Visit Provider Internal Medicine Gastroenterology | DX: E11.65 Type 2 diabetes mellitus with hyperglycemia (principal); Z23 Encounter for immunization; I10 Essential (primary) hypertension; E78.00 Pure hypercholesterolemia, unspecified; K21.9 Gastro-esophageal reflux disease without esophagitis; F41.1 Generalized anxiety disorder; K76.0 Fatty (change of) liver, not elsewhere classified; Z79.4 Long term (current) use of insulin; Z79.899 Other long term (current) drug therapy; Z13.31 Encounter for screening for depression; Z13.30 Encounter for screening examination for mental health and behavioral disorders, unspecified; K57.30 Diverticulosis of large intestine without perforation or abscess without bleeding | CPT/HCPCS: 83036; 90471; 90677; 96127; 99212 ==

== ENCOUNTER 2025-03-11 11:41 | Outpatient (AMB) | payer OTHER, SELFPAY ==
[2025-03-11 11:43] VITALS: BP 136/84; PULSE 66; O2SAT 96; BMI 25.4
--- NOTE | 2025-03-11 11:43 | MHC.PC.OV ---
Vital Signs 03/11/25 11:43 Height 5 ft 6 in Weight 157 lb 2 oz BMI 25.4 BP 136/84 Blood Pressure Location Lt brachial Position Sitting Pulse 66 Pulse Source Pulse Oximeter Pulse Oximetry (%) 96 Oxygen Delivery Method Room Air Intake Visit Reasons: dm Steward/Stewardess Room Required: No Accompanied by: Self / Same As Patient Allergies JOI Inhibitors Allergy (Intermediate, Verified 03/11/25 11:44) Cough cephalexin [Keflex] Allergy (Intermediate, Verified 03/11/25 11:44) rash codeine [Codeine] Allergy (Intermediate, Verified 03/11/25 11:44) RASH VOMTING- APAP W/ CODEINE, vomiting gemfibrozil [GEMFIBROZIL] Allergy (Intermediate, Verified 03/11/25 11:44) RASH metformin [METFORMIN] Allergy (Intermediate, Verified 03/11/25 11:44) DIARRHEA morphine [Morphine] Allergy (Intermediate, Verified 03/11/25 11:44) HIVES, rash, rash naproxen Allergy (Intermediate, Verified 03/11/25 11:44) inadequate response sulfamethoxazole [From Bactrim] Adverse Reaction (Intermediate, Verified 03/11/25 11:44) nausea trimethoprim [From Bactrim] Adverse Reaction (Intermediate, Verified 03/11/25 11:44) nausea jardiance Adverse Reaction (Intermediate, Uncoded 03/11/25 11:44) vulvar pruritus Tobacco use date assessed: 03/11/25 Fall risk assessment: 2 + Falls in past year Last assessed Fall Risk: 03/11/25 Dental Screening Dental Screen Date: 03/11/25 Did you have a dental visit in the last 12 months?: Yes Did you have a dental problem in the last 6 months where you did not have access to dental care?: No Was dental information given to patient?: Patient has dentist HPI dm HPI Details PAteint will have gynecological procedure this tuesday ? hysteroscopy, will have Colon test and egd late this year. [facility] Medical History Pelvic pain Headache Vaginal dryness Acute vaginitis Encounter for annual routine gynecological examination Dizzy Tinea corporis Hx of flexible sigmoidoscopy Herpes, genital Dysuria Breast cancer screening by mammogram Diarrhea Otitis externa Neck discomfort Overweight (BMI 25.0-29.9) Overweight COVID-19 vaccine series completed Low back pain Abdominal pain Potential exposure to STD Dyspareunia in female Problematic vaginal discharge Candidal intertrigo Obesity (BMI 30-39.9) Right upper quadrant pain Fatty liver Osteopenia Insomnia Gallbladder polyp GERD (gastroesophageal reflux disease) Hypercholesterolemia Type 2 diabetes mellitus with hyperglycemia Anxiety and depression Intertrigo Breast density H. pylori infection Essential hypertension Migraine ARISTEO on CPAP Arthritis History of panic attacks Vitamin D deficiency Hx of irritable bowel syndrome Enlarged thyroid Fibromyalgia Asthma Hypertension Herpes genitalis Hx of ectopic Surgical History History of esophagogastroduodenoscopy (EGD) H/O colonoscopy S/P repair of ventral hernia Hx of bariatric surgery Hx of cholecystectomy Hx of unilateral oophorectomy Family History Sister Hx of diabetes mellitus Hx of myocardial infarction Father Hx of myocardial infarction Daughter Cancer Sister Hx of diabetes mellitus Social History Household Members: None Housing: Apartment Alcohol intake: former Patient Tobacco Use Status: Former Tobacco user Tobacco use type: Cigarette Cigarette Packs Per Day: 2 Years Smoked: 20 quit 2009 e-Cigarette/Vaping Use: Never Used Second Hand Smoke Exposure: Yes service: No Current occupational status: disabled Gender identity: Female Cognitive needs: No Hearing needs: No Vision needs: Yes Female Reproductive History Menstrual Age of Menarche: 8 Questionnaire PHQ-9 Over the last 2 weeks, how often have you been bothered by any of the following problems? 1. Little interest or pleasure in doing things: not at all 2. Feeling down, depressed, or hopeless: not at all 3. Trouble falling or staying asleep, or sleeping too much: not at all 4. Feeling tired or having little energy: not at all 5. Poor appetite or overeating: not at all 6. Feeling bad about yourself - or that you are a failure or have let yourself or your family down: not at all 7. Trouble concentrating on things, such as reading the newspaper or watching television: not at all 8. Moving or speaking so slowly that other people could have noticed. Or the opposite - being so fidgety or restless that you have been moving around a lot more than usual: not at all 9. Thoughts that you would be better off or of hurting yourself in some way: not at all Total score: 0 Depression Screening Interpretation: Negative Depression Screening Done: Yes Source: Developed by Drs. Boston Jimenes, Halley Watkins, Ti Mart and colleagues, with an educational jasmina from [employer]. Thrive Questionnaire Date Thrive assessed: 03/11/25 I am a: Patient What is your living situation today?: I have a steady place to live Within the past 12 months, did the food you bought not last and you didn't have the money to get more?: Never true Within the past 12 months, did you worry whether your food would run out before you got money to buy more?: Never true Do you have trouble paying for medicines?: No Do you have trouble getting transportation to medical appointments?: No Do you have trouble paying your heating and electricity bill?: No Do you have trouble taking care of your child, family member or friend?: No Do you have trouble with day-to-day activities such as bathing, preparing meals, shopping, managing finances, etc.?: No Are you currently unemployed and looking for a job?: No Are you interested in more education?: No Please select the resources that you would like help with: None Currently or been in a relationship where the following occur: No concerns reported THRIVE Score: 0 AUDIT C Alcohol Use Questionnaire (AUDIT-C) 1. How often do you have a drink containing alcohol?: Never 3. How often do you have six or more drinks on one occasion?: Never Total Score: 0 ANJEL-7 AMB Questionnaire ANJEL-7 Date ANJEL - 7 assessed: 03/11/25 Feeling nervous, anxious, or on edge: 0 = Not at all Not being able to stop or control worryin = Not at all Worrying too much about different things: 0 = Not at all Trouble relaxin = Not at all Being so restless that it is hard to sit still: 0 = Not at all Becoming easily annoyed or irritable: 0 = Not at all Feeling afraid as if something awful might happen: 0 = Not at all Total ANJEL-7 score (0-4 normal; 5-9 mild; 10-14 moderate; 15-21 severe): 0 Source: Developed by Drs. Boston Jimenes, Halley Watkins, [employer] and colleagues, with an educational jasmina from [employer]. Physical exam (Primary Care) Vital Signs: Last Vital Signs Pulse 66 03/11/25 11:43 BP 136/84 03/11/25 11:43 Pulse Ox 96 03/11/25 11:43 Oxygen Delivery Method Room Air 03/11/25 11:43 BMI result Body Mass Index 25.4 Tobacco/Smoking Status: Tobacco use Status Tobacco use date assessed 03/11/25 03/11/25 11:47 Patient Tobacco Use Status Former Tobacco user 03/11/25 11:47 Tobacco use type Cigarette 03/11/25 11:47 e-Cigarette/Vaping Use Never Used 03/11/25 11:47 PHQ-9: PHQ-9 Score PHQ-9: Total score 0 03/11/25 12:57 Depression Screening Interpretation: Negative Thrive Assessment: Date of Thrive Assessment Date Thrive assessed 03/11/25 03/11/25 11:47 Currently or been in a relationship where the following occur: No concerns reported Const General: alert; No acute distress Eyes Conjunctivae: conjunctivae normal Resp Auscultation: clear to auscultation bilaterally Cardio Rate: regular rate Rhythm: regular rhythm GI Inspection: Yes normal to inspection Extrem General: Yes normal to inspection and No edema Results AMB Hemoglobin A1c AMB Hemoglobin A1c 8.9 % Last Edit by CHASE Coon on 03/11/25 12:57 Immunizations pneumoc 20-caryn conj-dip cr(PF) 0.5 mL IM syringe Performing Provider: Lanny Soria MD [facility] Administered by: CHASE Coon on 03/11/25 12:51 Dose Route Admin Location Dispensed Lot Number Expiration Date [facility] 0.5 mL IM Left Deltoid 0.5 mL [id number] 02/24/26 [employer] [place] VIS Given Date VIS Provided VIS Publication Date 03/11/25 Single Vaccine 25 Eligibility Eligibility Date Funding Source Not [facility] Eligible 03/11/25 Private Results Reviewed Results Reviewed: Laboratory Last Values Hgb A1c (Clinic) 8.9 % (4.0-6.0) H 03/11/25 11:57 Coding Level of Care Code Est Pt Level 4 (59461) Complex EM visit Add On G2211 Diagnoses Type 2 diabetes mellitus with hyperglycemia, with long-term current use of insulin E11.65; Z79.4 Diabetes mellitus mcc insulin use: with intermediate manager use Essential hypertension I10 Hypercholesterolemia E78.00 Gastroesophageal reflux disease without esophagitis K21.9 Esophagitis presence: without esophagitis Generalized anxiety disorder F41.1 NAFLD (nonalcoholic fatty liver disease) K76.0 Assessment & Plan Assessment & Plan (1) Type 2 diabetes mellitus with hyperglycemia: Code(s): E11.65 - Type 2 diabetes mellitus with hyperglycemia Category: Medical Qualifiers: Diabetes mellitus intermediate manager insulin use: with intermediate manager use Qualified Code(s): E11.65 - Type 2 diabetes mellitus with hyperglycemia; Z79.4 - emt intermediate (current) use of insulin Plan: Decrease the amount of carbohydrate intake, pasta, bread, rice and potatoes are all sugar and that is aside from all the sweet stuff, remember that fruits are good but they are Sweet also. Hemoglobin A1c goal of less than 6.5. Patient is on NovoLog and Tresiba (2) Essential hypertension: Code(s): I10 - Essential (primary) hypertension Category: Medical Plan: Continue with blood pressure medication. Decrease salt intake and exercise patient on losartan 25 mg once a day (3) Hypercholesterolemia: Code(s): E78.00 - Pure hypercholesterolemia, unspecified Category: Medical Plan: Avoid fried foods, chicken skin, eggs, butter margarine, pastries and meat. Be it pork or beef they have a lot of cholesterol on simvastatin 40 mg once a day June 2024 last blood work (4) GERD (gastroesophageal reflux disease): Code(s): K21.9 - Gastro-esophageal reflux disease without esophagitis Category: Medical Qualifiers: Esophagitis presence: without esophagitis Qualified Code(s): K21.9 - Gastro-esophageal reflux disease without esophagitis Plan: Avoid the foods that causes that usually spicy foods, tomato products, juices, coffee, soda and foods that your sensitive to. After eating do not lie down, allow 3-4 hours before in lie down. And keep the head of bed above 30 degrees to avoid the acid from going up. (5) Generalized anxiety disorder: Comment: [facility] 2 x a month therapist (Gem Menezes) and psychiatrist Q 3 months Code(s): F41.1 - Generalized anxiety disorder Category: Medical Plan: Continue with present medication and counseling (6) NAFLD (nonalcoholic fatty liver disease): Comment: A good weight, glucose and lipid-continue to abstain from alcohol Code(s): K76.0 - Fatty (change of) liver, not elsewhere classified Category: Medical Plan: Low-fat diet and exercise Plan History of Present Illness The patient is a 64-year-old female presenting with a follow-up for chronic conditions and preventative care. She has a history of diabetes mellitus, hypertension, hypercholesterolemia, gastroesophageal reflux disease, anxiety disorder, hepatic steatosis, and obstructive sleep apnea. Her diabetes management includes NovoLog and Tresiba, with a hemoglobin A1c goal of less than 6.5%. The most recent hemoglobin A1c was 8.9%, indicating poor glycemic control. She reports dietary habits that include consuming cranberry juice, which may contribute to elevated blood sugar levels. For hypertension, she is on losartan 25 mg once daily. Her cholesterol management includes simvastatin 40 mg once daily, with the last LDL cholesterol level recorded at 65 mg/dL in June 2024. The patient has a history of gastroesophageal reflux disease, managed with medication and lifestyle modifications, including a low-fat diet and exercise. She reports recurrent yeast infections, which may be related to uncontrolled blood sugar levels. The patient suspects anemia due to symptoms of fatigue and dizziness, and she has a history of receiving iron injections in her youth. Preventative care measures include a colonoscopy, which was last performed in July 2024, and a mammogram, which is due. Health Maintenance - Colonoscopy last performed in July 2024, repeat advised this year - Mammogram due - Pneumonia vaccination discussed Social History - Reports dietary habits including consumption of cranberry juice and limited food intake - Reports difficulty with exercise due to health conditions, but engages in activities like laundry Review of Systems - General: Reports fatigue and dizziness, denies shortness of breath - Endocrine: Reports high blood sugar levels - Gastrointestinal: Reports improved bowel movements - Genitourinary: Reports recurrent yeast infections Physical Exam Results - Labs: Hemoglobin A1c 8.9% (October 2024) - Labs: LDL cholesterol 65 mg/dL (June 2024) - Labs: Elevated liver function tests Plan The management plan for diabetes includes maintaining a hemoglobin A1c goal of less than 6.5% with the use of NovoLog and Tresiba. Dietary modifications are advised, particularly reducing the intake of high-sugar beverages like cranberry juice. For hypertension, the patient will continue on losartan 25 mg once daily. Cholesterol management will continue with simvastatin 40 mg once daily. The patient is advised to continue current management for gastroesophageal reflux disease, including medication and lifestyle modifications such as a low-fat diet and exercise. Preventative care includes scheduling a colonoscopy and ensuring the mammogram is completed. A pneumonia vaccination is also recommended. Patient was informed and verbally consented to the use of an ambient scribe for clinic note documentation during this visit. Discussion Notes During the visit, I discussed the importance of maintaining a hemoglobin A1c goal of less than 6.5% with the patient, emphasizing the role of NovoLog and Tresiba in achieving this target. We reviewed dietary habits, particularly the impact of high-sugar beverages like cranberry juice on blood sugar levels. I advised the continuation of losartan for hypertension and simvastatin for cholesterol management. We also discussed the management of gastroesophageal reflux disease with medication and lifestyle changes, including a low-fat diet and exercise. Preventative care measures were reviewed, including the need for a colonoscopy and mammogram, as well as the recommendation for a pneumonia vaccination. Patient Instructions - Continue taking NovoLog and Tresiba as prescribed. - Reduce intake of high-sugar beverages like cranberry juice. - Continue losartan 25 mg once daily for hypertension. - Continue simvastatin 40 mg once daily for cholesterol management. - Follow a low-fat diet and engage in regular exercise for GERD management. - Schedule and complete a colonoscopy and mammogram. - Obtain a pneumonia vaccination. Orders: Orders Pneumococcal 20 Immunization Today Z23 - Encounter for immunization AMB Hemoglobin A1c Today Z13.9 - Encounter for screening, unspecified Referrals Endocrinology Referral E11.65 - Type 2 diabetes mellitus with hyperglycemia, Z79.4 - snf (current) use of insulin Medications: Refilled losartan 25 mg PO DAILY 90 tabs 3RF 90 days I10 - Essential (primary) hypertension simvastatin 40 mg PO BEDTIME 90 tabs 2RF 3 months E78.00 - Pure hypercholesterolemia, unspecified insulin aspart U-100 (Novolog FlexPen U-100 Insulin aspart) 12 units (0.12 mL) subcut TID 15 mL 3RF E11.65 - Type 2 diabetes mellitus with hyperglycemia, Z79.4 - emt intermediate (current) use of insulin insulin degludec (Tresiba FlexTouch U-200 insulin) 5 pens one script 11 refill 50 units (0.25 mL) subcut BEDTIME 5 ea 11RF 30 days E11.65 - Type 2 diabetes mellitus with hyperglycemia Discontinued flash glucose scanning reader (FreeStyle Jose F 14 Day [place]) Discontinued Reason: Insurance Denied As directed 1 ea 0RF E11.65 - Type 2 diabetes mellitus with hyperglycemia flash glucose sensor (FreeStyle Jose F 14 Day Sensor kit) Discontinued Reason: Insurance Denied As directed 6 kits 3RF E11.65 - Type 2 diabetes mellitus with hyperglycemia
== END 2025-03-11 12:50 | disposition home or self-care (01) ==
LOC: HO.HMCH 11:41
PROVIDERS: PCP Internal Medicine; Visit Provider Internal Medicine
DX: E11.65 Type 2 diabetes mellitus with hyperglycemia (principal); Z79.4 Long term (current) use of insulin; I10 Essential (primary) hypertension; E78.00 Pure hypercholesterolemia, unspecified; K21.9 Gastro-esophageal reflux disease without esophagitis; F41.1 Generalized anxiety disorder; K76.0 Fatty (change of) liver, not elsewhere classified; Z23 Encounter for immunization; Z13.9 Encounter for screening, unspecified

== ENCOUNTER 2025-03-13 09:36 | Outpatient (REF) | payer OTHER, SELFPAY | END 2025-03-13 09:37 | disposition home or self-care (01) | LOC: HO.LNP 09:36 | PROVIDERS: PCP Internal Medicine; Visit Provider Obstetrics & Gynecology | DX: R87.610 Atypical squamous cells of undetermined significance on cytologic smear of cervix (ASC-US) (principal) | CPT/HCPCS: 57454; 88305; 88341; 88342 ==

== ENCOUNTER 2025-03-13 09:36 | Outpatient (AMB) | payer OTHER, SELFPAY ==
--- NOTE | 2025-03-13 09:45 | A.OFFVIS_ITS ---
Intake Visit Reasons: Colposcopy/ok maria d [place] [employer] Sales Associate: Lodge Sales Associate Present (Camelia) Accompanied by: Self / Same As Patient Allergies JOI Inhibitors Allergy (Intermediate, Verified 03/13/25 09:45) Cough cephalexin (Keflex) Allergy (Intermediate, Verified 03/13/25 09:45) rash codeine (Codeine) Allergy (Intermediate, Verified 03/13/25 09:45) RASH VOMTING- APAP W/ CODEINE, vomiting gemfibrozil (GEMFIBROZIL) Allergy (Intermediate, Verified 03/13/25 09:45) RASH metformin (METFORMIN) Allergy (Intermediate, Verified 03/13/25 09:45) DIARRHEA morphine (Morphine) Allergy (Intermediate, Verified 03/13/25 09:45) HIVES, rash, rash naproxen Allergy (Intermediate, Verified 03/13/25 09:45) inadequate response sulfamethoxazole (From Bactrim) Adverse Reaction (Intermediate, Verified 03/13/25 09:45) nausea trimethoprim (From Bactrim) Adverse Reaction (Intermediate, Verified 03/13/25 09:45) nausea jardiance Adverse Reaction (Intermediate, Uncoded 03/11/25 11:44) vulvar pruritus HPI Comments Details: Presenting for abnormal Pap smear showing ascu-H /HPV negative PFSH Medical History Pelvic pain Headache Vaginal dryness Acute vaginitis Encounter for annual routine gynecological examination Dizzy Tinea corporis Hx of flexible sigmoidoscopy Herpes, genital Dysuria Breast cancer screening by mammogram Diarrhea Otitis externa Neck discomfort Overweight (BMI 25.0-29.9) Overweight COVID-19 vaccine series completed Low back pain Abdominal pain Potential exposure to STD Dyspareunia in female Problematic vaginal discharge Candidal intertrigo Obesity (BMI 30-39.9) Right upper quadrant pain Fatty liver Osteopenia Insomnia Gallbladder polyp GERD (gastroesophageal reflux disease) Hypercholesterolemia Type 2 diabetes mellitus with hyperglycemia Anxiety and depression Intertrigo Breast density H. pylori infection Essential hypertension Migraine ARISTEO on CPAP Arthritis History of panic attacks Vitamin D deficiency Hx of irritable bowel syndrome Enlarged thyroid Fibromyalgia Asthma Hypertension Herpes genitalis Hx of ectopic Surgical History History of esophagogastroduodenoscopy (EGD) H/O colonoscopy S/P repair of ventral hernia Hx of bariatric surgery Hx of cholecystectomy Hx of unilateral oophorectomy Family History Sister Hx of diabetes mellitus Hx of myocardial infarction Father Hx of myocardial infarction Daughter Cancer Sister Hx of diabetes mellitus Social History Household Members: None Housing: Apartment Alcohol intake: former Patient Tobacco Use Status: Former Tobacco user Tobacco use type: Cigarette Cigarette Packs Per Day: 2 Years Smoked: 20 quit 2008 e-Cigarette/Vaping Use: Never Used Second Hand Smoke Exposure: Yes service: No Current occupational status: disabled Gender identity: Female Cognitive needs: No Hearing needs: No Vision needs: Yes Female Reproductive History Menstrual Age of Menarche: 8 Review of Systems Const All systems reviewed & are unremarkable except as noted in HPI and below Physical Exam General: Yes no CVA tenderness External Female Exam: normal external appearance and normal appearance of the urethra Speculum Exam - Vagina: normal appearance of the vagina, normal palpation, no lesions and no masses Speculum Exam - Cervix: normal appearance of the cervix, normal palpation, no lesions, no masses and nontender Bimanual exam- vagina & uterus: normal bimanual exam, normal palpation, uterine size normal, normal palpation, uterine shape normal, No Cervical tenderness present and non-tender Bimanual Exam- Adnexa, other: normal adnexae Back/Spine/Pelvis Back: no CVA tenderness Office Procedures Colposcopy Colposcopy: Pre-Procedure Counseling: Before beginning the procedure, I conducted comprehensive counseling with the patient. We thoroughly discussed the procedure itself, including its details, alternatives, and all associated risks. This included but not limited to the following complications such as bleeding, infection, and injury to the vagina, bladder, and vessels, as well as the potential need for transfusion with all its associated risks. Subsequently, the patient sign the consent. Pap smear result: Asccan not rule out high-grade Procedure: During the procedure, the following steps were performed: A speculum was inserted, and acetic acid was applied. Colposcopy was conducted, allowing visualization of the transformation zone. Acetowhite lesions were identified at the 6+9+11+12 o'clock position. Cervical biopsies were obtained from the 6+9+11+12 o'clock position, followed by an endocervical curettage (ECC). Vaginoscopy of the upper vagina revealed no evidence of aceto-white lesions. Hemostasis was achieved using Monsel solution, and the patient tolerated the procedure well. Post-Procedure Instructions: The patient was advised to promptly contact the office or the after hours answering service or go to the emergency room if experiencing a temperature exceeding 100.4?F, abdominal pain, nausea/vomiting, or bleeding. Additionally, the patient was instructed to abstain from vaginal intercourse and bathtub use. The patient confirmed understanding of these instructions. Discharge Instructions: The patient was instructed to schedule a follow-up appointment in 2 weeks for further evaluation and management. Please note that this note was generated using a voice recognition program, and errors may have occurred during addiction psychiatrist. [id number] of cervix including upper vagina with biopsy and ECC Procedure code (CPT) selection complete Assessment & Plan Assessment & Plan (1) Pap smear cannot exclude high grade squamous intraepithelial lesion (ASC-H): Comment: HPV negative Code(s): R87.610 - Atypical squamous cells of undetermined significance on cytologic smear of cervix (ASC-US) Category: Medical Plan: Discussed with the patient the result of her abnormal pap, its significance, risk of progression, persistence, and regression. the false positive/negative rate of a Pap smear as a screening test in detecting cervical cancer and the indication for a diagnostic test -colposcopy, biopsy, endocervical curettage. The patient verbalized understanding and agreed with the plan, all questions answered. Colposcopy, biopsy /ECC done, see procedure note Orders: Orders AMB Colposcopy Today R87.610 - Atypical squamous cells of undetermined significance on cytologic smear of cervix (ASC-US) Coding Level of Care Code Procedure Only Diagnoses Pap smear cannot exclude high grade squamous intraepithelial lesion (ASC-H) R87.610 CPT Codes Colposcopy - CPT: 50317-[id number] of cervix including upper vagina with biopsy and ECC ([id number])
--- OUTSIDE RECORDS SUMMARY | 2025-03-13 10:34 | XMS_ITS | Clinical Summary ---
Author Organization [facility] Address [address] [place] [address] [address] [place] [address] Care Team Providers Care Manager Material Name Role Phone Unavailable Primary Care Provider [...] Description 12/24/2024 2:30 PM EDT Office Visit [facility] [address] [place] [address] Júnior Fernandes DDS Chronic dental pain (Primary [...] Health Maintenance Insurance [facility] AD[place] [address] [place] [id number]
== END 2025-03-13 10:10 | disposition home or self-care (01) ==
LOC: HO.HWS 09:36
PROVIDERS: PCP Internal Medicine; Visit Provider Obstetrics & Gynecology
DX: R87.610 Atypical squamous cells of undetermined significance on cytologic smear of cervix (ASC-US) (principal)
CPT/HCPCS: 57454

== ENCOUNTER 2025-03-27 13:37 | Outpatient (AMB) | payer OTHER, SELFPAY ==
--- NOTE | 2025-03-27 13:52 | A.OFFVIS_ITS ---
Intake Visit Reasons: Repeat ECC Farm Consultant: Farm Consultant Present (CHASE Brown) Accompanied by: Self / Same As Patient Allergies JOI Inhibitors Allergy (Intermediate, Verified 03/27/25 13:52) Cough cephalexin (Keflex) Allergy (Intermediate, Verified 03/27/25 13:52) rash codeine (Codeine) Allergy (Intermediate, Verified 03/27/25 13:52) RASH VOMTING- APAP W/ CODEINE, vomiting gemfibrozil (GEMFIBROZIL) Allergy (Intermediate, Verified 03/27/25 13:52) RASH metformin (METFORMIN) Allergy (Intermediate, Verified 03/27/25 13:52) DIARRHEA morphine (Morphine) Allergy (Intermediate, Verified 03/27/25 13:52) HIVES, rash, rash naproxen Allergy (Intermediate, Verified 03/27/25 13:52) inadequate response sulfamethoxazole (From Bactrim) Adverse Reaction (Intermediate, Verified 03/27/25 13:52) nausea trimethoprim (From Bactrim) Adverse Reaction (Intermediate, Verified 03/27/25 13:52) nausea jardiance Adverse Reaction (Intermediate, Uncoded 03/11/25 11:44) vulvar pruritus HPI Comments Details: Presenting post colpo for follow-up. The patient is doing well with no complaints. The pathology showed the following: A. Endocervix, curettage: Rare benign endocervical glandular epithelial cells and no squamous epithelium; may not be b2b sales representative of the endocervix. B. Cervix, 6:00, biopsy: Squamous mucosa with reactive changes; negative for dysplasia; no endocervical glandular component present. C. Cervix, 9:00, biopsy: Squamous mucosa with inflammation and focal atypia; no endocervical glandular mucosa present (see comment). D. Cervix, 11:00, biopsy: Squamous mucosa with reactive changes; negative for dysplasia; no endocervical glandular mucosa present. E. Cervix, 12:00, biopsy: Squamous mucosa with inflammation and reactive and atrophic changes, and focal atypia; no endocervical glandular mucosa present (see comment). Comment: The atypia seen in C and E is similar to the atypia seen in the patient's previous Pap test ([id number]), and is insufficient for a diagnosis of low grade dysplasia. There is no evidence of high grade dysplasia The patient has been complaining over the last 2 months of yellow vaginal discharge PFSH Medical History Pelvic pain Headache Vaginal dryness Acute vaginitis Encounter for annual routine gynecological examination Dizzy Tinea corporis Hx of flexible sigmoidoscopy Herpes, genital Dysuria Breast cancer screening by mammogram Diarrhea Otitis externa Neck discomfort Overweight (BMI 25.0-29.9) Overweight COVID-19 vaccine series completed Low back pain Abdominal pain Potential exposure to STD Dyspareunia in female Problematic vaginal discharge Candidal intertrigo Obesity (BMI 30-39.9) Right upper quadrant pain Fatty liver Osteopenia Insomnia Gallbladder polyp GERD (gastroesophageal reflux disease) Hypercholesterolemia Type 2 diabetes mellitus with hyperglycemia Anxiety and depression Intertrigo Breast density H. pylori infection Essential hypertension Migraine ARISTEO on CPAP Arthritis History of panic attacks Vitamin D deficiency Hx of irritable bowel syndrome Enlarged thyroid Fibromyalgia Asthma Hypertension Herpes genitalis Hx of ectopic Surgical History History of esophagogastroduodenoscopy (EGD) H/O colonoscopy S/P repair of ventral hernia Hx of bariatric surgery Hx of cholecystectomy Hx of unilateral oophorectomy Family History Sister Hx of diabetes mellitus Hx of myocardial infarction Father Hx of myocardial infarction Daughter Cancer Sister Hx of diabetes mellitus Social History Household Members: None Housing: Apartment Alcohol intake: former Patient Tobacco Use Status: Former Tobacco user Tobacco use type: Cigarette Cigarette Packs Per Day: 2 Years Smoked: 20 quit 2008 e-Cigarette/Vaping Use: Never Used Second Hand Smoke Exposure: Yes service: No Current occupational status: disabled Gender identity: Female Cognitive needs: No Hearing needs: No Vision needs: Yes Female Reproductive History Menstrual Age of Menarche: 8 Assessment & Plan Assessment & Plan (1) Pap smear cannot exclude high grade squamous intraepithelial lesion (ASC-H): Comment: HPV negative ? SYEDA 1 ECC insufficient tissue Code(s): R87.610 - Atypical squamous cells of undetermined significance on cytologic smear of cervix (ASC-US) Category: Medical Plan: ECC repeated. Pre-Procedure Counseling: Before beginning the procedure, I conducted comprehensive counseling with the patient. We thoroughly discussed the procedure itself, including its details, a lternatives, and all associated risks. This included but not limited to the following complications such as bleeding, infection, and injury to the vagina, bladder, and vessels, as well as the potential need for transfusion with all its associated risks. Subsequently, the patient sign the consent. Pap smear result: Ascus-H HPV negative, ECC tissues not sufficient. Procedure: During the procedure, the following steps were performed: A speculum was inserted, and acetic acid was applied. Endocervical curettage (ECC). Hemostasis was achieved using Monsel solution, and the patient tolerated the procedure well. Post-Procedure Instructions: The patient was advised to promptly contact the office or the after hours answering service or go to the emergency room if experiencing a temperature e xceeding 100.4?F, abdominal pain, nausea/vomiting, or bleeding. Additionally, the patient was instructed to abstain from vaginal intercourse and bathtub use. The patient confirmed understanding of these instructions. Discharge Instructions: The patient was instructed to schedule a follow-up appointment in 2 weeks for further evaluation and management. Please note that this note was generated using a voice recognition program, and errors may have occurred during digital ad trafficker. o (2) Vaginal discharge: Code(s): N89.8 - Other specified noninflammatory disorders of vagina Category: Medical Plan: GC/CT with BV panel and a pelvic ultrasound ordered to rule out cervical/vaginal infection or rule out endometrial pathology. All questions answered, the patient verbalized understanding Orders: Orders US pelvic and transvaginal Today N89.8 - Other specified noninflammatory disorders of vagina Coding Level of Care Code Est Pt Level 3 (50185) Diagnoses Pap smear cannot exclude high grade squamous intraepithelial lesion (ASC-H) R87.610 Vaginal discharge N89.8
== END 2025-03-27 14:19 | disposition home or self-care (01) ==
LOC: HO.HWS 13:37
PROVIDERS: PCP Internal Medicine; Visit Provider Obstetrics & Gynecology
DX: R87.610 Atypical squamous cells of undetermined significance on cytologic smear of cervix (ASC-US) (principal); N89.8 Other specified noninflammatory disorders of vagina
CPT/HCPCS: 99213

== ENCOUNTER 2025-03-27 13:37 | Outpatient (REF) | payer OTHER, SELFPAY ==
--- OUTSIDE RECORDS SUMMARY | 2025-03-27 14:49 | XMS_ITS | Clinical Summary ---
Author Organization [employer] [facility] Address [address] [place] [address] [address] [place] [address] Care Team Providers Care Fire Claims Adjuster Name Role Phone Unavailable Primary Care Provider Unavailabl e Allergies Active Allergy Reactions Criticality Noted Date Comments Acetaminophen-Codeine 11/19/2024 Cephalexin 11/19/2024 Morphine 11/19/2024 Medications ibuprofen 400 MG tablet Take 1 tablet (400 mg) by mouth every 6 (six) hours if needed for moderate pain. 30 tablet 12/24/2024 Active Active Problems Problem Noted Date Diagnosed Date Chronic dental pain 12/24/2024 Severe dental caries 12/24/2024 Social History Tobacco Use Types Packs/Day Years [...] Procedure Name Priority Date/Time Associated Diagnosis Comments INTRAORAL - COMPLETE SERIES OF RADIOGRAPHIC IMAGES Routine 10/06/2016 12:00 AM EST COMPREHENSIVE ORAL EVALUATION - NEW OR ESTABLISHED PATIENT Routine 10/06/2016 12:00 AM EST PROPHYLAXIS - ADULT Routine 04/05/2013 1 2:00 AM EDT from Last 3 Months or Most Recently Relevant to Health Maintenance Insurance [place] [employer] [place] ADULT
[2025-03-27 21:05] LABS: Bacterial Vaginosis PCR NEGATIVE (Negative); Candida Group PCR NOT DETECTED (Not Detect); Candida glab krusei PCR NOT DETECTED (Not Detect); Trichomonas vaginalis PCR NOT DETECTED (Not Detect)
[2025-03-27 22:34] LABS: CT PCR NOT DETECTED (Not Detect.); NG PCR NOT DETECTED (Not Detect.)
== END 2025-03-27 13:38 | disposition home or self-care (01) ==
LOC: HO.LNP 13:37
PROVIDERS: PCP Internal Medicine; Visit Provider Obstetrics & Gynecology
DX: N89.8 Other specified noninflammatory disorders of vagina (principal); N72 Inflammatory disease of cervix uteri; N88.8 Other specified noninflammatory disorders of cervix uteri; R87.610 Atypical squamous cells of undetermined significance on cytologic smear of cervix (ASC-US)
CPT/HCPCS: 81515; 87491; 87591; 88305; 88341; 88342; 99212

== ENCOUNTER 2025-05-02 13:31 | Outpatient (REF) | payer OTHER, SELFPAY ==
--- NOTE | ~2025-05-02 | US_ITS ---
EXAMINATION: US PELVIS CLINICAL INFORMATION: Vaginal discharge COMPARISON: June 07, 2017. Correlated to CT abdomen and pelvis dated March 12, 2024. TECHNIQUE: Ultrasound of the pelvis is performed using both transabdominal and transvaginal transducers along with Doppler. Transvaginal imaging is performed due to inadequate visualization transabdominally. FINDINGS: Uterus: The uterus is anteversion flexion and measures 7 x 3 x 4 cm. The double wall endometrial thickness is 5 mm. The uterus is smooth in contour and has normal myometrial echogenicity. Heterogeneous anechoic abnormality is within the endometrial stripe/uterine cavity. Adnexa: The ovaries are not identified.. No free fluid in the cul-de-sac. US/US pelvic and transvaginal IMPRESSION: 5 mm up to normal limits in the endometrial stripe with fluid/cystic abnormality. Recommend direct inspection. Electronically signed by: Baldemar Rosenbaum MD 05/02/2025 02:20 PM EDT
--- OUTSIDE RECORDS SUMMARY | 2025-05-02 13:34 | XMS_ITS | Clinical Summary ---
Author Organization [employer] Address [address] [place] [address] [address] [place] [address] Care Team Providers Care Roller Printer Name Role Phone Unavailable Primary Care Provider [...] (4 - season) 2024 07/28/2021, 01/02/2021, 12/05/2020 Influenza Vaccine (#1) 2025 , 08/09/2023, 07/28/2021, Additional history exists Tobacco Screening 12/24/2025 12/24/2024 DTaP/Tdap/Td Vaccines (3 - Td or Tdap) 07/30/2026 07/30/2016, 11/22/2011, 01/04/2008 RSV Patients and Patients Aged 60 years or older (1 - 1-dose 75+ series) 12/12/2034 Hepatitis B Vaccines Completed 01/04/2008, 07/13/2007, 05/31/2007 HIB Vaccines Aged Out No longer eligi [...]
== END 2025-05-02 13:32 | disposition home or self-care (01) ==
LOC: HO.US 13:31
PROVIDERS: PCP Internal Medicine; Visit Provider Obstetrics & Gynecology
DX: N89.8 Other specified noninflammatory disorders of vagina (principal)
CPT/HCPCS: 76830; 76856

== ENCOUNTER → 2025-05-02 13:33 | Outpatient (BNV) | payer OTHER, SELFPAY | PROVIDERS: PCP Internal Medicine; Visit Provider Radiology Diagnostic Radiology | DX: N89.9 Noninflammatory disorder of vagina, unspecified (principal) | CPT/HCPCS: 76830; 76856 ==

== ENCOUNTER 2025-05-03 13:29 | Outpatient (AMB) | payer OTHER, SELFPAY ==
--- NOTE | 2025-05-03 13:30 | A.OFFVIS_ITS ---
Vital Signs 05/03/25 13:31 05/03/25 14:00 Height 5 ft 6 in Weight 163 lb 2.273 oz BMI 26.3 BP 188/66 H 132/70 Blood Pressure Location Rt brachial Rt brachial Position Sitting Sitting Pulse 64 Pulse Source Pulse Oximeter Pulse Oximetry (%) 98 Oxygen Delivery Method Room Air Intake Visit Reasons: Type 2 diabetes mellitus with hyperglycemia Intake Note: Patient present today for Type 2 Diabetes Mellitus Last Diabetic eye exam: Patient has an exam this year but is unsure of the month Last Podiatry Visit: Doesn't have one Random Glucose: 273 mg/dl HgA1C: 8.9% 03/11/25 Primary School Teacher Required: No Accompanied by: Self / Same As Patient Allergies JOI Inhibitors Allergy (Intermediate, Verified 05/03/25 13:35) Cough cephalexin (Keflex) Allergy (Intermediate, Verified 05/03/25 13:35) rash codeine (Codeine) Allergy (Intermediate, Verified 05/03/25 13:35) RASH VOMTING- APAP W/ CODEINE, vomiting gemfibrozil (GEMFIBROZIL) Allergy (Intermediate, Verified 05/03/25 13:35) RASH metformin (METFORMIN) Allergy (Intermediate, Verified 05/03/25 13:35) DIARRHEA morphine (Morphine) Allergy (Intermediate, Verified 05/03/25 13:35) HIVES, rash, rash naproxen Allergy (Intermediate, Verified 05/03/25 13:35) inadequate response sulfamethoxazole (From Bactrim) Adverse Reaction (Intermediate, Verified 05/03/25 13:35) nausea trimethoprim (From Bactrim) Adverse Reaction (Intermediate, Verified 05/03/25 13:35) nausea jardiance Adverse Reaction (Intermediate, Uncoded 05/03/25 13:35) vulvar pruritus Medication List - Last Reconciled 05/03/25 by Ember Sanches PA-C albuterol sulfate 90 mcg/actuation 1 puff PO Q4H PRN alcohol swabs (Alcohol Prep Pads) 1 pad topical TID amitriptyline 25 mg PO BEDTIME [bed pad As directed] [Bedside safety handle As directed] bisacodyl (Dulcolax (bisacodyl)) 20 mg (4 x 5 mg) PO ONCE PRN 1 day blood sugar diagnostic (FreeStyle Lite Strips) TEST BLOOD SUGAR 3 TIMES A DAY blood-glucose meter (FreeStyle Lite Meter kit) As directed cholecalciferol (vitamin D3) 25 mcg PO DAILY 3 months citalopram 40 mg PO DAILY 2 months clonazepam 0.5 mg PO DAILY PRN cyclobenzaprine 10 mg PO BEDTIME PRN 7 days MDD , [Diaper Medium As directed] dicyclomine 10 mg PO BID docusate sodium 100 mg PO DAILY PRN econazole nitrate 1% 1 appl topical BID fluticasone propionate 50 mcg/actuation 1 spray intranasal DAILY 30 days [Grab bars As directed] insulin aspart U-100 (Novolog FlexPen U-100 Insulin aspart) 12 units (0.12 mL) subcut TID insulin degludec (Tresiba FlexTouch U-200 insulin) 50 units (0.25 mL) subcut BEDTIME 30 days Lactobacillus rhamnosus GG (Culturelle) 1 cap PO DAILY lancets (TRUEplus Lancets) 1 gauge miscellaneous TIDWMEAL 90 days linaclotide (Linzess) 290 mcg PO QAM 30 days losartan 25 mg PO DAILY 90 days methylcellulose (laxative) (Citrucel) 500 mg PO TID 30 days miconazole nitrate 2% (Monistat 7) 1 appful vaginal BEDTIME 7 days miconazole nitrate 2% (Zeasorb AF) 1 appl topical BID ondansetron 4 mg PO Q8H PRN pantoprazole 20 mg PO DAILY 90 days pen needle, diabetic (Sure-Fine Pen [place]) As directed- TID pen needle, diabetic As directed use with trulicity, basaglar and novolog 4 x a day [REUSABLE UNDERPAD As directed] [Scooter As directed] sennosides (senna) 8.6 mg PO DAILY PRN simvastatin 40 mg PO BEDTIME 3 months sodium,potassium,mag sulfates 17.5-3.13-1.6 gram (Suprep Bowel Prep Kit) DILUTE; drink 1/2 at 6-8 pm and half at 11 PM- 1AM [WIPES As directed] zolpidem 10 mg PO BEDTIME PRN HPI HPI Type 2 diabetes mellitus with hyperglycemia: Details: Patient is a 64-year-old female with a significant past medical history of hypertension hyperlipidemia, hypothyroidism, obstructive sleep apnea, fatty liver, peripheral neuropathy and type 2 diabetes presenting today for a follow up regarding her diabetes. Endo: She was previously following with my colleague in 2021 but has not been seen in the Endocrine Department since then. She states that she has had diabetes for approximately 10 years. Her most recent A1c was 8.9. She is currently managed with NovoLog 12 units 3 times a day, Tresiba 60 units daily -She used to be on mounjaro and states that is the only thing that did not make her sick. She states it stabilized her blood sugars. She states for some reason she was unable to get this filled. She has not tried Ozempic and we did discuss that it could be an insurance issue. She previously tried metformin (gi distress), jardiance (yeast infections), trulicity caused nausea and constipation. CGM- forgot reader, does not have a smart phone. She thinks scanning her arm is frustrating and she would like a continuous reader. She states that she gets highs and lows and does not want to check blood sugars She states in the last week she has been waking up with blood sugars around 130- 150. Hypoglycemia-familiar with symptoms. States that a few months ago she did have a blood sugar in the 40s. She treated it with orange juice and glucose tabs. Hypoglycemia-also familiar with symptoms that she states a few days ago her blood sugar was 400 when she was sick with a viral URI. It did go down with insulin. Declines diabetic Education. States that she is familiar with diabetes. CV: Blood pressure today in the office is elevated at 132/70. Her blood pressure is usually controlled with losartan 25 mg daily. Cholesterol is managed with a simvastatin 40 mg nightly [facility] Medical History (Updated 05/03/25 @ 13:41 by Ember Sanches PA-C) Pelvic pain Headache Vaginal dryness Acute vaginitis Encounter for annual routine gynecological examination Dizzy Tinea corporis Hx of flexible sigmoidoscopy Herpes, genital Dysuria Breast cancer screening by mammogram Diarrhea Otitis externa Neck discomfort Overweight (BMI 25.0-29.9) Overweight COVID-19 vaccine series completed Low back pain Abdominal pain Potential exposure to STD Dyspareunia in female Problematic vaginal discharge Candidal intertrigo Obesity (BMI 30-39.9) Right upper quadrant pain Fatty liver Osteopenia Insomnia Gallbladder polyp GERD (gastroesophageal reflux disease) Hypercholesterolemia Anxiety and depression Intertrigo Breast density H. pylori infection Essential hypertension Migraine ARISTEO on CPAP Arthritis History of panic attacks Vitamin D deficiency Hx of irritable bowel syndrome Enlarged thyroid Fibromyalgia Asthma Hypertension Herpes genitalis Hx of ectopic Surgical History History of esophagogastroduodenoscopy (EGD) H/O colonoscopy S/P repair of ventral hernia Hx of bariatric surgery Hx of cholecystectomy Hx of unilateral oophorectomy Family History Sister Hx of diabetes mellitus Hx of myocardial infarction Father Hx of myocardial infarction Daughter Cancer Sister Hx of diabetes mellitus Social History Household Members: None Housing: Apartment Alcohol intake: former Patient Tobacco Use Status: Former Tobacco user Tobacco use type: Cigarette Cigarette Packs Per Day: 2 Years Smoked: 20 quit 2008 e-Cigarette/Vaping Use: Never Used Second Hand Smoke Exposure: Yes service: No Current occupational status: disabled Gender identity: Female Cognitive needs: No Hearing needs: No Vision needs: Yes Female Reproductive History Menstrual Age of Menarche: 8 Physical Exam Vital Signs: Last Vital Signs Pulse 64 05/03/25 13:31 BP 188/66 H 05/03/25 13:31 Pulse Ox 98 05/03/25 13:31 Oxygen Delivery Method Room Air 05/03/25 13:31 BMI result Body Mass Index 26.3 Const Orientation/consciousness: patient oriented x3 Neck Neck: Yes no lymphadenopathy Thyroid: Thyroid normal Carotids: no bruits Resp Auscultation: clear to auscultation bilaterally Cardio Rate: regular rate Rhythm: regular rhythm Heart sounds: S1 normal heart sound present and S2 normal heart sound present Peripheral pulses: dorsalis pedis present Neuro General: patient oriented x3, gait normal and no focal motor deficits Extrem Other: Monofilament sensation intact bilaterally. Vibratory sensation intact bilaterally. Skin intact. General: Yes normal to inspection Results Reviewed Results Reviewed: Laboratory Tests 11/19/24 03/11/25 11:20 11:57 Creatinine 0.76 Estimated GFR > 60 Random Glucose 161 H Hgb A1c (Clinic) 8.9 H AST 40 H ALT 44 H Alkaline Phosphatase 48 Assessment & Plan Assessment & Plan (1) Uncontrolled type 2 diabetes mellitus with hyperglycemia, with long-term current use of insulin: Code(s): E11.65 - Type 2 diabetes mellitus with hyperglycemia; Z79.4 - long term care administrator (current) use of insulin Category: Medical Plan: 65 minutes spent today in [id number] time reviewing the pathophysiology of diabetes, the differences between type 1 and type 2 diabetes and complications associated with poorly controlled diabetes including but not limited to kidney disease, blindness, amputation, increased risk of infection, stroke, heart attack etc. We reviewed signs and symptoms of hyper and hypoglycemia that would require emergent medical treatment. She has glucose tabs at home and does not need these ordered. I have reordered testing supplies. We will switch her to a Jose F 3+. Shirley ordered today. She will continue Tresiba 60 units and NovoLog 12 units 3 times a day I will start her on Mounjaro. Did discuss that she may have to try and fail Ozempic 1st. She did not tolerate Trulicity. Offered referral to a needle setter or educator and she declines. Short term follow up in 1 month to be reassessed. Sooner if needed. (2) Essential hypertension: Code(s): I10 - Essential (primary) hypertension Category: Medical Plan: Continue losartan 25 mg (3) Hypercholesterolemia: Code(s): E78.00 - Pure hypercholesterolemia, unspecified Category: Medical Plan: Continue simvastatin. Medications: New tirzepatide (Mounjaro) for 4 weeks 2.5 mg (0.5 mL) subcut QWEEK 2 mL 3RF blood-glucose,cake maker,cont (FreeStyle Jose F 3 Shirley) Use daily As directed to monitor blood glucose 1 ea 0RF E11.65 - Type 2 diabetes mellitus with hyperglycemia, Z79.4 - long term care administrator (current) use of insulin blood-glucose sensor (FreeStyle Jose F 3 Plus Sensor device) Use daily As directed to monitor glucose 6 ea 3RF E08.29 - Diabetes mellitus due to underlying condition with other diabetic kidney complication, R80.9 - Proteinuria, unspecified, Z79.4 - long term care administrator (current) use of insulin Changed From insulin degludec (Tresiba FlexTouch U-200 insulin) 5 pens one script 11 refill 50 units (0.25 mL) subcut BEDTIME 30 days 5 ea 11RF E11.65 - Type 2 diabetes mellitus with hyperglycemia To insulin degludec (Tresiba FlexTouch U-200 insulin) 5 pens one script 11 refill 60 units (0.3 mL) subcut BEDTIME 5 ea 11RF 30 days E11.65 - Type 2 diabetes mellitus with hyperglycemia Refilled insulin aspart U-100 (Novolog FlexPen U-100 Insulin aspart) 12 units (0.12 mL) subcut TID 15 mL 3RF E11.65 - Type 2 diabetes mellitus with hyperglycemia, Z79.4 - long term care administrator (current) use of insulin blood sugar diagnostic (FreeStyle Lite Strips) TEST BLOOD SUGAR 3 TIMES A DAY 300 strips 3RF E11.65 - Type 2 diabetes mellitus with hyperglycemia, E11.9 - Type 2 diabetes mellitus without complications, Z79.4 - long term care administrator (current) use of insulin Coding Level of Care Code Est Pt Level 5 (39481) Complex EM visit Add On G2211 Diagnoses Uncontrolled type 2 diabetes mellitus with hyperglycemia, with long-term current use of insulin E11.65; Z79.4 Essential hypertension I10 Hypercholesterolemia E78.00
[2025-05-03 13:31] VITALS: BP 188/66; PULSE 64; O2SAT 98; BMI 26.3
--- OUTSIDE RECORDS SUMMARY | 2025-05-03 13:33 | XMS_ITS | Clinical Summary ---
Author Organization [employer] Address [address] [place] [address] [address] [place] [address] Care Team Providers Care Interventional Radiology Tech Name Role Phone Unavailable Primary Care Provider [...]
[2025-05-03 13:41] LABS: Glucose, Whole Blood 273 mg/dL (60-115)
[2025-05-03 14:00] VITALS: BP 132/70
== END 2025-05-03 14:04 | disposition home or self-care (01) ==
LOC: HO.ENCR 13:29
PROVIDERS: PCP Internal Medicine; Visit Provider Physician Assistant
DX: E11.65 Type 2 diabetes mellitus with hyperglycemia (principal); Z79.4 Long term (current) use of insulin; I10 Essential (primary) hypertension; E78.00 Pure hypercholesterolemia, unspecified

== ENCOUNTER → 2025-05-03 13:29 | Outpatient (BNVA) | payer OTHER, SELFPAY | PROVIDERS: PCP Internal Medicine; Visit Provider Physician Assistant | DX: E11.65 Type 2 diabetes mellitus with hyperglycemia (principal); E11.29 Type 2 diabetes mellitus with other diabetic kidney complication; I10 Essential (primary) hypertension; E78.5 Hyperlipidemia, unspecified; E03.9 Hypothyroidism, unspecified; R80.9 Proteinuria, unspecified; E78.00 Pure hypercholesterolemia, unspecified; Z79.4 Long term (current) use of insulin; Z79.899 Other long term (current) drug therapy | CPT/HCPCS: 82947; 99212 ==

== ENCOUNTER 2025-05-17 14:48 | Outpatient (AMB) | payer MEDICARE, MEDICAID, SELFPAY ==
[2025-05-17 14:50] VITALS: BP 138/62; PULSE 75; TEMP 36.2; O2SAT 95; BMI 26.1
--- NOTE | 2025-05-17 14:50 | MHC.PC.OV ---
Vital Signs 05/17/25 14:50 Height 5 ft 6 in Weight 161 lb 8 oz BMI 26.1 BP 138/62 Blood Pressure Location Lt brachial Position Sitting Pulse 75 Pulse Source Pulse Oximeter Temp 97.1 F Temp Source Temporal Artery Scan Pulse Oximetry (%) 95 Oxygen Delivery Method Room Air Intake Visit Reasons: DM Allergies JOI Inhibitors Allergy (Intermediate, Verified 05/17/25 15:02) Cough cephalexin (Keflex) Allergy (Intermediate, Verified 05/17/25 15:02) rash codeine (Codeine) Allergy (Intermediate, Verified 05/17/25 15:02) RASH VOMTING- APAP W/ CODEINE, vomiting gemfibrozil (GEMFIBROZIL) Allergy (Intermediate, Verified 05/17/25 15:02) RASH metformin (METFORMIN) Allergy (Intermediate, Verified 05/17/25 15:02) DIARRHEA morphine (Morphine) Allergy (Intermediate, Verified 05/17/25 15:02) HIVES, rash, rash naproxen Allergy (Intermediate, Verified 05/17/25 15:02) inadequate response sulfamethoxazole (From Bactrim) Adverse Reaction (Intermediate, Verified 05/17/25 15:02) nausea trimethoprim (From Bactrim) Adverse Reaction (Intermediate, Verified 05/17/25 15:02) nausea jardiance Adverse Reaction (Intermediate, Uncoded 05/17/25 15:02) vulvar pruritus Medication List - Last Reconciled 05/17/25 by Lanny Soria MD albuterol sulfate 90 mcg/actuation 1 puff PO Q4H PRN alcohol swabs (Alcohol Prep Pads) 1 pad topical TID amitriptyline 25 mg PO BEDTIME [bed pad As directed] [Bedside safety handle As directed] bisacodyl (Dulcolax (bisacodyl)) 20 mg (4 x 5 mg) PO ONCE PRN 1 day blood sugar diagnostic (FreeStyle Lite Strips) TEST BLOOD SUGAR 3 TIMES A DAY blood-glucose meter (FreeStyle Lite Meter kit) As directed blood-glucose sensor (FreeStyle Jose F 3 Plus Sensor device) Use daily As directed to monitor glucose blood-glucose,project technician,cont (FreeStyle Jose F 3 [place]) Use daily As directed to monitor blood glucose cholecalciferol (vitamin D3) 25 mcg PO DAILY 3 months citalopram 40 mg PO DAILY 2 months clonazepam 0.5 mg PO DAILY PRN cyclobenzaprine 10 mg PO BEDTIME PRN 7 days MDD , [Diaper Medium As directed] dicyclomine 10 mg PO BID docusate sodium 100 mg PO DAILY PRN econazole nitrate 1% 1 appl topical BID fluticasone propionate 50 mcg/actuation 1 spray intranasal DAILY 30 days [Grab bars As directed] insulin aspart U-100 (Novolog FlexPen U-100 Insulin aspart) 12 units (0.12 mL) subcut TID insulin degludec (Tresiba FlexTouch U-200 insulin) 60 units (0.3 mL) subcut BEDTIME 30 days Lactobacillus rhamnosus GG (Culturelle) 1 cap PO DAILY lancets (TRUEplus Lancets) 1 gauge miscellaneous TIDWMEAL 90 days linaclotide (Linzess) 290 mcg PO QAM 30 days losartan 25 mg PO DAILY 90 days methylcellulose (laxative) (Citrucel) 500 mg PO TID 30 days miconazole nitrate 2% (Monistat 7) 1 appful vaginal BEDTIME 7 days miconazole nitrate 2% (Zeasorb AF) 1 appl topical BID ondansetron 4 mg PO Q8H PRN pantoprazole 20 mg PO DAILY 90 days pen needle, diabetic (Sure-Fine Pen [place]) As directed- TID pen needle, diabetic As directed use with trulicjessi, basaglar and novolog 4 x a day [REUSABLE UNDERPAD As directed] [Scooter As directed] sennosides (senna) 8.6 mg PO DAILY PRN simvastatin 40 mg PO BEDTIME 3 months sodium,potassium,mag sulfates 17.5-3.13-1.6 gram (Suprep Bowel Prep Kit) DILUTE; drink 1/2 at 6-8 pm and half at 11 PM- 1AM tirzepatide (Mounjaro) 2.5 mg (0.5 mL) subcut QWEEK [WIPES As directed] zolpidem 10 mg PO BEDTIME PRN Tobacco use date assessed: 05/17/25 Fall risk assessment: 2 + Falls in past year Last assessed Fall Risk: 05/17/25 Dental Screening Dental Screen Date: 05/17/25 Did you have a dental visit in the last 12 months?: Yes Did you have a dental problem in the last 6 months where you did not have access to dental care?: No Was dental information given to patient?: Patient has dentist [facility] Medical History Pelvic pain Headache Vaginal dryness Acute vaginitis Encounter for annual routine gynecological examination Dizzy Tinea corporis Hx of flexible sigmoidoscopy Herpes, genital Dysuria Breast cancer screening by mammogram Diarrhea Otitis externa Neck discomfort Overweight (BMI 25.0-29.9) Overweight COVID-19 vaccine series completed Low back pain Abdominal pain Potential exposure to STD Dyspareunia in female Problematic vaginal discharge Candidal intertrigo Obesity (BMI 30-39.9) Right upper quadrant pain Fatty liver Osteopenia Insomnia Gallbladder polyp GERD (gastroesophageal reflux disease) Hypercholesterolemia Anxiety and depression Intertrigo Breast density H. pylori infection Essential hypertension Migraine ARISTEO on CPAP Arthritis History of panic attacks Vitamin D deficiency Hx of irritable bowel syndrome Enlarged thyroid Fibromyalgia Asthma Hypertension Herpes genitalis Hx of ectopic Surgical History History of esophagogastroduodenoscopy (EGD) H/O colonoscopy S/P repair of ventral hernia Hx of bariatric surgery Hx of cholecystectomy Hx of unilateral oophorectomy Family History Sister Hx of diabetes mellitus Hx of myocardial infarction Father Hx of myocardial infarction Daughter Cancer Sister Hx of diabetes mellitus Social History Household Members: None Housing: Apartment Alcohol intake: former Patient Tobacco Use Status: Former Tobacco user Tobacco use type: Cigarette Cigarette Packs Per Day: 2 Years Smoked: 20 quit 2008 e-Cigarette/Vaping Use: Never Used Second Hand Smoke Exposure: Yes service: No Current occupational status: disabled Gender identity: Female Cognitive needs: No Hearing needs: No Vision needs: Yes Female Reproductive History Menstrual Age of Menarche: 8 Questionnaire PHQ-9 Over the last 2 weeks, how often have you been bothered by any of the following problems? 1. Little interest or pleasure in doing things: not at all 2. Feeling down, depressed, or hopeless: several days 3. Trouble falling or staying asleep, or sleeping too much: several days 4. Feeling tired or having little energy: several days 5. Poor appetite or overeating: several days 6. Feeling bad about yourself - or that you are a failure or have let yourself or your family down: not at all 7. Trouble concentrating on things, such as reading the newspaper or watching television: not at all 8. Moving or speaking so slowly that other people could have noticed. Or the opposite - being so fidgety or restless that you have been moving around a lot more than usual: not at all 9. Thoughts that you would be better off or of hurting yourself in some way: not at all Total score: 4 Source: Developed by Drs. Boston Jimenes, Halley Watkins, Ti Mart and colleagues, with an educational jasmina from [employer]. Thrive Questionnaire Date Thrive assessed: 03/11/25 I am a: Patient What is your living situation today?: I have a steady place to live Within the past 12 months, did the food you bought not last and you didn't have the money to get more?: Sometimes True Within the past 12 months, did you worry whether your food would run out before you got money to buy more?: Sometimes True Do you have trouble paying for medicines?: No Do you have trouble getting transportation to medical appointments?: No Do you have trouble paying your heating and electricity bill?: No Do you have trouble taking care of your child, family member or friend?: No Do you have trouble with day-to-day activities such as bathing, preparing meals, shopping, managing finances, etc.?: No Are you currently unemployed and looking for a job?: No Are you interested in more education?: No Please select the resources that you would like help with: None Currently or been in a relationship where the following occur: I choose not to answer THRIVE Score: 2 AUDIT C Alcohol Use Questionnaire (AUDIT-C) 1. How often do you have a drink containing alcohol?: Never 3. How often do you have six or more drinks on one occasion?: Never Total Score: 0 ANJEL-7 AMB Questionnaire ANJEL-7 Date ANJEL - 7 assessed: 03/11/25 Feeling nervous, anxious, or on edge: 0 = Not at all Not being able to stop or control worryin = Not at all Worrying too much about different things: 0 = Not at all Trouble relaxin = Not at all Being so restless that it is hard to sit still: 0 = Not at all Becoming easily annoyed or irritable: 0 = Not at all Feeling afraid as if something awful might happen: 0 = Not at all Total ANJEL-7 score (0-4 normal; 5-9 mild; 10-14 moderate; 15-21 severe): 0 Source: Developed by Drs. Boston Jimenes, Halley Watkins, Ti Mart and colleagues, with an educational jasmina from [employer]. Physical exam (Primary Care) Vital Signs: Last Vital Signs Temp 97.1 F 05/17/25 14:50 Pulse 75 05/17/25 14:50 BP 138/62 05/17/25 14:50 Pulse Ox 95 05/17/25 14:50 Oxygen Delivery Method Room Air 05/17/25 14:50 BMI result Body Mass Index 26.1 Tobacco/Smoking Status: Tobacco use Status Tobacco use date assessed 05/17/25 05/17/25 14:51 Patient Tobacco Use Status Former Tobacco user 05/17/25 14:51 Tobacco use type Cigarette 05/17/25 14:51 e-Cigarette/Vaping Use Never Used 05/17/25 14:51 PHQ-9: PHQ-9 Score PHQ-9: Total score 4 05/17/25 15:24 Thrive Assessment: Date of Thrive Assessment Date Thrive assessed 03/11/25 05/17/25 14:51 Currently or been in a relationship where the following occur: I choose not to answer Const General: alert; No acute distress Eyes Conjunctivae: conjunctivae normal Resp Auscultation: clear to auscultation bilaterally Cardio Rate: regular rate Rhythm: regular rhythm GI Inspection: Yes normal to inspection Extrem General: Yes normal to inspection and No edema Coding Level of Care Code Est Pt Level 4 (58998) Complex EM visit Add On G2211 Diagnoses Type 2 diabetes mellitus with hyperglycemia E11.65 Essential hypertension I10 Hypercholesterolemia E78.00 Generalized anxiety disorder F41.1 Gastroesophageal reflux disease without esophagitis K21.9 Esophagitis presence: without esophagitis NAFLD (nonalcoholic fatty liver disease) K76.0 Trigger finger of right hand M65.30 Tinea corporis B35.4 Assessment & Plan Assessment & Plan (1) Type 2 diabetes mellitus with hyperglycemia: Code(s): E11.65 - Type 2 diabetes mellitus with hyperglycemia Category: Medical Plan: Decrease the amount of carbohydrate intake, pasta, bread, rice and potatoes are all sugar and that is aside from all the sweet stuff, remember that fruits are good but they are Sweet also. Hemoglobin A1c goal of less than 7.0. Patient has been seen by Endocrinology on Tresiba on [facility] on [facility] (2) Essential hypertension: Code(s): I10 - Essential (primary) hypertension Category: Medical Plan: Continue with blood pressure medication. Decrease salt intake and exercise patient is on losartan (3) Hypercholesterolemia: Code(s): E78.00 - Pure hypercholesterolemia, unspecified Category: Medical Plan: Avoid fried foods, chicken skin, eggs, butter margarine, pastries and meat. Be it pork or beef they have a lot of cholesterol LDL goal of less than 100 and triglyceride of less than 150 on simvastatin (4) Generalized anxiety disorder: Comment: [facility] clinic 2 x a month therapist (Gem Menezes) and psychiatrist Q 3 months Code(s): F41.1 - Generalized anxiety disorder Category: Medical Plan: Continue with present medication (5) GERD (gastroesophageal reflux disease): Code(s): K21.9 - Gastro-esophageal reflux disease without esophagitis Category: Medical Qualifiers: Esophagitis presence: without esophagitis Qualified Code(s): K21.9 - Gastro-esophageal reflux disease without esophagitis Plan: Avoid the foods that causes that usually spicy foods, tomato products, juices, coffee, soda and foods that your sensitive to. After eating do not lie down, allow 3-4 hours before in lie down. And keep the head of bed above 30 degrees to avoid the acid from going up. (6) NAFLD (nonalcoholic fatty liver disease): Comment: A good weight, glucose and lipid-continue to abstain from alcohol Code(s): K76.0 - Fatty (change of) liver, not elsewhere classified Category: Medical Plan: diet and exercise (7) Trigger finger of right hand: Comment: 3rd finger Code(s): M65.30 - Trigger finger, unspecified finger Category: Medical (8) Tinea corporis: Code(s): B35.4 - Tinea corporis Category: Medical Plan History of Present Illness The patient is a 64-year-old female presenting for a follow-up visit for diabetes mellitus management. The patient has a history of hypertension, which is currently managed with losartan. She also has hypercholesterolemia, with an LDL goal of less than 100 mg/dL, and is currently on simvastatin. The patient has been diagnosed with gastroesophageal reflux disease (GERD) and is advised to follow a low-fat diet and exercise regimen to manage symptoms. She has generalized anxiety disorder and hepatic steatosis, both of which are part of her medical history. The patient has a history of tubular adenoma of the colon, with her screenings up to date as of July 2024. She also has obstructive sleep apnea, which is part of her ongoing health management. Her diabetes mellitus is being managed with multiple medications including Mounjaro, Triceba, and NovoLog. Her hemoglobin A1c was 8.9% in February, with a goal to reduce it to less than 7.0%. She has been experiencing nausea and vomiting, which may be related to her diabetes medications. The patient reports experiencing trigger finger, particularly affecting her right middle finger, with symptoms spreading to adjacent fingers. Conservative management with splinting has been recommended, with a referral to orthopedics if symptoms worsen. She also reports constipation, which she attributes to her diabetes medication, and has been advised to manage it with dietary adjustments. Health Maintenance - Mammogram is up to date. - Colonoscopy screenings are up to date as of July 2024. - LDL cholesterol goal is less than 100 mg/dL. - Hemoglobin A1c goal is less than 7.0%. Social History Review of Systems - Gastrointestinal: Reports constipation, denies diarrhea. - Musculoskeletal: Reports trigger finger affecting right middle finger. - Endocrine: Reports nausea and vomiting, possibly related to diabetes medication. Physical Exam Results - Labs: Hemoglobin A1c was 8.9% in February. - Labs: LDL cholesterol was 65 mg/dL in June 2024. - Imaging: Pelvic ultrasound performed under gynecology. Plan The management plan for diabetes mellitus includes maintaining a hemoglobin A1c goal of less than 7.0%, with current medications including Mounjaro, Triceba, and NovoLog. The patient is advised to monitor for symptoms of hypoglycemia and adjust insulin doses accordingly, especially if experiencing low blood sugar levels. For hypertension, the patient is to continue with losartan, and for hypercholesterolemia, simvastatin is to be continued with an LDL goal of less than 100 mg/dL. The patient is advised to manage gastroesophageal reflux disease with dietary modifications, specifically a low-fat diet and regular exercise. For the trigger finger, conservative management with splinting is recommended, with a referral to orthopedics if symptoms do not improve. Constipation management includes dietary adjustments, and the patient is advised to monitor symptoms and report any significant changes. Patient was informed and verbally consented to the use of an ambient scribe for clinic note documentation during this visit. Discussion Notes During the visit, I discussed the management of diabetes mellitus, emphasizing the importance of maintaining a hemoglobin A1c goal of less than 7.0% and monitoring for hypoglycemia. We reviewed the current medications, including Mounjaro, Triceba, and NovoLog, and the need to adjust doses based on blood sugar levels. For hypertension and hypercholesterolemia, I advised continuing losartan and simvastatin, respectively, with specific goals for blood pressure and LDL cholesterol. We also discussed dietary modifications for managing gastroesophageal reflux disease and the conservative management of trigger finger with splinting. I advised the patient to monitor constipation symptoms and make dietary adjustments as needed. Patient Instructions - Monitor blood sugar levels regularly and adjust insulin doses as needed. - Continue taking losartan and simvastatin as prescribed. - Follow a low-fat diet and exercise regularly to manage GERD symptoms. - Use a splint for trigger finger and seek orthopedic consultation if symptoms worsen. - Adjust diet to manage constipation and report any significant changes. Orders: Orders Comprehensive Met. Panel 3 Months E11.65 - Type 2 diabetes mellitus with hyperglycemia Vitamin B12 and Folate 3 Months E11.65 - Type 2 diabetes mellitus with hyperglycemia Vitamin D 25-OH Total 3 Months E11.65 - Type 2 diabetes mellitus with hyperglycemia Complete Blood Count Auto Diff 3 Months E11.65 - Type 2 diabetes mellitus with hyperglycemia Creatinine Urine 3 Months E11.65 - Type 2 diabetes mellitus with hyperglycemia Microalbumin, Random (w Creat) 3 Months E11.65 - Type 2 diabetes mellitus with hyperglycemia Free T4 (Free Thyroxine) 3 Months E11.65 - Type 2 diabetes mellitus with hyperglycemia Thyroid Stimulating Hormone 3 Months E11.65 - Type 2 diabetes mellitus with hyperglycemia Lipid Panel 3 Months E11.65 - Type 2 diabetes mellitus with hyperglycemia, E78.00 - Pure hypercholesterolemia, unspecified Hemoglobin A1c 3 Months E11.65 - Type 2 diabetes mellitus with hyperglycemia Medications: New clotrimazole 1% 1 appl topical BID 45 grams 2RF 4 weeks B35.4 - Tinea corporis, B35.6 - Tinea cruris Discontinued econazole nitrate 1% Discontinued Reason: Insurance Denied 1 appl topical BID 85 grams 0RF
--- OUTSIDE RECORDS SUMMARY | 2025-05-17 14:50 | XMS_ITS | Clinical Summary ---
Author Organization [employer] Address [address] [place] [address] [address] [place] [address] Care Team Providers Care Integrative Medicine Physician Name Role Phone Unavailable Primary Care Provider [...]
== END 2025-05-17 15:43 | disposition home or self-care (01) ==
LOC: HO.HMCH 14:48
PROVIDERS: PCP Internal Medicine; Visit Provider Internal Medicine
DX: E11.65 Type 2 diabetes mellitus with hyperglycemia (principal); I10 Essential (primary) hypertension; E78.00 Pure hypercholesterolemia, unspecified; F41.1 Generalized anxiety disorder; K21.9 Gastro-esophageal reflux disease without esophagitis; K76.0 Fatty (change of) liver, not elsewhere classified; M65.30 Trigger finger, unspecified finger; B35.4 Tinea corporis

== ENCOUNTER → 2025-05-17 14:48 | Outpatient (BNVA) | payer OTHER, SELFPAY | PROVIDERS: PCP Internal Medicine; Visit Provider Internal Medicine | DX: E11.65 Type 2 diabetes mellitus with hyperglycemia (principal); I10 Essential (primary) hypertension; E78.00 Pure hypercholesterolemia, unspecified; F41.1 Generalized anxiety disorder; K21.9 Gastro-esophageal reflux disease without esophagitis; K76.0 Fatty (change of) liver, not elsewhere classified; M65.30 Trigger finger, unspecified finger; B35.4 Tinea corporis; G47.33 Obstructive sleep apnea (adult) (pediatric) | CPT/HCPCS: 96127; 99212 ==

== ENCOUNTER → 2025-05-18 19:46 | Outpatient (BNV) | payer OTHER, SELFPAY | PROVIDERS: Emergency Provider Student in an Organized Health Care Education/Training Program; PCP Internal Medicine; Visit Provider Radiology Neuroradiology | DX: R10.9 Unspecified abdominal pain (principal); K59.00 Constipation, unspecified | CPT/HCPCS: 74018; 74177 ==

== ENCOUNTER 2025-05-18 19:59 | Emergency (ER) | payer OTHER, SELFPAY ==
--- NOTE | ~2025-05-18 | CT_ITS ---
CLINICAL HISTORY: sbo? CT abdomen and pelvis with contrast Comparison: X-rays of the abdomen from 11/19/2024 Findings: No consolidation of the imaged lung bases. Steatotic change of the fat deposition of the liver. Gallbladder is surgically absent. Mild CBD dilatation is nonspecific can be seen post cholecystectomy. José hepatis lymph node measures 1.5 cm short axis as can be seen with underlying liver disease. Mild volume loss of the pancreas noted. Low-density of the pancreas may reflect chronic or prior pancreatitis. No well-defined mass-effect by CT. The adrenal glands are normal. Spleen is nonenlarged. No hydronephrosis. Postprocedural changes from apparent gastric sleeve. No small bowel obstruction. Moderate to severe stool burden, including the cecum. Imaged appendix is within normal limits (imaged 62 of series 3). Wall thickening of the large intestine is nonspecific with wall thickening including splenic flexure, descending colon, and sigmoid colon. Differential considerations include colitis. Other bowel wall pathology not excluded by CT. No free intraperitoneal air. No formed or drainable abscess by CT. Uterus is anteverted. No adnexal soft tissue mass by CT. Mild wall thickening of the urinary bladder is nonspecific. Small fat containing left inguinal hernia. Pubic rami and pelvis deformities are mild and appear old/chronic. Mild osteoarthritis of the both hips. Degenerative changes also include facet arthropathy, particularly imaged lumbar spine. Endplate sclerosis noted, including thoracolumbar junction. Trace anterolisthesis of the L4-L5. IMPRESSION: 1. Abnormal appearance of the large intestine concerning for colitis, including splenic flexure, descending colon, and sigmoid colon. 2. No small bowel obstruction. This document has been electronically signed by: Duy Solis MD on 05/18/2025 23:45:56
--- NOTE | ~2025-05-18 | XR_ITS ---
CLINICAL HISTORY: conspitation x 1 week 1 view abdomen Comparison: None provided Findings: Mild bibasilar atelectasis. No small bowel dilatation. Surgical clips include upper quadrant aunts in right lower quadrant. Phleboliths are multifocal, including imaged pelvis. Severe stool burden present, including mildly distended in the cecum and including distally. Degenerative changes include imaged hips and imaged spine. Mild pubic rami deformities appear old/chronic by frontal radiographs. IMPRESSION: 1. No small bowel obstruction. 2. Severe stool burden. This document has been electronically signed by: Duy Solis MD on 05/18/2025 21:33:05
[2025-05-18 20:03] VITALS: BP 168/82; PULSE 76; O2SAT 97
[2025-05-18 20:04] VITALS: BP 166/57; PULSE 69; RESP 16; TEMP 36.5; O2SAT 94; BMI 29.8
--- NOTE | 2025-05-18 20:14 | ECG_ITS ---
Test Reason : N/V/D Blood Pressure : */* mmHG Vent. Rate : 63 BPM Atrial Rate : 63 BPM P-R Int : 146 ms QRS Dur : 82 ms QT Int : 432 ms P-R-T Axes : 17 30 69 degrees QTcB Int : 442 ms Normal sinus rhythm Nonspecific T wave abnormality Abnormal ECG When compared with ECG of 30-Sep-2018 03:23, Nonspecific T wave abnormality, worse in Lateral leads Referred By: Generic ED Physician Electronically Signed By: BRIE FREED
[2025-05-18 20:29] LABS: MANUAL DIFF FLAG NO
[2025-05-18 20:32] LABS: Hematocrit 40.4 % (37.0-47.0); Hemoglobin 13.6 g/dl (12.0-16.0); Imm Gran Abs Auto 0.08 X10*3/uL (0.00-0.03); Imm Gran Pct Auto 0.6 % (0.0-0.4); Lymphocytes Absolute Auto 3.8 X10*3/uL (1.2-4.9); Mean Corpuscular HGB Conc 33.7 g/dl (31.0-35.0); Mean Corpuscular Hemoglobin 28.5 pg (27.0-33.0); Mean Corpuscular Volume 84.7 fL (80.0-98.0); NRBC Abs Auto 0.000 X10*3/uL (0.0-0.012); NRBC Pct Auto 0.0 /100WBC (0.0-0.2); Platelet Count 230 X10*3/uL (160-400); Red Blood Count 4.77 X10*6/uL (4.20-5.50); White Blood Count 14.4 X10*3/uL (4.8-10.8)
[2025-05-18 20:36] LABS: Glucose, Whole Blood 198 mg/dL (60-115)
[2025-05-18 20:37] LABS: INTERNATIONAL NORM RATIO 1.1 (0.9-1.1); Prothrombin Time 12.1 SEC (10.9-12.4)
--- NOTE | 2025-05-18 20:41 | ED.GENADULT ---
HPI - General Adult General Chief complaint: Abdominal Pain Stated complaint: Ab pain 07/05, constipated x1 wk, vomiting today Time Seen by Provider: 05/18/25 20:32 History of Present Illness ED Provider: Dr. Perry HPI narrative: 64-year-old female history of diabetes, GERD, obesity, constipation, hypertension hyperlipidemia presented hospital today for evaluation of diffuse abdominal pain and not having a bowel movement for a week. Patient states she is not passing gas as well. She feels very nauseous. She has been vomiting. She is unable to take her home medication therefore patient presents to the ER for further evaluation Denies any fever. Patient stated that she is recently diagnosed with a uterine mass unsure whether it is cancer. Related Data Home Medications ?Medication ?Instructions ?Recorded ?Confirmed clonazepam 0.5 mg tablet 0.5 mg PO DAILY PRN Anxiety 11/30/21 05/17/25 Previous Rx's ?Medication ?Instructions ?Recorded citalopram 40 mg tablet 40 mg PO DAILY 2 months #60 tabs 09/15/20 bed pad #1 ea 10/30/21 zolpidem 10 mg tablet 10 mg PO BEDTIME PRN Insomnia #14 10/20/23 tabs cyclobenzaprine 10 mg tablet 10 mg PO BEDTIME PRN muscle spasm 03/12/24 7 days #7 tabs REUSABLE UNDERPAD #2 ea 08/22/24 amitriptyline 25 mg tablet 25 mg PO BEDTIME #90 tabs 09/27/24 bisacodyl 5 mg tablet,delayed 20 mg (4 x 5 mg) PO ONCE PRN 11/02/24 release (Dulcolax (bisacodyl)) colonoscopy prep 1 day #4 tabs cholecalciferol (vitamin D3) 25 25 mcg PO DAILY 3 months #90 tabs 11/02/24 mcg (1,000 unit) tablet docusate sodium 100 mg capsule 100 mg PO DAILY PRN for 11/02/24 constipation #60 caps fluticasone propionate 50 1 spray intranasal DAILY 30 days 11/02/24 mcg/actuation nasal #9.9 mL spray,suspension lancets 33 gauge (TRUEplus Lancets) 1 gauge miscellaneous TIDWMEAL 90 11/02/24 days #3 ea linaclotide 290 mcg capsule 290 mcg PO QAM 30 days #30 caps 11/02/24 (Linzess) methylcellulose (laxative) 500 mg 500 mg PO TID 30 days #90 tabs 11/02/24 tablet (Citrucel) pantoprazole 20 mg tablet,delayed 20 mg PO DAILY 90 days #90 tabs 11/23/24 release ondansetron 4 mg disintegrating 4 mg PO Q8H PRN for 12/21/24 tablet nausea/vomiting #30 ea albuterol sulfate 90 mcg/actuation 1 puff PO Q4H PRN for wheezing 12/31/24 aerosol inhaler #8.5 grams Lactobacillus rhamnosus GG 15 1 cap PO DAILY #90 caps 01/01/25 billion cell sprinkle capsule (Culturelle) alcohol swabs (Alcohol Prep Pads) 1 pad topical TID #100 pad 01/01/25 Diaper Medium #50 ea 01/15/25 WIPES #1 ea 01/15/25 miconazole nitrate 2 % topical 1 appl topical BID #85 grams 01/15/25 powder (Zeasorb AF) miconazole nitrate 2 % vaginal 1 appful vaginal BEDTIME 7 days 02/27/25 cream (Monistat 7) #45 grams losartan 25 mg tablet 25 mg PO DAILY 90 days #90 tabs 03/11/25 sennosides 8.6 mg tablet (senna) 8.6 mg PO DAILY PRN for 03/11/25 constipation #90 tabs simvastatin 40 mg tablet 40 mg PO BEDTIME 3 months #90 tabs 03/11/25 sodium,potassium,mag sulfates 17.5 See Rx Instructions PO .COMPLEX 03/11/25 gram-3.13 gram-1.6 gram oral soln #354 mL (Suprep Bowel Prep Kit) Bedside safety handle #1 ea 03/26/25 Grab bars #2 ea 03/26/25 Scooter #1 ea 03/26/25 blood-glucose meter (FreeStyle #1 ea 03/26/25 Lite Meter kit) pen needle, diabetic 31 gauge x #100 ea 03/26/2502/08 (Sure-Fine Pen [place]) pen needle, diabetic 29 gauge x #4 ea 04/12/2509/27 blood sugar diagnostic (FreeStyle #300 strips 05/03/25 Lite Strips) dicyclomine 10 mg capsule 10 mg PO BID #60 caps 05/03/25 insulin aspart U-100 100 unit/mL 12 unit (0.12 mL) subcut TID #15 mL 05/03/25 (3 mL) subcutaneous pen (Novolog FlexPen U-100 Insulin aspart) insulin degludec 200 unit/mL (3 60 unit (0.3 mL) subcut BEDTIME 30 05/03/25 mL) subcutaneous pen (Tresiba days #5 ea FlexTouch U-200 insulin) tirzepatide 2.5 mg/0.5 mL 2.5 mg (0.5 mL) subcut QWEEK #2 mL 05/03/25 subcutaneous pen injector (Mounjaro) blood-glucose sensor (FreeStyle #6 ea 05/06/25 Jose F 3 Plus Sensor device) blood-glucose,viticulturist,cont #1 ea 05/06/25 (FreeStyle Jose F 3 Cantril) clotrimazole 1 % topical cream 1 appl topical BID 4 weeks #45 05/17/25 grams Allergies Allergy/AdvReac Type Severity Reaction Status Date / Time JOI Inhibitors Allergy Intermediate Cough Verified 05/18/25 20:12 cephalexin (Keflex) Allergy Intermediate rash Verified 05/18/25 20:12 codeine (Codeine) Allergy Intermediate RASH Verified 05/18/25 20:12 VOMTING- APAP W/ CODEINE, vomiting gemfibrozil (GEMFIBROZIL) Allergy Intermediate RASH Verified 05/18/25 20:12 metformin (METFORMIN) Allergy Intermediate DIARRHEA Verified 05/18/25 20:12 morphine (Morphine) Allergy Intermediate HIVES, Verified 05/18/25 20:12 rash, rash naproxen Allergy Intermediate inadequate Verified 05/18/25 20:12 response sulfamethoxazole (From AdvReac Intermediate nausea Verified 05/18/25 20:12 Bactrim) trimethoprim (From Bactrim) AdvReac Intermediate nausea Verified 05/18/25 20:12 jardiance AdvReac Intermediate vulvar Uncoded 05/17/25 15:02 pruritus Review of Systems Review of Systems: Pertinent review of systems as mentioned in HPI. All other system otherwise negative. [facility] Past Medical History [facility] Narrative: Medical history as mentioned in [facility] Medical History Pelvic pain Headache Vaginal dryness Acute vaginitis Encounter for annual routine gynecological examination Dizzy Tinea corporis Hx of flexible sigmoidoscopy Herpes, genital Dysuria Breast cancer screening by mammogram Diarrhea Otitis externa Neck discomfort Overweight (BMI 25.0-29.9) Overweight COVID-19 vaccine series completed Low back pain Abdominal pain Potential exposure to STD Dyspareunia in female Problematic vaginal discharge Candidal intertrigo Obesity (BMI 30-39.9) Right upper quadrant pain Fatty liver Osteopenia Insomnia Gallbladder polyp GERD (gastroesophageal reflux disease) Hypercholesterolemia Anxiety and depression Intertrigo Breast density H. pylori infection Essential hypertension Migraine ARISTEO on CPAP Arthritis History of panic attacks Vitamin D deficiency Hx of irritable bowel syndrome Enlarged thyroid Fibromyalgia Asthma Hypertension Herpes genitalis Hx of ectopic Surgical History History of esophagogastroduodenoscopy (EGD) H/O colonoscopy S/P repair of ventral hernia Hx of bariatric surgery Hx of cholecystectomy Hx of unilateral oophorectomy Family History Family History Sister Hx of diabetes mellitus Hx of myocardial infarction Father Hx of myocardial infarction Daughter Cancer Sister Hx of diabetes mellitus Social History Social History Household Members: None Housing: Apartment Alcohol intake: former Patient Tobacco Use Status: Former Tobacco user Tobacco use type: Cigarette Cigarette Packs Per Day: 2 Years Smoked: 20 quit 2009 e-Cigarette/Vaping Use: Never Used Second Hand Smoke Exposure: Yes Advance Directives: No Advance Directives Information Provided: No Do you have a plan to hurt others: No Plan service: No Current occupational status: disabled Gender identity: Female Cognitive needs: No Hearing needs: No Vision needs: Yes Physical Exam ED Exam Exam: General: Pleasant, no distress, interacting appropriately Head: Normacephalic, atraumatic ENT: oral mucosa moist, neck supple, no tracheal deviation Cardiovascular: regular rate, regular rhythm, no murmurs, rubbing, gallops Respiratory: CTAB, no wheeze, rales, rhonchi Gastrointestinal: Soft, non distended, diffuse abdominal tenderness on palpation Skin: Warm and dry Psychiatric: Appropriate mood and thoughts Vital Signs: Vital Signs - 24 hr 05/18/25 20:04 Temperature 97.7 F Pulse Rate 69 Respiratory Rate 16 Blood Pressure 166/57 H Pulse Oximetry 94 Oxygen Delivery Method Room Air BMI result Body Mass Index 29.8 Medications Administered Discontinued Medications Generic Name Dose Route Start Last Admin Trade Name Mariah PRN Reason Stop Dose Admin Sodium Chloride 1,000 mls @ 999 mls/hr 05/18/25 21:15 05/19/25 00:09 Ns IV 05/18/25 22:15 Infused .Q1H1M LOU Infusion Iohexol 85 ml 05/18/25 22:14 05/18/25 22:15 Iohexol 350 Mg/Ml 100 Ml Infus..Btl IV 05/18/25 22:15 85 ml ONCE ONE Administration Magnesium Citrate 300 ml 05/18/25 23:48 05/19/25 00:09 Magnesium Citrate 300 Ml Solution PO 05/18/25 23:49 Not Given ONCE ONE Ondansetron HCl 4 mg 05/18/25 21:09 05/18/25 21:18 Ondansetron Hcl 4 Mg/2 Ml Vial IVPUSH 05/18/25 21:10 4 mg ONCE ONE Administration Medical Decision Making Medical Decision Making [facility] Narrative: 64-year-old female history of hypertension hyperlipidemia diabetes presented hospital today for abdominal pain and not having a bowel movement for the past week. Concerned about possible small bowel obstruction and CT imaging abdomen and pelvis will be obtained. We will obtain abdominal lab work for the patient as well. IV Zofran and fluid will be provided to the patient This may be constipation as well. However patient states she has not been passing any gas. Patient states she does feel somewhat better after IV fluid hydration. CT abdomen and pelvis shows colitis was abnormal bowel wall thickening in the colon. Patient is requesting to be discharged at this time she no longer wants to stay. She states she could follow up with her doctor on Tuesday. I offer laxative for patient however patient currently refuses. She states she has all the meds she needs at home. Patient lipase is mildly elevated however the rest of her lab work did not show any signs of significant difference. We will plan to discharge patient home with follow up with her primary care doctor. Differential Diagnosis Differential Diagnoses: The differential diagnosis associated with the presentation includes SBO, constipation, gastritis, colitis Lab Data [facility] Lab Attestation statement: I reviewed the patient's lab results. 05/18/25 20:22 05/18/25 20:22 Labs: Lab Results 05/18/25 05/18/25 05/18/25 Range/Units 20:22 20:33 22:23 WBC 14.4 H (4.8-10.8) X10*3/uL RBC 4.77 (4.20-5.50) X10*6/uL Hgb 13.6 (12.0-16.0) g/dl Hct 40.4 (37.0-47.0) % MCV 84.7 (80.0-98.0) fL MCH 28.5 (27.0-33.0) pg MCHC 33.7 (31.0-35.0) g/dl RDW 14.7 (11.0-16.0) % Plt Count 230 (160-400) X10*3/uL MPV 10.1 (9.4-12.3) fL Immature Gran % (Auto) 0.6 H (0.0-0.4) % Neut % (Auto) 63.5 (45-73) % Lymph % (Auto) 26.2 (20-40) % [place] % (Auto) 8.2 (2-11) % Eos % (Auto) 1.0 (0-4) % Baso % (Auto) 0.5 (0-2) % Lymph # (Auto) 3.8 (1.2-4.9) X10*3/uL [place] # (Auto) 1.2 (0.1-1.2) X10*3/uL Eos # (Auto) 0.1 (0.0-0.4) X10*3/uL Baso # (Auto) 0.1 (0.0-0.2) X10*3/uL Abs Immat Gran (auto) 0.08 H (0.00-0.03) X10*3/uL Absolute Neuts (auto) 9.1 H (2.0-8.3) x10*3/uL Absolute Nucleated RBC 0.000 (0.0-0.012) X10*3/uL Nucleated RBC % (auto) 0.0 (0.0-0.2) /100WBC PT 12.1 (10.9-12.4) SEC INR 1.1 (0.9-1.1) Sodium 138 (135-145) mmol/L Potassium 3.9 (3.3-5.1) mmol/L Chloride 104 (96-108) mmol/L Carbon Dioxide 21 L (22-29) mmol/L Anion Gap 17 (12-20) BUN 10 (9-16) mg/dL Creatinine 0.90 (0.5-1.4) mg/dL Estim Creat Clear Calc 58.6 Estimated GFR > 60 POC Glucose 198 H (60-115) mg/dL Random Glucose 220 H (60-115) mg/dL Calcium 9.4 (8.4-10.2) mg/dL Magnesium 1.8 (1.6-2.6) mg/dL Total Bilirubin 0.3 (0.0-1.0) mg/dL Direct Bilirubin 0.1 (0.0-0.5) mg/dL AST 44 H (5-31) U/L ALT 34 H (0-31) U/L Alkaline Phosphatase 49 (39-117) U/L Troponin I High Sens < 2.7 (<3.5-17.0) ng/L Total Protein 7.8 (6.5-8.0) g/dL Albumin 4.2 (3.5-5.0) g/dL Lipase 291 H (8-78) U/L Urine Color Yellow Urine Appearance Clear Urine pH 6.0 (5.0-9.0) Ur Specific [place] <= 1.005 (1.005-1.025) Urine Protein Negative (Neg-Trace) mg/dL Urine Glucose (UA) 100 H (Negative) mg/dL Urine Ketones Negative (Negative) mg/dL Urine Blood Negative (Negative) Urine Nitrite Negative (Negative) Ur Leukocyte Esterase Trace H (Negative) Urine RBC 0-2 (0-2) /HPF Urine WBC 0-5 (0-5) /HPF Ur Squamous Epith Cells 0-2 (0-2) /HPF Urine Bacteria None Seen (None Seen) Hyaline Casts 0-2 (0-2) /LPF Independent Interpretation I performed an independent interpretation of an: CT Scan Radiology Impression Discussion of test interpretation with radiology: I have reviewed the radiologist's reading. Discharge Plan Discharge Clinical Impression: Constipation, Colitis Patient Disposition: Home, Self-Care Instructions: Constipation (ED) Prescriptions: No Action citalopram 40 mg tablet 40 mg PO DAILY 60 Days Qty: 60 0RF (DME) bed pad See Rx Instructions .Route .MEDSUPPLY Qty: 1 0RF Rx Instructions: As directed zolpidem 10 mg tablet 10 mg PO BEDTIME PRN (Reason: Insomnia) Qty: 14 0RF (DME) REUSABLE UNDERPAD See Rx Instructions .Route .MEDSUPPLY Qty: 2 12RF Rx Instructions: As directed amitriptyline 25 mg tablet 25 mg PO BEDTIME Qty: 90 2RF pantoprazole 20 mg tablet,delayed release (DR/EC) 20 mg PO DAILY 90 Days Qty: 90 2RF ondansetron 4 mg tablet,disintegrating 4 mg PO Q8H PRN (Reason: for nausea/vomiting) Qty: 30 1RF albuterol sulfate 90 mcg/actuation HFA aerosol inhaler 1 puff PO Q4H PRN (Reason: for wheezing) Qty: 8.5 6RF Culturelle 15 billion cell capsule, sprinkle 1 cap PO DAILY Qty: 90 3RF alcohol swabs [Alcohol Prep Pads] Pads, Medicated 1 pad topical TID Qty: 100 11RF miconazole nitrate [Monistat 7] 2 % cream 1 appful vaginal BEDTIME 7 Days Qty: 45 0RF (DME) blood-glucose meter [FreeStyle Lite Meter] Kit See Rx Instructions .Route Qty: 1 0RF Rx Instructions: As directed (DME) pen needle, diabetic [Sure-Fine Pen [place]] 31 gauge x 5/16 needle See Rx Instructions .Route Qty: 100 3RF Rx Instructions: As directed- TID (DME) Bedside safety handle See Rx Instructions .Route .MEDSUPPLY Qty: 1 0RF Rx Instructions: As directed (DME) Grab bars See Rx Instructions .Route .MEDSUPPLY Qty: 2 0RF Rx Instructions: As directed (DME) Scooter See Rx Instructions .Route .MEDSUPPLY Qty: 1 0RF Rx Instructions: As directed (DME) pen needle, diabetic 29 gauge x 1/2 needle See Rx Instructions .ROUTE .MEDSUPPLY Qty: 4 3RF Rx Instructions: As directed use with trulicity, basaglar and novolog 4 x a day dicyclomine 10 mg capsule 10 mg PO BID Qty: 60 1RF (DME) FreeStyle Jose F 3 Plus Sensor Device See Rx Instructions .ROUTE .MEDSUPPLY Qty: 6 3RF Rx Instructions: Use daily As directed to monitor glucose (DME) FreeStyle Jose F 3 [place] [facility] [place] Instructions .ROUTE .MEDSUPPLY Qty: 1 0RF Rx Instructions: Use daily As directed to monitor blood glucose cyclobenzaprine 10 mg tablet 10 mg PO BEDTIME MDD , PRN (Reason: muscle spasm) 7 Days Qty: 7 0RF Rx Instructions: side effect is drowsiness. DO not take at home or while driving. clonazepam 0.5 mg tablet 0.5 mg PO DAILY PRN (Reason: Anxiety) bisacodyl [Dulcolax (bisacodyl)] 5 mg tablet,delayed release (DR/EC) 20 mg PO ONCE PRN (Reason: colonoscopy prep) 1 Days Qty: 4 0RF Rx Instructions: Day before procedure @ 12 noon Take 4 tablets by mouth followed by large glass of water cholecalciferol (vitamin D3) 25 mcg (1,000 unit) tablet 25 mcg PO DAILY 90 Days Qty: 90 3RF docusate sodium 100 mg capsule 100 mg PO DAILY PRN (Reason: for constipation) Qty: 60 6RF fluticasone propionate 50 mcg/actuation spray,suspension 1 spray intranasal DAILY 30 Days Qty: 9.9 3RF lancets [TRUEplus Lancets] 33 gauge misc 1 gauge miscellaneous TIDWMEAL 90 Days Qty: 3 3RF Linzess 290 mcg capsule 290 mcg PO QAM 30 Days Qty: 30 2RF Citrucel 500 mg tablet 500 mg PO TID 30 Days Qty: 90 5RF sodium,potassium,mag sulfates [Suprep Bowel Prep Kit] 17.5-3.13-1.6 gram recon soln See Rx Instructions PO .COMPLEX Qty: 354 0RF Rx Instructions: DILUTE; drink 1/2 at 6-8 pm and half at 11 PM- 1AM sennosides [senna] 8.6 mg tablet 8.6 mg PO DAILY PRN (Reason: for constipation) Qty: 90 2RF miconazole nitrate [Zeasorb AF] 2 % powder 1 appl topical BID Qty: 85 0RF (DME) WIPES See Rx Instructions .Route .MEDSUPPLY Qty: 1 12RF Rx Instructions: As directed (DME) Diaper Medium See Rx Instructions .Route .MEDSUPPLY Qty: 50 12RF Rx Instructions: As directed losartan 25 mg tablet 25 mg PO DAILY 90 Days Qty: 90 3RF simvastatin 40 mg tablet 40 mg PO BEDTIME 90 Days Qty: 90 2RF clotrimazole 1 % cream 1 appl topical BID 28 Days Qty: 45 2RF Mounjaro 2.5 mg/0.5 mL pen injector 2.5 mg subcut QWEEK Qty: 2 3RF Rx Instructions: for 4 weeks (DME) FreeStyle Lite Strips Strip See Rx Instructions .ROUTE .COMPLEX Qty: 300 3RF Dose Instruction: TEST BLOOD SUGAR 3 TIMES A DAY Rx Instructions: TEST BLOOD SUGAR 3 TIMES A DAY insulin aspart U-100 [Novolog FlexPen U-100 Insulin] 100 unit/mL (3 mL) insulin pen 12 unit subcut TID Qty: 15 3RF insulin degludec [Tresiba FlexTouch U-200] 200 unit/mL (3 mL) insulin pen 60 unit subcut BEDTIME 30 Days Qty: 5 11RF Rx Instructions: 5 pens one script 11 refill Print Language: Com[place]an
[2025-05-18 20:47] LABS: Alanine Aminotransferase 34 U/L (0-31); Albumin Level 4.2 g/dL (3.5-5.0); Alkaline Phosphatase 49 U/L (39-117); Anion Gap 17 (12-20); Aspartate Amino Transferase 44 U/L (5-31); Blood Urea Nitrogen 10 mg/dL (9-16); Calcium 9.4 mg/dL (8.4-10.2); Carbon Dioxide 21 mmol/L (22-29); Chloride 104 mmol/L (96-108); Creatinine Clr Calc Pharmacy 58.6; Estimated Glomerular Filt Rate > 60; Lipase 291 U/L (8-78); Magnesium 1.8 mg/dL (1.6-2.6); Potassium 3.9 mmol/L (3.3-5.1); Sodium 138 mmol/L (135-145); Total Protein 7.8 g/dL (6.5-8.0)
[2025-05-18 20:53] LABS: Troponin-I High Sensitivity < 2.7 ng/L (<3.5-17.0)
[2025-05-18] MEDS: iohexoL 350 MG/ML 100 ML INFUS..BTL 85 ML IV (22:15)
[2025-05-18 22:38] LABS: Appearance Urine Clear; Glucose Urine UA 100 mg/dL (Negative); PH 6.0 (5.0-9.0); Specific Gravity - Urine <= 1.005 (1.005-1.025); UMIC TRIGGER UACC YES
--- NOTE | 2025-05-19 00:09 | PC.NURSE ---
pt refused oral magnesium. pt states feeling much better. dr hurtado made aware
[2025-05-19 00:46] VITALS: BP 145/61; PULSE 71; RESP 16; TEMP 36.6; O2SAT 97
--- NOTE | 2025-05-19 00:50 | PC.NURSE ---
pt made this rn aware that would have to walk home. pt discharged to waiting room chargeback specialist made aware. iv removed at discharge pt ambulatory at discharge
[2025-05-19 01:14] VITALS: BP 145/61; PULSE 71; RESP 16; TEMP 36.6; O2SAT 97
== END 2025-05-19 01:24 | disposition home or self-care (01) ==
PROVIDERS: Emergency Provider Student in an Organized Health Care Education/Training Program; PCP Internal Medicine
DX: K59.00 Constipation, unspecified (principal); K52.9 Noninfective gastroenteritis and colitis, unspecified; R10.2 Pelvic and perineal pain; R94.31 Abnormal electrocardiogram [ECG] [EKG]; I10 Essential (primary) hypertension; R11.2 Nausea with vomiting, unspecified; E11.9 Type 2 diabetes mellitus without complications; Z79.4 Long term (current) use of insulin; Z79.899 Other long term (current) drug therapy; Z87.891 Personal history of nicotine dependence
CPT/HCPCS: 36415; 74018; 74177; 80053; 81001; 82248; 82947; 83690; 83735; 84484; 85025; 85610; 93005; 96361; 96374; 99284; 99285; J2405; Q9967

== ENCOUNTER → 2025-05-18 20:14 | Outpatient (BNV) | payer OTHER, SELFPAY | PROVIDERS: Emergency Provider Student in an Organized Health Care Education/Training Program; PCP Internal Medicine; Visit Provider Internal Medicine | DX: R94.31 Abnormal electrocardiogram [ECG] [EKG] (principal); R11.2 Nausea with vomiting, unspecified; R19.7 Diarrhea, unspecified | CPT/HCPCS: 93010 ==

== ENCOUNTER 2025-05-22 12:27 | Outpatient (AMB) | payer OTHER, SELFPAY ==
--- NOTE | 2025-05-22 12:50 | A.OFFPC_ITS ---
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 Accompanied by: Self / Same As Patient Allergies JOI Inhibitors Allergy (Intermediate, Verified 05/22/25 13:08) Cough cephalexin (Keflex) Allergy (Intermediate, Verified 05/22/25 13:08) rash codeine (Codeine) Allergy (Intermediate, Verified 05/22/25 13:08) RASH VOMTING- APAP W/ CODEINE, vomiting gemfibrozil (GEMFIBROZIL) Allergy (Intermediate, Verified 05/22/25 13:08) RASH metformin (METFORMIN) Allergy (Intermediate, Verified 05/22/25 13:08) DIARRHEA morphine (Morphine) Allergy (Intermediate, Verified 05/22/25 13:08) HIVES, rash, rash naproxen Allergy (Intermediate, Verified 05/22/25 13:08) inadequate response sulfamethoxazole (From Bactrim) Adverse Reaction (Intermediate, Verified 05/22/25 13:08) nausea tirzepatide (From Mounjaro) Adverse Reaction (Intermediate, Unverified 05/22/25 13:19) constipation trimethoprim (From Bactrim) Adverse Reaction (Intermediate, Verified 05/22/25 13:08) nausea jardiance Adverse Reaction (Intermediate, Uncoded 05/17/25 15:02) vulvar pruritus Medication List - Last Reconciled 05/22/25 by Lanny Soria MD albuterol sulfate 90 mcg/actuation 1 puff PO Q4H PRN alcohol swabs (Alcohol Prep Pads) 1 pad topical TID amitriptyline 25 mg PO BEDTIME [bed pad As directed] [Bedside safety handle As directed] bisacodyl (Dulcolax (bisacodyl)) 20 mg (4 x 5 mg) PO ONCE PRN 1 day blood sugar diagnostic (FreeStyle Lite Strips) TEST BLOOD SUGAR 3 TIMES A DAY blood-glucose meter (FreeStyle Lite Meter kit) As directed blood-glucose sensor (FreeStyle Jose F 3 Plus Sensor device) Use daily As directed to monitor glucose blood-glucose,utility division project manager,cont (FreeStyle Jos Ef 3 Goodrich) Use daily As directed to monitor blood glucose cholecalciferol (vitamin D3) 25 mcg PO DAILY 3 months citalopram 40 mg PO DAILY 2 months clonazepam 0.5 mg PO DAILY PRN clotrimazole 1% 1 appl topical BID 4 weeks cyclobenzaprine 10 mg PO BEDTIME PRN 7 days MDD , [Diaper Medium As directed] dicyclomine 10 mg PO BID docusate sodium 100 mg PO DAILY PRN fluticasone propionate 50 mcg/actuation 1 spray intranasal DAILY 30 days [Grab bars As directed] insulin aspart U-100 (Novolog FlexPen U-100 Insulin aspart) 12 units (0.12 mL) subcut TID insulin degludec (Tresiba FlexTouch U-200 insulin) 60 units (0.3 mL) subcut BEDTIME 30 days Lactobacillus rhamnosus GG (Culturelle) 1 cap PO DAILY lancets (TRUEplus Lancets) 1 gauge miscellaneous TIDWMEAL 90 days linaclotide (Linzess) 290 mcg PO QAM 30 days losartan 25 mg PO DAILY 90 days methylcellulose (laxative) (Citrucel) 500 mg PO TID 30 days miconazole nitrate 2% (Monistat 7) 1 appful vaginal BEDTIME 7 days miconazole nitrate 2% (Zeasorb AF) 1 appl topical BID ondansetron 4 mg PO Q8H PRN pantoprazole 20 mg PO DAILY 90 days pen needle, diabetic (Sure-Fine Pen [place]) As directed- TID pen needle, diabetic As directed use with trniranjan basaglar and novolog 4 x a day [REUSABLE UNDERPAD As directed] [Scooter As directed] sennosides (senna) 8.6 mg PO DAILY PRN simvastatin 40 mg PO BEDTIME 3 months sodium,potassium,mag sulfates 17.5-3.13-1.6 gram (Suprep Bowel Prep Kit) DILUTE; drink 1/2 at 6-8 pm and half at 11 PM- 1AM tirzepatide (Mounjaro) 2.5 mg (0.5 mL) subcut QWEEK [WIPES As directed] zolpidem 10 mg PO BEDTIME PRN Tobacco use date assessed: 05/22/25 Fall risk assessment: 2 + Falls in past year Last assessed Fall Risk: 05/22/25 Dental Screening Dental Screen Date: 05/22/25 Did you have a dental visit in the last 12 months?: No Did you have a dental problem in the last 6 months where you did not have access to dental care?: No Was dental information given to patient?: No PFSH Medical History Pelvic pain Headache Vaginal dryness Acute vaginitis Encounter for annual routine gynecological examination Dizzy Tinea corporis Hx of flexible sigmoidoscopy Herpes, genital Dysuria Breast cancer screening by mammogram Diarrhea Otitis externa Neck discomfort Overweight (BMI 25.0-29.9) Overweight COVID-19 vaccine series completed Low back pain Abdominal pain Potential exposure to STD Dyspareunia in female Problematic vaginal discharge Candidal intertrigo Obesity (BMI 30-39.9) Right upper quadrant pain Fatty liver Osteopenia Insomnia Gallbladder polyp GERD (gastroesophageal reflux disease) Hypercholesterolemia Anxiety and depression Intertrigo Breast density H. pylori infection Essential hypertension Migraine ARISTEO on CPAP Arthritis History of panic attacks Vitamin D deficiency Hx of irritable bowel syndrome Enlarged thyroid Fibromyalgia Asthma Hypertension Herpes genitalis Hx of ectopic Surgical History History of esophagogastroduodenoscopy (EGD) H/O colonoscopy S/P repair of ventral hernia Hx of bariatric surgery Hx of cholecystectomy Hx of unilateral oophorectomy Family History Sister Hx of diabetes mellitus Hx of myocardial infarction Father Hx of myocardial infarction Daughter Cancer Sister Hx of diabetes mellitus Social History Household Members: None Housing: Apartment Alcohol intake: former Patient Tobacco Use Status: Former Tobacco user Tobacco use type: Cigarette Cigarette Packs Per Day: 2 Years Smoked: 20 quit 2008 e-Cigarette/Vaping Use: Never Used Second Hand Smoke Exposure: Yes service: No Current occupational status: disabled Gender identity: Female Cognitive needs: No Hearing needs: No Vision needs: Yes Female Reproductive History Menstrual Age of Menarche: 8 Questionnaire PHQ-9 Over the last 2 weeks, how often have you been bothered by any of the following problems? 1. Little interest or pleasure in doing things: not at all 2. Feeling down, depressed, or hopeless: several days 3. Trouble falling or staying asleep, or sleeping too much: several days 4. Feeling tired or having little energy: several days 5. Poor appetite or overeating: several days 6. Feeling bad about yourself - or that you are a failure or have let yourself or your family down: not at all 7. Trouble concentrating on things, such as reading the newspaper or watching television: not at all 8. Moving or speaking so slowly that other people could have noticed. Or the opposite - being so fidgety or restless that you have been moving around a lot more than usual: not at all 9. Thoughts that you would be better off or of hurting yourself in some way: not at all Total score: 4 Source: Developed by Drs. Boston Jimenes, Halley Watkins, Ti Mart and colleagues, with an educational jasmina from [employer]. Thrive Questionnaire Date Thrive assessed: 05/22/25 I am a: Patient What is your living situation today?: I have a steady place to live Within the past 12 months, did the food you bought not last and you didn't have the money to get more?: Sometimes True Within the past 12 months, did you worry whether your food would run out before you got money to buy more?: Sometimes True Do you have trouble paying for medicines?: No Do you have trouble getting transportation to medical appointments?: No Do you have trouble paying your heating and electricity bill?: No Do you have trouble taking care of your child, family member or friend?: No Do you have trouble with day-to-day activities such as bathing, preparing meals, shopping, managing finances, etc.?: No Are you currently unemployed and looking for a job?: No Are you interested in more education?: No Please select the resources that you would like help with: None Currently or been in a relationship where the following occur: I choose not to answer THRIVE Score: 2 AUDIT C Alcohol Use Questionnaire (AUDIT-C) 1. How often do you have a drink containing alcohol?: Never 3. How often do you have six or more drinks on one occasion?: Never Total Score: 0 ANJEL-7 AMB Questionnaire ANJEL-7 Date ANJEL - 7 assessed: 05/22/25 Feeling nervous, anxious, or on edge: 0 = Not at all Not being able to stop or control worryin = Not at all Worrying too much about different things: 0 = Not at all Trouble relaxin = Not at all Being so restless that it is hard to sit still: 0 = Not at all Becoming easily annoyed or irritable: 0 = Not at all Feeling afraid as if something awful might happen: 0 = Not at all Total ANJEL-7 score (0-4 normal; 5-9 mild; 10-14 moderate; 15-21 severe): 0 Source: Developed by Drs. Boston Jimenes, Halley Watkins, Ti Mart and colleagues, with an educational jasmina from [employer]. Physical exam (Primary Care) Vital Signs: Last Vital Signs Temp 97.1 F 05/22/25 13:07 Pulse 75 05/22/25 13:07 Resp 18 05/22/25 13:07 BP 126/60 05/22/25 13:07 Pulse Ox 96 05/22/25 13:07 Oxygen Delivery Method Room Air 05/22/25 13:07 BMI result Body Mass Index 28.9 Tobacco/Smoking Status: Tobacco use Status Tobacco use date assessed 05/22/25 05/22/25 13:13 Patient Tobacco Use Status Former Tobacco user 05/22/25 12:51 Tobacco use type Cigarette 05/22/25 12:51 e-Cigarette/Vaping Use Never Used 05/22/25 12:51 PHQ-9: PHQ-9 Score PHQ-9: Total score 4 05/22/25 14:26 Thrive Assessment: Date of Thrive Assessment Date Thrive assessed 05/22/25 05/22/25 13:13 Currently or been in a relationship where the following occur: I choose not to answer Const General: alert; No acute distress Eyes Conjunctivae: conjunctivae normal Resp Auscultation: clear to auscultation bilaterally Cardio Rate: regular rate Rhythm: regular rhythm GI Inspection: Yes normal to inspection Extrem General: Yes normal to inspection and No edema Coding Level of Care Code Est Pt Level 4 (04911) Complex EM visit Add On G2211 Diagnoses Colitis K52.9 Chronic constipation K59.09 Type 2 diabetes mellitus with hyperglycemia E11.65 Assessment & Plan Assessment & Plan (1) Colitis: Code(s): K52.9 - Noninfective gastroenteritis and colitis, unspecified Category: Medical Plan: Keep well hydrated (2) Chronic constipation: Comment: Diabetes, not well controlled, likely plays a role Due for colonoscopy, declines at this time-due to severe constipation Code(s): K59.09 - Other constipation Category: Medical Plan: Three rules for constipation 1. Diet need to have a high fiber diet less of meat 2. Increase oral fluids 3. Exercise. Concern on patient being on Mounjaro (3) Type 2 diabetes mellitus with hyperglycemia: Code(s): E11.65 - Type 2 diabetes mellitus with hyperglycemia Category: Medical Plan: Decrease the amount of carbohydrate intake, pasta, bread, rice and potatoes are all sugar and that is aside from all the sweet stuff, remember that fruits are good but they are Sweet also. Patient on insulin Tresiba and NovoLog.. Concern on Mounjaro causing constipation Plan History of Present Illness The patient is a 64-year-old female presenting with constipation. She has a history of hypertension, hypercholesterolemia, gastroesophageal reflux disease, generalized anxiety disorder, lumbar degenerative disc disease, hepatic steatosis, tubular adenoma of the colon, obstructive sleep apnea, and diabetes mellitus. The patient reports an emergency room visit for abdominal pain, where she was noted to have not had a bowel movement for a week. A CT scan indicated colitis with abnormal bowel wall thickening, and a moderate to severe stool burden was observed. Blood work from April 2023 showed a normal blood count with a high white blood cell count of 14, normal electrolytes, good renal function, elevated liver function, and a blood sugar level of 220 mg/dL. The patient is on insulin therapy with Triceba and Novolog and has been advised against using Mounjaro due to concerns about exacerbating constipation. She has been experiencing constipation despite using multiple medications, including Linzess and suppositories, without relief. The patient has been advised to increase water intake, dietary fiber, and physical activity to alleviate constipation. The patient has proteinuria but no infection, and her A1c was noted to be 8.9 in February, indicating poor glycemic control. 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 Review of Systems - Gastrointestinal: Reports constipation, abdominal pain, and vomiting. Denies small bowel obstruction. - Endocrine: Reports high blood sugar levels. - Genitourinary: Reports proteinuria. Denies urinary tract infection. Physical Exam Results - Labs: Normal blood count with high white blood cell count of 14, elevated liver function, blood sugar level of 220 mg/dL, A1c of 8.9 in February. - Imaging: CT scan showed colitis with abnormal bowel wall thickening, moderate to severe stool burden, and no small bowel obstruction. Plan Patient was informed and verbally consented to the use of an ambient scribe for clinic note documentation during this visit. 1. Constipation The patient is advised to discontinue Mounjaro due to its exacerbating effect on constipation. She is encouraged to increase water intake, dietary fiber, and physical activity to promote bowel movements. Lactulose has been prescribed to aid in bowel evacuation. 2. Diabetes Mellitus The patient is on insulin therapy with Triceba and Novolog. Monitoring of blood glucose levels is recommended due to a history of elevated A1c levels. 3. Colitis The CT scan indicated colitis with abnormal bowel wall thickening. Management includes addressing constipation and monitoring symptoms. Discussion Notes During the visit, I discussed with the patient the importance of discontinuing Mounjaro due to its role in exacerbating constipation. We reviewed the need for increased water intake, dietary fiber, and physical activity to manage constipation effectively. I prescribed lactulose to assist with bowel evacuation and emphasized the importance of monitoring blood glucose levels due to diabetes mellitus. Patient Instructions - Stop taking Mounjaro to prevent worsening constipation. - Increase water intake, eat more fiber, and engage in regular physical activity to help with bowel movements. - Take lactulose as prescribed to aid in bowel evacuation. - Monitor blood sugar levels regularly and report any significant changes. Medications: Discontinued tirzepatide (Mounjaro) for 4 weeks Discontinued Reason: Doctor's Order 2.5 mg (0.5 mL) subcut QWEEK 2 mL 3RF
--- OUTSIDE RECORDS SUMMARY | 2025-05-22 12:59 | XMS_ITS | Clinical Summary ---
Author Organization [employer] [facility] Address [address] [place] [address] [address] [place] [address] Care Team Providers Care Lead Technical Architect Name Role Phone Unavailable Primary Care Provider [...]
[2025-05-22 13:07] VITALS: BP 126/60; PULSE 75; RESP 18; TEMP 36.2; O2SAT 96; BMI 28.9
== END 2025-05-22 16:12 | disposition home or self-care (01) ==
LOC: HO.HMCH 12:28
PROVIDERS: PCP Internal Medicine; Visit Provider Internal Medicine
DX: K52.9 Noninfective gastroenteritis and colitis, unspecified (principal); K59.09 Other constipation; E11.65 Type 2 diabetes mellitus with hyperglycemia

== ENCOUNTER → 2025-05-22 12:27 | Outpatient (BNVA) | payer OTHER, SELFPAY | PROVIDERS: PCP Internal Medicine; Visit Provider Internal Medicine | DX: E11.65 Type 2 diabetes mellitus with hyperglycemia (principal); R87.610 Atypical squamous cells of undetermined significance on cytologic smear of cervix (ASC-US); R93.89 Abnormal findings on diagnostic imaging of other specified body structures; K52.9 Noninfective gastroenteritis and colitis, unspecified; K59.09 Other constipation; I10 Essential (primary) hypertension; E78.00 Pure hypercholesterolemia, unspecified; K21.9 Gastro-esophageal reflux disease without esophagitis; F41.1 Generalized anxiety disorder; M51.369 Other intervertebral disc degeneration, lumbar region without mention of lumbar back pain or lower extremity pain; E88.89 Other specified metabolic disorders; G47.33 Obstructive sleep apnea (adult) (pediatric) | CPT/HCPCS: 96127; 99212 ==

== ENCOUNTER 2025-05-22 13:38 | Outpatient (AMB) | payer OTHER, SELFPAY ==
--- NOTE | 2025-05-22 13:39 | MHC.OFFVIS ---
Intake Visit Reasons: US/ECC /? pre op Director Of Marketing [employer] Required: Yes Director Of Marketing [employer] Language: Shuttle Final Inspector Services: Director Of Marketing [employer] Present Director Of Marketing [employer] Name: CHASE Brown Information Interpreted: non-clinical & clinical Machine Tool Electrician: Machine Tool Electrician Present (CHASE Brown) Accompanied by: Self / Same As Patient Allergies JOI Inhibitors Allergy (Intermediate, Verified 05/22/25 13:08) Cough cephalexin (Keflex) Allergy (Intermediate, Verified 05/22/25 13:08) rash codeine (Codeine) Allergy (Intermediate, Verified 05/22/25 13:08) RASH VOMTING- APAP W/ CODEINE, vomiting gemfibrozil (GEMFIBROZIL) Allergy (Intermediate, Verified 05/22/25 13:08) RASH metformin (METFORMIN) Allergy (Intermediate, Verified 05/22/25 13:08) DIARRHEA morphine (Morphine) Allergy (Intermediate, Verified 05/22/25 13:08) HIVES, rash, rash naproxen Allergy (Intermediate, Verified 05/22/25 13:08) inadequate response sulfamethoxazole (From Bactrim) Adverse Reaction (Intermediate, Verified 05/22/25 13:08) nausea tirzepatide (From Mounjaro) Adverse Reaction (Intermediate, Unverified 05/22/25 13:19) constipation trimethoprim (From Bactrim) Adverse Reaction (Intermediate, Verified 05/22/25 13:08) nausea jardiance Adverse Reaction (Intermediate, Uncoded 05/17/25 15:02) vulvar pruritus Is last menstrual period known: Yes Last menstrual period: 07/24/20 Post menopausal: No Patient : No Do you need a note to return to daycare/school/sports/work: Yes (for surgery on tuesday) HPI Comments Details: Presenting for follow-up regarding Pap smear ASC-H 03/13/2025 Colpo biopsy ECC showed the following: A. Endocervix, curettage: Rare benign endocervical glandular epithelial cells and no squamous epithelium; may not be hotel services sales representative of the endocervix. B. Cervix, 6:00, biopsy: Squamous mucosa with reactive changes; negative for dysplasia; no endocervical glandular component present. C. Cervix, 9:00, biopsy: Squamous mucosa with inflammation and focal atypia; no endocervical glandular mucosa present (see comment). D. Cervix, 11:00, biopsy: Squamous mucosa with reactive changes; negative for dysplasia; no endocervical glandular mucosa present. E. Cervix, 12:00, biopsy: Squamous mucosa with inflammation and reactive and atrophic changes, and focal atypia; no endocervical glandular mucosa present (see comment). Comment: The atypia seen in C and E is similar to the atypia seen in the patient's previous Pap test ([id number]), and is insufficient for a diagnosis of low grade dysplasia. There is no evidence of high grade dysplasia 03/28/2025 ECC repeated pathology showed the following: Endocervix, curettage: Squamous mucosa with reactive changes, focal atrophy, and biopsy site changes; and rare endocervical glandular epithelial cells; negative for dysplasia. Comment: The specimen may not be hotel services sales representative of the endocervix. 05/02/25 US of pelvis showed he following: Uterus: The uterus is anteversion flexion and measures 7 x 3 x 4 cm. The double wall endometrial thickness is 5 mm. The uterus is smooth in contour and has normal myometrial echogenicity. Heterogeneous anechoic abnormality is within the endometrial stripe/uterine cavity. Adnexa: The ovaries are not identified.. No free fluid in the cul-de-sac. [facility] Medical History Pelvic pain Headache Vaginal dryness Acute vaginitis Encounter for annual routine gynecological examination Dizzy Tinea corporis Hx of flexible sigmoidoscopy Herpes, genital Dysuria Breast cancer screening by mammogram Diarrhea Otitis externa Neck discomfort Overweight (BMI 25.0-29.9) Overweight COVID-19 vaccine series completed Low back pain Abdominal pain Potential exposure to STD Dyspareunia in female Problematic vaginal discharge Candidal intertrigo Obesity (BMI 30-39.9) Right upper quadrant pain Fatty liver Osteopenia Insomnia Gallbladder polyp GERD (gastroesophageal reflux disease) Hypercholesterolemia Anxiety and depression Intertrigo Breast density H. pylori infection Essential hypertension Migraine ARISTEO on CPAP Arthritis History of panic attacks Vitamin D deficiency Hx of irritable bowel syndrome Enlarged thyroid Fibromyalgia Asthma Hypertension Herpes genitalis Hx of ectopic Surgical History History of esophagogastroduodenoscopy (EGD) H/O colonoscopy S/P repair of ventral hernia Hx of bariatric surgery Hx of cholecystectomy Hx of unilateral oophorectomy Family History Sister Hx of diabetes mellitus Hx of myocardial infarction Father Hx of myocardial infarction Daughter Cancer Sister Hx of diabetes mellitus Social History Household Members: None Housing: Apartment Alcohol intake: former Patient Tobacco Use Status: Former Tobacco user Tobacco use type: Cigarette Cigarette Packs Per Day: 2 Years Smoked: 20 quit 2008 e-Cigarette/Vaping Use: Never Used Second Hand Smoke Exposure: Yes service: No Current occupational status: disabled Gender identity: Female Cognitive needs: No Hearing needs: No Vision needs: Yes Female Reproductive History Menstrual Age of Menarche: 8 Date of last menstrual period: 07/24/20 Total pregnancies: 2 Full term: 2 Review of Systems Card Reports as per HPI and Reports no additional complaints Resp Reports as per HPI and Reports no additional complaints GI Reports as per HPI and Reports no additional complaints Reports as per HPI Physical Exam Const General: cooperative, healthy appearing and comfortable Resp Effort & Inspection: normal respiratory effort Auscultation: clear to auscultation bilaterally Percussion: percussion normal Cardio Palpation: normal PMI Rate: regular rate Rhythm: regular rhythm Heart sounds: no murmurs and no rubs Peripheral pulses: Peripheral pulses 2+ throughout GI Inspection: Yes normal to inspection Palpation (GI): Soft to palpation, nontender, no guarding, not rigid and No hepatosplenomegaly present Percussion: Yes normal to percussion Auscultation: normal bowel sounds Rectal Exam - Female: deferred Assessment & Plan Assessment & Plan (1) Pap smear cannot exclude high grade squamous intraepithelial lesion (ASC-H): Comment: HPV negative Discrepancy between cytology/pathology and ECC might not be hotel services sales representative ? SYEDA 1 on colpo biopsy Code(s): R87.610 - Atypical squamous cells of undetermined significance on cytologic smear of cervix (ASC-US) Category: Medical Plan: Discussed with the patient the results of the colposcopy biopsy ECC, in addition to the sensitivity, specificity, false-positive false-negative rate in diagnosis cervical malignancy. In addition discussed with the patient the ASCCP guidelines of management of biopsy confirmed SYEDA 1 preceded by ASC-H including either co testing at 12 and 24 months or diagnostic excisional procedure. All pros and cons, risks and benefits of each were discussed with the patient, the patient decided to proceed with LEEP possible cone with post cone ECC Will proceed with LEEP cone was post cone ECC. Discussed with the patient the procedure, its benefits and risks including bleeding, infection, possible need for blood transfusion with all its risk ( HIV, syphilis, Hepatitis, anaphylaxis shock, others..), injury to bladder, rectum, possible re-excision for positive margins, potential need for hysterectomy, possible future negative impact on fertility including ( cervical stenosis, incompetence , increase risk for c section 2ndary to cervical scarring and failure of dilatation), possible positive margin necessitating re-excision. Also discussed the patient options of anesthesia either paracervical block versus IV sedation/MAC, prefers to proceed with IV sedation/MAC. All questions answered, the patient verbalized understanding and signed the consent. (2) Increased endometrial stripe thickness: Comment: vaginal d/c Code(s): R93.89 - Abnormal findings on diagnostic imaging of other specified body structures Category: Medical Plan: Discussed with the patient endometrial thickness above 4 mm in menopause , the differential diagnosis of a thickened endometrium includes but not limited to endometrial polyp, hyperplasia or carcinoma. Explained to the patient that endometrial each thickness is less predictive of endometrial neoplasia in asymptomatic patients, i.e. those without postmenopausal uterine bleeding. The sensitivity and specificity for detecting endometrial carcinoma at an endometrial thickness of >= 5mm was 83 and 72 percent, respectively; this is lower than in patients with bleeding. Studies have shown that postmenopausal patients without uterine bleeding who had an endometrial thickness >11 mm had an endometrial carcinoma risk of 6.7 percent; this risk is similar to postmenopausal patients with bleeding and an endometrial thickness >5 mm. Recommended endometrial sampling to rule endometrial pathology via either office endometrial biopsy or diagnostic hysteroscopy/D&C with possible polypectomy/myomectomy. All pros and cons, risks and benefits of each approach were discussed with the patient, the patient decided to proceed with hysteroscopy D&C possible polypectomy/myomectomy. Discussed with the patient the procedure , all benefits and risks including but not limited to inability to complete the procedure , insufficient endometrial tissue for a complete evaluation of the endometrial cavity , bleeding, infection, possible need for blood transfusion with all its risk ( HIV,syphilis, Hepatitis, anaphylaxis shock, others..), injury to bladder, rectum, possible need for laparoscopy/laparotomy or hysterectomy. The patient verbalized understanding and signed the consent. Instructions given the patient to stay NPO after midnight the day prior to the procedure and to take only losartan the morning of the surgical procedure and to schedule a 2 week postoperative appointment Coding Level of Care Code Est Pt Level 3 (99240) Diagnoses Pap smear cannot exclude high grade squamous intraepithelial lesion (ASC-H) R87.610 Increased endometrial stripe thickness R93.89
== END 2025-05-22 14:26 | disposition home or self-care (01) ==
LOC: HO.HWS 13:38
PROVIDERS: PCP Internal Medicine; Visit Provider Obstetrics & Gynecology
DX: R87.610 Atypical squamous cells of undetermined significance on cytologic smear of cervix (ASC-US) (principal); R93.89 Abnormal findings on diagnostic imaging of other specified body structures
CPT/HCPCS: 99213

== ENCOUNTER 2025-05-29 12:54 | Day surgery (SDC) | payer OTHER, SELFPAY ==
--- OUTSIDE RECORDS SUMMARY | 2025-05-23 15:22 | XMS_ITS | Clinical Summary ---
Author Organization [employer] [facility] Address [address] [place] [address] [address] [place] [address] Care Team Providers Care Caddymaster Name Role Phone Unavailable Primary Care Provider [...]
--- NOTE | 2025-05-28 09:03 | HO.ANESPROP2 ---
Documented by User: Allie Louise NP 05/28/25 09:04 HPI - Anesthesia Eval Consult details Narrative: 64yo F for D&C Hysteroscopy,possible myomectomy,possible polypectomy, LEEP,poss loop electric excision,poss loop electrical,cone and post endocervical curettage PMFSH Active Problems Active Problems: All Active Problems Increased endometrial stripe thickness (Acute) Colitis (Acute) Tinea cruris (Acute) Trigger finger of right hand (Acute) Type 2 diabetes mellitus with hyperglycemia (Acute) Uncontrolled type 2 diabetes mellitus with hyperglycemia, with long-term current use of insulin (Acute) Vaginal discharge (Acute) Pap smear cannot exclude high grade squamous intraepithelial lesion (ASC-H) (Acute) Left sided abdominal pain (Acute) Hearing difficulty (Acute) Tinea corporis (Acute) Diverticulosis of colon (Acute) TSH elevation (Acute) Restless legs (Acute) Obstructive sleep apnea (adult) (pediatric) (Acute) Annual physical exam (Acute) Hair loss (Acute) Urinary incontinence (Acute) Peripheral neuropathy (Acute) COVID-19 virus infection (Acute) Chronic constipation (Acute) Generalized anxiety disorder (Acute) Lumbar degenerative disc disease (Acute) NAFLD (nonalcoholic fatty liver disease) (Acute) Tubular adenoma of colon (Acute) Vaginal chiki (Acute) Tinea corporis (Acute) Pelvic pain (Acute) Overweight (Acute) GERD (gastroesophageal reflux disease) (Acute) Hypercholesterolemia (Acute) Essential hypertension (Acute) Past Medical History Medical History Type 2 diabetes mellitus Pelvic pain Headache Vaginal dryness Acute vaginitis Encounter for annual routine gynecological examination Dizzy Tinea corporis Hx of flexible sigmoidoscopy Herpes, genital Dysuria Breast cancer screening by mammogram Diarrhea Otitis externa Neck discomfort Overweight (BMI 25.0-29.9) Overweight COVID-19 vaccine series completed Low back pain Abdominal pain Potential exposure to STD Dyspareunia in female Problematic vaginal discharge Candidal intertrigo Obesity (BMI 30-39.9) Right upper quadrant pain Fatty liver Osteopenia Insomnia Gallbladder polyp GERD (gastroesophageal reflux disease) Hypercholesterolemia Anxiety and depression Intertrigo Breast density H. pylori infection Essential hypertension Migraine ARISTEO on CPAP Arthritis History of panic attacks Vitamin D deficiency Hx of irritable bowel syndrome Enlarged thyroid Fibromyalgia Asthma Hypertension Herpes genitalis Hx of ectopic Family History Family History Sister Hx of diabetes mellitus Hx of myocardial infarction Father Hx of myocardial infarction Daughter Cancer Sister Hx of diabetes mellitus Family history of problems with anesthesia: No Surgical History Surgical History History of esophagogastroduodenoscopy (EGD) H/O colonoscopy S/P repair of ventral hernia Hx of bariatric surgery Hx of cholecystectomy Hx of unilateral oophorectomy History of Problems with Anesthesia: No Social History Social History Household Members: None Housing: Apartment Alcohol intake: former Patient Tobacco Use Status: Former Tobacco user Tobacco use type: Cigarette Cigarette Packs Per Day: 2 Years Smoked: 20 quit 2008 e-Cigarette/Vaping Use: Never Used Second Hand Smoke Exposure: Yes Use of substances other than those prescribed or required for medical reasons: No Are you DNR?: No Advance Directives: No Advance Directives Information Provided: Yes Patient : No : No Poor oral hygiene: No service: No Current occupational status: disabled Gender identity: Female Cognitive needs: No Hearing needs: No Vision needs: Yes Meds Allergies Allergy/AdvReac Type Severity Reaction Status Date / Time JOI Inhibitors Allergy Intermediate Cough Verified 05/22/25 13:08 cephalexin (Keflex) Allergy Intermediate rash Verified 05/22/25 13:08 codeine (Codeine) Allergy Intermediate RASH Verified 05/22/25 13:08 VOMTING- APAP W/ CODEINE, vomiting gemfibrozil (GEMFIBROZIL) Allergy Intermediate RASH Verified 05/22/25 13:08 metformin (METFORMIN) Allergy Intermediate DIARRHEA Verified 05/22/25 13:08 morphine (Morphine) Allergy Intermediate HIVES, Verified 05/22/25 13:08 rash, rash naproxen Allergy Intermediate inadequate Verified 05/22/25 13:08 response sulfamethoxazole (From AdvReac Intermediate nausea Verified 05/22/25 13:08 Bactrim) tirzepatide (From Mounjaro) AdvReac Intermediate constipatio Verified 05/29/25 13:27 n trimethoprim (From Bactrim) AdvReac Intermediate nausea Verified 05/22/25 13:08 jardiance AdvReac Intermediate vulvar Uncoded 05/17/25 15:02 pruritus Home Medications ?Medication ?Instructions ?Recorded ?Confirmed ?Last Taken ?Type clonazepam 0.5 mg tablet 0.5 mg PO DAILY PRN Anxiety 11/30/21 05/22/25 08/21/24 History Exam Pertinent Lab Results Pertinent Lab Results: Laboratory Tests 05/18/25 20:22 WBC 14.4 H Hgb 13.6 Hct 40.4 Plt Count 230 Sodium 138 Potassium 3.9 Chloride 104 Carbon Dioxide 21 L BUN 10 Creatinine 0.90 Assessment and Plan Assessment Anesthesia Assessment: Chart Reviewed Final Anesthetic Review Family History of Problems with Anesthesia: No History of Problems with Anesthesia: No Documented by User: Kaden Gifford MD 05/29/25 14:14 HPI - Anesthesia Eval Anesthesia Pre-Procedure Meds If yes to any meds - educate patient: Pt education - increased risk of aspiration and/or euvolemic DKA (stopped monjauro 2 weeks ago) PMFSH Past Medical History Medical History Type 2 diabetes mellitus Pelvic pain Headache Vaginal dryness Acute vaginitis Encounter for annual routine gynecological examination Dizzy Tinea corporis Hx of flexible sigmoidoscopy Herpes, genital Dysuria Breast cancer screening by mammogram Diarrhea Otitis externa Neck discomfort Overweight (BMI 25.0-29.9) Overweight COVID-19 vaccine series completed Low back pain Abdominal pain Potential exposure to STD Dyspareunia in female Problematic vaginal discharge Candidal intertrigo Obesity (BMI 30-39.9) Right upper quadrant pain Fatty liver Osteopenia Insomnia Gallbladder polyp GERD (gastroesophageal reflux disease) Hypercholesterolemia Anxiety and depression Intertrigo Breast density H. pylori infection Essential hypertension Migraine ARISTEO on CPAP Arthritis History of panic attacks Vitamin D deficiency Hx of irritable bowel syndrome Enlarged thyroid Fibromyalgia Asthma Hypertension Herpes genitalis Hx of ectopic Functional capacity: independent ambulation Family History Family History Sister Hx of diabetes mellitus Hx of myocardial infarction Father Hx of myocardial infarction Daughter Cancer Sister Hx of diabetes mellitus Surgical History Surgical History History of esophagogastroduodenoscopy (EGD) H/O colonoscopy S/P repair of ventral hernia Hx of bariatric surgery Hx of cholecystectomy Hx of unilateral oophorectomy Social History Social History Household Members: None Housing: Apartment Alcohol intake: former Patient Tobacco Use Status: Former Tobacco user Tobacco use type: Cigarette Cigarette Packs Per Day: 2 Years Smoked: 20 quit 2008 e-Cigarette/Vaping Use: Never Used Second Hand Smoke Exposure: Yes Use of substances other than those prescribed or required for medical reasons: No Are you DNR?: No Advance Directives: No Advance Directives Information Provided: Yes Patient : No : No Poor oral hygiene: No service: No Current occupational status: disabled Gender identity: Female Cognitive needs: No Hearing needs: No Vision needs: Yes Meds Allergies Allergy/AdvReac Type Severity Reaction Status Date / Time JOI Inhibitors Allergy Intermediate Cough Verified 05/22/25 13:08 cephalexin (Keflex) Allergy Intermediate rash Verified 05/22/25 13:08 codeine (Codeine) Allergy Intermediate RASH Verified 05/22/25 13:08 VOMTING- APAP W/ CODEINE, vomiting gemfibrozil (GEMFIBROZIL) Allergy Intermediate RASH Verified 05/22/25 13:08 metformin (METFORMIN) Allergy Intermediate DIARRHEA Verified 05/22/25 13:08 morphine (Morphine) Allergy Intermediate HIVES, Verified 05/22/25 13:08 rash, rash naproxen Allergy Intermediate inadequate Verified 05/22/25 13:08 response sulfamethoxazole (From AdvReac Intermediate nausea Verified 05/22/25 13:08 Bactrim) tirzepatide (From Mounjaro) AdvReac Intermediate constipatio Verified 05/29/25 13:27 n trimethoprim (From Bactrim) AdvReac Intermediate nausea Verified 05/22/25 13:08 jardiance AdvReac Intermediate vulvar Uncoded 05/17/25 15:02 pruritus Home Medications ?Medication ?Instructions ?Recorded ?Confirmed ?Last Taken ?Type clonazepam 0.5 mg tablet 0.5 mg PO DAILY PRN Anxiety 11/30/21 05/22/25 08/21/24 History Exam Exam Date and Time: 05/29/2025 Airway Mallampati Class: II TM Dist: >3cm Neck ROM: Full Heart: rrr Lungs: cta Other: normal Assessment and Plan Final Anesthetic Review NPO: Yes ASA Class: II Final Preanesthetic Review: No Changes in Pt Med Stat, Meds/Allgs Chart Reviewed, Consent Obtained/Reviewed and Anes Risks/Benef Reviewed Patient Risk: Low Procedure Risk: Low Anesthetic Plan Anesthetic Plan: GA Disposition: Standard PACU
[2025-05-29] VITALS (7 sets, daily range): BP systolic 124–154; BP diastolic 44–70; PULSE 64–83; RESP 16; TEMP 36.8; O2SAT 96–99; BMI 29.4
[2025-05-29 13:22] LABS: Glucose, Whole Blood 107 mg/dL (60-115)
[2025-05-29] MEDS: Lactated Ringers 1,000 ML 100 ML IVCONT (13:27)
--- NOTE | 2025-05-29 13:32 | P.HPSUR_ITS ---
Pre-Procedural Eval Section A - 24 Hr Update-Section A only Date of Service: 05/29/25 The patient is an INPATIENT: No Changes since office visit: No Cold of Flu in the past 2 weeks, No New Medical Problems, No Changes in Medication and No Patient answered all questions The patient has been examined within 24 hours of the surgical procedure. The History & Physical has been completed within 30 days and I have reviewed it.: Yes Section B - Complete if H&P > 30 days Chief Complaint: Atypical squamous cells of undetermined Allergies: Allergies Allergy/AdvReac Type Severity Reaction Status Date / Time JOI Inhibitors Allergy Intermediate Cough Verified 05/22/25 13:08 cephalexin (Keflex) Allergy Intermediate rash Verified 05/22/25 13:08 codeine (Codeine) Allergy Intermediate RASH Verified 05/22/25 13:08 VOMTING- APAP W/ CODEINE, vomiting gemfibrozil (GEMFIBROZIL) Allergy Intermediate RASH Verified 05/22/25 13:08 metformin (METFORMIN) Allergy Intermediate DIARRHEA Verified 05/22/25 13:08 morphine (Morphine) Allergy Intermediate HIVES, Verified 05/22/25 13:08 rash, rash naproxen Allergy Intermediate inadequate Verified 05/22/25 13:08 response sulfamethoxazole (From AdvReac Intermediate nausea Verified 05/22/25 13:08 Bactrim) tirzepatide (From Mounjaro) AdvReac Intermediate constipatio Verified 05/29/25 1 3:27 n trimethoprim (From Bactrim) AdvReac Intermediate nausea Verified 05/22/25 13:08 jardiance AdvReac Intermediate vulvar Uncoded 05/17/25 15:02 pruritus Plan Diagnosis/Plan: Unchanged I have reviewed the history and physical and performed a pertinent physical examination on my patient. No changes have occurred unless specified. Time Spent With Patient Time: Total time managing care of this patient today ____ minutes.
--- NOTE | 2025-05-29 15:10 | PM.OP ---
Brief Operative Note Date of Service: 05/29/25 Pre-op diagnosis: Thick endometrium Discrepancy between cytology (ASC-H) and normal pathology Post-op diagnosis: same Procedure: Hysteroscopy D&C LEEP cone with post cone ECC Surgeon: Diego Jarvis MD Anesthesia: GLMA Was an Diesel Retrofit Installer used for this Procedure?: No Estimated blood loss (mL): 0 Pathology: other (Endometrial Scrapping. Cervical cone, endocervical, post cone ECC) Condition: stable Disposition: PACU
--- NOTE | 2025-05-29 15:11 | W.PM.OPN ---
Operative Note Operative Note Date of Service: 05/29/25 Narrative: Preop Diagnosis: Thickened endometrium, discrepancy between cytology (ASC-H) and pathology Operation: Diagnostic Hysteroscopy, Dilataion & Curettage, LEEP cone with post cone ECC Post Op Diagnosis: Normal endometrial cavity QBL: Minimal Anesthesia: GLMA Surgeon: Diego Jarvis MD Push Bench Operator Helper: None Complication: None Pathology: Endometrial Scrapings, cervical cone, endocervical, post cone ECC Procedure: The patient was put in the dorsal lithotomy position, scrubbed, and draped in the usual manner. A sterile speculum was inserted in the patient's vagina. The anterior lip of the cervix was grasped with a single tooth tenaculum. The cervix was dilated up to 5 mm, then the scope was inserted in the patient's uterus. Inspection revealed Normal endometrial cavity. The Myosure Reach device was used; the scope was removed from the endometrial cavity , sharp curettings was carried on with minimal to moderate amount of tissues retrieved. The single tooth tenaculum was removed and homeostasis was assured using pressure. The cervix is assessed neck using the colposcope with acetic acid , and at least 1 cm of the squamocolumnar junction was observed. 20 x 5 mm size loop was selected based upon the diameter of the lesion. Lugol solution was used to outline the lesions and area of the transformation zone order to be removed 10 cc of xylocaine with epinephrine were injected submucosally into the surface of the cervix (ectocervix) at the 3, 6, 9, and 12 o'clock positions. The electrosurgical generator is set at 40 barbosa on blend 1. The loop is carefully passed simultaneously around and under the transformation zone, in order to ensure excising it making sure the lesion is at least 5 mm far from the specimen margins . The loop was allowed to glide through the cervix from one side to the other, allowing the cutting current to divide the tissue. Additional tissue was excised from this area with a smaller-diameter loop , endo cervical top-hat excision was performed An endo cervical curettage is performed following completion of excision, and hemostasis is obtained with a Ball electrode or regular tip cautery. At the end, Monsel's solution was applied to the cone bed. At the end of the procedure, all instruments were taken out of the patient uterine and vaginal cavity.The patient tolerated the procedure well and was transferred to the PACU in a stable condition.
== END 2025-05-29 16:07 | disposition home or self-care (01) ==
PROVIDERS: PCP Internal Medicine; Visit Provider Obstetrics & Gynecology
PROC: 0UDB8ZZ Extraction of Endometrium, Via Natural or Artificial Opening Endoscopic (ICD-10-PCS; CPT 58558; principal; 2025-05-29 14:30)
PROC: 0UBC7ZZ Excision of Cervix, Via Natural or Artificial Opening (ICD-10-PCS; CPT 57522; 2025-05-29 14:30)
DX: R87.610 Atypical squamous cells of undetermined significance on cytologic smear of cervix (ASC-US) (principal); R93.89 Abnormal findings on diagnostic imaging of other specified body structures; N88.8 Other specified noninflammatory disorders of cervix uteri; R10.2 Pelvic and perineal pain; N76.0 Acute vaginitis; R30.0 Dysuria; E66.3 Overweight; A60.9 Anogenital herpesviral infection, unspecified; I10 Essential (primary) hypertension; E78.00 Pure hypercholesterolemia, unspecified; M79.7 Fibromyalgia; J45.909 Unspecified asthma, uncomplicated; R42 Dizziness and giddiness; G47.33 Obstructive sleep apnea (adult) (pediatric); F41.8 Other specified anxiety disorders; K21.9 Gastro-esophageal reflux disease without esophagitis; Z98.84 Bariatric surgery status; Z90.49 Acquired absence of other specified parts of digestive tract; Z88.1 Allergy status to other antibiotic agents; Z88.2 Allergy status to sulfonamides; Z88.5 Allergy status to narcotic agent; Z88.6 Allergy status to analgesic agent; Z88.8 Allergy status to other drugs, medicaments and biological substances; Z87.891 Personal history of nicotine dependence
CPT/HCPCS: 57461; 58558; 82947; 88305; 88307; 88341; 88342; J0131; J2003; J2004; J2405; J2704; J3010

== ENCOUNTER → 2025-05-29 12:54 | Outpatient (BNV) | payer OTHER, SELFPAY | PROVIDERS: PCP Internal Medicine; Visit Provider Obstetrics & Gynecology | DX: R93.89 Abnormal findings on diagnostic imaging of other specified body structures (principal) | CPT/HCPCS: 57461; 58558 ==

== ENCOUNTER 2025-06-05 12:24 | Outpatient (REF) | payer OTHER, SELFPAY ==
[2025-06-05 22:25] LABS: Bacterial Vaginosis PCR NEGATIVE (Negative); Candida Group PCR NOT DETECTED (Not Detect); Candida glab krusei PCR NOT DETECTED (Not Detect); Trichomonas vaginalis PCR NOT DETECTED (Not Detect)
[2025-06-06 11:24] LABS: CT PCR NOT DETECTED (Not Detect.); NG PCR NOT DETECTED (Not Detect.)
== END 2025-06-05 12:25 | disposition home or self-care (01) ==
LOC: HO.LNP 12:24
PROVIDERS: PCP Internal Medicine; Visit Provider Obstetrics & Gynecology
DX: N76.0 Acute vaginitis (principal); B96.89 Other specified bacterial agents as the cause of diseases classified elsewhere; R87.611 Atypical squamous cells cannot exclude high grade squamous intraepithelial lesion on cytologic smear of cervix (ASC-H); R93.89 Abnormal findings on diagnostic imaging of other specified body structures
CPT/HCPCS: 81515; 87491; 87591; 99212

== ENCOUNTER 2025-06-05 12:24 | Outpatient (AMB) | payer OTHER, SELFPAY ==
--- NOTE | 2025-06-05 12:30 | MHC.OFFVIS ---
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: No Information Interpreted: non-clinical & clinical Accompanied by: Daughter Allergies JOI Inhibitors Allergy (Intermediate, Verified 06/05/25 12:35) Cough cephalexin (Keflex) Allergy (Intermediate, Verified 06/05/25 12:35) rash codeine (Codeine) Allergy (Intermediate, Verified 06/05/25 12:35) RASH VOMTING- APAP W/ CODEINE, vomiting gemfibrozil (GEMFIBROZIL) Allergy (Intermediate, Verified 06/05/25 12:35) RASH metformin (METFORMIN) Allergy (Intermediate, Verified 06/05/25 12:35) DIARRHEA morphine (Morphine) Allergy (Intermediate, Verified 06/05/25 12:35) HIVES, rash, rash naproxen Allergy (Intermediate, Verified 06/05/25 12:35) inadequate response sulfamethoxazole (From Bactrim) Adverse Reaction (Intermediate, Verified 06/05/25 12:35) nausea tirzepatide (From Mounjaro) Adverse Reaction (Intermediate, Verified 06/05/25 12:35) constipation trimethoprim (From Bactrim) Adverse Reaction (Intermediate, Verified 06/05/25 12:35) nausea jardiance Adverse Reaction (Intermediate, Uncoded 06/05/25 12:35) vulvar pruritus Post menopausal: Yes HPI Comments Details: The patient is presenting post hysteroscopy D&C with LEEP cone post cone ECC for thick endometrium by ultrasound and ASC-H with negative colpo biopsy ECC. The patient has squamous metaplasia on endometrial pathology no complaints other than vaginal discharge with foul odor, minimal vaginal bleeding no feverishness chills or abdominal pain. The pathology showed the following: A. Endometrium, curettage: Squamous metaplastic epithelium with mild atypia, endocervical glandular epithelium, fragments of stroma, and rare endometrial cells; insufficient for endometrial evaluation (see comment). B. Cervix, conization: Squamous mucosa and biopsy site changes in the endocervix without endocervical glandular epithelium (denuded); negative for dysplasia. C. Endocervix, conization: Benign endocervical glandular mucosa with cyst formation and biopsy site changes; negative for dysplasia. D. Endocervix, post cone curettage: Insufficient for endocervical evaluation; blood only. Comment: The morphology of the metaplastic squamous epithelium is not diagnostic for dysplasia, and although the P16 staining is unusual, the Ki-67 is low. Continued follow-up is warranted 01/2025 co testing showed the following: Satisfactory for evaluation, with atypical squamous cells - cannot exclude a high grade squamous intraepithelial lesion (ASC-H). HPV High Risk: Negative HPV Genotyping 16: Negative HPV Genotyping 18: Negative This was followed by colpo biopsy ECC which came back with no evidence of dysplasia 05/02/2025 pelvic ultrasound showed the following: IMPRESSION: 5 mm up to normal limits in the endometrial stripe with fluid/cystic abnormality. Recommend direct inspection [facility] Medical History Type 2 diabetes mellitus Pelvic pain Headache Vaginal dryness Acute vaginitis Encounter for annual routine gynecological examination Dizzy Tinea corporis Hx of flexible sigmoidoscopy Herpes, genital Dysuria Breast cancer screening by mammogram Diarrhea Otitis externa Neck discomfort Overweight (BMI 25.0-29.9) Overweight COVID-19 vaccine series completed Low back pain Abdominal pain Potential exposure to STD Dyspareunia in female Problematic vaginal discharge Candidal intertrigo Obesity (BMI 30-39.9) Right upper quadrant pain Fatty liver Osteopenia Insomnia Gallbladder polyp GERD (gastroesophageal reflux disease) Hypercholesterolemia Anxiety and depression Intertrigo Breast density H. pylori infection Essential hypertension Migraine ARISTEO on CPAP Arthritis History of panic attacks Vitamin D deficiency Hx of irritable bowel syndrome Enlarged thyroid Fibromyalgia Asthma Hypertension Herpes genitalis Hx of ectopic Surgical History History of esophagogastroduodenoscopy (EGD) H/O colonoscopy S/P repair of ventral hernia Hx of bariatric surgery Hx of cholecystectomy Hx of unilateral oophorectomy Family History Sister Hx of diabetes mellitus Hx of myocardial infarction Father Hx of myocardial infarction Daughter Cancer Sister Hx of diabetes mellitus Social History Household Members: None Housing: Apartment Alcohol intake: former Patient Tobacco Use Status: Former Tobacco user Tobacco use type: Cigarette Cigarette Packs Per Day: 2 Years Smoked: 20 quit 2008 e-Cigarette/Vaping Use: Never Used Second Hand Smoke Exposure: Yes service: No Current occupational status: disabled Gender identity: Female Cognitive needs: No Hearing needs: No Vision needs: Yes Female Reproductive History Menstrual Age of Menarche: 8 Review of Systems Const All systems reviewed & are unremarkable except as noted in HPI and below Physical Exam Vital Signs: BMI result Body Mass Index 25.5 General: Yes no CVA tenderness External Female Exam: normal external appearance and normal appearance of the urethra Speculum Exam - Vagina: normal appearance of the vagina, normal palpation, no lesions and no masses Speculum Exam - Cervix: normal appearance of the cervix, normal palpation, no lesions, no masses and nontender Bimanual exam- vagina & uterus: normal bimanual exam, normal palpation, uterine size normal, normal palpation, uterine shape normal, No Cervical tenderness present and non-tender Bimanual Exam- Adnexa, other: normal adnexae Back/Spine/Pelvis Back: no CVA tenderness Assessment & Plan Assessment & Plan (1) Pap smear of cervix with ASCUS, cannot exclude HGSIL: Comment: Negative colpo biopsy ECC status post LEEP cone with post cone ECC with squamous metaplasia and my atypia not diagnostic for dysplasia Code(s): R87.611 - Atypical squamous cells cannot exclude high grade squamous intraepithelial lesion on cytologic smear of cervix (ASC-H) Category: Medical Plan: Discussed with the patient the results of the cone pathology with no evidence of dysplasia with post cone ECC pathology report showing no endocervical cells which was insufficient tissue, and squamous metaplasia with endometrial biopsy with mild atypia insufficient before diagnosis of dysplasia. Recommended co testing in 1 year (2) Increased endometrial stripe thickness: Code(s): R93.89 - Abnormal findings on diagnostic imaging of other specified body structures Category: Medical Plan: Discussed with the patient the results of D&C pathology, insufficient for endometrial evaluation. Recommended to the patient that the next step is further evaluation to to r/o endometrial pathology including hyperplasia or cancer. Explained to the patient that atrial pathology has not been ruled out yet, will refer to [facility] for further management (3) Bacterial vaginosis: Code(s): N76.0 - Acute vaginitis; B96.89 - Other specified bacterial agents as the cause of diseases classified elsewhere Category: Medical Plan: GC and chlamydia cultures with BV panel taken. Will treat with Metrogel 0.75% vaginal q.h.s. for 5 days, Instructions given to the patient to refrain from sexual activity or to use condoms consistently and correctly during the BV treatment regimen, not to douch, it might increase the risk for relapse, and to call if symptoms persist or recur. Medications: New metronidazole 0.75%(37.5mg/5gram) 1 appful vaginal BEDTIME 37.5 grams 0RF 5 days Coding Level of Care Code Est Pt Level 3 (62082) Diagnoses Pap smear of cervix with ASCUS, cannot exclude HGSIL R87.611 Increased endometrial stripe thickness R93.89 Bacterial vaginosis N76.0; B96.89
[2025-06-05 12:32] VITALS: BP 120/70; BMI 25.5
--- OUTSIDE RECORDS SUMMARY | 2025-06-05 15:26 | XMS_ITS | Clinical Summary ---
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
== END 2025-06-05 13:13 | disposition home or self-care (01) ==
LOC: HO.HWS 12:24
PROVIDERS: PCP Internal Medicine; Visit Provider Obstetrics & Gynecology
DX: R87.611 Atypical squamous cells cannot exclude high grade squamous intraepithelial lesion on cytologic smear of cervix (ASC-H) (principal); R93.89 Abnormal findings on diagnostic imaging of other specified body structures; N76.0 Acute vaginitis; B96.89 Other specified bacterial agents as the cause of diseases classified elsewhere
CPT/HCPCS: 99213

== ENCOUNTER 2025-07-04 07:28 | Day surgery (SDC) | payer OTHER, SELFPAY ==
[2025-07-02 14:04] VITALS: BMI 28.2
--- NOTE | 2025-07-03 14:30 | P.CONAN_ITS ---
Documented by User: Nnii Pascual NP 07/03/25 14:31 HPI - Anesthesia Eval Consult details Narrative: 64 yr old female for colonoscopy GERD; on PPI Anesthesia Pre-Procedure Meds Is the patient on any of the following meds?: GLP1/DPP4 PMFSH Active Problems Active Problems: All Active Problems Bacterial vaginosis (Acute) Pap smear of cervix with ASCUS, cannot exclude HGSIL (Acute) Increased endometrial stripe thickness (Acute) Colitis (Acute) Tinea cruris (Acute) Trigger finger of right hand (Acute) Type 2 diabetes mellitus with hyperglycemia (Acute) Uncontrolled type 2 diabetes mellitus with hyperglycemia, with long-term current use of insulin (Acute) Vaginal discharge (Acute) Pap smear cannot exclude high grade squamous intraepithelial lesion (ASC-H) (Acute) Left sided abdominal pain (Acute) Hearing difficulty (Acute) Tinea corporis (Acute) Diverticulosis of colon (Acute) TSH elevation (Acute) Restless legs (Acute) Obstructive sleep apnea (adult) (pediatric) (Acute) Annual physical exam (Acute) Hair loss (Acute) Urinary incontinence (Acute) Peripheral neuropathy (Acute) COVID-19 virus infection (Acute) Chronic constipation (Acute) Generalized anxiety disorder (Acute) Lumbar degenerative disc disease (Acute) NAFLD (nonalcoholic fatty liver disease) (Acute) Tubular adenoma of colon (Acute) Vaginal chiki (Acute) Tinea corporis (Acute) Pelvic pain (Acute) Overweight (Acute) GERD (gastroesophageal reflux disease) (Acute) Hypercholesterolemia (Acute) Essential hypertension (Acute) Past Medical History Medical History Type 2 diabetes mellitus Pelvic pain Headache Vaginal dryness Acute vaginitis Encounter for annual routine gynecological examination Dizzy Tinea corporis Hx of flexible sigmoidoscopy Herpes, genital Dysuria Breast cancer screening by mammogram Diarrhea Otitis externa Neck discomfort Overweight (BMI 25.0-29.9) Overweight Low back pain Abdominal pain Potential exposure to STD Dyspareunia in female Problematic vaginal discharge Candidal intertrigo Obesity (BMI 30-39.9) Right upper quadrant pain Fatty liver Osteopenia Insomnia Gallbladder polyp GERD (gastroesophageal reflux disease) Hypercholesterolemia Anxiety and depression Intertrigo Breast density H. pylori infection Essential hypertension Migraine ARISTEO on CPAP Arthritis History of panic attacks Vitamin D deficiency Hx of irritable bowel syndrome Enlarged thyroid Fibromyalgia Asthma Hypertension Herpes genitalis Hx of ectopic Family History Family History Sister Hx of diabetes mellitus Hx of myocardial infarction Father Hx of myocardial infarction Daughter Cancer Sister Hx of diabetes mellitus Family history of problems with anesthesia: No Surgical History Surgical History Hx of dilation and curettage History of esophagogastroduodenoscopy (EGD) H/O colonoscopy S/P repair of ventral hernia Hx of bariatric surgery Hx of cholecystectomy Hx of unilateral oophorectomy History of Problems with Anesthesia: No Social History Social History Household Members: None Housing: Apartment Alcohol intake: former Patient Tobacco Use Status: Former Tobacco user Tobacco use type: Cigarette Cigarette Packs Per Day: 2 Years Smoked: 20 quit 2008 e-Cigarette/Vaping Use: Never Used Second Hand Smoke Exposure: Yes Use of substances other than those prescribed or required for medical reasons: No Advance Directives: No Advance Directives Information Provided: Yes service: No Current occupational status: disabled Gender identity: Female Cognitive needs: No Hearing needs: No Vision needs: Yes Meds Allergies Allergy/AdvReac Type Severity Reaction Status Date / Time JOI Inhibitors Allergy Intermediate Cough Verified 06/05/25 12:35 cephalexin (Keflex) Allergy Intermediate rash Verified 06/05/25 12:35 codeine (Codeine) Allergy Intermediate RASH Verified 06/05/25 12:35 VOMTING- APAP W/ CODEINE, vomiting gemfibrozil (GEMFIBROZIL) Allergy Intermediate RASH Verified 06/05/25 12:35 metformin (METFORMIN) Allergy Intermediate DIARRHEA Verified 06/05/25 12:35 morphine (Morphine) Allergy Intermediate HIVES, Verified 06/05/25 12:35 rash, rash naproxen Allergy Intermediate inadequate Verified 06/05/25 12:35 response sulfamethoxazole (From AdvReac Intermediate nausea Verified 06/05/25 12:35 Bactrim) tirzepatide (From Mounjaro) AdvReac Intermediate constipatio Verified 06/05/25 12:35 n trimethoprim (From Bactrim) AdvReac Intermediate nausea Verified 06/05/25 12:35 jardiance AdvReac Intermediate vulvar Uncoded 06/05/25 12:35 pruritus Home Medications ?Medication ?Instructions ?Recorded ?Confirmed ?Last Taken ?Type clonazepam 0.5 mg tablet 0.5 mg PO DAILY PRN Anxiety 11/30/21 07/02/25 08/21/24 History Exam Height,Weight and Vital Signs: Height 5 ft 2 in Weight 70 kg Narrative Narrative: EKG 04/2025 Vent. Rate : 63 BPM Atrial Rate : 63 BPM P-R Int : 146 ms QRS Dur : 82 ms QT Int : 432 ms P-R-T Axes : 17 30 69 degrees QTcB Int : 442 ms Normal sinus rhythm Nonspecific T wave abnormality Abnormal ECG When compared with ECG of 30-Sep-2018 03:23, Nonspecific T wave abnormality, worse in Lateral leads Assessment and Plan Final Anesthetic Review Family History of Problems with Anesthesia: No History of Problems with Anesthesia: No Documented by User: Kaden Gifford MD 07/04/25 08:07 [facility] Past Medical History Medical History Type 2 diabetes mellitus Pelvic pain Headache Vaginal dryness Acute vaginitis Encounter for annual routine gynecological examination Dizzy Tinea corporis Hx of flexible sigmoidoscopy Herpes, genital Dysuria Breast cancer screening by mammogram Diarrhea Otitis externa Neck discomfort Overweight (BMI 25.0-29.9) Overweight Low back pain Abdominal pain Potential exposure to STD Dyspareunia in female Problematic vaginal discharge Candidal intertrigo Obesity (BMI 30-39.9) Right upper quadrant pain Fatty liver Osteopenia Insomnia Gallbladder polyp GERD (gastroesophageal reflux disease) Hypercholesterolemia Anxiety and depression Intertrigo Breast density H. pylori infection Essential hypertension Migraine ARISTEO on CPAP Arthritis History of panic attacks Vitamin D deficiency Hx of irritable bowel syndrome Enlarged thyroid Fibromyalgia Asthma Hypertension Herpes genitalis Hx of ectopic Functional capacity: independent ambulation Patient : No Family History Family History Sister Hx of diabetes mellitus Hx of myocardial infarction Father Hx of myocardial infarction Daughter Cancer Sister Hx of diabetes mellitus Surgical History Surgical History Hx of dilation and curettage History of esophagogastroduodenoscopy (EGD) H/O colonoscopy S/P repair of ventral hernia Hx of bariatric surgery Hx of cholecystectomy Hx of unilateral oophorectomy Social History Social History Household Members: None Housing: Apartment Alcohol intake: former Patient Tobacco Use Status: Former Tobacco user Tobacco use type: Cigarette Cigarette Packs Per Day: 2 Years Smoked: 20 quit 2008 e-Cigarette/Vaping Use: Never Used Second Hand Smoke Exposure: Yes Use of substances other than those prescribed or required for medical reasons: No Advance Directives: No Advance Directives Information Provided: Yes service: No Current occupational status: disabled Gender identity: Female Cognitive needs: No Hearing needs: No Vision needs: Yes Meds Allergies Allergy/AdvReac Type Severity Reaction Status Date / Time JOI Inhibitors Allergy Intermediate Cough Verified 06/05/25 12:35 cephalexin (Keflex) Allergy Intermediate rash Verified 06/05/25 12:35 codeine (Codeine) Allergy Intermediate RASH Verified 06/05/25 12:35 VOMTING- APAP W/ CODEINE, vomiting gemfibrozil (GEMFIBROZIL) Allergy Intermediate RASH Verified 06/05/25 12:35 metformin (METFORMIN) Allergy Intermediate DIARRHEA Verified 06/05/25 12:35 morphine (Morphine) Allergy Intermediate HIVES, Verified 06/05/25 12:35 rash, rash naproxen Allergy Intermediate inadequate Verified 06/05/25 12:35 response sulfamethoxazole (From AdvReac Intermediate nausea Verified 06/05/25 12:35 Bactrim) tirzepatide (From Mounjaro) AdvReac Intermediate constipatio Verified 06/05/25 12:35 n trimethoprim (From Bactrim) AdvReac Intermediate nausea Verified 06/05/25 12:35 jardiance AdvReac Intermediate vulvar Uncoded 06/05/25 12:35 pruritus Home Medications ?Medication ?Instructions ?Recorded ?Confirmed ?Last Taken ?Type clonazepam 0.5 mg tablet 0.5 mg PO DAILY PRN Anxiety 11/30/21 07/02/25 08/21/24 History Exam Exam Date and Time: 07/04/2025 Airway Mallampati Class: II TM Dist: >3cm Neck ROM: Full Heart: normal Lungs: cta Other: normal Assessment and Plan Final Anesthetic Review NPO: Yes ASA Class: III Final Preanesthetic Review: No Changes in Pt Med Stat, Meds/Allgs Chart Reviewed, Consent Obtained/Reviewed and Anes Risks/Benef Reviewed Patient Risk: Low Procedure Risk: Low Anesthetic Plan Anesthetic Plan: MAC: Disposition: Standard PACU
[2025-07-04 07:36] VITALS: BMI 29.1
--- NOTE | 2025-07-04 07:43 | P.HPSUR_ITS ---
Pre-Procedural Eval Section A - 24 Hr Update-Section A only Date of Service: 07/04/25 Section B - Complete if H&P > 30 days Chief Complaint: Unspecified abdominal pain Relevant Family History (Specify if Yes): No Relevant Social History: None Present Medications: see Short Stay Collaborative assessment Medical History: Significant History ( Type 2 diabetes mellitus Pelvic pain Headache Vaginal dryness Acute vaginitis Encounter for annual routine gynecological examination Dizzy Tinea corporis Hx of flexible sigmoidoscopy Herpes, genital Dysuria Breast cancer screening by mammogram Diarrhea Otitis ex terna Neck discomfort Overweight (BMI) History of Previous Operations: Relevant previous surgery/procedure and date(s) (Hx of dilation and curettage History of esophagogastroduodenoscopy (EGD) H/O colonoscopy S/P repair of ventral hernia Hx of bariatric surgery Hx of cholecystectomy Hx of unilateral oophorectomy) Allergies: Allergies Allergy/AdvReac Type Severity Reaction Status Date / Time JOI Inhibitors Allergy Intermediate Cough Verified 06/05/25 12:35 cephalexin (Keflex) Allergy Intermediate rash Verified 06/05/25 12:35 codeine (Codeine) Allergy Intermediate RASH Verified 06/05/25 12:35 VOMTING- APAP W/ CODEINE, vomiting gemfibrozil (GEMFIBROZIL) Allergy Intermediate RASH Verified 06/05/25 12:35 metformin (METFORMIN) Allergy Intermediate DIARRHEA Verified 06/05/25 12:35 morphine (Morphine) Allergy Intermediate HIVES, Verified 06/05/25 12:35 rash, rash naproxen Allergy Intermediate inadequate Verified 06/05/25 12:35 response sulfamethoxazole (From AdvReac Intermediate nausea Verified 06/05/25 12:35 Bactrim) tirzepatide (From Mounjaro) AdvReac Intermediate constipatio Verified 06/05/25 12:35 n trimethoprim (From Bactrim) AdvReac Intermediate nausea Verified 06/05/25 12:35 jardiance AdvReac Intermediate vulvar Uncoded 06/05/25 12:35 pruritus Review of Systems Sugical H&P ROS: Negative: Constitution, Cardiovascular, Respiratory, Neurological, Psychiatric, Hem-Onc, Allergic/Immunologic, Gastrointestinal, Genitourinary, Musculoskeletal, Integumentary, Endocrine and Eyes/Ears/Nose/Throat Exam Surgical H&P Exam: Normal: HEENT, Normal: Heart, Normal: Lungs, Normal: Extremities, Normal: Abdomen, Normal: Skin and Normal: Neurological Plan Diagnosis/Plan: Unchanged I have reviewed the history and physical and performed a pertinent physical examination on my patient. No changes have occurred unless specified. Time Spent With Patient Time: Total time managing care of this patient today ____ minutes.
[2025-07-04] MEDS: Lactated Ringers 1,000 ML 100 ML IVCONT (07:51)
[2025-07-04 07:54] LABS: Glucose, Whole Blood 174 mg/dL (60-115)
--- NOTE | 2025-07-04 09:44 | P.OPN-COLO_ITS ---
Colonoscopy Operative Note Operative Note Date of Service: 07/04/25 Narrative: Operative Information Procedure Description: Colonoscopy Indication: abdominal pain Anesthesia: MAC COLONOSCOPY Instrument: Olympus variable stiffness pediatric scope 190L and upper endoscope Colonoscopy Monitoring: Vital signs and clinical assessment, continuous EKG monitoring, Pulse oximetry, Carbon Dioxide monitoring and blood pressure monitoring were done throughout the procedure. Colon withdrawal time was >60 mins Procedure: The patient was placed in the left lateral decubitis position and pre-procedure medications were administered. After a digital rectal examination of the ano-rectum, the video colonoscope was inserted into the rectum and advanced through the colon to the cecum/TI. The colonoscope was slowly withdrawn in a retrograde panoramic fashion and the colon mucosa was carefully examined including a retroflexed view of the rectum. Findings and interventions are described below. Procedure Difficulty: v difficult--initally used ped colonoscope but couldnt get past rectosigmoid junction to severe angulation , then switched to upper scope, was able to get past but not able to reach cecum then switched back to ped scope Findings: Terminal Ileum-not intubated Cecum:normal Ascending Colon: normal Transverse Colon - 8-10 mm sessile polyp lifted with eleview and removed with cold snare Descending Colon: 5-7 mm sessile polyp removed with cold forceps Sigmoid Colon: severe diverticulosis, x 2 sessile polyps 10-12 mm removed with cold snare, one site with 3 clips applied for hemostasis Rectum: Retroflexion with small internal hemorrhoids seen, grade I Anorectum - normal Intervention: cold snare and eleview, cold snare, cold forceps Colon preparation: Woodworth Bowel Preparation Scale Right colon; 1-2 Transverse colon: 1-2 Left colon; 1-2 (0 = Unprepared colon segment with mucosa not seen due to solid stool that cannot be cleared. 1 = Portion of mucosa of the colon segment seen, but other areas of the colon segment not well seen due to staining, residual stool and/or opaque liquid. 2 = Minor amount of residual staining, small fragments of stool and/or opaque liquid, but mucosa of colon segment seen well. 3 = Entire mucosa of colon segment seen well with no residual staining, small fragments of stool or opaque liquid) Impression and Post Procedure Diagnosis: diverticulosis colon polyps x 4 internal hemorrhoids Plan: High fiber diet leaflet Avoid straining at stool, epsom salts and sitz bath, anusol supps or cream Repeat Colonoscopy in 1 year due to prep or earlier if clinically indicated consider surgical referral, suspect her sx are mechanical in nature due to severe diverticulosis Above findings were reviewed with the patient and relevant handouts were provided if indicated.
[2025-07-04 09:53] VITALS: BP 168/72; PULSE 66; RESP 16; TEMP 36.2; O2SAT 95
[2025-07-04 10:08] VITALS: BP 136/66; PULSE 60; RESP 16; TEMP 36.5; O2SAT 96
== END 2025-07-04 10:52 | disposition home or self-care (01) ==
PROVIDERS: PCP Internal Medicine; Visit Provider Internal Medicine Gastroenterology
PROC: 0DJD8ZZ Inspection of Lower Intestinal Tract, Via Natural or Artificial Opening Endoscopic (ICD-10-PCS; CPT 45378; principal; 2025-07-04 09:10)
DX: R10.9 Unspecified abdominal pain (principal); K57.30 Diverticulosis of large intestine without perforation or abscess without bleeding; D12.5 Benign neoplasm of sigmoid colon; K63.5 Polyp of colon; D12.4 Benign neoplasm of descending colon; K64.0 First degree hemorrhoids; E11.65 Type 2 diabetes mellitus with hyperglycemia; Z79.4 Long term (current) use of insulin
CPT/HCPCS: 45380; 45385; 45381; 82947; 88305; J2003; J2704; J3010

== ENCOUNTER → 2025-07-04 07:28 | Outpatient (BNV) | payer OTHER, SELFPAY | PROVIDERS: PCP Internal Medicine; Visit Provider Internal Medicine Gastroenterology | DX: Z12.11 Encounter for screening for malignant neoplasm of colon (principal); D12.3 Benign neoplasm of transverse colon; D12.4 Benign neoplasm of descending colon; D12.5 Benign neoplasm of sigmoid colon; K57.30 Diverticulosis of large intestine without perforation or abscess without bleeding; K64.0 First degree hemorrhoids | CPT/HCPCS: 45381; 45385 ==

== ENCOUNTER 2025-07-29 08:08 | Outpatient (AMB) | payer OTHER, SELFPAY ==
--- NOTE | 2025-07-29 08:14 | MHC.OFFVIS ---
Vital Signs 07/29/25 08:26 Height 5 ft 2 in Weight 162 lb 6 oz BMI 29.7 BP 178/84 H Blood Pressure Location Lt radial Pulse 76 Intake Visit Reasons: pls assess for sigmoid colectomy due to severe sym Intake Note: This patient was referred by for an assessment to discuss sigmoid colectomy, symptomatic diverticulosis of colon. Pt c/o; reports nausea and pain, denies vomiting. DI: 05/18/2025: Abd/pelvis CT 04/04/2024: Gastric emptying Nuc Med 07/04/2025: Colonoscopy- Dr. Edwards Networking Administrator Required: No Accompanied by: Other Relationship Allergies JOI Inhibitors Allergy (Intermediate, Verified 07/29/25 08:23) Cough cephalexin (Keflex) Allergy (Intermediate, Verified 07/29/25 08:23) rash codeine (Codeine) Allergy (Intermediate, Verified 07/29/25 08:23) RASH VOMTING- APAP W/ CODEINE, vomiting gemfibrozil (GEMFIBROZIL) Allergy (Intermediate, Verified 07/29/25 08:23) RASH metformin (METFORMIN) Allergy (Intermediate, Verified 07/29/25 08:23) DIARRHEA morphine (Morphine) Allergy (Intermediate, Verified 07/29/25 08:23) HIVES, rash, rash naproxen Allergy (Intermediate, Verified 07/29/25 08:23) inadequate response sulfamethoxazole (From Bactrim) Adverse Reaction (Intermediate, Verified 07/29/25 08:23) nausea tirzepatide (From Mounjaro) Adverse Reaction (Intermediate, Verified 07/29/25 08:23) constipation trimethoprim (From Bactrim) Adverse Reaction (Intermediate, Verified 07/29/25 08:23) nausea jardiance Adverse Reaction (Intermediate, Uncoded 07/29/25 08:23) vulvar pruritus HPI HPI pls assess for sigmoid colectomy due to severe sym: Details: [age] year old female referred for chronic abdominal pain. She says that since she had gastric bypass surgery many years ago, she has been having chronic abdominal pain, sensation of frequent bloating, we had nausea as well as constipation and diarrhea She says that most of the time, she has difficulty with passage of stools because of constipation. She says her bowel movements are irregular She says that she has been unable to eat well although she denies significant weight loss. She has been following GI because of her chronic issues. She had a colonoscopy showing severe diverticulosis without diverticulitis. She was therefore referred to me. She denies seeing blood per rectum. She says that her pain is mostly in the left upper quadrant but can be diffuse. [facility] Medical History Type 2 diabetes mellitus Pelvic pain Headache Vaginal dryness Acute vaginitis Encounter for annual routine gynecological examination Dizzy Tinea corporis Hx of flexible sigmoidoscopy Herpes, genital Dysuria Breast cancer screening by mammogram Diarrhea Otitis externa Neck discomfort Overweight (BMI 25.0-29.9) Overweight Low back pain Abdominal pain Potential exposure to STD Dyspareunia in female Problematic vaginal discharge Candidal intertrigo Obesity (BMI 30-39.9) Right upper quadrant pain Fatty liver Osteopenia Insomnia Gallbladder polyp GERD (gastroesophageal reflux disease) Hypercholesterolemia Anxiety and depression Intertrigo Breast density H. pylori infection Essential hypertension Migraine ARISTEO on CPAP Arthritis History of panic attacks Vitamin D deficiency Hx of irritable bowel syndrome Enlarged thyroid Fibromyalgia Asthma Hypertension Herpes genitalis Hx of ectopic Surgical History Hx of dilation and curettage History of esophagogastroduodenoscopy (EGD) H/O colonoscopy S/P repair of ventral hernia Hx of bariatric surgery Hx of cholecystectomy Hx of unilateral oophorectomy Family History Sister Hx of diabetes mellitus Hx of myocardial infarction Father Hx of myocardial infarction Daughter Cancer Sister Hx of diabetes mellitus Social History Household Members: None Housing: Apartment Alcohol intake: former Patient Tobacco Use Status: Former Tobacco user Tobacco use type: Cigarette Cigarette Packs Per Day: 2 Years Smoked: 20 quit 2008 e-Cigarette/Vaping Use: Never Used Second Hand Smoke Exposure: Yes service: No Current occupational status: disabled Gender identity: Female Cognitive needs: No Hearing needs: No Vision needs: Yes Female Reproductive History Menstrual Age of Menarche: 8 Review of Systems Const Denies chills and Denies fever(s) Card Denies chest pain, Denies dyspnea and Denies dyspnea on exertion Resp Denies cough, Denies dyspnea and Denies dyspnea on exertion GI Denies hematochezia, Denies change in bowel habits, Reports constipation and Reports diarrhea Denies hematuria Musc Denies back pain and Denies limited range of motion Neuro Denies focal weakness and Denies convulsions Psych Denies depression and Denies mood swings Physical Exam Vital Signs: Last Vital Signs Pulse 76 07/29/25 08:26 BP 178/84 H 07/29/25 08:26 BMI result Body Mass Index 29.7 Const General: comfortable and no acute distress Orientation/consciousness: patient oriented x3 Neck Neck: Yes no lymphadenopathy Resp Auscultation: clear to auscultation bilaterally Cardio Rhythm: regular rhythm GI Palpation (GI): Soft to palpation, nontender and no guarding Neuro General: patient oriented x3 Assessment & Plan Assessment & Plan (1) Chronic constipation: Comment: Diabetes, not well controlled, likely plays a role Due for colonoscopy, declines at this time-due to severe constipation Code(s): K59.09 - Other constipation Category: Medical Plan: She was referred to me for chronic constipation. Her colonoscopy showed severe diverticulosis. She also describes chronic abdominal pain since she had gastric bypass many years ago. She feels that since her she had the bypass, she would have frequent constipation as well as severe diarrhea periodically. I explained to her the findings on colonoscopy and I tried to explain to her why she was referred to me. She states that she does not understand why she needed to see a surgeon because of her chronic constipation. She was also explaining that she does not understand why she had a ?clip ?placed the colonoscopy. She does state that if she can have help with the constipation, she would feel much better. She is already and Linzess. I tried to explain to her to see if she wants to try taking Metamucil powder mixed in a glass of juice or water b.i.d. as this may help achieve some cellularity with her bowel habits. She says that she has tried all medications she does not want additional medications. I did explain to her that I do not see any inflammatory changes on her previous CAT scan so he would not feel that she will need sigmoid resection. I did explain to her the possibility of a colostomy for her constipation and states that she really does not want that surgery. She says she will talk to Dr. Edwards again as she is very frustrated about there were constipation. I Coding Level of Care Code New Pt Level 3 (66868) Diagnoses Chronic constipation K59.09
[2025-07-29 08:26] VITALS: BP 178/84; PULSE 76; BMI 29.7
== END 2025-07-29 08:51 | disposition home or self-care (01) ==
LOC: HO.HGS 08:09
PROVIDERS: PCP Internal Medicine; Visit Provider Surgery
DX: K59.09 Other constipation (principal)
CPT/HCPCS: 99203

== ENCOUNTER → 2025-07-29 08:08 | Outpatient (BNVA) | payer OTHER, SELFPAY | PROVIDERS: PCP Internal Medicine; Visit Provider Surgery | DX: K59.09 Other constipation (principal) | CPT/HCPCS: 99202 ==

== ENCOUNTER 2025-08-12 12:28 | Outpatient (AMB) | payer OTHER, SELFPAY ==
--- NOTE | 2025-08-12 12:34 | MHC.OFFVIS ---
Vital Signs 08/12/25 12:36 Height 5 ft 2 in Weight 156 lb 8.451 oz BMI 28.6 BP 139/61 Blood Pressure Location Lt brachial Position Sitting Pulse 73 Intake Visit Reasons: 4m Intake Note: Marychuy presents in the office as a 4 month follow up CC: She states she has been having pains in the stomach and states that there is a clip to have it removed and the surgeon said they can remove it but then she would need a colostomy bag and she does not want to have one. Title I Director Required: No Accompanied by: Self / Same As Patient Allergies JOI Inhibitors Allergy (Intermediate, Verified 08/12/25 13:00) Cough cephalexin (Keflex) Allergy (Intermediate, Verified 08/12/25 13:00) rash codeine (Codeine) Allergy (Intermediate, Verified 08/12/25 13:00) RASH VOMTING- APAP W/ CODEINE, vomiting gemfibrozil (GEMFIBROZIL) Allergy (Intermediate, Verified 08/12/25 13:00) RASH metformin (METFORMIN) Allergy (Intermediate, Verified 08/12/25 13:00) DIARRHEA morphine (Morphine) Allergy (Intermediate, Verified 08/12/25 13:00) HIVES, rash, rash naproxen Allergy (Intermediate, Verified 08/12/25 13:00) inadequate response sulfamethoxazole (From Bactrim) Adverse Reaction (Intermediate, Verified 08/12/25 13:00) nausea tirzepatide (From Mounjaro) Adverse Reaction (Intermediate, Verified 08/12/25 13:00) constipation trimethoprim (From Bactrim) Adverse Reaction (Intermediate, Verified 08/12/25 13:00) nausea jardiance Adverse Reaction (Intermediate, Uncoded 08/12/25 13:00) vulvar pruritus HPI HPI 4m: Details: 64 yr old f here for a\f/u she saw [facility] in past for GERD and constipation colonoscopy 08/19- moderate severe diverticulosis on the right and severe on left, polyps removed colonoscopy 07/20: severe diverticulosis, polyps INTERIM: she has reflux epigastric pain can be worse at night she denies blood in stools she saw dr nieto and jayashree colectomy was discussed but she was not ahppy with the encounter she is dependant on dulcolax for going to the toilet, she still wants to discuss surgical option but with another she is waiting to see event sales representative ? uterine ca EXAM: GENERAL: The patient is well developed and nontoxic. VITAL SIGNS:see workflow HEENT: Nonicteric sclerae, PERRLA, EOMI. Oropharynx clear. Moist mucous membranes. Conjunctivae appear well perfused. No thyroid mass. CHEST: Chest wall is nontender. HEART: Regular rate and rhythm without murmurs. LUNGS: Clear to auscultation bilaterally. ABDOMEN: Soft, positive bowel sounds, nontender, no organomegaly.no flank tenderness SKIN: No rash, no excessive bruising, petechiae, or purpura. NEUROLOGIC: Cranial nerves II-XII intact without motor/sensory deficit. Psych: normal affect A/P: 1/ Left sided abdominal pain attacks and constipation with severe angulated sigmoid with diverticulosis, wants 2nd opinion 2/ worsening reflux PLAN: 1/ increase PPI to BID 40 mg 2/ EGD 3/ might need GES if ongoing sx 4/ refer dr Hedrick for 2nd opinion but sounds like she is going to need hysterectomy first [facility] Medical History Type 2 diabetes mellitus Pelvic pain Headache Vaginal dryness Acute vaginitis Encounter for annual routine gynecological examination Dizzy Tinea corporis Hx of flexible sigmoidoscopy Herpes, genital Dysuria Breast cancer screening by mammogram Diarrhea Otitis externa Neck discomfort Overweight (BMI 25.0-29.9) Overweight Low back pain Abdominal pain Potential exposure to STD Dyspareunia in female Problematic vaginal discharge Candidal intertrigo Obesity (BMI 30-39.9) Right upper quadrant pain Fatty liver Osteopenia Insomnia Gallbladder polyp GERD (gastroesophageal reflux disease) Hypercholesterolemia Anxiety and depression Intertrigo Breast density H. pylori infection Essential hypertension Migraine ARISTEO on CPAP Arthritis History of panic attacks Vitamin D deficiency Hx of irritable bowel syndrome Enlarged thyroid Fibromyalgia Asthma Hypertension Herpes genitalis Hx of ectopic Surgical History Hx of dilation and curettage History of esophagogastroduodenoscopy (EGD) H/O colonoscopy S/P repair of ventral hernia Hx of bariatric surgery Hx of cholecystectomy Hx of unilateral oophorectomy Family History Sister Hx of diabetes mellitus Hx of myocardial infarction Father Hx of myocardial infarction Daughter Cancer Sister Hx of diabetes mellitus Social History Household Members: None Housing: Apartment Alcohol intake: former Patient Tobacco Use Status: Former Tobacco user Tobacco use type: Cigarette Cigarette Packs Per Day: 2 Years Smoked: 20 quit 2008 e-Cigarette/Vaping Use: Never Used Second Hand Smoke Exposure: Yes service: No Current occupational status: disabled Gender identity: Female Cognitive needs: No Hearing needs: No Vision needs: Yes Female Reproductive History Menstrual Age of Menarche: 8 Physical Exam Vital Signs: Last Vital Signs Pulse 73 08/12/25 12:36 BP 139/61 08/12/25 12:36 BMI result Body Mass Index 28.6 Assessment & Plan Assessment & Plan (1) Diverticulosis of colon: Comment: Severe diverticulosis, luminal narrowing Code(s): K57.30 - Diverticulosis of large intestine without perforation or abscess without bleeding Category: Medical Plan: as above Medications: New pantoprazole 40 mg PO BID 60 tabs 2RF Discontinued pantoprazole Discontinued Reason: Doctor's Order 20 mg PO DAILY 90 days 90 tabs 2RF K21.9 - Gastro-esophageal reflux disease without esophagitis Coding Level of Care Code Est Pt Level 3 (29847) Diagnoses Diverticulosis of colon K57.30
[2025-08-12 12:36] VITALS: BP 139/61; PULSE 73; BMI 28.6
== END 2025-08-12 13:45 | disposition home or self-care (01) ==
LOC: HO.HGI 12:29
PROVIDERS: PCP Internal Medicine; Visit Provider Internal Medicine Gastroenterology
DX: K57.30 Diverticulosis of large intestine without perforation or abscess without bleeding (principal)
CPT/HCPCS: 99213

== ENCOUNTER → 2025-08-12 12:28 | Outpatient (BNVA) | payer OTHER, SELFPAY | PROVIDERS: PCP Internal Medicine; Visit Provider Internal Medicine Gastroenterology | DX: K57.30 Diverticulosis of large intestine without perforation or abscess without bleeding (principal) | CPT/HCPCS: 99212 ==

== ENCOUNTER 2025-09-12 14:28 | Outpatient (AMB) | payer OTHER, SELFPAY ==
--- NOTE | 2025-09-12 14:33 | A.OFFVIS_ITS ---
Vital Signs 09/12/25 14:39 Height 5 ft 2 in Weight 163 lb BMI 29.8 Intake Visit Reasons: chronic constipation, ? sigmoid colectomy Intake Note: Patient presents for an assessment for chronic constipation, ? sigmoid colectomy. Pt c/o; no complaints at this time. Skin Piler Required: No Mixer Operator Helper Hot Metal: Mixer Operator Helper Hot Metal Present (Kaitlynn) Accompanied by: Self / Same As Patient Allergies JOI Inhibitors Allergy (Intermediate, Verified 09/12/25 14:41) Cough cephalexin (Keflex) Allergy (Intermediate, Verified 09/12/25 14:41) rash codeine (Codeine) Allergy (Intermediate, Verified 09/12/25 14:41) RASH VOMTING- APAP W/ CODEINE, vomiting gemfibrozil (GEMFIBROZIL) Allergy (Intermediate, Verified 09/12/25 14:41) RASH metformin (METFORMIN) Allergy (Intermediate, Verified 09/12/25 14:41) DIARRHEA morphine (Morphine) Allergy (Intermediate, Verified 09/12/25 14:41) HIVES, rash, rash naproxen Allergy (Intermediate, Verified 09/12/25 14:41) inadequate response sulfamethoxazole (From Bactrim) Adverse Reaction (Intermediate, Verified 09/12/25 14:41) nausea tirzepatide (From Mounjaro) Adverse Reaction (Intermediate, Verified 09/12/25 14:41) constipation trimethoprim (From Bactrim) Adverse Reaction (Intermediate, Verified 09/12/25 14:41) nausea jardiance Adverse Reaction (Intermediate, Uncoded 09/12/25 14:41) vulvar pruritus Medication List - Last Reconciled 09/14/25 by Harman Ward MD albuterol sulfate 90 mcg/actuation 1 puff PO Q4H PRN alcohol swabs (Alcohol Prep Pads) 1 pad topical TID amitriptyline 25 mg PO BEDTIME [bed pad As directed] [Bedside safety handle As directed] blood sugar diagnostic (FreeStyle Lite Strips) TEST BLOOD SUGAR 3 TIMES A DAY blood-glucose meter (FreeStyle Lite Meter kit) As directed blood-glucose sensor (FreeStyle Jose F 3 Plus Sensor device) Use daily As directed to monitor glucose blood-glucose,cloth handler,cont (FreeStyle Jose F 3 [place]) Use daily As directed to monitor blood glucose cholecalciferol (vitamin D3) 25 mcg PO DAILY 3 months citalopram 40 mg PO DAILY 2 months clonazepam 1 mg PO BID clotrimazole 1% 1 appl topical BID 4 weeks cyclobenzaprine 10 mg PO BEDTIME PRN 7 days MDD , [Diaper Medium As directed] dicyclomine 10 mg PO BID docusate sodium 100 mg PO DAILY PRN fluticasone propionate 50 mcg/actuation 1 spray intranasal DAILY 30 days [Grab bars As directed] insulin aspart U-100 (Novolog FlexPen U-100 Insulin aspart) 12 units (0.12 mL) subcut TID insulin degludec (Tresiba FlexTouch U-200 insulin) 60 units (0.3 mL) subcut BEDTIME 30 days Lactobacillus rhamnosus GG (Culturelle) 1 cap PO DAILY lancets (TRUEplus Lancets) 1 gauge miscellaneous TIDWMEAL 90 days linaclotide (Linzess) 290 mcg PO QAM 30 days losartan 25 mg PO DAILY 90 days methylcellulose (laxative) (Citrucel) 500 mg PO TID 30 days metronidazole 500 mg PO BID miconazole nitrate 2% (Monistat 7) 1 appful vaginal BEDTIME 7 days ondansetron 4 mg PO Q8H PRN pantoprazole 40 mg PO BID pen needle, diabetic (Sure-Fine Pen [place]) As directed- TID pen needle, diabetic As directed use with trniranjan, basaglar and novolog 4 x a day [REUSABLE UNDERPAD As directed] [Scooter As directed] sennosides (senna) 8.6 mg PO DAILY PRN simvastatin 40 mg PO BEDTIME 3 months [WIPES As directed] zolpidem 10 mg PO BEDTIME PRN HPI HPI chronic constipation, ? sigmoid colectomy: Details: She is here for follow-up for her chronic constipation I had seen her last month because of this. She current says that she is on medications constipation. She does have bowel movements although she feels that she has to take all these medications to have bowel movements She is currently on Linzess She denies any nausea or vomiting. She denies any weight loss.. She denies any significant abdominal pain. [facility] Medical History Type 2 diabetes mellitus Pelvic pain Headache Vaginal dryness Acute vaginitis Encounter for annual routine gynecological examination Dizzy Tinea corporis Hx of flexible sigmoidoscopy Herpes, genital Dysuria Breast cancer screening by mammogram Diarrhea Otitis externa Neck discomfort Overweight (BMI 25.0-29.9) Overweight Low back pain Abdominal pain Potential exposure to STD Dyspareunia in female Problematic vaginal discharge Candidal intertrigo Obesity (BMI 30-39.9) Right upper quadrant pain Fatty liver Osteopenia Insomnia Gallbladder polyp GERD (gastroesophageal reflux disease) Hypercholesterolemia Anxiety and depression Intertrigo Breast density H. pylori infection Essential hypertension Migraine ARISTEO on CPAP Arthritis History of panic attacks Vitamin D deficiency Hx of irritable bowel syndrome Enlarged thyroid Fibromyalgia Asthma Hypertension Herpes genitalis Hx of ectopic Surgical History Hx of dilation and curettage History of esophagogastroduodenoscopy (EGD) H/O colonoscopy S/P repair of ventral hernia Hx of bariatric surgery Hx of cholecystectomy Hx of unilateral oophorectomy Family History Sister Hx of diabetes mellitus Hx of myocardial infarction Father Hx of myocardial infarction Daughter Cancer Sister Hx of diabetes mellitus Social History Household Members: None Housing: Apartment Alcohol intake: former Patient Tobacco Use Status: Former Tobacco user Tobacco use type: Cigarette Cigarette Packs Per Day: 2 Years Smoked: 20 quit 2008 e-Cigarette/Vaping Use: Never Used Second Hand Smoke Exposure: Yes service: No Current occupational status: disabled Gender identity: Female Cognitive needs: No Hearing needs: No Vision needs: Yes Female Reproductive History Menstrual Age of Menarche: 8 Review of Systems Const Denies chills, Denies fever(s) and Denies weight loss Card Denies chest pain Resp Denies cough GI Denies abdominal pain and Denies hematochezia Denies difficulty voiding Physical Exam Vital Signs: BMI result Body Mass Index 29.8 Const General: comfortable and no acute distress Resp Effort & Inspection: normal respiratory effort Cardio Rate: regular rate GI Palpation (GI): Soft to palpation, not firm, nontender and no guarding Assessment & Plan Assessment & Plan (1) Chronic constipation: Comment: Diabetes, not well controlled, likely plays a role Due for colonoscopy, declines at this time-due to severe constipation Code(s): K59.09 - Other constipation Category: Medical Plan: She is here for follow-up for chronic constipation. She had some luminal narrowing on a previous colonoscopy with diverticulosis. Currently, she does not appear to be obstructed. I do not feel that her chronic constipation secondary to this colonoscopically finding of luminal narrowing. She seems to be doing well as a matter fact and has been stable with regards to her constipation. She does not describe any worsening I told her that currently, it does not appear that she will need any surgical intervention. I will see her in the office on a p.r.n. basis. I advised her to continue to follow up with the head of maintenance. Coding Level of Care Code Est Pt Level 3 (63459) Diagnoses Chronic constipation K59.09
[2025-09-12 14:39] VITALS: BMI 29.8
--- OUTSIDE RECORDS SUMMARY | 2025-09-12 18:36 | XMS_ITS | Clinical Summary ---
Author Organization [employer] Address [address] [place] [address] [address] [place] [address] Care Team Providers Care Piercing Specialist Name Role Phone Unavailable Primary Care Provider [...]
== END 2025-09-12 15:01 | disposition home or self-care (01) ==
LOC: HO.HGS 14:29
PROVIDERS: PCP Internal Medicine; Visit Provider Surgery
DX: K59.09 Other constipation (principal)
CPT/HCPCS: 99213

== ENCOUNTER → 2025-09-12 14:28 | Outpatient (BNVA) | payer OTHER, SELFPAY | PROVIDERS: PCP Internal Medicine; Visit Provider Surgery | DX: K59.09 Other constipation (principal) | CPT/HCPCS: 99212 ==

== ENCOUNTER 2025-09-20 10:25 | Outpatient (AMB) | payer OTHER, SELFPAY ==
--- OUTSIDE RECORDS SUMMARY | 2025-09-20 10:31 | XMS_ITS | Clinical Summary ---
Author Organization [employer] Address [address] [place] [address] [address] [place] [address] Care Team Providers Care Cheese Cook Name Role Phone Unavailable Primary Care Provider [...]
[2025-09-20 10:33] VITALS: BP 128/68; PULSE 68; TEMP 36.2; O2SAT 97; BMI 29.8
--- NOTE | 2025-09-20 10:33 | MHC.PC.OV ---
Vital Signs 09/20/25 10:33 Height 5 ft 2 in Weight 163 lb 2 oz BMI 29.8 BP 128/68 Blood Pressure Location Rt brachial Position Sitting Pulse 68 Pulse Source Pulse Oximeter Temp 97.1 F Temp Source Temporal Artery Scan Pulse Oximetry (%) 97 Oxygen Delivery Method Room Air Intake Visit Reasons: Follow Up- due for repeat A1C Allergies JOI Inhibitors Allergy (Intermediate, Verified 09/20/25 10:35) Cough cephalexin (Keflex) Allergy (Intermediate, Verified 09/20/25 10:35) rash codeine (Codeine) Allergy (Intermediate, Verified 09/20/25 10:35) RASH VOMTING- APAP W/ CODEINE, vomiting gemfibrozil (GEMFIBROZIL) Allergy (Intermediate, Verified 09/20/25 10:35) RASH metformin (METFORMIN) Allergy (Intermediate, Verified 09/20/25 10:35) DIARRHEA morphine (Morphine) Allergy (Intermediate, Verified 09/20/25 10:35) HIVES, rash, rash naproxen Allergy (Intermediate, Verified 09/20/25 10:35) inadequate response sulfamethoxazole (From Bactrim) Adverse Reaction (Intermediate, Verified 09/20/25 10:35) nausea tirzepatide (From Mounjaro) Adverse Reaction (Intermediate, Verified 09/20/25 10:35) constipation trimethoprim (From Bactrim) Adverse Reaction (Intermediate, Verified 09/20/25 10:35) nausea jardiance Adverse Reaction (Intermediate, Uncoded 09/20/25 10:35) vulvar pruritus Tobacco use date assessed: 09/20/25 Fall risk assessment: No Falls in past year Last assessed Fall Risk: 09/20/25 Dental Screening Dental Screen Date: 09/20/25 Did you have a dental visit in the last 12 months?: No Did you have a dental problem in the last 6 months where you did not have access to dental care?: No Was dental information given to patient?: No HPI HPI Comments History of Present Illness Details History of Present Illness The patient is a 64-year-old female presenting for follow-up of multiple chronic conditions, including colitis and constipation. Her past medical history is significant for being overweight, hypercholesterolemia, hypertension, GERD, hepatic steatosis, lumbar degenerative disc disease, generalized anxiety disorder, and obstructive sleep apnea for which she is not on CPAP. Regarding her gastrointestinal health, her last colonoscopy in July 2025 revealed a tubular adenoma of the colon, and she was advised to repeat the procedure in one year. She has been seen by a surgeon for chronic constipation and by gastroenterology for radicular disease and GERD. She declined a surgical intervention for constipation that would have required a colostomy bag. She has a history of type 2 diabetes mellitus and is on insulin Tresiba and Novolog. Her most recent hemoglobin A1c is 8.6%. Blood work from April 2025 showed mild thrombocytosis with a normal blood count and good renal function; her liver enzymes were mildly elevated at 44, which is a chronic finding. In her gynecologic history, she underwent an endometrial curettage on May 29. She was recently prescribed an antibiotic by her cell attendant for suspected bacterial vaginosis but has not taken it due to multiple known antibiotic allergies and concerns about the medication. Her mammogram is up to date. She also reports a trigger finger causing functional difficulties and a history of neck/ear pain from an old injury, previously treated with physical therapy and cortisone shots, which is now recurring and painful, especially when trying to sleep. Health Maintenance The patient was advised to get a repeat colonoscopy next year, as previously recommended. Social History - Functional Status: The patient feels overwhelmed by her multiple health problems and numerous medical appointments, which she utilizes a transportation service to attend. - She notes her trigger finger impairs her ability to perform daily activities such as doing dishes. - Nutrition: The patient states she is hardly eating. - She has been counseled on a healthy, no-fat diet with increased fiber and salads. - Exercise: She reports trying to exercise by moving around in the hallway. - She has been counseled on the need to move more to facilitate weight loss. Results - Labs (Current): Hemoglobin A1c is 8.6%. - Liver enzymes are mildly elevated at 44. - Labs (April 2025): Blood work showed mild thrombocytosis with a normal overall blood count and good renal function. [facility] Medical History Type 2 diabetes mellitus Pelvic pain Headache Vaginal dryness Acute vaginitis Encounter for annual routine gynecological examination Dizzy Tinea corporis Hx of flexible sigmoidoscopy Herpes, genital Dysuria Breast cancer screening by mammogram Diarrhea Otitis externa Neck discomfort Overweight (BMI 25.0-29.9) Overweight Low back pain Abdominal pain Potential exposure to STD Dyspareunia in female Problematic vaginal discharge Candidal intertrigo Obesity (BMI 30-39.9) Right upper quadrant pain Fatty liver Osteopenia Insomnia Gallbladder polyp GERD (gastroesophageal reflux disease) Hypercholesterolemia Anxiety and depression Intertrigo Breast density H. pylori infection Essential hypertension Migraine ARISTEO on CPAP Arthritis History of panic attacks Vitamin D deficiency Hx of irritable bowel syndrome Enlarged thyroid Fibromyalgia Asthma Hypertension Herpes genitalis Hx of ectopic Surgical History Hx of dilation and curettage History of esophagogastroduodenoscopy (EGD) H/O colonoscopy S/P repair of ventral hernia Hx of bariatric surgery Hx of cholecystectomy Hx of unilateral oophorectomy Family History Sister Hx of diabetes mellitus Hx of myocardial infarction Father Hx of myocardial infarction Daughter Cancer Sister Hx of diabetes mellitus Social History Household Members: None Housing: Apartment Alcohol intake: former Patient Tobacco Use Status: Former Tobacco user Tobacco use type: Cigarette Cigarette Packs Per Day: 2 Years Smoked: 20 quit 2008 e-Cigarette/Vaping Use: Never Used Second Hand Smoke Exposure: Yes service: No Current occupational status: disabled Gender identity: Female Cognitive needs: No Hearing needs: No Vision needs: Yes Female Reproductive History Menstrual Age of Menarche: 8 Questionnaire PHQ-9 Over the last 2 weeks, how often have you been bothered by any of the following problems? 1. Little interest or pleasure in doing things: not at all 2. Feeling down, depressed, or hopeless: several days 3. Trouble falling or staying asleep, or sleeping too much: several days 4. Feeling tired or having little energy: several days 5. Poor appetite or overeating: several days 6. Feeling bad about yourself - or that you are a failure or have let yourself or your family down: not at all 7. Trouble concentrating on things, such as reading the newspaper or watching television: not at all 8. Moving or speaking so slowly that other people could have noticed. Or the opposite - being so fidgety or restless that you have been moving around a lot more than usual: not at all 9. Thoughts that you would be better off or of hurting yourself in some way: not at all Total score: 4 Source: Developed by Drs. Boston Jimenes, Halley Watkins, [employer] and colleagues, with an educational jasmina from [employer]. Thrive Questionnaire Date Thrive assessed: 05/17/25 I am a: Patient What is your living situation today?: I have a steady place to live Within the past 12 months, did the food you bought not last and you didn't have the money to get more?: Sometimes True Within the past 12 months, did you worry whether your food would run out before you got money to buy more?: Sometimes True Do you have trouble paying for medicines?: No Do you have trouble getting transportation to medical appointments?: No Do you have trouble paying your heating and electricity bill?: No Do you have trouble taking care of your child, family member or friend?: No Do you have trouble with day-to-day activities such as bathing, preparing meals, shopping, managing finances, etc.?: No Are you currently unemployed and looking for a job?: No Are you interested in more education?: No Currently or been in a relationship where the following occur: I choose not to answer THRIVE Score: 2 AUDIT C Alcohol Use Questionnaire (AUDIT-C) 1. How often do you have a drink containing alcohol?: Never 3. How often do you have six or more drinks on one occasion?: Never Total Score: 0 ANJEL-7 AMB Questionnaire ANJEL-7 Date ANJEL - 7 assessed: 05/22/25 Feeling nervous, anxious, or on edge: 0 = Not at all Not being able to stop or control worryin = Not at all Worrying too much about different things: 0 = Not at all Trouble relaxin = Not at all Being so restless that it is hard to sit still: 0 = Not at all Becoming easily annoyed or irritable: 0 = Not at all Feeling afraid as if something awful might happen: 0 = Not at all Total ANJEL-7 score (0-4 normal; 5-9 mild; 10-14 moderate; 15-21 severe): 0 Source: Developed by Halley Mondragon Kurt Kroenke and colleagues, with an educational jasmina from [employer]. Review of Systems Narrative Review of Systems - General: Reports being overweight. - Reports sweating easily. - HEENT: Reports ear pain in the past, with current symptoms of her ear going boom. - Reports dry mouth. - Reports recent sore throat and neck gland pain. - Gastrointestinal: Reports chronic constipation. - Musculoskeletal: Reports a painful trigger finger that affects daily activities. - Reports recurring pain in the neck/ear area from an old injury that makes it difficult to sleep on that side. - Psychiatric: Reports feeling overwhelmed with her health problems and appointments. - Integumentary: Reports having a fungal infection. Physical exam (Primary Care) Vital Signs: Last Vital Signs Temp 97.1 F 09/20/25 10:33 Pulse 68 09/20/25 10:33 BP 128/68 09/20/25 10:33 Pulse Ox 97 09/20/25 10:33 Oxygen Delivery Method Room Air 09/20/25 10:33 BMI result Body Mass Index 29.8 Tobacco/Smoking Status: Tobacco use Status Tobacco use date assessed 09/20/25 09/20/25 10:38 Patient Tobacco Use Status Former Tobacco user 09/20/25 10:38 Tobacco use type Cigarette 09/20/25 10:38 e-Cigarette/Vaping Use Never Used 09/20/25 10:38 PHQ-9: PHQ-9 Score PHQ-9: Total score 4 09/20/25 10:59 Thrive Assessment: Date of Thrive Assessment Date Thrive assessed 05/17/25 09/20/25 10:38 Currently or been in a relationship where the following occur: I choose not to answer Narrative Physical Exam - Constitutional: Appearance of an overweight female. - HEENT: Ears: No tenderness on palpation. - Mouth/Pharynx: Oropharynx appears dry. - Throat is non-erythematous. - Respiratory: Lungs are clear to auscultation bilaterally. Const General: alert; No acute distress Eyes Conjunctivae: conjunctivae normal Resp Auscultation: clear to auscultation bilaterally Cardio Rate: regular rate Rhythm: regular rhythm GI Inspection: Yes normal to inspection Extrem General: Yes normal to inspection and No edema Results AMB Hemoglobin A1c AMB Hemoglobin A1c 8.6 % Last Edit by Debora Moreau CMA on 09/20/25 10:41 Results Reviewed Results Reviewed: Laboratory Last Values Hgb A1c (Clinic) 8.6 % (4.0-6.0) H 09/20/25 10:38 Coding Level of Care Code Est Pt Level 4 (09003) Add On Problem Visit Only Diagnoses Type 2 diabetes mellitus with hyperglycemia E11.65 Essential hypertension I10 Hypercholesterolemia E78.00 Gastroesophageal reflux disease without esophagitis K21.9 Esophagitis presence: without esophagitis NAFLD (nonalcoholic fatty liver disease) K76.0 Chronic constipation K59.09 Tubular adenoma of colon D12.6 Assessment & Plan Assessment & Plan (1) Type 2 diabetes mellitus with hyperglycemia: Code(s): E11.65 - Type 2 diabetes mellitus with hyperglycemia Category: Medical Plan: Decrease the amount of carbohydrate intake, pasta, bread, rice and potatoes are all sugar and that is aside from all the sweet stuff, remember that fruits are good but they are Sweet also. Hemoglobin A1c goal of less than 6.5. Patient is on insulin Tresiba and NovoLog (2) Essential hypertension: Code(s): I10 - Essential (primary) hypertension Category: Medical Plan: Continue with blood pressure medication. Decrease salt intake and exercise on losartan 25 mg once a day (3) Hypercholesterolemia: Code(s): E78.00 - Pure hypercholesterolemia, unspecified Category: Medical Plan: Avoid fried foods, chicken skin, eggs, butter margarine, pastries and meat. Be it pork or beef they have a lot of cholesterol LDL goal of less than 100 and triglyceride of less than 150 patient is requested to have blood work (4) GERD (gastroesophageal reflux disease): Code(s): K21.9 - Gastro-esophageal reflux disease without esophagitis Category: Medical Qualifiers: Esophagitis presence: without esophagitis Qualified Code(s): K21.9 - Gastro-esophageal reflux disease without esophagitis Plan: Avoid the foods that causes that usually spicy foods, tomato products, juices, coffee, soda and foods that your sensitive to. After eating do not lie down, allow 3-4 hours before in lie down. And keep the head of bed above 30 degrees to avoid the acid from going up. (5) NAFLD (nonalcoholic fatty liver disease): Comment: A good weight, glucose and lipid-continue to abstain from alcohol Code(s): K76.0 - Fatty (change of) liver, not elsewhere classified Category: Medical Plan: Low-fat diet and exercise (6) Chronic constipation: Comment: Diabetes, not well controlled, likely plays a role Due for colonoscopy, declines at this time-due to severe constipation Code(s): K59.09 - Other constipation Category: Medical Plan: Three rules for constipation 1. Diet need to have a high fiber diet less of meat 2. Increase oral fluids 3. Exercise (7) Tubular adenoma of colon: Comment: Over Due for polyp surveillance, 08/15/2024 1 year Code(s): D12.6 - Benign neoplasm of colon, unspecified Category: Medical Plan: Patient was advised to get a retesting next year Plan Plan Patient was informed and verbally consented to the use of an ambient scribe for clinic note documentation during this visit. 1. Diabetes Mellitus The patient's hemoglobin A1c is 8.6%, significantly above the goal of less than 6.5%. This poor glycemic control is a barrier to potential surgeries due to impaired healing and increased infection risk. The patient will continue her current regimen of insulin Tresiba and Novolog. The patient was strongly advised to schedule an appointment with endocrinology for assistance with diabetes management, and she was provided with their contact number. Emphasis was placed on lifestyle modifications, including diet changes, exercise, and weight loss. 2. Hypertension The patient will continue her current medication, losartan 25 mg once a day, for blood pressure control. 3. Hypercholesterolemia The patient was requested to have blood work done to monitor her cholesterol levels, with an LDL goal of less than 100 mg/dL and triglyceride goal of less than 150 mg/dL. She was advised to follow a no-fat diet and exercise. 4. Chronic Constipation The patient was advised to manage her chronic constipation by increasing her intake of water and fiber, such as Citrucel. 5. Gastroesophageal Reflux Disease The plan for GERD will be continued. 6. Bacterial Vaginosis The patient reports being prescribed an antibiotic, likely metronidazole, by her cell attendant for bacterial vaginosis. She was educated that metronidazole is not listed as one of her allergies and that it is the standard treatment for BV. She was advised to discuss her concerns with the prescribing provider. 7. Trigger Finger For her trigger finger, the patient was advised that an talent acquisition specialist can help manage this condition. Discussion Notes I had an extensive discussion with the patient regarding the critical need to improve her blood sugar control. I explained that her current hemoglobin A1c of 8.6% is dangerously high and is the primary reason surgeons will not perform any elective procedures, as it significantly impairs wound healing and increases the risk of infection. I strongly recommended she follow up with an specialist icu for help, noting that previous referrals have been made without a scheduled appointment; I provided her with the contact number again to facilitate this. We reviewed the importance of lifestyle modifications, including a diet focused on salads and fiber, adequate water intake, and regular exercise to help with both blood sugar control and weight loss. I also discussed her other chronic conditions, including the plan to check her cholesterol with new labs, continue her hypertension medication, and manage constipation with dietary changes. Regarding her new diagnosis of bacterial vaginosis from her [employer], I explained the condition and clarified that the likely treatment is not on her known allergy list. I advised her that orthopedics could address her painful trigger finger. Patient Instructions - Your most important health goal right now is to lower your blood sugar. - Your A1c is 8.6%, which is too high and makes it unsafe for you to have surgery and harder for your body to heal and fight infections. - Please call the endocrinology (software applications specialist) office to make an appointment. - We need their help to get your sugars under better control. - You need to get blood work done to check your cholesterol levels. - To help with your diabetes, weight, and constipation, please eat more salads, increase fiber, drink plenty of water, and move your body with regular exercise. - Continue taking your current medications for blood pressure and diabetes. - Remember that you are due for a repeat colonoscopy next year. - For your painful finger, you can see an orthopedic doctor. - If you are worried about the antibiotic from your [employer] doctor, please call their office to discuss your concerns. Orders: Orders AMB Hemoglobin A1c Today Z13.9 - Encounter for screening, unspecified
== END 2025-09-20 11:18 | disposition home or self-care (01) ==
LOC: HO.HMCH 10:26
PROVIDERS: PCP Internal Medicine; Visit Provider Internal Medicine
DX: E11.65 Type 2 diabetes mellitus with hyperglycemia (principal); I10 Essential (primary) hypertension; E78.00 Pure hypercholesterolemia, unspecified; K21.9 Gastro-esophageal reflux disease without esophagitis; K76.0 Fatty (change of) liver, not elsewhere classified; K59.09 Other constipation; D12.6 Benign neoplasm of colon, unspecified; Z13.9 Encounter for screening, unspecified

== ENCOUNTER → 2025-09-20 10:25 | Outpatient (BNVA) | payer OTHER, SELFPAY | PROVIDERS: PCP Internal Medicine; Visit Provider Internal Medicine | DX: E11.65 Type 2 diabetes mellitus with hyperglycemia (principal); I10 Essential (primary) hypertension; E78.00 Pure hypercholesterolemia, unspecified; K21.9 Gastro-esophageal reflux disease without esophagitis; K76.0 Fatty (change of) liver, not elsewhere classified; K59.09 Other constipation; D12.6 Benign neoplasm of colon, unspecified | CPT/HCPCS: 83036; 96127; 99212 ==